=== PATIENT | female | born 1940 | race African-American/Black ===

== ENCOUNTER 2017-08-14 | Inpatient (IN) | payer MEDICARE, OTHER ==
[~2017-08-14] VITALS: Ht 172.7 cm; Wt 186.4 kg
[2017-08-14] VITALS (10 sets, daily range): BP systolic 106–140; BP diastolic 51–69; PULSE 57–88; RESP 17–24; TEMP 96.7–98.4; O2SAT 96–100
[~2017-08-14] MED LIST: ACET325 PO; ATOR40TA PO; CLAR10TA7 PO; DEEP0.65 EACH NARE; DOCU1CAP39 PO; GLIP5 PO; GLUC1KIT IM; HUMA100I SQ; HUMSS SQ; HYDR12.56 PO; KEPP1000 PO; KETO2%T TOP; LEVEMIR SQ; LEVO100T4 PO; LISI2.5T55 PO; MILKSUS5 PO; PHEN100 PO; PLAV75TA PO; ROBISYP PO; [UNRECOGNIZED DRUG - CODE] TOPICAL
[2017-08-14] MEDS ORDERED: levETIRAcetam 1000 MG INJ 100 ML IV ONE (01:15)
--- NOTE | 2017-08-14 01:19 | PD ---
HPI Chief Complaint: Seizure Time Seen by Provider: 01:05 Travel History International Travel<30 days: No Contact w/Intl Traveler<30days: No Traveled to known affect area: No History of Present Illness HPI 77-year-old female was brought in by EMS from local [facility] after having seizure at the facility this evening.. Patient has history of seizure. skilled nursing staff reported patient has been spitting out her Keppra today. Patient is on high dose of Keppra including 1000 mg in the morning and 1500 mg at 4 PM. Patient also has history of diabetes, atrial fibrillation, hypertension, PE. Patient is on Plavix. No reported fever coughing congestion at the facility. No reported vomiting or diarrhea. PFSH Past Medical History Arthritis: Yes Asthma: No Atrial Fibrillation: Yes Blood Disorders: Yes (HX OF PE) Heart Rhythm Problems: Yes (A FIB) Cancer: No Cardiovascular Problems: Yes High Cholesterol: No Chest Pain: No Congestive Heart Failure: No COPD: No Diabetes: Yes Patient Takes Glucophage: No Endocrine: Yes Gastrointestinal Disorders: No Genitourinary: No Hypertension: Yes Immune Disorder: No Implanted Vascular Access Dvce: No Musculoskeletal: Yes Neurologic: Yes (NUMBNESS TINGLING) Psychiatric: No Reproductive: No Respiratory: Yes (H/O 2 PULMONARY EMBOLISMS) Immunizations Current: Yes Sleep Apnea: No Thyroid Disease: No Tetanus Vaccination: Unknown Influenza Vaccination: Yes Menopausal: Yes Past Surgical History Abdominal Surgery: No Cardiac Surgery: No Ear Surgery: No Endocrine Surgery: No Eye Surgery: No Genitourinary Surgery: No Gynecologic Surgery: No Neurologic Surgery: No Oral Surgery: No Pacemaker: No Thoracic Surgery: No Other Surgery: Yes Social History Alcohol Use: No Tobacco Use: No Substance Use: No Allergies-Medications (Allergen,Severity, Reaction): Coded Allergies: No Known Allergies (Verified , 08/14/17) Reported Meds & Prescriptions Reported Meds & Active Scripts Active Bactrim DS (Sulfamethoxazole-Trimethoprim) 800-160 Mg Tab 1 Tab PO BID Keppra (Levetiracetam) 1,000 Mg Tab 1,500 Mg PO DAILY@1600 30 Days Keppra (Levetiracetam) 1,000 Mg Tab 1,000 Mg PO DAILYAC 30 Days Reported [Ketocon/Desoximet Cr] 1 Applic TOPICAL Q12 PRN KETOCONAZOLE 2% CREAM/DESOXIMETASONE APPLY TO BILAT FEET NEEDED Tylenol (Acetaminophen) 325 Mg Tab 650 Mg PO Q6H PRN Claritin (Loratadine) 10 Mg Tab 10 Mg PO DAILY PRN Milk Of Magnesia (Magnesium Hydroxide) 1 Yesenia Yesenia 30 Ml PO DAILY PRN Deep Sea Nasal [place]yhanna (Saline) 0.65 % Spr 1 [place]anna EACH NARE Q12 PRN Nizoral (Ketoconazole) 2 % Cr 1 Applic TOP HS PRN APPLY TO RT BREAST Guaifenesin 100 Mg/5 Ml Syp 10 Ml PO Q6 PRN Levothyroxine 100 mcg (Levothyroxine Sodium) 100 Mcg Tab 100 Mcg PO DAILY Humalog (Insulin Human Lispro) 100 Unit/Ml Inj 7 Units SQ DAILY Levemir Insulin (Insulin Detemir) 100 Units/Ml Inj 5 Units SQ DAILY GIVE AT 1800 Glucagon Emergency Kit (Glucagon (Rdna)) 1 Mg Kit 1 Mg IM PRN Lisinopril 2.5 mg (Lisinopril) 2.5 Mg Tab 2.5 Mg PO DAILY HOLD IF SBP < 100 OR DPB < 60 Hydrochlorothiazide (Miscellaneous Medication) 12.5 Mg Tab 12.5 Mg PO DAILY HOLD IF SBP < 100 OR DBP < 60 Atorvastatin 40 mg (Atorvastatin Calcium) 40 Mg Tab 40 Mg PO HS Dilantin 100 Mg Kapseals (Phenytoin Sodium) 100 Mg Caper 200 Mg PO BID Glipizide 5 Mg Tab 5 Mg PO TIDAC Plavix (Clopidogrel Bisulfate) 75 Mg Tab 75 Mg PO DAILY Colace 100 Mg Cap (Docusate Sodium) 100 Mg Cap 100 Mg PO Q12 PRN Humalog 3 ml vial (Insulin Human Lispro) 100 Units/Ml Inj 0-12 Units SQ TIDACHS PRN SLIDING SCALE: IF CBG < 70MG/DL OR > 400MG/DL NOTIFY IMMEDIATELY, 0-69=O UNITS & NOTIFY MD, 70-200=0 UNITS, 201-250=4 UNITS, 251-300=6 UNITS, 301-350=10 UNITS, 351-400=12 UNITS, > 400=15 UNITS & NOTIFY MD Review of Systems General / Constitutional: No: Fever Eyes: No: Visual changes HENT: No: Headaches Cardiovascular: No: Chest Pain or Discomfort Respiratory: No: Shortness of Breath Gastrointestinal: No: Abdominal Pain Genitourinary: No: Dysuria Musculoskeletal: No: Pain Skin: No Rash Neurologic: No: Weakness Psychiatric: No: Depression Endocrine: No: Polydipsia Hematologic/Lymphatic: No: Easy Bruising Physical Exam Narrative GENERAL: Well-nourished, well-developed patient. SKIN: Focused skin assessment warm/dry. HEAD: Normocephalic. EYES: No scleral icterus. No injection or drainage. NECK: Supple, trachea midline. No JVD or lymphadenopathy. CARDIOVASCULAR: Regular rate and rhythm without murmurs, gallops, or rubs. RESPIRATORY: Breath sounds equal bilaterally. No accessory muscle use. GASTROINTESTINAL: Abdomen soft, non-tender, nondistended. MUSCULOSKELETAL: No cyanosis, or edema. BACK: Nontender without obvious deformity. No CVA tenderness. Neurologic exam: Patient lying in bed not communicating. Data Data Last Documented VS Vital Signs Date Time Temp Pulse Resp B/P (MAP) Pulse Ox O2 Delivery O2 Flow Rate FiO2 08/14/17 01:38 78 22 120/58 (78) 98 Nasal Cannula 2.00 08/14/17 00:13 98.1 Orders Orders Complete Blood Count With Diff (08/14/17 01:11) Basic Metabolic Panel (Bmp) (08/14/17 01:11) Urinalysis - C+S If Indicated (08/14/17 01:11) Magnesium (Mg) (08/14/17 01:11) Phosphorus (Po4) (08/14/17 01:11) Iv Access Insert/Monitor (08/14/17 01:11) Ecg Monitoring (08/14/17 01:11) Oximetry (08/14/17 01:11) Levetiracetam 1000 Mg Inj (Keppra 1000 M (08/14/17 01:15) Urine Culture (08/14/17 02:45) Sulfamet-Trimeth Ds 800-160 Mg (Bactrim (08/14/17 03:30) Lorazepam Inj (Ativan Inj) (08/14/17 03:22) Labs Laboratory Tests Test 08/14/17 01:38 08/14/17 02:45 Blood Urea Nitrogen 12 MG/DL Creatinine 0.87 MG/DL Random Glucose 261 MG/DL Calcium Level 8.4 MG/DL Phosphorus Level 2.5 MG/DL Magnesium Level 1.9 MG/DL Sodium Level 135 MEQ/L Potassium Level 5.0 MEQ/L Chloride Level 102 MEQ/L Carbon Dioxide Level 28.8 MEQ/L Anion Gap 4 MEQ/L Estimat Glomerular Filtration Rate 76 ML/MIN White Blood Count 8.0 TH/MM3 Red Blood Count 3.65 MIL/MM3 Hemoglobin 9.2 GM/DL Hematocrit 30.0 % Mean Corpuscular Volume 82.1 FL Mean Corpuscular Hemoglobin 25.1 PG Mean Corpuscular Hemoglobin Concent 30.6 % Red Cell Distribution Width 20.1 % Platelet Count 210 TH/MM3 Mean Platelet Volume 6.8 FL Neutrophils (%) (Auto) 78.7 % Lymphocytes (%) (Auto) 10.8 % Monocytes (%) (Auto) 10.0 % Eosinophils (%) (Auto) 0.4 % Basophils (%) (Auto) 0.1 % Neutrophils # (Auto) 6.3 TH/MM3 Lymphocytes # (Auto) 0.9 TH/MM3 Monocytes # (Auto) 0.8 TH/MM3 Eosinophils # (Auto) 0.0 TH/MM3 Basophils # (Auto) 0.0 TH/MM3 CBC Comment DIFF FINAL Differential Comment Urine Color YELLOW Urine Turbidity HAZY Urine pH 5.5 Urine Specific [place] 1.021 Urine Protein 100 mg/dL Urine Glucose (UA) 70 mg/dL Urine Ketones NEG mg/dL Urine Occult Blood LARGE Urine Nitrite NEG Urine Bilirubin NEG Urine Urobilinogen 2.0 MG/DL Urine Leukocyte Esterase NEG Urine RBC /hpf Urine WBC 19 /hpf Urine Squamous Epithelial Cells 2 /hpf Urine Bacteria MOD /hpf Urine Hyaline Casts 25 /lpf Urine Granular Casts 23 /lpf Urine Mucus FEW /lpf Microscopic Urinalysis Comment CULTURE INDICATED MDM Medical Decision Making Medical Screen Exam Complete: Yes Emergency Medical Condition: Yes Interpretation(s) 3:12 AM. CBC with WBC 8.0. Hemoglobin 9.2 hematocrit 30.0. 78 neutrophil. BMP within normal limit. Glucose 261. UA positive with WBC and bacteria. Differential Diagnosis Differential diagnosis including breakthrough seizure, electrolyte abnormality. Narrative Course 77-year-old female was brought in by EMS from local half-way for seizure. History of seizure. Patient did not take her medication Keppra today. Keppra 1 g IV given. Rocephin 1 g IV given. Patient had another seizure in the ED. Diagnosis Primary Impression: Breakthrough seizure Additional Impression: UTI (urinary tract infection) Qualified Codes: N30.00 - Acute cystitis without hematuria Patient Instructions: General Instructions Leroy Rubio MD Aug 14, 2017 01:19
[2017-08-14 02:01] LABS: BICARBONATE 28.8 MEQ/L (21.0-32.0); MAGNESIUM 1.9 MG/DL (1.5-2.5)
[2017-08-14 02:59] LABS: AUTOMATED NEUTROPHIL # 6.3 TH/MM3 (1.8-7.7); BASOPHIL % 0.1 % (0.0-2.0); EOSINOPHIL % 0.4 % (0.0-4.0); HEMO FLAGS DIFF FINAL; LYMPH % 10.8 % (9.0-44.0); LYMPHOCYTE # 0.9 TH/MM3 (1.0-4.8); MEAN CELL VOLUME 82.1 FL (80.0-100.0); MEAN CORPUSCULAR HEMOGLOBIN 25.1 PG (27.0-34.0); MEAN CORPUSCULAR HGB CONC 30.6 % (32.0-36.0); NEUT % 78.7 % (16.0-70.0); PLATELET COUNT 210 TH/MM3 (150-450); RED BLOOD COUNT 3.65 MIL/MM3 (4.00-5.30); RED CELL DISTRIBUTION WIDTH 20.1 % (11.6-17.2)
[2017-08-14 03:07] LABS: BACTERIA, URINE MOD /hpf; BLOOD, URINE LARGE (NEG); COMMENT (UR) CULTURE INDICATED; CULTURE IF INDICATED CULTURE INDICATED; GLUCOSE,URINE 70 mg/dL (NEG); GRANULAR CAST, URINE 23 /lpf; HYALINE CAST, URINE 25 /lpf (RARE); KETONE, URINE NEG (NEG); MUCUS URINE FEW /lpf (OCC); NITRITE,URINE NEG (NEG); PH, URINE 5.5 (5.0-8.5); SQUAMOUS EPITHELIAL CELL URINE 2 /hpf (0-5); URINE COLOR YELLOW (YELLW/STRAW)
[2017-08-14] MEDS ORDERED: BACT800T5 PO (03:17)
[2017-08-14] MEDS ORDERED: LORazepam 2 MG/ML VIAL ONE (03:22)
[2017-08-14] MEDS ORDERED: cefTRIAXone INJ 1,000 MG in SODIUM CHLORIDE 0.9% INJ 100 ML IV ONE (03:30)
[2017-08-14] MEDS ORDERED: SULFAMETHOXAZOLE-TRIMETHOPRIM DS 800-160 MG TAB PO ONE (03:30)
[2017-08-14] MEDS ORDERED: LORazepam 2 MG/ML VIAL IV PUSH ONE (03:45)
[2017-08-14] MEDS ORDERED: SENNOSIDES 8.6 MG TAB PO PRN (04:15)
[2017-08-14] MEDS ORDERED: ACETAMINOPHEN 325 MG TAB PO PRN (04:15)
[2017-08-14] MEDS ORDERED: LACTULOSE SYRUP 20 GM/30 ML CUP PO PRN (04:15)
[2017-08-14] MEDS ORDERED: SODIUM CHLORIDE 0.9% FLUSH 10 ML FLUSH IV FLUSH PRN (04:15)
[2017-08-14] MEDS ORDERED: NALOXONE HCL 0.4 MG/ML AMP IV PUSH PRN (04:15)
[2017-08-14] MEDS ORDERED: MAGNESIUM HYDROXIDE SUSP 30 ML CUP PO PRN (04:15)
[2017-08-14] MEDS ORDERED: ONDANSETRON HCL 4 MG/2 ML VIAL IVP PRN (04:15)
[2017-08-14] MEDS ORDERED: GLUCAGON 1 MG/ML VIAL OTHER PRN (04:15)
[2017-08-14] MEDS ORDERED: DEXTROSE 50% IN WATER 50 ML VIAL(D50) IV PUSH PRN (04:15)
[2017-08-14] MEDS ORDERED: BISACODYL 10 MG SUPP RECTAL PRN (04:15)
[2017-08-14] MEDS: INSULIN ASPART SUPPLEMENTAL SCALE SQ SCH ×4 (08:00→21:43)
[2017-08-14] MEDS ORDERED: LEVETIRACETAM 1000 MG PO SCH (08:00)
[2017-08-14] MEDS: LEVOTHYROXINE SODIUM 100 MCG TAB PO SCH (09:32)
[2017-08-14] MEDS: PHENYTOIN SODIUM 100 MG CAP PO SCH ×2 (09:32→21:43)
[2017-08-14] MEDS: DOCUSATE SODIUM 50 MG/SENNA 8.6 MG TAB PO SCH ×2 (09:33→21:43)
[2017-08-14] MEDS: CLOPIDOGREL 75 MG TAB PO SCH (09:33)
[2017-08-14] MEDS: SODIUM CHLORIDE 0.9% FLUSH 10 ML FLUSH IV FLUSH SCH ×2 (09:33→18:32)
--- NOTE | 2017-08-14 12:32 | MB ---
cc: PILLO BROCK M.D. DATE OF CONSULTATION 08/14/2017 REASON FOR CONSULTATION She is a 77-year-old woman seen in neurological consultation in regards to seizures. She is a detention resident apparently for the past three years. She takes Keppra and Dilantin. The Keppra dose appears to be 1000 mg in the morning and 1500 mg in the evening. Dilantin dose is not quite clear as she tells me she is taking two capsules three times a day. Reportedly, she is taking two capsules of 200 mg twice a day here in the hospital. Yesterday, apparently after spitting out her seizure medications, she had a seizure and she was brought to the hospital lethargic. She was given Keppra one gram intravenous along with Rocephin. She has a history of atrial fibrillation, diabetes and morbid obesity. She also has history of pulmonary embolism. MEDICATIONS Medications includes: 1. Insulin 2. Plavix 3. Glipizide 4. Dilantin as above 5. Atorvastatin 6. HCTZ 7. Lisinopril 8. Levothyroxine PHYSICAL EXAM On exam, the patient was asleep, but awakened. She was oriented, knew the name of the place and knows her age and provides some background information. She is not sure as to why she is in the hospital. NEUROLOGIC: Her ocular movements were full. She moves slowly. She is morbidly obese. Visual ornelas full. 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 Muscle stretch reflexes were trace versus absent throughout. LABS Include: Serum WBC 8.0, hemoglobin 9.2, platelets 210. Sodium 135, potassium 5.0, BUN 12, creatinine 0.87, glucose 261, calcium 8.4. Dilantin level 1.2 and it is from the middle of the night. ASSESSMENT Apparent seizure recurrence. Reported poor compliance to the anticonvulsant medications. In the emergency room, she was given Keppra intravenous and her Dilantin was resumed, according to the nursing staff, the patient received 200 mg twice a day. I will order a bolus Dilantin dose due to her low level. Thank you for asking us to assist in her care. I will follow her with you. MD FLOR Nickerson/LOI /12:00 PM /12:16 PM
[2017-08-14] MEDS: LISINOPRIL 5 MG TAB PO SCH (12:39)
[2017-08-14] MEDS: HYDROCHLOROTHIAZIDE 12.5 MG CAP PO SCH (12:39)
[2017-08-14] MEDS ORDERED: SODIUM CHLORID 0.9% 500 ML INJ 500 ML IV SCH (13:00)
[2017-08-14] MEDS ORDERED: PHENYTOIN INJ 1,000 MG in SODIUM CHLORIDE 0.9% INJ 100 ML IV ONE (13:00)
[2017-08-14] MEDS: levETIRAcetam 500 MG TAB PO SCH (16:00)
--- NOTE | 2017-08-14 16:53 | MH ---
cc: ABIMAEL AMEZQUITA MD DATE OF ADMISSION 08/14/2017 DATE OF : [address] Gordon at nursing facility. REASON FOR ADMISSION Seizure. HISTORY OF PRESENT ILLNESS The patient is a 77-year old -[place]ish female with significant past medical history of morbid obesity and seizure disorder. The patient is not taking her medication regularly. The patient is refusing some and taking some and it is confirmed by charge nurse from the nursing facility who is in the room with her at present. As per nurse, she is noncompliant. The patient was brought to the ER because of seizure activity. She was admitted for further management because of the breakthrough seizure. The patient at present is having no complaint. Denies any problem. She usually does not walk. She is bed bound. She just does exercise. She denies any headache, dizziness, nausea, vomiting, chest pain, diaphoresis or palpitations. PAST MEDICAL HISTORY 1. Seizure disorder. 2. Diabetes 3. Atrial fibrillation 4. Hypertension. 5. Pulmonary embolism. MEDICATIONS Reviewed please see MAR. ALLERGIES NO KNOWN DRUG ALLERGIES. REVIEW OF SYSTEMS As described above in History of Present Illness. SOCIAL HISTORY The patient lives in a nursing facility, does not smoke, drink or do any drugs. Also she is wheelchair bound and she is bed bound because of morbid obesity and she does not walk. FAMILY HISTORY Noncontributory. PHYSICAL EXAMINATION GENERAL: The patient is alert and oriented, morbidly obese lying on bed without any apparent distress. VITAL SIGNS: The patient is afebrile, pulse is 56, respiratory rate 18, blood pressure 122/69, pulse ox of 99 on room air. HEENT: Head is atraumatic, normocephalic. Eyes - Negative conjunctivae, no icterus. NECK: Neck is very short because of her obesity. Central trachea. CHEST: Clear to auscultation. CARDIOVASCULAR: S1, S2 audible. Unable to hear any S3 gallop. GI: Abdomen soft, no organomegaly. Positive bowel sounds. MUSCULOSKELETAL: Extremities no cyanosis noted. There is pedal edema. SWITCHER: Alert and oriented. Normal facial features. Moving bilateral upper extremity and can move lower extremity on the bed, but as per patient she cannot walk. The patient has a Sanches catheter. SKIN: Warm and moist. PSYCHIATRIC: Appropriate mood and affect. The patient is morbidly obese. LABORATORY DATA Hemoglobin 9.2. Hematocrit 30, platelet count 210. Sodium 135. Anion gap 4, GFR 76, 261, calcium 8.4. UA shows WBC 19, moderate bacteria. Urine occult blood large, negative nitrates, negative esterase, RBCs innumerable. Dilantin level was 1.2. ASSESSMENT 1. Breakthrough seizures. 2. Urinary tract infection 3. Diabetes 4. History of atrial fibrillation, controlled heart rate. 5. Hypertension. 6. History of pulmonary embolism. PLAN 1. Admit to the floor. 2. Appreciate neurology consult. 3. Antibiotic 4. Antiseizure medication, Keppra and Dilantin. 5. Continue home medication as indicated. The patient is on Plavix 6. Monitor blood pressure. 7. Discussed with the patient about compliance issue in detail in presence of her son. She understood. Further recommendation to follow as per patient progress. Condition guarded, prognosis guarded. Dictation Abimael Ameqzuita MD JP/ /4:20 PM /4:32 PM
--- NOTE | 2017-08-14 21:07 | MG ---
cc: PILLO MCFADDEN M.D. Lab No: Date: 08/14/17 Age: 77 Sex: F Race: REQUESTING Dr. Leija HISTORY An EEG was obtained on this 77-year-old patient being evaluated for seizures. DESCRIPTION The patient is described as awake and drowsy. The EEG shows intermittent artifact but intermittently there are low amplitude beta rhythms diffusely. There is some associated alpha activity. The background is reactive. When the patient awakens there is dominance by alpha rhythms of low amplitude. There is often asleep recording. The tracing is symmetrical and photic stimulation showed no change. Hyperventilation was not performed. INTERPRETATION Normal awake and asleep EEG. Pillo Mcfadden MD OFC/EO /8:34 PM /9:01 PM
[2017-08-14] MEDS: ATORVASTATIN 40 MG TAB PO SCH (21:43)
[2017-08-15] VITALS: BP 107/67; PULSE 68; RESP 16; TEMP 98; O2SAT 97
[2017-08-15 04:00] VITALS: BP 112/63; PULSE 61; RESP 17; TEMP 97.7; O2SAT 98
[2017-08-15] MEDS: LEVOTHYROXINE SODIUM 100 MCG TAB PO SCH (05:08)
[2017-08-15 06:40] LABS: AUTOMATED NEUTROPHIL # 4.9 TH/MM3 (1.8-7.7); BASOPHIL % 0.3 % (0.0-2.0); EOSINOPHIL # 0.1 TH/MM3 (0-0.4); EOSINOPHIL % 1.8 % (0.0-4.0); HEMATOCRIT 32.2 % (35.0-46.0); HEMO FLAGS DIFF FINAL; LYMPH % 22.4 % (9.0-44.0); LYMPHOCYTE # 1.6 TH/MM3 (1.0-4.8); MEAN CELL VOLUME 82.4 FL (80.0-100.0); MEAN CORPUSCULAR HEMOGLOBIN 25.1 PG (27.0-34.0); MEAN CORPUSCULAR HGB CONC 30.4 % (32.0-36.0); MONO % 9.2 % (0.0-8.0); NEUT % 66.3 % (16.0-70.0); PLATELET COUNT 221 TH/MM3 (150-450); RED BLOOD COUNT 3.91 MIL/MM3 (4.00-5.30); RED CELL DISTRIBUTION WIDTH 19.8 % (11.6-17.2); WHITE BLOOD COUNT 7.3 TH/MM3 (4.0-11.0)
[2017-08-15 07:13] LABS: BICARBONATE 32.4 MEQ/L (21.0-32.0); POTASSIUM 4.5 MEQ/L (3.5-5.1)
[2017-08-15] MEDS: PHENYTOIN SODIUM 100 MG CAP PO SCH ×2 (07:58→20:52)
[2017-08-15] MEDS: LISINOPRIL 5 MG TAB PO SCH (07:58)
[2017-08-15] MEDS: CLOPIDOGREL 75 MG TAB PO SCH (07:58)
[2017-08-15] MEDS: DOCUSATE SODIUM 50 MG/SENNA 8.6 MG TAB PO SCH ×3 (07:59→21:00)
[2017-08-15] MEDS: HYDROCHLOROTHIAZIDE 12.5 MG CAP PO SCH (07:59)
[2017-08-15] MEDS: levETIRAcetam 500 MG TAB PO SCH ×2 (07:59→17:35)
[2017-08-15 08:00] VITALS: BP 129/47; PULSE 67; RESP 16; TEMP 98.8; O2SAT 95
[2017-08-15] MEDS: INSULIN ASPART SUPPLEMENTAL SCALE SQ SCH ×4 (08:00→20:53)
[2017-08-15] MEDS: cefTRIAXone INJ 1,000 MG in SODIUM CHLORIDE 0.9% INJ 100 ML IV SCH (08:00)
[2017-08-15] MEDS: SODIUM CHLORIDE 0.9% FLUSH 10 ML FLUSH IV FLUSH SCH ×2 (08:00→20:52)
--- NOTE | 2017-08-15 08:50 | HHI.PR ---
Review/Management Daily Summary 08/15 doing well neuro rivera no seizurwe dph level low after bolus will raise dose to 400 mg bid continue keppra as is Subjective Subjective Comments No acute events reported No headache No chest pain No dyspnea Active Medications Current Medications Medications (Trade) Dose Ordered Sig/Marilee Route Start Time Stop Time Status Last Admin (NS Flush) 2 ml UNSCH PRN IV FLUSH 08/14/17 04:15 (NS Flush) 2 ml BID IV FLUSH 08/14/17 09:00 08/15/17 08:00 (Tylenol) 650 mg Q4H PRN PO 08/14/17 04:15 (Zofran Inj) 4 mg Q6H PRN IVP 08/14/17 04:15 (Narcan Inj) 0.4 mg UNSCH PRN IV PUSH 08/14/17 04:15 (Katiuska-Colace) 1 tab BID PO 08/14/17 09:00 08/15/17 07:59 (Milk Of Magnesia Liq) 30 ml Q12H PRN PO 08/14/17 04:15 (Senokot) 17.2 mg Q12H PRN PO 08/14/17 04:15 (Dulcolax Supp) 10 mg DAILY PRN RECTAL 08/14/17 04:15 (Lactulose Liq) 30 ml DAILY PRN PO 08/14/17 04:15 Ceftriaxone Sodium 1000 mg/ Sodium Chloride 100 ml @ 200 mls/hr Q24H IV 08/15/17 09:00 08/15/17 08:00 (D50w (Vial) Inj) 50 ml UNSCH PRN IV PUSH 08/14/17 04:15 (Glucagon Inj) 1 mg UNSCH PRN OTHER 08/14/17 04:15 (NovoLOG SUPPLEMENTAL SCALE) 1 ACHS SLIDING SCALE SQ 08/14/17 08:00 08/14/17 21:43 (Plavix) 75 mg DAILY PO 08/14/17 09:00 08/15/17 07:58 (Synthroid) 100 mcg DAILY@0700 PO 08/14/17 07:00 08/15/17 05:08 (Lipitor) 40 mg HS PO 08/14/17 21:00 08/14/17 21:43 (Keppra) 1,500 mg DAILY@1600 PO 08/14/17 16:00 08/14/17 16:00 (Prinivil) 2.5 mg DAILY PO 08/14/17 09:00 08/15/17 07:58 (Microzide) 12.5 mg DAILY PO 08/14/17 09:00 08/15/17 07:59 (Keppra) 1,000 mg DAILYAC PO 08/15/17 08:00 08/15/17 07:59 (Pneumovax-23 Inj) 25 mcg ONCE ONCE IM 08/16/17 10:00 08/16/17 10:01 (Flu (Quadrivalent) Vaccine Inj) 0.5 ml ONCE ONCE IM 08/16/17 10:00 08/16/17 10:01 (Dilantin) 200 mg NOW ONCE PO 08/15/17 09:00 08/15/17 09:01 (Dilantin) 400 mg BID PO 08/15/17 21:00 Allergies Allergies Coded Allergies No Known Allergies ([id number]/17) Exam I&O / VS Vital Signs Date Time Temp Pulse Resp B/P (MAP) Pulse Ox O2 Delivery O2 Flow Rate FiO2 08/15/17 08:00 98.8 67 16 129/47 (74) 95 08/15/17 04:00 97.7 61 17 112/63 (79) 98 08/15/17 00:00 98.0 68 16 107/67 (80) 97 08/14/17 20:00 57 08/14/17 20:00 97.5 61 17 118/66 (83) 96 08/14/17 16:00 98.4 58 19 114/60 (78) 97 08/14/17 11:19 96.8 66 18 122/69 (86) 99 08/14/17 10:30 62 Objective Micro and Labs Laboratory Tests Test 08/15/17 05:21 White Blood Count 7.3 Red Blood Count 3.91 Hemoglobin 9.8 Hematocrit 32.2 Mean Corpuscular Volume 82.4 Mean Corpuscular Hemoglobin 25.1 Mean Corpuscular Hemoglobin Concent 30.4 Red Cell Distribution Width 19.8 Platelet Count 221 Mean Platelet Volume 7.1 Neutrophils (%) (Auto) 66.3 Lymphocytes (%) (Auto) 22.4 Monocytes (%) (Auto) 9.2 Eosinophils (%) (Auto) 1.8 Basophils (%) (Auto) 0.3 Neutrophils # (Auto) 4.9 Lymphocytes # (Auto) 1.6 Monocytes # (Auto) 0.7 Eosinophils # (Auto) 0.1 Basophils # (Auto) 0.0 CBC Comment DIFF FINAL Differential Comment Blood Urea Nitrogen 12 Creatinine 0.65 Random Glucose 166 Calcium Level 8.4 Magnesium Level 2.0 Sodium Level 137 Potassium Level 4.5 Chloride Level 100 Carbon Dioxide Level 32.4 Anion Gap 5 Estimat Glomerular Filtration Rate 107 Phenytoin (Dilantin) Level 6.5 Date/Time Source Procedure Growth Status 08/14/17 02:45 Urine Random Urine Urine Culture Pending Worksheet Loi Mcfadden MD Aug 15, 2017 08:50
[2017-08-15] MEDS ORDERED: PHENYTOIN SODIUM 100 MG CAP PO ONE (09:00)
--- NOTE | 2017-08-15 10:14 | HHI.PR ---
Subjective Remarks Patient is feeling better Offering no complaint No seizure No chest pain or palpitations or shortness of breath No nausea vomiting No headache or dizziness No abdominal pain Review of system for 10 point system otherwise unremarkable Objective Objective Results - Vital Signs Date Time Temp Pulse Resp B/P (MAP) Pulse Ox O2 Delivery O2 Flow Rate FiO2 08/15/17 08:00 98.8 67 16 129/47 (74) 95 08/15/17 04:00 97.7 61 17 112/63 (79) 98 08/15/17 00:00 98.0 68 16 107/67 (80) 97 08/14/17 20:00 57 08/14/17 20:00 97.5 61 17 118/66 (83) 96 08/14/17 16:00 98.4 58 19 114/60 (78) 97 08/14/17 11:19 96.8 66 18 122/69 (86) 99 08/14/17 10:30 62 I/O 08/14/17 08/14/17 08/14/17 08/15/17 08/15/17 08/15/17 07:00 15:00 23:00 07:00 15:00 23:00 Intake Total 180 ml 849 ml 240 ml Output Total 200 ml 150 ml Balance 180 ml 649 ml 90 ml Intake Oral 80 ml 240 ml 240 ml IV Total 100 ml 609 ml Output Urine Total 200 ml 150 ml Result Diagram: 08/15/1752008/15/17520 Other Results Laboratory Tests Test 08/15/17 05:21 White Blood Count 7.3 Red Blood Count 3.91 Hemoglobin 9.8 Hematocrit 32.2 Mean Corpuscular Volume 82.4 Mean Corpuscular Hemoglobin 25.1 Mean Corpuscular Hemoglobin Concent 30.4 Red Cell Distribution Width 19.8 Platelet Count 221 Mean Platelet Volume 7.1 Neutrophils (%) (Auto) 66.3 Lymphocytes (%) (Auto) 22.4 Monocytes (%) (Auto) 9.2 Eosinophils (%) (Auto) 1.8 Basophils (%) (Auto) 0.3 Neutrophils # (Auto) 4.9 Lymphocytes # (Auto) 1.6 Monocytes # (Auto) 0.7 Eosinophils # (Auto) 0.1 Basophils # (Auto) 0.0 CBC Comment DIFF FINAL Differential Comment Blood Urea Nitrogen 12 Creatinine 0.65 Random Glucose 166 Calcium Level 8.4 Magnesium Level 2.0 Sodium Level 137 Potassium Level 4.5 Chloride Level 100 Carbon Dioxide Level 32.4 Anion Gap 5 Estimat Glomerular Filtration Rate 107 Phenytoin (Dilantin) Level 6.5 Date/Time Source Procedure Growth Status 08/14/17 02:45 Urine Random Urine Urine Culture Pending Worksheet Physical Exam Physical Exam GENERAL: The patient is alert and oriented, morbidly obese lying on bed without any apparent distress. VITAL SIGNS: Reviewed HEENT: Head is atraumatic, normocephalic. Eyes - Negative conjunctivae, no icterus. NECK: Neck is very short because of her obesity. Central trachea. CHEST: Clear to auscultation. CARDIOVASCULAR: S1, S2 audible. Unable to hear any S3 gallop. GI: Abdomen soft, no organomegaly. Positive bowel sounds. MUSCULOSKELETAL: Extremities no cyanosis noted. There is pedal edema. DRIVER/SALES WORKERS: Alert and oriented. Normal facial features. Moving bilateral upper extremity and can move lower extremity on the bed, but as per patient she cannot walk. The patient has a Sanches catheter. SKIN: Warm and moist. PSYCHIATRIC: Appropriate mood and affect. The patient is morbidly obese. A/P Assessment and Plan 1. Breakthrough seizures. 2. Urinary tract infection 3. Diabetes 4. History of atrial fibrillation, controlled heart rate. 5. Hypertension. 6. History of pulmonary embolism. PLAN 1. Seen on the floor. 2. Appreciate neurology consult and input. 3. Antibiotic 4. Antiseizure medication, Keppra and Dilantin. Dilantin level noted 5. Continue home medication as indicated. The patient is on Plavix 6. Monitor blood pressure. 7. RN called me that patient has questionable pause yesterday. There is no positive strep on the chart. Cardiac consult has been called. Discussed with the patient about compliance issue in detail in presence of her son. She understood. Further recommendation to follow as per patient progress. Condition guarded, prognosis guarded. Kay Marin MD Aug 15, 2017 10:14
--- NOTE | 2017-08-15 12:03 | MB ---
cc: AVIS GUZMAN M.D., JAWED DATE OF CONSULTATION: 08/15/17 HISTORY OF PRESENT ILLNESS I have reviewed hospital records and spoken with the patient. The patient is a 77-year-old black woman I am asked to see for bradycardia and atrial fibrillation. The patient has a seizure disorder and was admitted because of a witnessed seizure. She does not walk because of morbid obesity and is essentially wheelchair bound. She has chronic dyspnea which is unchanged and trace pedal edema. PAST MEDICAL HISTORY 1. Hypertension. 2. Atrial fibrillation. 3. Seizure disorder. 4. Diabetes. 5. Pulmonary embolus per her record although she denies it. 6. Possible noncompliance. 7. Morbid obesity. 8. Prior CVA. SOCIAL HISTORY She lives in a nursing facility and does not smoke or drink but states she is . MEDICATIONS List reviewed. REVIEW OF SYSTEMS Only remarkable for the above and joint pain. Electrocardiogram was not done. Telemetry reveals atrial fibrillation with overall a controlled response particularly during the day. There is some bradycardia when she is sleeping but no significant pauses with all of them being under 3 seconds. Lab work: She is anemic with hematocrit 32.2 which is lower than 2015, potassium 4.5, creatinine is 0.65, glucose mildly elevated. PHYSICAL EXAMINATION VITAL SIGNS: Afebrile, vital signs stable with controlled atrial fibrillation. GENERAL: She is alert and oriented. HEENT: There are no xanthelasma and oropharyngeal mucosa normal. She is morbidly obese. CHEST: Decreased breath sounds, clear. HEART: JVD normal. S1, S2. No definite murmurs or gallops with an irregular rhythm. ABDOMEN: Abdomen is obese and grossly benign. EXTREMITIES: With trace edema but no cyanosis or clubbing. PULSES: Carotids without bruits. Radials 1+. Femorals and pedals not felt because of size. She is not ambulated ASSESSMENT AND PLAN The patient has atrial fibrillation which is overall controlled with some bradycardia during night. There is no indication for pacemaker and I do think her issue is more seizures. She does have multiple medical issues. I would also recommend the followin) If she has not been evaluated for sleep apnea, certainly she should as she is a setup for this. 2) DVT prophylaxis per primary service. 3) She is presently on aspirin and Plavix and I am not sure why she is not on full anticoagulation which would be preferable given her risk factors and particularly if she does have a history of pulmonary embolus. I have nothing more to add and will be available this hospital stay only if needed. All questions were answered. MD GABRIELA Smith/BJF /7:39 AM /11:40 AM
[2017-08-15 13:33] VITALS: BP 101/62; PULSE 65; RESP 18; TEMP 95.3; O2SAT 91
[2017-08-15 16:00] VITALS: BP 120/61; PULSE 62; RESP 18; TEMP 95.3; O2SAT 96
[2017-08-15 19:30] VITALS: BP 125/58; PULSE 70; RESP 18; TEMP 97; O2SAT 97
[2017-08-15] MEDS: ATORVASTATIN 40 MG TAB PO SCH (20:48)
[2017-08-16] VITALS (7 sets, daily range): BP systolic 103–131; BP diastolic 52–59; PULSE 64–71; RESP 17–19; TEMP 95.7–98.4; O2SAT 95–100
[2017-08-16] MEDS: LEVOTHYROXINE SODIUM 100 MCG TAB PO SCH ×2 (06:27→09:20)
[2017-08-16] MEDS: levETIRAcetam 500 MG TAB PO SCH ×2 (08:00→16:14)
[2017-08-16] MEDS: INSULIN ASPART SUPPLEMENTAL SCALE SQ SCH ×4 (08:00→21:36)
[2017-08-16] MEDS: SODIUM CHLORIDE 0.9% FLUSH 10 ML FLUSH IV FLUSH SCH ×2 (09:00→21:35)
[2017-08-16] MEDS: PHENYTOIN SODIUM 100 MG CAP PO SCH ×2 (09:20→21:35)
[2017-08-16] MEDS: cefTRIAXone INJ 1,000 MG in SODIUM CHLORIDE 0.9% INJ 100 ML IV SCH (09:20)
[2017-08-16] MEDS: DOCUSATE SODIUM 50 MG/SENNA 8.6 MG TAB PO SCH ×2 (09:21→21:35)
[2017-08-16] MEDS: HYDROCHLOROTHIAZIDE 12.5 MG CAP PO SCH (09:21)
[2017-08-16] MEDS: LISINOPRIL 5 MG TAB PO SCH (09:21)
[2017-08-16] MEDS: CLOPIDOGREL 75 MG TAB PO SCH (09:21)
[2017-08-16] MEDS ORDERED: INFLUENZA VIRUS VACCINE (QUADRIVALENT) 0.5 ML SYR IM ONE (10:00)
[2017-08-16] MEDS ORDERED: PNEUMOCOCCAL POLYVALENT INJ 25 MCG/0.5 ML SYR IM ONE (10:00)
[2017-08-16] MEDS: HEPARIN SODIUM - SQ 10,000 UNITS/ML VIAL SQ SCH ×2 (12:30→21:35)
--- NOTE | 2017-08-16 13:23 | HHI.PR ---
Subjective Remarks Patient is feeling better Offering no complaint No seizure No chest pain or palpitations or shortness of breath No nausea vomiting No headache or dizziness No abdominal pain Review of system for 10 point system otherwise unremarkable as per rn pt has bleeding from likely vaginal site intermittently Objective Objective Results - Vital Signs Date Time Temp Pulse Resp B/P (MAP) Pulse Ox O2 Delivery O2 Flow Rate FiO2 08/16/17 07:50 97.4 68 18 109/52 (71) 95 08/16/17 07:25 65 08/16/17 04:20 96.8 68 18 113/57 (75) 100 08/16/17 00:20 96.3 64 19 115/56 (75) 100 08/15/17 19:30 97.0 70 18 125/58 (80) 97 08/15/17 16:00 95.3 62 18 120/61 (80) 96 08/15/17 13:33 95.3 65 18 101/62 (75) 91 I/O 08/15/17 08/15/17 08/15/17 08/16/17 08/16/17 08/16/17 07:00 15:00 23:00 07:00 15:00 23:00 Intake Total 240 ml 680 ml 240 ml Output Total 150 ml 300 ml 250 ml Balance 90 ml 380 ml -10 ml Intake Oral 240 ml 680 ml 240 ml Output Urine Total 150 ml 300 ml 250 ml # Bowel Movements 0 2 Result Diagram: 08/15/1752008/15/17520 Other Results Date/Time Source Procedure Growth Status 08/14/17 02:45 Urine Random Urine Urine Culture - Final 50-100,000 CFU/ML MIXED JOYCELYN... Complete Physical Exam Physical Exam GENERAL: The patient is alert and oriented, morbidly obese lying on bed without any apparent distress. VITAL SIGNS: Reviewed HEENT: Head is atraumatic, normocephalic. Eyes - Negative conjunctivae, no icterus. NECK: Neck is very short because of her obesity. Central trachea. CHEST: Clear to auscultation. CARDIOVASCULAR: S1, S2 audible. Unable to hear any S3 gallop. GI: Abdomen soft, no organomegaly. Positive bowel sounds. MUSCULOSKELETAL: Extremities no cyanosis noted. There is pedal edema. 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 Normal facial features. Moving bilateral upper extremity and can move lower extremity on the bed, but as per patient she cannot walk. The patient has a Sanches catheter. SKIN: Warm and moist. PSYCHIATRIC: Appropriate mood and affect. The patient is morbidly obese. urine looks neymar A/P Assessment and Plan 1. Breakthrough seizures. 2. Urinary tract infection 3. Diabetes 4. History of atrial fibrillation, controlled heart rate. 5. Hypertension. 6. History of pulmonary embolism. PLAN 1. Seen on the floor. 2. Appreciate neurology consult and input. 3. Antibiotic 4. Antiseizure medication, Keppra and Dilantin. Dilantin level noted will do it tomorrow 5. Continue home medication as indicated. The patient is on Plavix 6. Monitor blood pressure. 7. josette Cardiac consult. pt isnot on anticoagulant except plavix and asa from [place] for f? reason will defer final anticoagulation to PCP. plan to hold heparin bc of likely vaginal bleeding. plan for marketing support specialist consult Discussed with the patient dw rn MOM for constipatio as pt usually use it and it works better for her Further recommendation to follow as per patient progress. Condition guarded, prognosis guarded. Kay Marin MD Aug 16, 2017 13:23
[2017-08-16 14:06] LABS: BACTERIA, URINE OCC /hpf; BLOOD, URINE SMALL (NEG); COMMENT (UR) CULTURE INDICATED; CULTURE IF INDICATED CULTURE INDICATED; GLUCOSE,URINE NEG (NEG); KETONE, URINE NEG (NEG); MUCUS URINE FEW /lpf (OCC); NITRITE,URINE NEG (NEG); PH, URINE 5.5 (5.0-8.5); URINE COLOR YELLOW (YELLW/STRAW)
--- NOTE | 2017-08-16 19:53 | PD.CONS ---
HPI Chief Complaint Consult requested due to vaginal bleeding Date Seen: Aug 16, 2017 Time Seen: 14:00 Travel History International Travel<30 Days: No Contact w/Intl Traveler<30Days: No Known Affected Area: No History of Present Illness HPI 77-year-old female was admitted to the hospital from the snf due to worsening seizures in a patient with previously no seizure disorder. Patient states that she has been somewhat noncompliant on her medication but that she does become confused. She states that she has no history of postmenopausal bleeding and she relates a normal age of menopause in her 50s. Patient has had 2 prior children both born vaginally. Patient denies ever having a hysterectomy or vaginal or pelvic surgery. Patient states that the nurses here saw all some blood on her pad and assume that she was having vaginal bleeding. Patient is incontinent of both urine and stool and had a indwelling Sanches. History Past Medical History Narrative Medical See previous H&P Morbid obesity Seizure disorder Patient is not ambulatory Obstetric History Obstetric History Spontaneous vaginal delivery 2 Past Surgical History Surgical History: No Previous Surgery Family History Family History: Negative Social History Alcohol Use: No Tobacco Use: No Substance Abuse: No Allergies-Medications (Allergen,Severity, Reaction): Coded Allergies: No Known Allergies (Verified , 08/14/17) Home Meds Active Scripts Levetiracetam (Keppra) 1,000 Mg Tab, 1500 MG PO DAILY@1600 for SZ for 30 Days, TAB Prov:Kay Marin MD 03/28/15 Levetiracetam (Keppra) 1,000 Mg Tab, 1000 MG PO DAILYAC for SZ for 30 Days, TAB Prov:Kay Marin MD 03/28/15 Reported Medications [Ketocon/Desoximet Cr] No Conflict Check, 1 APPLIC TOPICAL Q12 Y for DERMATITIS KETOCONAZOLE 2% CREAM/DESOXIMETASONE APPLY TO BILAT FEET NEEDED 03/26/15 Acetaminophen (Tylenol) 325 Mg Tab, 650 MG PO Q6H Y for GENERALIZED PAIN, TAB 03/26/15 Loratadine (Claritin) 10 Mg Tab, 10 MG PO DAILY Y for ALLERGIES, TAB 03/26/15 Magnesium Hydroxide (Milk Of Magnesia) 1 Yesenia Yesenia, 30 ML PO DAILY Y for CONSTIPATION 03/26/15 Saline (Deep Sea Nasal [place]) 0.65 % Spr, 1 SPRAY EACH NARE Q12 Y for NASAL CONGESTION, SPR 03/26/15 Ketoconazole (Nizoral) 2 % Cr, 1 APPLIC TOP HS Y for DERMATITIS, #15 GM APPLY TO RT BREAST 03/26/15 Guaifenesin (Guaifenesin) 100 Mg/5 Ml Syp, 10 ML PO Q6 Y for COUGH, DEMARCUS 03/26/15 Levothyroxine Sodium (Levothyroxine 100 mcg) 100 Mcg Tab, 100 MCG PO DAILY, TAB 03/26/15 Insulin Human Lispro (Humalog) 100 Unit/Ml Inj, 7 UNITS SQ DAILY 03/26/15 Insulin Detemir (Levemir Insulin) 100 Units/Ml Inj, 5 UNITS SQ DAILY, #10 ML GIVE AT 1800 03/26/15 Glucagon (Rdna) (Glucagon Emergency Kit) 1 Mg Kit, 1 MG IM Y for IF CBG < 60MG/ DL & UNRESPONSIV, KIT 03/26/15 Lisinopril 2.5 mg (Lisinopril 2.5 mg) 2.5 Mg Tab, 2.5 MG PO DAILY, TAB HOLD IF SBP < 100 OR DPB < 60 03/26/15 Miscellaneous (Hydrochlorothiazide) 12.5 Mg Tab, 12.5 MG PO DAILY HOLD IF SBP < 100 OR DBP < 60 03/26/15 Atorvastatin 40 mg (Atorvastatin 40 mg) 40 Mg Tab, 40 MG PO HS, TAB 03/26/15 Phenytoin Sodium (Dilantin 100 Mg Kapseals) 100 Mg Caper, 200 MG PO BID 07/12/13 Glipizide (Glipizide) 5 Mg Tab, 5 MG PO TIDAC, TAB 07/08/13 Clopidogrel Bisulfate (Plavix) 75 Mg Tab, 75 MG PO DAILY, TAB 07/08/13 Docusate Sodium (Colace 100 Mg Cap) 100 Mg Cap, 100 MG PO Q12 Y for CONSTIPATION 03/01/13 INSULIN HUMAN LISPRO 3 ml vial (Humalog 3 ml vial) 100 Units/Ml Inj, 0-12 UNITS SQ TIDACHS Y for SLIDING SCALE SLIDING SCALE: IF CBG < 70MG/DL OR > 400MG/DL NOTIFY IMMEDIATELY, 0-69=O UNITS & NOTIFY MD, 70-200=0 UNITS, 201-250=4 UNITS, 251-300=6 UNITS, 301-350=10 UNITS, 351-400=12 UNITS, > 400=15 UNITS & NOTIFY 08/24/12 Review of Systems HENT: Headaches Cardiovascular: Edema Respiratory: Cough Gastrointestinal: Diarrhea Musculoskeletal: Weakness Physical Exam Vital Signs Date Time Temp Pulse Resp B/P (MAP) Pulse Ox O2 Delivery O2 Flow Rate FiO2 08/16/17 16:00 98.4 65 18 131/58 (82) 98 08/16/17 11:34 98.2 67 18 103/56 (72) 97 08/16/17 07:50 97.4 68 18 109/52 (71) 95 08/16/17 07:25 65 08/16/17 04:20 96.8 68 18 113/57 (75) 100 08/16/17 00:20 96.3 64 19 115/56 (75) 100 Narrative GENERAL: Morbidly obese patient in the bed, able to move upper extremities but very limited movement in the lower extremities. Excoriations on both thighs and inner vaginal area HEAD: Normocephalic and atraumatic. EYES: No scleral icterus. No injection or drainage. ENT: No nasal drainage noted. Mucous membranes pink. Airway patent. NECK: Supple, trachea midline. No JVD. CARDIOVASCULAR: Regular rate and rhythm without murmurs, gallops, or rubs. RESPIRATORY: Breath sounds equal bilaterally. No accessory muscle use. ABDOMEN/GI: Abdomen soft, non-tender, bowel sounds present, no rebound, no guarding very difficult to examine due to the patient's habitus GENITOURINARY: External Genitalia: intact and normal in appearance. Bleeding is noted from the insertion of the Sanches at the urethra cannot see any obvious vaginal bleeding but the examination is extremely limited. Even with multiple assisting personnel I cannot adequately visualize the cervix or the upper extent of the vagina due to the patient's difficult exam. I cannot palpate anything in the pelvis with a bimanual exam BACK: Nontender without obvious deformity. No CVA tenderness. NEUROLOGICAL: Awake and alert. Motor and sensory grossly within normal limits. Five out of 5 muscle strength in all muscle groups. Normal speech. Data Data Orders Orders Heparin Inj (Heparin Inj) (08/16/17 12:30) Phenytoin (Dilantin) (08/16/17 12:22) Phenytoin (Dilantin) (08/17/17 06:00) Urinalysis - C+S If Indicated (08/16/17 13:42) Specimen To Be Collected PRN (08/16/17 13:42) Urine Culture (08/16/17 13:40) Consult Gynecology (08/16/17 ) (Hub Use Only)Inp Phy Cons/Ref (08/16/17 ) Labs Laboratory Tests Test 08/16/17 13:40 08/16/17 14:38 Urine Color YELLOW Urine Turbidity CLEAR Urine pH 5.5 Urine Specific [place] 1.016 Urine Protein NEG Urine Glucose (UA) NEG Urine Ketones NEG Urine Occult Blood SMALL Urine Nitrite NEG Urine Bilirubin NEG Urine Urobilinogen LESS THAN 2.0 Urine Leukocyte Esterase LARGE Urine RBC 5 Urine WBC 11 Urine Bacteria OCC Urine Mucus FEW Microscopic Urinalysis Comment CULTURE INDICATED Phenytoin (Dilantin) Level 5.2 Date/Time Source Procedure Growth Status 08/16/17 13:40 Urine Clean Catch Urine Culture Pending Received Laboratory Tests Test 08/15/17 05:21 08/16/17 13:40 08/16/17 14:38 White Blood Count 7.3 TH/MM3 Red Blood Count 3.91 MIL/MM3 Hemoglobin 9.8 GM/DL Hematocrit 32.2 % Mean Corpuscular Volume 82.4 FL Mean Corpuscular Hemoglobin 25.1 PG Mean Corpuscular Hemoglobin Concent 30.4 % Red Cell Distribution Width 19.8 % Platelet Count 221 TH/MM3 Mean Platelet Volume 7.1 FL Neutrophils (%) (Auto) 66.3 % Lymphocytes (%) (Auto) 22.4 % Monocytes (%) (Auto) 9.2 % Eosinophils (%) (Auto) 1.8 % Basophils (%) (Auto) 0.3 % Neutrophils # (Auto) 4.9 TH/MM3 Lymphocytes # (Auto) 1.6 TH/MM3 Monocytes # (Auto) 0.7 TH/MM3 Eosinophils # (Auto) 0.1 TH/MM3 Basophils # (Auto) 0.0 TH/MM3 CBC Comment DIFF FINAL Differential Comment Blood Urea Nitrogen 12 MG/DL Creatinine 0.65 MG/DL Random Glucose 166 MG/DL Calcium Level 8.4 MG/DL Magnesium Level 2.0 MG/DL Sodium Level 137 MEQ/L Potassium Level 4.5 MEQ/L Chloride Level 100 MEQ/L Carbon Dioxide Level 32.4 MEQ/L Anion Gap 5 MEQ/L Estimat Glomerular Filtration Rate 107 ML/MIN Phenytoin (Dilantin) Level 6.5 MCG/ML 5.2 MCG/ML Urine Color YELLOW Urine Turbidity CLEAR Urine pH 5.5 Urine Specific [place] 1.016 Urine Protein NEG mg/dL Urine Glucose (UA) NEG mg/dL Urine Ketones NEG mg/dL Urine Occult Blood SMALL Urine Nitrite NEG Urine Bilirubin NEG Urine Urobilinogen LESS THAN 2.0 MG/DL Urine Leukocyte Esterase LARGE Urine RBC 5 /hpf Urine WBC 11 /hpf Urine Bacteria OCC /hpf Urine Mucus FEW /lpf Microscopic Urinalysis Comment CULTURE INDICATED Laboratory Tests Test 08/16/17 13:40 08/16/17 14:38 Urine Color YELLOW Urine Turbidity CLEAR Urine pH 5.5 Urine Specific [place] 1.016 Urine Protein NEG Urine Glucose (UA) NEG Urine Ketones NEG Urine Occult Blood SMALL Urine Nitrite NEG Urine Bilirubin NEG Urine Urobilinogen LESS THAN 2.0 Urine Leukocyte Esterase LARGE Urine RBC 5 Urine WBC 11 Urine Bacteria OCC Urine Mucus FEW Microscopic Urinalysis Comment CULTURE INDICATED Phenytoin (Dilantin) Level 5.2 Date/Time Source Procedure Growth Status 08/16/17 13:40 Urine Clean Catch Urine Culture Pending Received MDM Plan 77-year-old patient with bleeding from somewhere in the pelvis, although I can see trauma at the urethra from the Sanhces catheter that is actively oozing I cannot see any active vaginal bleeding due to the difficulties in the examination Would recommend a transvaginal ultrasound to assess the internal pelvic organs Admitting diagnosis: breakthrough seizure. UTI. Patient Instructions: General Instructions Additional Instructions: Take Keppra as directed. Bactrim DS as directed. Follow-up with personal physician. Return as needed. Nicole Damian MD Aug 16, 2017 19:52
[2017-08-16] MEDS: ATORVASTATIN 40 MG TAB PO SCH (21:33)
[2017-08-17] VITALS (7 sets, daily range): BP systolic 90–115; BP diastolic 41–58; PULSE 52–75; RESP 16–19; TEMP 95.2–96.4; O2SAT 95–100
[2017-08-17] MEDS: INSULIN ASPART SUPPLEMENTAL SCALE SQ SCH ×4 (08:00→19:53)
[2017-08-17] MEDS: LISINOPRIL 5 MG TAB PO SCH (09:00)
[2017-08-17] MEDS: HYDROCHLOROTHIAZIDE 12.5 MG CAP PO SCH (09:00)
[2017-08-17] MEDS: HEPARIN SODIUM - SQ 10,000 UNITS/ML VIAL SQ SCH ×2 (09:08→19:53)
[2017-08-17] MEDS: SODIUM CHLORIDE 0.9% FLUSH 10 ML FLUSH IV FLUSH SCH ×2 (09:08→20:00)
[2017-08-17] MEDS: cefTRIAXone INJ 1,000 MG in SODIUM CHLORIDE 0.9% INJ 100 ML IV SCH (09:08)
[2017-08-17] MEDS: levETIRAcetam 500 MG TAB PO SCH ×2 (09:09→17:57)
[2017-08-17] MEDS: DOCUSATE SODIUM 50 MG/SENNA 8.6 MG TAB PO SCH ×2 (09:09→19:52)
[2017-08-17] MEDS: CLOPIDOGREL 75 MG TAB PO SCH (09:10)
[2017-08-17] MEDS: PHENYTOIN SODIUM 100 MG CAP PO SCH ×2 (09:12→19:52)
[2017-08-17] MEDS ORDERED: PHENYTOIN SODIUM 100 MG CAP PO ONE (10:00)
--- NOTE | 2017-08-17 10:00 | HHI.PR ---
Subjective Remarks Patient is feeling better Offering no complaint No seizure No chest pain or palpitations or shortness of breath No nausea vomiting No headache or dizziness No abdominal pain Review of system for 10 point system otherwise unremarkable as per rn pt has bleeding from likely vaginal site intermittently has perineal area bleeding yesterday Objective Objective Results - Vital Signs Date Time Temp Pulse Resp B/P (MAP) Pulse Ox O2 Delivery O2 Flow Rate FiO2 08/17/17 04:00 96.3 75 17 96/41 (59) 98 08/17/17 00:00 96.3 54 16 105/53 (70) 96 08/16/17 19:00 95.7 71 17 123/59 (80) 99 08/16/17 16:00 98.4 65 18 131/58 (82) 98 08/16/17 11:34 98.2 67 18 103/56 (72) 97 I/O 08/16/17 08/16/17 08/16/17 08/17/17 08/17/17 08/17/17 07:00 15:00 23:00 07:00 15:00 23:00 Intake Total 960 ml 480 ml 480 ml Output Total 600 ml 350 ml 600 ml Balance 360 ml 130 ml -120 ml Intake Oral 960 ml 480 ml 480 ml Output Urine Total 600 ml 350 ml 600 ml # Voids 0 # Bowel Movements 3 0 0 Result Diagram: 08/15/1752008/15/17 05 Other Results Laboratory Tests Test 08/16/17 13:40 08/16/17 14:38 08/17/17 07:08 Urine Color YELLOW Urine Turbidity CLEAR Urine pH 5.5 Urine Specific [place] 1.016 Urine Protein NEG Urine Glucose (UA) NEG Urine Ketones NEG Urine Occult Blood SMALL Urine Nitrite NEG Urine Bilirubin NEG Urine Urobilinogen LESS THAN 2.0 Urine Leukocyte Esterase LARGE Urine RBC 5 Urine WBC 11 Urine Bacteria OCC Urine Mucus FEW Microscopic Urinalysis Comment CULTURE INDICATED Phenytoin (Dilantin) Level 5.2 6.7 Date/Time Source Procedure Growth Status 08/16/17 13:40 Urine Clean Catch Urine Culture Pending Received Physical Exam Physical Exam GENERAL: The patient is alert and oriented, morbidly obese lying on bed without any apparent distress. VITAL SIGNS: Reviewed HEENT: Head is atraumatic, normocephalic. Eyes - Negative conjunctivae, no icterus. NECK: Neck is very short because of her obesity. Central trachea. CHEST: Clear to auscultation. CARDIOVASCULAR: S1, S2 audible. Unable to hear any S3 gallop. GI: Abdomen soft, no organomegaly. Positive bowel sounds. MUSCULOSKELETAL: Extremities no cyanosis noted. There is pedal edema. 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 Normal facial features. Moving bilateral upper extremity and can move lower extremity on the bed, but as per patient she cannot walk. The patient has a Sanches catheter. SKIN: Warm and moist. PSYCHIATRIC: Appropriate mood and affect. The patient is morbidly obese. urine looks neymar A/P Assessment and Plan 1. Breakthrough seizures. 2. Urinary tract infection 3. Diabetes 4. History of atrial fibrillation, controlled heart rate. 5. Hypertension. 6. History of pulmonary embolism. PLAN 1. Seen on the floor. 2. Appreciate neurology consult and input. 3. Antibiotic 4. Antiseizure medication, Keppra and Dilantin. Dilantin level noted will do it tomorrow, extra dilantin today 5. Continue home medication as indicated. The patient is on Plavix 6. Monitor blood pressure. 7. josette Cardiac consult. pt isnot on anticoagulant except plavix and asa from [place] for f? reason will defer final anticoagulation to PCP. plan to hold heparin bc of likely vaginal bleeding. josette space and missile operations spacelift consult. us report reviewed Discussed with the patient dw Kay Amaya MD Aug 17, 2017 10:00
--- NOTE | 2017-08-17 12:20 | RADRPT ---
EXAM DATE/TIME: 08/17/2017 09:55 [facility] COMPARISON: No previous studies available for comparison. INDICATIONS : Possible uterine bleeding. MEDICAL HISTORY : Arthritis. Hypertension. Afib. Diabetes. Seizues. Pulmonary embolism. Morbid obesity. SURGICAL HISTORY : Orthopedic surgery, right ankle. ENCOUNTER: Initial ACUITY: 2 days PAIN SCORE: 0/10 LOCATION: Bilateral pelvis MEASUREMENTS: UTERUS: 10.1 x 5.3 x 4.6 cm ENDOMETRIAL STRIPE: 4 mm RIGHT OVARY: 2.6 x 2.9 x 1.6 cm LEFT OVARY: Non visualized FINDINGS: UTERUS: Uterus is poorly visualized given the under distention of the urinary bladder and patient body habitu s. The uterus is mildly enlarged but no mass is appreciated. Endometrium is not well visualized but t he visualized portion is normal in thickness. RIGHT OVARY: There is a simple cystic lesion in the right ovary measuring up to 2.1 cm. LEFT OVARY: Not visualized. No adnexal mass is seen. MISCELLANEOUS: No free fluid. CONCLUSION: 1. Less than optimal examination secondary to under distention of the urinary bladder. Patient declin ed transvaginal ultrasound at this time. Therefore, uterus and endometrium are not well evaluated. Ho wever, no abnormality is seen to explain the clinical findings. 2. There is a simple cystic lesion in the right ovary measuring up to 2.1 cm. Since the patient is po stmenopausal suggest attention to this at followup imaging. Hans Sullivan MD on August 17, 2017 at 12:16 Board Certified Radiologist. This report was verified electronically.
[2017-08-17] MEDS: ATORVASTATIN 40 MG TAB PO SCH (19:52)
[2017-08-18 01:02] VITALS: BP 148/77; PULSE 99; RESP 18; TEMP 97.2; O2SAT 98
[2017-08-18 03:20] VITALS: BP 96/57; PULSE 77; RESP 18; TEMP 96.6; O2SAT 96
[2017-08-18] MEDS: LEVOTHYROXINE SODIUM 100 MCG TAB PO SCH (05:39)
[2017-08-18 07:48] VITALS: BP 109/53; PULSE 68; RESP 21; TEMP 95.3; O2SAT 100
[2017-08-18] MEDS: INSULIN ASPART SUPPLEMENTAL SCALE SQ SCH ×2 (08:00→16:24)
[2017-08-18] MEDS: DOCUSATE SODIUM 50 MG/SENNA 8.6 MG TAB PO SCH (09:00)
--- NOTE | 2017-08-18 09:05 | HHI.PR ---
CAMERA MAKER Note Note Ultrasound images and impressions reviewed with Dr. Alvarenga (see below). Ultrasound showing small ovarian cyst unlikely to be contributing to bleeding. Based on history and exam by Dr. Damian, likely etiology is traumatic Sanches insertion. CAMERA MAKER to sign off, please re-consult if needed. Thank you for the opportunity to assist in the care of Ms. Barreto. dw Dr. Alvarenga Pelvis Ultrasound 08/17/17 0000 Signed Impressions: Service Date/Time: Thursday, August 17, 2017 09:55 - CONCLUSION: 1. Less than optimal examination secondary to under distention of the urinary bladder. Patient declined transvaginal ultrasound at this time. Therefore, uterus and endometrium are not well evaluated. However, no abnormality is seen to explain the clinical findings. 2. There is a simple cystic lesion in the right ovary measuring up to 2.1 cm. Since the patient is postmenopausal suggest attention to this at followup imaging. MD Jed Winters Cory S MD R2 Aug 18, 2017 09:05
--- NOTE | 2017-08-18 09:31 | HHI.PR ---
Subjective Remarks Patient is feeling better Offering no complaint No seizure No chest pain or palpitations or shortness of breath No nausea vomiting No headache or dizziness No abdominal pain Review of system for 10 point system otherwise unremarkable as per rn pt has no more bleeding from likely perineal Objective Objective Results - Vital Signs Date Time Temp Pulse Resp B/P (MAP) Pulse Ox O2 Delivery O2 Flow Rate FiO2 08/18/17 07:48 95.3 68 21 109/53 (71) 100 08/18/17 03:20 96.6 77 18 96/57 (70) 96 08/17/17 23:59 96.4 64 18 92/41 (58) 97 08/17/17 20:39 96.4 62 19 102/55 (71) 95 08/17/17 16:00 95.2 52 18 114/56 (75) 100 08/17/17 11:30 95.3 68 18 115/58 (77) 99 I/O 08/17/17 08/17/17 08/17/17 08/18/17 08/18/17 08/18/17 07:00 15:00 23:00 07:00 15:00 23:00 Intake Total 480 ml 660 ml 480 ml 360 ml Output Total 600 ml 500 ml 325 ml 625 ml Balance -120 ml 160 ml 155 ml -265 ml Intake Oral 480 ml 660 ml 480 ml 360 ml Output Urine Total 600 ml 500 ml 325 ml 625 ml # Voids 0 # Bowel Movements 0 1 0 0 Result Diagram: 08/15/1752008/15/17 0521 Other Results Laboratory Tests Test 08/18/17 05:37 Phenytoin (Dilantin) Level 9.9 Date/Time Source Procedure Growth Status 08/16/17 13:40 Urine Clean Catch Urine Culture - Preliminary <10,000 CFU/ML GRAM NEGATIVE NIKHIL Resulted Physical Exam Physical Exam GENERAL: The patient is alert and oriented, morbidly obese lying on bed without any apparent distress. VITAL SIGNS: Reviewed HEENT: Head is atraumatic, normocephalic. Eyes - Negative conjunctivae, no icterus. NECK: Neck is very short because of her obesity. Central trachea. CHEST: Clear to auscultation. CARDIOVASCULAR: S1, S2 audible. Unable to hear any S3 gallop. GI: Abdomen soft, no organomegaly. Positive bowel sounds. MUSCULOSKELETAL: Extremities no cyanosis noted. There is pedal edema. 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 Normal facial features. Moving bilateral upper extremity and can move lower extremity on the bed, but as per patient she cannot walk. The patient has a Sanches catheter. SKIN: Warm and moist. PSYCHIATRIC: Appropriate mood and affect. The patient is morbidly obese. urine looks neymar A/P Assessment and Plan 1. Breakthrough seizures. 2. Urinary tract infection 3. Diabetes 4. History of atrial fibrillation, controlled heart rate. 5. Hypertension. 6. History of pulmonary embolism. PLAN 1. Seen on the floor. 2. Appreciate neurology consult and input. 3. Antibiotic 4. Antiseizure medication, Keppra and Dilantin. Dilantin level noted will do it tomorrow, extra dilantin today 5. Continue home medication as indicated. The patient is on Plavix 6. Monitor blood pressure. 7. josette Cardiac consult. pt isnot on anticoagulant except plavix and asa from [place] for f? reason will defer final anticoagulation to PCP. plan to hold heparin bc of likely vaginal bleeding. josette vp ad products and planning consult. us report reviewed. LACQUER SHADER input appreciated. Plan to discharge her back to her facility. Discussed with the patient dw Kay Amaya MD Aug 18, 2017 09:31
[2017-08-18] MEDS ORDERED: DILA100C PO (09:34)
[2017-08-18] MEDS ORDERED: CEFU1TAB42 PO (09:34)
[2017-08-18] MEDS: CLOPIDOGREL 75 MG TAB PO SCH (09:57)
[2017-08-18] MEDS: HYDROCHLOROTHIAZIDE 12.5 MG CAP PO SCH (09:57)
[2017-08-18] MEDS: LISINOPRIL 5 MG TAB PO SCH (09:58)
[2017-08-18] MEDS: PHENYTOIN SODIUM 100 MG CAP PO SCH (09:58)
[2017-08-18] MEDS: levETIRAcetam 500 MG TAB PO SCH ×2 (09:58→16:22)
[2017-08-18] MEDS: HEPARIN SODIUM - SQ 10,000 UNITS/ML VIAL SQ SCH (09:59)
[2017-08-18] MEDS: cefTRIAXone INJ 1,000 MG in SODIUM CHLORIDE 0.9% INJ 100 ML IV SCH (10:06)
[2017-08-18] MEDS: SODIUM CHLORIDE 0.9% FLUSH 10 ML FLUSH IV FLUSH SCH (10:06)
[2017-08-18 11:35] VITALS: BP 118/58; PULSE 75; RESP 21; TEMP 96.3; O2SAT 96
== END 2017-08-18 19:59 | DRG 101 ==
LOC: NEPC → NEDA 03:59 → N06A 04:51
PROVIDERS: ADMIT Specialist; ATTEND Specialist
DX: G40.909 Epilepsy, unspecified, not intractable, without status epilepticus (principal); I48.91 Unspecified atrial fibrillation; E11.9 Type 2 diabetes mellitus without complications; N30.00 Acute cystitis without hematuria; Z68.44 Body mass index [BMI] 60.0-69.9, adult; I10 Essential (primary) hypertension; E66.01 Morbid (severe) obesity due to excess calories; Z86.711 Personal history of pulmonary embolism; Z86.73 Personal history of transient ischemic attack (TIA), and cerebral infarction without residual deficits; Z91.14 Patient's other noncompliance with medication regimen; Z99.3 Dependence on wheelchair
CPT/HCPCS: 76856; 76937; 80048; 80185; 81001; 82948; 83735; 84100; 85025; 87086; 90471; 90732; 95819; 96365; 96375; G0009; J0696; J1165; J1644; J1815; J1953; J2060; J7040

== ENCOUNTER 2017-10-08 16:37 | Inpatient (IN) | payer MEDICARE, OTHER ==
[~2017-10-08] VITALS: Ht 165.1 cm; Wt 218.2 kg
[~2017-10-08 16:37] MED LIST changes: +CEFU1TAB18 PO; +DILA100C PO; -PHEN100 PO
[2017-10-08] MEDS ORDERED: SODIUM CHLORIDE 0.9% FLUSH 10 ML FLUSH IV FLUSH PRN ×2 (17:00→20:15)
[2017-10-08] MEDS ORDERED: LORazepam 2 MG/ML VIAL IV PUSH ONE (17:15)
--- NOTE | 2017-10-08 17:17 | RADRPT ---
EXAM DATE/TIME: 10/08/2017 17:03 [facility] COMPARISON: CHEST SINGLE AP, March 26, 2015, 15:30. INDICATIONS : Syncope MEDICAL HISTORY : Arthritis. Hypertension. Afib. Diabetes. Seizues. Pulmonary embolism. Morbid obesity. SURGICAL HISTORY : Orthopedic surgery, right ankle. ENCOUNTER: Initial ACUITY: 1 day PAIN SCORE: Non-responsive. LOCATION: chest FINDINGS: Examination is somewhat limited due to patient positioning. There are no new focal pleural or parench ymal opacities. Diffuse interstitial prominence is likely technical. Cardiomediastinal contours are w ithin normal limits given portable technique. Bony thorax is grossly intact. CONCLUSION: 1. Limited examination with mild diffuse interstitial prominence, likely technical. Differential cons iderations include mild positive fluid balance. 2. Otherwise, negative portable chest. Carroll Kim MD on October 08, 2017 at 17:14 Board Certified Radiologist. This report was verified electronically.
--- NOTE | 2017-10-08 17:42 | PD ---
HPI Chief Complaint: Altered Mental Status Time Seen by Provider: 16:53 Travel History International Travel<30 days: No Contact w/Intl Traveler<30days: No History of Present Illness HPI 77-year-old female with PMH of A. fib, CAD, vaginal bleeding, CVA, bradycardia on Plavix presents to the ED via EMS from her rehabilitation. According to EMS report the patient was found altered. Unknown when the last time the patient was normal. On presentation the patient is combative, alert, oriented only to self. She is unable to provide any meaningful history. She was placed in soft restraints. PFSH Past Medical History Arthritis: Yes Asthma: No Atrial Fibrillation: Yes Blood Disorders: Yes (HX OF PE) Heart Rhythm Problems: Yes (A FIB) Cancer: No Cardiovascular Problems: Yes High Cholesterol: No Chest Pain: No Congestive Heart Failure: No COPD: No Diabetes: Yes Endocrine: Yes Gastrointestinal Disorders: No Genitourinary: No Hypertension: Yes Immune Disorder: No Implanted Vascular Access Dvce: No Musculoskeletal: Yes Neurologic: Yes (NUMBNESS TINGLING) Psychiatric: No Reproductive: No Respiratory: No Immunizations Current: Yes Sleep Apnea: No Thyroid Disease: No Menopausal: Yes Past Surgical History Abdominal Surgery: No Cardiac Surgery: No Ear Surgery: No Endocrine Surgery: No Eye Surgery: No Genitourinary Surgery: No Gynecologic Surgery: No Neurologic Surgery: No Oral Surgery: No Pacemaker: No Thoracic Surgery: No Other Surgery: Yes Social History Alcohol Use: No Tobacco Use: No Substance Use: No Allergies-Medications (Allergen,Severity, Reaction): Coded Allergies: No Known Allergies (Verified , 08/14/17) Reported Meds & Prescriptions Reported Meds & Active Scripts Active Reported Risperdal (Risperidone) 1 Mg Tab 1 Mg PO TID Lipitor (Atorvastatin Calcium) 40 Mg Tab 40 Mg PO HS Lisinopril 2.5 Mg Tab 2.5 Mg PO DAILY Hydrochlorothiazide 12.5 Mg Cap 12.5 Mg PO DAILY Levetiracetam Liq (Levetiracetam) 500 Mg/5 Ml Soln 1,500 Mg PO DAILY Glipizide 5 Mg Tab 5 Mg PO TID Take 30 minutes before a meal Levothyroxine (Levothyroxine Sodium) 125 Mcg Tab 125 Mcg PO DAILY Trazodone (Trazodone HCl) 150 Mg Tablet 150 Mg PO HS Humalog Inj (Insulin Human Lispro) 1,000 Unit/10 Ml Vial 7 Units SQ DAILY Levemir Inj (Insulin Detemir) 1,000 unit/ 10 ML Vial 8 Units SQ DAILY Do not mix with any other Insulin. Humalog Inj (Insulin Human Lispro) 1,000 Unit/10 Ml Vial 2-12 Units SQ ACHS Max dose at bedtime:( )units; sugars < 70,(0)units; sugars 150-199,(2)units; sugars 200-249,(4)units; sugars 250-299,(7)units; sugars 300-349,(10)units; sugars more than 349,(12)units. Plavix (Clopidogrel Bisulfate) 75 Mg Tab 75 Mg PO DAILY Review of Systems Except as stated in HPI: all other systems reviewed are Neg Physical Exam Narrative GENERAL: Morbidly obese black female in no acute distress.. SKIN: Focused skin assessment warm/dry. Powder and ointment in multiple skin folds. HEAD: Normocephalic. EYES: No scleral icterus. No injection or drainage. NECK: Supple, trachea midline. No JVD or lymphadenopathy. CARDIOVASCULAR: Regular rate and rhythm without murmurs, gallops, or rubs. RESPIRATORY: Breath sounds clear and equal bilaterally. No accessory muscle use. GASTROINTESTINAL: Abdomen protuberant, soft, nontender, nondistended. GENITOURINARY: Normal external genitalia without lesions or erythema. Large clot noted at the vaginal introitus. MUSCULOSKELETAL: No cyanosis, or edema. BACK: No obvious deformity. No CVA tenderness. Data Data Last Documented VS Vital Signs Date Time Temp Pulse Resp B/P (MAP) Pulse Ox O2 Delivery O2 Flow Rate FiO2 10/08/17 17:45 98.7 65 18 123/60 (81) 98 Room Air Orders Orders Electrocardiogram (10/08/17 16:53) Ammonia (10/08/17 16:53) Complete Blood Count With Diff (10/08/17 16:53) Comprehensive Metabolic Panel (10/08/17 16:53) Creatine Kinase (Cpk) (10/08/17 16:53) Prothrombin Time / Inr (Pt) (10/08/17 16:53) Act Partial Throm Time (Ptt) (10/08/17 16:53) Troponin I (10/08/17 16:53) Thyroid Stimulating Hormone (10/08/17 16:53) Urinalysis - C+S If Indicated (10/08/17 16:53) Lactic Acid Sepsis Protocol (10/08/17 16:53) Blood Culture (10/08/17 16:53) Chest, Single Ap (10/08/17 16:53) Ct Brain W/O Iv Contrast(Rout) (10/08/17 16:53) Blood Glucose (10/08/17 16:53) Ecg Monitoring (10/08/17 16:53) Iv Access Insert/Monitor (10/08/17 16:53) Cath For Specimen (10/08/17 16:53) Oximetry (10/08/17 16:53) Sodium Chloride 0.9% Flush (Ns Flush) (10/08/17 17:00) Drug Screen, Random Urine (10/08/17 16:53) Alcohol (Ethanol) (10/08/17 16:53) Tylenol (Acetaminophen) (10/08/17 16:53) Salicylates (Aspirin) (10/08/17 16:53) Restraints Non-Violent ZAY.Q3H (10/08/17 16:53) Lorazepam Inj (Ativan Inj) (10/08/17 17:15) Sodium Chlor 0.9% 1000 Ml Inj (Ns 1000 M (10/08/17 19:45) Sodium Polysty Sulfate Liq (Kayexalate L (10/08/17 20:00) Calcium Gluconate Inj (Calcium Gluconate (10/08/17 20:00) Type And Screen (10/08/17 19:48) Admit Order (Ed Use Only) (10/08/17 20:05) Labs Laboratory Tests Test 10/08/17 18:00 10/08/17 18:47 White Blood Count 5.6 TH/MM3 Red Blood Count 3.67 MIL/MM3 Hemoglobin 9.5 GM/DL Hematocrit 29.6 % Mean Corpuscular Volume 80.6 FL Mean Corpuscular Hemoglobin 26.0 PG Mean Corpuscular Hemoglobin Concent 32.2 % Red Cell Distribution Width 21.0 % Platelet Count 83 TH/MM3 Mean Platelet Volume 9.0 FL Neutrophils (%) (Auto) 70.2 % Lymphocytes (%) (Auto) 23.5 % Monocytes (%) (Auto) 5.4 % Eosinophils (%) (Auto) 0.6 % Basophils (%) (Auto) 0.3 % Neutrophils # (Auto) 3.9 TH/MM3 Lymphocytes # (Auto) 1.3 TH/MM3 Monocytes # (Auto) 0.3 TH/MM3 Eosinophils # (Auto) 0.0 TH/MM3 Basophils # (Auto) 0.0 TH/MM3 CBC Comment AUTO DIFF Differential Comment AUTO DIFF CONFIRMED Platelet Estimate LOW Platelet Morphology Comment NORMAL Prothrombin Time 13.0 SEC Prothromb Time International Ratio 1.3 RATIO Activated Partial Thromboplast Time 39.9 SEC Blood Urea Nitrogen 34 MG/DL Creatinine 2.48 MG/DL Random Glucose 148 MG/DL Total Protein 8.5 GM/DL Albumin 2.4 GM/DL Calcium Level 8.2 MG/DL Alkaline Phosphatase 345 U/L Aspartate Amino Transf (AST/SGOT) 78 U/L Alanine Aminotransferase (ALT/SGPT) 29 U/L Total Bilirubin 0.4 MG/DL Sodium Level 134 MEQ/L Potassium Level 5.5 MEQ/L Chloride Level 98 MEQ/L Carbon Dioxide Level 29.2 MEQ/L Anion Gap 7 MEQ/L Estimat Glomerular Filtration Rate 23 ML/MIN Lactic Acid Level 1.7 mmol/L Total Creatine Kinase 65 U/L Troponin I LESS THAN 0.02 NG/ML Thyroid Stimulating Hormone 3rd Gen 23.700 uIU/ML Salicylates Level LESS THAN 1.7 MG/DL Acetaminophen Level LESS THAN 2.0 MCG/ML Ethyl Alcohol Level LESS THAN 3 MG/DL Ammonia 27 MCMOL/L [facility] Medical Decision Making Medical Screen Exam Complete: Yes Emergency Medical Condition: Yes Differential Diagnosis UTI versus PNA versus metabolic derangement versus anemia versus other Narrative Course 77-year-old female with PMH of A. fib, CAD, vaginal bleeding, CVA, bradycardia on Plavix presents to the ED via EMS from her rehabilitation. According to EMS report the patient was found altered. Unknown when the last time the patient was normal. On presentation the patient is combative, alert, oriented only to self. She is unable to provide any meaningful history. She was placed in soft restraints. His vitals reviewed. Physical exam reveals a morbidly obese black female in no acute distress. Chest CTA B. Abdomen soft and nontender. She does have clots visible in the vaginal introitus. Exam somewhat limited by the patient's body habitus. IV was established. She was administered a liter of normal saline. EKG rate 43, A. fib. No acute ST changes. Reviewed by Dr. Fermin CBC: WBC 5.6, hemoglobin 9.5. Hematocrit 29.6. INR 1.3. CMP: Potassium 5.5. BUN 34, creatinine 2.48. Cardiac enzymes negative 1. UA pending. Portable CXR negative per radiology read. CT head: No acute findings per radiology read. Patient was administered oral Kayexalate and IV calcium. Patient's vaginal bleeding appears chronic. At last admission in August the patient refused a transvaginal ultrasound but had a lower pelvic ultrasound that was normal. At that time vaginal bleeding was explained by traumatic catheter insertion. I discussed the case with Dr. Delong who agrees to accept the patient to the medicine service. Please see medicine notes for disposition. Mar Samson Oct 08, 2017 17:42
[2017-10-08 17:45] VITALS: BP 123/60; PULSE 65; RESP 18; TEMP 98.7; O2SAT 98
[2017-10-08 18:25] LABS: AUTOMATED NEUTROPHIL # 3.9 TH/MM3 (1.8-7.7); BASOPHIL % 0.3 % (0.0-2.0); EOSINOPHIL % 0.6 % (0.0-4.0); HEMATOCRIT 29.6 % (35.0-46.0); LYMPH % 23.5 % (9.0-44.0); LYMPHOCYTE # 1.3 TH/MM3 (1.0-4.8); MEAN CELL VOLUME 80.6 FL (80.0-100.0); MEAN CORPUSCULAR HGB CONC 32.2 % (32.0-36.0); MONO % 5.4 % (0.0-8.0); NEUT % 70.2 % (16.0-70.0); PLATELET COUNT 83 TH/MM3 (150-450); RED BLOOD COUNT 3.67 MIL/MM3 (4.00-5.30); WHITE BLOOD COUNT 5.6 TH/MM3 (4.0-11.0)
[2017-10-08 18:36] LABS: APTT (PATIENT) 39.9 SEC (24.3-30.1); INTERNATIONAL NORMALIZED RATIO 1.3 RATIO
--- NOTE | 2017-10-08 18:37 | RADRPT ---
EXAM DATE/TIME: 10/08/2017 18:14 [place] COMPARISON: CT BRAIN W/O CONTRAST, July 08, 2013, 14:03. INDICATIONS : Altered mental status RADIATION DOSE: 60.59 CTDIvol (mGy) MEDICAL HISTORY : Stroke. Cardiovascular disease Hypertension. SURGICAL HISTORY : None. ENCOUNTER: Initial ACUITY: 1 day PAIN SCALE: 0/10 LOCATION: cranial TECHNIQUE: Multiple contiguous axial images were obtained of the head. Using automated exposure control and adj ustment of the mA and/or kV according to patient size, radiation dose was kept as low as reasonably a chievable to obtain optimal diagnostic quality images. DICOM format image data is available electro nically for review and comparison. FINDINGS: CEREBRUM: The ventricles are normal for age. No evidence of midline shift, mass lesion, hemorrhage or acute in farction. No extra-axial fluid collections are seen. Stable encephalomalacia is again noted within t he left parietal lobe. POSTERIOR FOSSA: The cerebellum and brainstem are intact. The 4th ventricle is midline. The cerebellopontine angle i s unremarkable. EXTRACRANIAL: The visualized portion of the orbits is intact. SKULL: The calvaria is intact. No evidence of skull fracture. CONCLUSION: 1. Stable left parietal encephalomalacia. 2. No acute infarct, acute hemorrhage, mass effect or extra axial fluid collections. Edinson Adan MD on October 08, 2017 at 18:33 Board Certified Radiologist. This report was verified electronically.
[2017-10-08 18:58] LABS: ALKALINE PHOSPHATASE 345 U/L (45-117); ALT (GPT) 29 U/L (10-53); ANION GAP 7 MEQ/L (5-15); AST (GOT) 78 U/L (15-37); BICARBONATE 29.2 MEQ/L (21.0-32.0); BLOOD UREA NITROGEN 34 MG/DL (7-18); CHLORIDE 98 MEQ/L (98-107); GLOMERULAR FILTRATION RATE 23 ML/MIN (>89); SODIUM (NA) 134 MEQ/L (136-145); TOTAL BILIRUBIN ADULT 0.4 MG/DL (0.2-1.0)
[2017-10-08 19:00] LABS: ACETAMINOPHEN LESS THAN 2.0 MCG/ML (10.0-30.0); ALCOHOL LESS THAN 3 MG/DL (0-5); CREATINE KINASE 65 U/L (26-192); POTASSIUM 5.5 MEQ/L (3.5-5.1)
[2017-10-08 19:02] LABS: HEMO FLAGS AUTO DIFF; PLATELET ESTIMATE SMEAR LOW (NORMAL); PLATELET MORPHOLOGY NORMAL (NORMAL)
[2017-10-08 19:03] LABS: SCAN/DIFF AUTO DIFF CONFIRMED
[2017-10-08] MEDS ORDERED: HUMALOG SQ ×2 (19:04)
[2017-10-08] MEDS ORDERED: LEVO125T4 PO (19:04)
[2017-10-08] MEDS ORDERED: LISI2.5T3 PO (19:04)
[2017-10-08] MEDS ORDERED: LEVEMIR SQ (19:04)
[2017-10-08] MEDS ORDERED: GLIP5TAB8 PO (19:04)
[2017-10-08] MEDS ORDERED: HYDR12.57 PO (19:04)
[2017-10-08] MEDS ORDERED: RISP1 PO (19:04)
[2017-10-08] MEDS ORDERED: TRAZ1TAB14 PO (19:04)
[2017-10-08] MEDS ORDERED: LIPI40TA PO (19:04)
[2017-10-08] MEDS ORDERED: PLAV75TA29 PO (19:04)
[2017-10-08] MEDS ORDERED: LEVE100S PO (19:04)
[2017-10-08] MEDS ORDERED: SODIUM CHLOR 0.9% 1000 ML INJ 1,000 ML IV ONE (19:45)
[2017-10-08] MEDS ORDERED: SODIUM POLYSTYRENE SULFONATE SUSP 15 GM/60 ML CUP PO ONE (20:00)
[2017-10-08] MEDS ORDERED: CALCIUM GLUCONATE 10% 1 GM/10 ML VIAL IV PUSH ONE ×2 (20:00→23:30)
[2017-10-08] MEDS ORDERED: NALOXONE HCL 0.4 MG/ML AMP IV PUSH PRN (20:15)
[2017-10-08] MEDS ORDERED: LORazepam 2 MG/ML VIAL IV PUSH PRN (20:15)
[2017-10-08] MEDS ORDERED: ONDANSETRON HCL 4 MG/2 ML VIAL IVP PRN (20:15)
--- NOTE | 2017-10-08 21:17 | EKG ---
Date Performed: 10/08/2017 Time Performed: 18:55:49 PTAGE: 77 years EKG: ATRIAL FIBRILLATION WITH SLOW VENTRICULAR RESPONSE MODERATE INTRAVENTRICULAR CONDUCTION DEL AY ABNORMAL ECG Compared to prior electrocardiogram, rate has decreased PREVIOUS TRACING : 03/26/2015 14.44 DOCTOR: Louis Luciano Interpretating Date/Time 10/08/2017 21:15:49
[2017-10-08 22:32] VITALS: BP 135/76
[2017-10-08] MEDS ORDERED: ATROPINE SULFATE 1 MG/ML VIAL IV PUSH PRN (23:15)
[2017-10-08] MEDS ORDERED: DEXTROSE 50% IN WATER 50 ML VIAL(D50) IV PUSH PRN (23:15)
[2017-10-08] MEDS ORDERED: GLUCAGON 1 MG/ML VIAL OTHER PRN (23:15)
--- NOTE | 2017-10-08 23:19 | HHI.HP ---
HPI Service [facility] Primary Care Physician Unknown Admission Diagnosis hyperkalemia, CHIOMA, vaginal bleeding, anemia Diagnoses: Travel History International Travel<30 Days: No Contact w/Intl Traveler <30 Da: No Traveled to Known Affected Are: No History of Present Illness hx from ER provider communication, review of med records, nursing staff. Patient herself is an elderly lady who is not able to give any meaningful history. She does know her name and her date. However when asked about her symptoms, she is mostly moaning. A few minutes later though, she answered her review of system although the answer is no to every single symptoms. As per ER triage notes, patient was sent from [facility] for altered mental status of 2 weeks duration. It was stated the patient was refusing treatment for 1 week. Today the power of county attorney instructed staff at the [facility] to send [facility] patient to ER. Per ER report, patient was also not given any history there. Patient was also combative, alert, oriented only to self in ER. They had placed patient on soft wrist restraints in ER. Patient is morbidly obese. Further workup in ER revealed hyperkalemia of 5.5 although it is a hemolyzed sample. She also was found to be in acute renal failure will. Sanches catheter was placed in ER and did not reveal any acute retention. Patient was also admitted in August 2017 here. She has had vaginal bleeding at that time and transvaginal ultrasound was refused although pelvic ultrasound itself was normal. The vaginal bleeding at that time was thought to be secondary to Sanches catheter insertion which was traumatic. Today's ER provider examination revealed large blood clots noted at the vaginal introitus. Patient also does have history of seizure disorders. Patient is on Keppra at the nursing facility. Unsure whether she was refusing her medications there. While in emergency room, for her potassium of 5.5 which was slightly hemolyzed in face of acute renal failure, patient was given cocktail treatment for hyperkalemia. She did receive the treatment except for Kayexalate because when her nurse did nursing bedside swallow evaluation, he was afraid the patient is not able to swallow. Patient was then sent to the medical floors. Upon my arrival to medical floor, patient was noted to be bradycardic. Her heart rate was bouncing between 35-60. She seems to be asymptomatic as she is refusing any symptoms. Her blood pressure was maintaining well as well. While I was still on the floor, telemetry monitoring also reveals 2 seconds pause. Patient is a known atrial fibrillation patient. No pacemaker. Review of Systems ROS Limitations: Altered Mental Status, Poor Historian Except as stated in HPI: all other systems reviewed are Neg Past Family Social History Past Medical History Hypertension Diabetes Morbid obesity History of CVA History of pulmonary embolism History of UTIs GERD Depression Seizure disorder Hyperlipidemia Hypothyroidism Insomnia Past Surgical History right ankle sx per emr Allergies: Coded Allergies: No Known Allergies (Verified , 08/14/17) Family History Unknown. Social History Unknown. [facility] is a [facility] patient. Per our EMR, there was no history of tobacco abuse/alcohol abuse or substance abuse. Physical Exam Vital Signs Vital Signs Date Time Temp Pulse Resp B/P (MAP) Pulse Ox O2 Delivery O2 Flow Rate FiO2 10/08/17 22:32 55 16 135/76 (95) 98 10/08/17 17:45 98.7 65 18 123/60 (81) 98 Room Air Physical Exam GENERAL: This is an elderly lady, morbidly obese, pleasant. Awakens to verbal stimuli. However easily but falls back asleep. Only answer yes or no questions but majority of the answers or no. She is able to state her name and her date. SKIN: No rashes, ecchymoses or lesions. Cool and dry. HEAD: Atraumatic. Normocephalic. No temporal or scalp tenderness. EYES: No scleral icterus. No injection or drainage. ENT: Nose without bleeding, purulent drainage or septal hematoma Airway patent. NECK: Trachea midline. No JVD CARDIOVASCULAR: Regular rhythm without murmurs, gallops, or rubs. Heart rate around 14 at the time of my exam. Extremely poor acoustic due to morbid obesity. RESPIRATORY: Bilaterally decreased air entry. Poor inspiratory effort. Limited exam due to body habitus. GASTROINTESTINAL: Abdomen soft, non-tender, nondistended. No guarding. MUSCULOSKELETAL: Extremities without clubbing, cyanosis. . No calf tenderness. Bilaterally obese lower extremities. NEUROLOGICAL: Easily awakens although sleeps back right away. Full neuro exam cannot be performed as patient is not answering questions much. Looks confused Normal speech. Laboratory Laboratory Tests Test 10/08/17 18:00 10/08/17 18:47 White Blood Count 5.6 Red Blood Count 3.67 Hemoglobin 9.5 Hematocrit 29.6 Mean Corpuscular Volume 80.6 Mean Corpuscular Hemoglobin 26.0 Mean Corpuscular Hemoglobin Concent 32.2 Red Cell Distribution Width 21.0 Platelet Count 83 Mean Platelet Volume 9.0 Neutrophils (%) (Auto) 70.2 Lymphocytes (%) (Auto) 23.5 Monocytes (%) (Auto) 5.4 Eosinophils (%) (Auto) 0.6 Basophils (%) (Auto) 0.3 Neutrophils # (Auto) 3.9 Lymphocytes # (Auto) 1.3 Monocytes # (Auto) 0.3 Eosinophils # (Auto) 0.0 Basophils # (Auto) 0.0 CBC Comment AUTO DIFF Differential Comment AUTO DIFF CONFIRMED Platelet Estimate LOW Platelet Morphology Comment NORMAL Prothrombin Time 13.0 Prothromb Time International Ratio 1.3 Activated Partial Thromboplast Time 39.9 Blood Urea Nitrogen 34 Creatinine 2.48 Random Glucose 148 Total Protein 8.5 Albumin 2.4 Calcium Level 8.2 Alkaline Phosphatase 345 Aspartate Amino Transf (AST/SGOT) 78 Alanine Aminotransferase (ALT/SGPT) 29 Total Bilirubin 0.4 Sodium Level 134 Potassium Level 5.5 Chloride Level 98 Carbon Dioxide Level 29.2 Anion Gap 7 Estimat Glomerular Filtration Rate 23 Lactic Acid Level 1.7 Total Creatine Kinase 65 Troponin I LESS THAN 0.02 Thyroid Stimulating Hormone 3rd Gen 23.700 Salicylates Level LESS THAN 1.7 Acetaminophen Level LESS THAN 2.0 Ethyl Alcohol Level LESS THAN 3 Ammonia 27 Date/Time Source Procedure Growth Status 10/08/17 18:00 Blood Peripheral Aerobic Blood Culture Pending Received 10/08/17 18:00 Blood Peripheral Anaerobic Blood Culture Pending Received Result Diagram: 10/08/17 1800 10/08/17 1800 Imaging Last [address] 10/08/171652 Signed Impressions: Service Date/Time: October 18:14 - CONCLUSION: 1. Stable left parietal encephalomalacia. 2. No acute infarct, acute hemorrhage, mass effect or extra axial fluid collections. Edinson Adan MD Chest X-Ray 10/08/171652 Signed Impressions: Service Date/Time: October 17:03 - CONCLUSION: 1. Limited examination with mild diffuse interstitial prominence, likely technical. Differential considerations include mild positive fluid balance. 2. Otherwise, negative portable chest. MD Anthony Perez VTE Risk Assessment Anthony VTE Risk Assessment: Mod/High Risk (score >= 2) Caprini Risk Assessment Model Point Value = 1 Point Value = 2 Point Value = 3 Point Value = 5 Age 41-60 Minor surgery BMI > 25 kg/m2 Swollen legs Varicose veins or History of unexplained or recurrent spontaneous Oral contraceptives or hormone replacement Sepsis (< 1 month) Serious lung disease, including pneumonia (< 1 month) Abnormal pulmonary function Acute myocardial infarction Congestive heart failure (< 1 month) History of inflammatory bowel disease Medical patient at bed rest Age 61-74 Arthroscopic surgery Major open surgery (> 45 min) Laparoscopic surgery (> 45 min) Malignancy Confined to bed (> 72 hours) Immobilizing plaster cast Central venous access Age >= 75 History of VTE Family history of VTE Factor V Leiden Prothrombin [id number] Lupus anticoagulant Anticardiolipin antibodies Elevated serum homocysteine Heparin-induced thrombocytopenia Other congenital or acquired thrombophilia Stroke (< 1 month) Elective arthroplasty Hip, pelvis, or leg fracture Acute spinal cord injury (< 1 month) Prophylaxis Regimen Total Risk Factor Score Risk Level Prophylaxis Regimen 0-1 Low Early ambulation 2 Moderate Order ONE of the following: *Sequential Compression Device (SCD) *Heparin 5000 units SQ BID 3-4 Higher Order ONE of the following medications: *Heparin 5000 units SQ TID *Enoxaparin/Lovenox 40 mg SQ daily (WT < 150 kg, CrCl > 30 mL/min) *Enoxaparin/Lovenox 30 mg SQ daily (WT < 150 kg, CrCl > 10-29 mL/min) *Enoxaparin/Lovenox 30 mg SQ BID (WT < 150 kg, CrCl > 30 mL/min) AND/OR *Sequential Compression Device (SCD) 5 or more Highest Order ONE of the following medications: *Heparin 5000 units SQ TID (Preferred with Epidurals) *Enoxaparin/Lovenox 40 mg SQ daily (WT < 150 kg, CrCl > 30 mL/min) *Enoxaparin/Lovenox 30 mg SQ daily (WT < 150 kg, CrCl > 10-29 mL/min) *Enoxaparin/Lovenox 30 mg SQ BID (WT < 150 kg, CrCl > 30 mL/min) AND *Sequential Compression Device (SCD) Assessment and Plan Assessment and Plan Impression: Severe myxedema. With bradycardia, hypotension, elevated TSH, altered mental status. Hyperkalemia in slightly hemolyzed sample in face of acute renal failure. Acute renal failure. No evidence of retention on Sanches insertion. Today's chest x-ray evidence of pulmonary venous congestion/positive fluid overload Possible vaginal bleed. This seems to be somewhat chronic and ongoing her history and review of records. Hemoglobin is so far stable. History of seizure disorder. Question whether her altered mental status is secondary to breakthrough electrical seizures. Question medications compliance.. Comorbid conditions: Hypertension Diabetes Morbid obesity CHF. Grade 1 diastolic dysfunction by echo in 2012 History of CVA History of pulmonary embolism History of UTIs GERD Depression Seizure disorder Hyperlipidemia Hypothyroidism Insomnia Plan: Transfer patient to intensive care unit. We'll monitor heart rate. If needed, will start patient on isoproterenol drip. For now and give atropine when necessary for bradycardia less than 40 or if symptomatic. Start Synthroid 25 g IV 1 dose now Patient's blood pressure was low while on medical floors although this was not documented in ER. Patient's body habitus made it quite challenging to measure the blood pressure as well. Upon transfer to ICU, patient's blood pressure was noted to be 70/40. Patient has had echocardiogram in 2012. EF was preserved at 55-60%. Grade 1 diastolic dysfunction. Her hypotension is secondary to myxedema. We'll give Solu-Cortef. Will need to be careful with IV fluids since patient chest x-ray is showing pulmonary venous congestion. Stat repeat labs for hemoglobin hematocrit. And electrolytes. Give Kayexalate enema to correct potassium since the oral was not given. We'll follow lab results. If needed, patient will be given transfusion. Watch for fluid overload. Swallow eval by speech therapist. hold by mouth meds. Resume Keppra by IV route. Seizure precautions. DVT prophylaxis with SCD. GI prophylaxis on ranitidine. consult dehydration unit operator for critical care management critical care time 40min Discussed Condition With nursing staff, ER provider , dehydration unit operator Physician Certification 2 Midnight Certification Type: Admission for Inpatient Services Order for Inpatient Services The services are ordered in accordance with Medicare regulations or non- Medicare payer requirements, as applicable. In the case of services not specified as inpatient-only, they are appropriately provided as inpatient services in accordance with the 2-midnight benchmark. Estimated LOS (days): 5 days is the estimated time the patient will need to remain in the hospital, assuming treatment plan goals are met and no additional complications. Post-Hospital Plan: SNF Dio Delong MD Oct 08, 2017 23:19
[2017-10-08] MEDS ORDERED: SODIUM POLYSTYRENE SULFONATE 30 GM/120 ML ENEMA RECTAL ONE (23:30)
--- NOTE | 2017-10-08 23:59 | PD.CONS ---
HPI Service Critical Care Medicine Consult Requested By Primary Care Physician Unknown History of Present Illness 77-year-old female with PMH of A. fib, CAD on Plavix, vaginal bleeding, CVA, bradycardia presents from her rehabilitation facility after she was found altered. Unknown when the last time the patient was normal. On presentation the patient was combative, alert, oriented only to self. She is unable to provide any meaningful history. She was placed in soft restraints. Patient was administered MedSurg floor however the rapid response was called due to patient' s bradycardia and hypotension. She arrived to ICU with a blood pressure systolic at 60s heart rate between 45-60 range, arousable still oriented to person only, able to protect her airways. 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 On initial labs her potassium was also elevated to 5.5 and was treated with insulin dextro's bicarbonate and calcium. Also Kayexalate enema. Review of Systems ROS Unable to obtain patient is altered Past Family Social History Allergies: Coded Allergies: No Known Allergies (Verified , 08/14/17) Past Medical History Seizure disorder. Diabetes mellitus Atrial fibrillation Hypertension History of pulmonary embolism Past Surgical History None Reported Medications Reported Meds & Active Scripts Active Reported Risperdal (Risperidone) 1 Mg Tab 1 Mg PO TID Lipitor (Atorvastatin Calcium) 40 Mg Tab 40 Mg PO HS Lisinopril 2.5 Mg Tab 2.5 Mg PO DAILY Hydrochlorothiazide 12.5 Mg Cap 12.5 Mg PO DAILY Levetiracetam Liq (Levetiracetam) 500 Mg/5 Ml Soln 1,500 Mg PO DAILY Glipizide 5 Mg Tab 5 Mg PO TID Take 30 minutes before a meal Levothyroxine (Levothyroxine Sodium) 125 Mcg Tab 125 Mcg PO DAILY Trazodone (Trazodone HCl) 150 Mg Tablet 150 Mg PO HS Humalog Inj (Insulin Human Lispro) 1,000 Unit/10 Ml Vial 7 Units SQ DAILY Levemir Inj (Insulin Detemir) 1,000 unit/ 10 ML Vial 8 Units SQ DAILY Do not mix with any other Insulin. Humalog Inj (Insulin Human Lispro) 1,000 Unit/10 Ml Vial 2-12 Units SQ ACHS Max dose at bedtime:( )units; sugars < 70,(0)units; sugars 150-199,(2)units; sugars 200-249,(4)units; sugars 250-299,(7)units; sugars 300-349,(10)units; sugars more than 349,(12)units. Plavix (Clopidogrel Bisulfate) 75 Mg Tab 75 Mg PO DAILY Active Ordered Medications Current Medications Medications (Trade) Dose Ordered Sig/Marilee Route PRN Reason Start Time Stop Time Status Last Admin Dose Admin Sodium Chloride (NS Flush) 2 ml UNSCH PRN IV FLUSH FLUSH AFTER USING IV ACCESS 10/08/17 20:15 Sodium Chloride (NS Flush) 2 ml BID IV FLUSH 10/08/17 21:00 Ondansetron HCl (Zofran Inj) 4 mg Q6H PRN IVP NAUSEA OR VOMITING 10/08/17 20:15 Naloxone HCl (Narcan Inj) 0.4 mg UNSCH PRN IV PUSH SEE LABEL COMMENTS 10/08/17 20:15 Lorazepam (Ativan Inj) 1 mg Q15M PRN IV PUSH seizures 10/08/17 20:15 Atropine Sulfate (Atropine Inj) 0.5 mg Q1H PRN IV PUSH HR <40 or <60symptomatic 10/08/17 23:15 10/08/17 23:26 Dextrose (D50w (Vial) Inj) 50 ml UNSCH PRN IV PUSH HYPOGLYCEMIA-SEE COMMENTS 10/08/17 23:15 Glucagon (Glucagon Inj) 1 mg UNSCH PRN OTHER HYPOGLYCEMIA-SEE COMMENTS 10/08/17 23:15 Levetriacetam 100 ml @ 400 mls/hr DAILY@1600 IV 10/09/17 16:00 Hydrocortisone Sodium Succinate (SoluCORTEF INJ) 100 mg Q8HR IV PUSH 10/09/17 06:00 Famotidine (Pepcid) 20 mg DAILY PO 10/09/17 09:00 Norepinephrine Bitartrate 250 ml @ 7.5 mls/hr TITRATE PRN IV Maintain MAP > 65 mmHg 10/09/17 00:45 10/09/17 01:00 Family History No family history significant of early stroke or heart attack Social History The patient lives in a nursing facility, does not smoke, drink or do any drugs. Also she is wheelchair bound and she is bed bound because of morbid obesity and she does not walk. Physical Exam Vital Signs Vital Signs Date Time Temp Pulse Resp B/P (MAP) Pulse Ox O2 Delivery O2 Flow Rate FiO2 10/08/17 22:32 55 16 135/76 (95) 98 10/08/17 17:45 98.7 65 18 123/60 (81) 98 Room Air Physical Exam GENERAL: Morbidly obese elderly female, very lethargic. Awakens to verbal stimuli. SKIN: No rashes, ecchymoses or lesions. Cool and dry. HEAD: Atraumatic. Normocephalic. No temporal or scalp tenderness. EYES: No scleral icterus. No injection or drainage. ENT: Nose without bleeding, purulent drainage or septal hematoma Airway patent. NECK: Trachea midline. No JVD CARDIOVASCULAR: Regular rhythm without murmurs, gallops, or rubs. Heart rate around 14 at the time of my exam. Extremely poor acoustic due to morbid obesity. RESPIRATORY: Bilaterally decreased air entry. Poor inspiratory effort. Limited exam due to body habitus. GASTROINTESTINAL: Abdomen soft, non-tender, nondistended. No guarding. MUSCULOSKELETAL: Extremities without clubbing, cyanosis. . No calf tenderness. Bilaterally obese lower extremities. NEUROLOGICAL: Awake's to verbal stimuli although sleeps back right away. Laboratory Laboratory Tests Test 10/08/17 18:00 10/08/17 18:47 White Blood Count 5.6 Red Blood Count 3.67 Hemoglobin 9.5 Hematocrit 29.6 Mean Corpuscular Volume 80.6 Mean Corpuscular Hemoglobin 26.0 Mean Corpuscular Hemoglobin Concent 32.2 Red Cell Distribution Width 21.0 Platelet Count 83 Mean Platelet Volume 9.0 Neutrophils (%) (Auto) 70.2 Lymphocytes (%) (Auto) 23.5 Monocytes (%) (Auto) 5.4 Eosinophils (%) (Auto) 0.6 Basophils (%) (Auto) 0.3 Neutrophils # (Auto) 3.9 Lymphocytes # (Auto) 1.3 Monocytes # (Auto) 0.3 Eosinophils # (Auto) 0.0 Basophils # (Auto) 0.0 CBC Comment AUTO DIFF Differential Comment AUTO DIFF CONFIRMED Platelet Estimate LOW Platelet Morphology Comment NORMAL Prothrombin Time 13.0 Prothromb Time International Ratio 1.3 Activated Partial Thromboplast Time 39.9 Blood Urea Nitrogen 34 Creatinine 2.48 Random Glucose 148 Total Protein 8.5 Albumin 2.4 Calcium Level 8.2 Alkaline Phosphatase 345 Aspartate Amino Transf (AST/SGOT) 78 Alanine Aminotransferase (ALT/SGPT) 29 Total Bilirubin 0.4 Sodium Level 134 Potassium Level 5.5 Chloride Level 98 Carbon Dioxide Level 29.2 Anion Gap 7 Estimat Glomerular Filtration Rate 23 Lactic Acid Level 1.7 Total Creatine Kinase 65 Troponin I LESS THAN 0.02 Thyroid Stimulating Hormone 3rd Gen 23.700 Salicylates Level LESS THAN 1.7 Acetaminophen Level LESS THAN 2.0 Ethyl Alcohol Level LESS THAN 3 Ammonia 27 Date/Time Source Procedure Growth Status 10/08/17 18:00 Blood Peripheral Aerobic Blood Culture Pending Received 10/08/17 18:00 Blood Peripheral Anaerobic Blood Culture Pending Received Result Diagram: 10/08/17 1800 10/08/17 1800 Imaging Last [address] 10/08/171652 Signed Impressions: Service Date/Time: October 18:14 - CONCLUSION: 1. Stable left parietal encephalomalacia. 2. No acute infarct, acute hemorrhage, mass effect or extra axial fluid collections. Edinson Adan MD Chest X-Ray 10/08/171652 Signed Impressions: Service Date/Time: October 17:03 - CONCLUSION: 1. Limited examination with mild diffuse interstitial prominence, likely technical. Differential considerations include mild positive fluid balance. 2. Otherwise, negative portable chest. Carroll Kim MD Assessment and Plan Assessment and Plan Altered mental status - Myxedema coma - Report patient was noncompliant with administration of her thyroid medications - CT head negative - Levothyroxine and hydrocortisone IV Myxedema coma - IV steroids - IV T4 - T3 available only by mouth so we'll administer 5 mg by mouth every 8 hours - Monitor in the ICU - Serum T4 and T3 every one to two days to confirm that the therapy worked Acute kidney injury - Aggressive hydration - Strict I's and O's - Monitor creatinine and electrolyte levels Hypotension - Aggressive IV fluids resuscitation - Levophed when necessary to keep MEP above 65 Diabetes mellitus - Hold long acting insulin until by mouth resume - Insulin sliding scale DVT GI prophylaxis - Teds SCDs - Subcutaneous heparin - Pepcid Critical Care: The total critical care time was 35 minutes. Time to perform other separately billable procedures was not included in the critical care time. Facundo Suggs MD Oct 08, 2017 23:59
[2017-10-09] VITALS (12 sets, daily range): BP systolic 67–118; BP diastolic 50–73; PULSE 46–83; RESP 15–26; TEMP 86.4–96.3; O2SAT 91–99
[2017-10-09] MEDS ORDERED: HYDROCORTISONE SOD SUCCINATE 250 MG VIAL IV ONE
[2017-10-09] MEDS ORDERED: HYDROCORTISONE SOD SUCCINATE 100 MG VIAL IV PUSH ONE
[2017-10-09] MEDS ORDERED: HYDROCORTISONE SOD SUCCINATE 100 MG VIAL ONE (00:14)
[2017-10-09] MEDS ORDERED: SODIUM CHLOR 0.9% 1000 ML INJ 1,000 ML IV ONE ×2 (00:15)
[2017-10-09 00:18] LABS: HEMATOCRIT 28.7 % (35.0-46.0)
[2017-10-09 00:24] LABS: REVIEW FLAG FINAL
[2017-10-09 00:28] LABS: BICARBONATE 28.5 MEQ/L (21.0-32.0)
[2017-10-09] MEDS ORDERED: NOREPINEPHRINE 4 MG/D5W 250 ML IV PRN (00:45)
[2017-10-09] MEDS: LIOTHYRONINE SODIUM 5 MCG TAB PO SCH ×3 (02:00→17:18)
[2017-10-09] MEDS ORDERED: DOPamine INJ PREMIX 500 ML ONE (02:50)
[2017-10-09] MEDS ORDERED: TERBUTALINE INJ 1 MG/ML AMP SQ PRN (03:00)
[2017-10-09] MEDS: DOPamine 800 MG/D5W PREMIX 500 ML IV PRN ×2 (03:01→21:44)
[2017-10-09] MEDS: SODIUM CHLOR 0.9% 1000 ML INJ 1,000 ML IV SCH ×2 (03:07→10:15)
[2017-10-09] MEDS ORDERED: SODIUM CHLOR 0.9% 1000 ML INJ 2,000 ML IV ONE (04:30)
[2017-10-09] MEDS ORDERED: HYDROCORTISONE SOD SUCCINATE 100 MG VIAL IV PUSH SCH (06:00)
[2017-10-09] MEDS: LEVOTHYROXINE SODIUM 125 MCG TAB PO SCH (06:00)
[2017-10-09] MEDS: HYDROCORTISONE SOD SUCCINATE 100 MG VIAL IV PUSH SCH ×4 (06:10→23:41)
[2017-10-09] MEDS ORDERED: LEVOTHYROXINE SODIUM 100 MCG VIAL IV PUSH ONE ×2 (06:30)
[2017-10-09] MEDS ORDERED: levETIRAcetam INJ 500 MG in SODIUM CHLORIDE 0.9% INJ 100 ML IV ONE (06:30)
--- NOTE | 2017-10-09 06:34 | HHI.CCPN ---
Subjective Remarks/Hospital Course 77-year-old female with PMH of A. fib, CAD on Plavix, vaginal bleeding, CVA, bradycardia presents from her rehabilitation facility after she was found altered. Unknown when the last time the patient was normal. On presentation the patient was combative, alert, oriented only to self. She is unable to provide any meaningful history. She was placed in soft restraints. Patient was administered MedSurg floor however the rapid response was called due to patient' s bradycardia and hypotension. She arrived to ICU with a blood pressure systolic at 60s heart rate between 45-60 range, arousable still oriented to person only, able to protect her airways. 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 On initial labs her potassium was also elevated to 5.5 and was treated with insulin dextro's bicarbonate and calcium. Also Kayexalate enema. 10/09 more alert today, rewarmed, on minimal dose of dopamine, with heart rate improvement, and blood pressure is well Objective Vital Signs Date Time Temp Pulse Resp B/P (MAP) Pulse Ox O2 Delivery O2 Flow Rate FiO2 10/09/17 06:00 83 10/09/17 04:06 118/56 10/09/17 04:00 92.3 25 96 10/09/17 00:00 Room Air Intake and Output 10/09/17 10/09/17 10/10/17 08:00 16:00 00:00 Intake Total 3491 ml Output Total 150 ml Balance 3341 ml Result Diagram: 10/08/17 2354 10/08/17 2354 Imaging Last [address] 10/08/171652 Signed Impressions: Service Date/Time: October 18:14 - CONCLUSION: 1. Stable left parietal encephalomalacia. 2. No acute infarct, acute hemorrhage, mass effect or extra axial fluid collections. Edinson Adan MD Chest X-Ray 10/08/171652 Signed Impressions: Service Date/Time: October 17:03 - CONCLUSION: 1. Limited examination with mild diffuse interstitial prominence, likely technical. Differential considerations include mild positive fluid balance. 2. Otherwise, negative portable chest. Carroll Kim MD Objective Remarks GENERAL: Morbidly obese elderly female, still lethargic. Awakens to verbal stimuli. SKIN: No rashes, ecchymoses or lesions. Cool and dry. HEAD: Atraumatic. Normocephalic. No temporal or scalp tenderness. EYES: No scleral icterus. No injection or drainage. ENT: Nose without bleeding, purulent drainage or septal hematoma Airway patent. NECK: Trachea midline. No JVD CARDIOVASCULAR: Regular rhythm without murmurs, gallops, or rubs. Heart rate around 14 at the time of my exam. Extremely poor acoustic due to morbid obesity. RESPIRATORY: Bilaterally decreased air entry. Poor inspiratory effort. Limited exam due to body habitus. GASTROINTESTINAL: Abdomen soft, non-tender, nondistended. No guarding. MUSCULOSKELETAL: Extremities without clubbing, cyanosis. . No calf tenderness. Bilaterally obese lower extremities. NEUROLOGICAL: Awake's to verbal stimuli although sleeps back right away. A/P Assessment and Plan Altered mental status - Myxedema coma - Per Report the patient was noncompliant with administration of her all, including thyroid medications - CT head negative - Levothyroxine and hydrocortisone IV, T3 by mouth since IV for not available at [facility] Myxedema coma - IV steroids - IV T4 - T3 available only by mouth so we'll administer 5 mg by mouth every 8 hours - Monitor in the ICU - Serum T4 and T3 every one to two days to confirm that the therapy worked Acute kidney injury - Aggressive hydration - Strict I's and O's - Monitor creatinine and electrolyte levels Hypotension - Aggressive IV fluids resuscitation - Dopamine when necessary to keep MEP above 65 Diabetes mellitus - Hold long acting insulin until by mouth resume - Insulin sliding scale DVT GI prophylaxis - Teds SCDs - Subcutaneous heparin - Pepcid Critical Care: The total critical care time was 35 minutes. Time to perform other separately billable procedures was not included in the critical care time. Facundo Suggs MD Oct 09, 2017 06:34
[2017-10-09 06:42] LABS: AUTOMATED NEUTROPHIL # 7.1 TH/MM3 (1.8-7.7); BASOPHIL % 0.1 % (0.0-2.0); EOSINOPHIL % 0.2 % (0.0-4.0); HEMATOCRIT 33.7 % (35.0-46.0); HEMO FLAGS AUTO DIFF; LYMPH % 7.7 % (9.0-44.0); LYMPHOCYTE # 0.6 TH/MM3 (1.0-4.8); MEAN CELL VOLUME 80.4 FL (80.0-100.0); MEAN CORPUSCULAR HEMOGLOBIN 25.4 PG (27.0-34.0); MEAN CORPUSCULAR HGB CONC 31.5 % (32.0-36.0); MONO % 2.9 % (0.0-8.0); NEUT % 89.1 % (16.0-70.0); PLATELET COUNT 87 TH/MM3 (150-450); RED CELL DISTRIBUTION WIDTH 21.3 % (11.6-17.2); WHITE BLOOD COUNT 7.9 TH/MM3 (4.0-11.0)
[2017-10-09 06:52] LABS: ANION GAP 9 MEQ/L (5-15); AST (GOT) 106 U/L (15-37); BICARBONATE 26.2 MEQ/L (21.0-32.0); BLOOD UREA NITROGEN 36 MG/DL (7-18); CHLORIDE 97 MEQ/L (98-107); GLOMERULAR FILTRATION RATE 24 ML/MIN (>89); MAGNESIUM 2.3 MG/DL (1.5-2.5); POTASSIUM 4.7 MEQ/L (3.5-5.1); SODIUM (NA) 132 MEQ/L (136-145)
[2017-10-09 06:54] LABS: ALT (GPT) 26 U/L (10-53)
[2017-10-09 06:57] LABS: ALKALINE PHOSPHATASE 431 U/L (45-117); TOTAL BILIRUBIN ADULT 0.4 MG/DL (0.2-1.0)
[2017-10-09] MEDS ORDERED: DEXTROSE 50% IN WATER 50 ML VIAL(D50) IV PUSH PRN (07:45)
[2017-10-09] MEDS ORDERED: GLUCAGON 1 MG/ML VIAL OTHER PRN (07:45)
[2017-10-09] MEDS: INSULIN NovoLIN REGULAR SUPPLEMENTAL SCALE SQ SCH ×4 (08:00→21:43)
[2017-10-09 08:02] LABS: ACANTHOCYTES OCC (NORMAL); PLATELET ESTIMATE SMEAR LOW (NORMAL); PLATELET MORPHOLOGY NORMAL (NORMAL); SCAN/DIFF AUTO DIFF CONFIRMED; TOXIC VACUOLATION PRESENT (NONE SEEN)
[2017-10-09 08:57] LABS: BACTERIA, URINE RARE /hpf; BLOOD, URINE LARGE (NEG); COMMENT (UR) CATH-CULTURE IND; CULTURE IF INDICATED CATH CULTURE IND; GLUCOSE,URINE NEG (NEG); HYALINE CAST, URINE 147 /lpf (RARE); KETONE, URINE 10 mg/dL (NEG); NITRITE,URINE NEG (NEG); PH, URINE 5.5 (5.0-8.5); URINE COLOR RED (YELLW/STRAW)
[2017-10-09] MEDS: CLOPIDOGREL 75 MG TAB PO SCH (09:00)
[2017-10-09] MEDS: risperiDONE 1 MG TAB PO SCH ×3 (09:00→17:18)
[2017-10-09] MEDS ORDERED: levETIRAcetam 500 MG/5 ML UDC PO SCH (09:00)
[2017-10-09] MEDS ORDERED: FAMOTIDINE 20 MG TAB PO SCH (09:00)
[2017-10-09] MEDS: SODIUM CHLORIDE 0.9% FLUSH 10 ML FLUSH IV FLUSH SCH ×2 (10:14→20:51)
[2017-10-09] MEDS ORDERED: levETIRAcetam INJ 100 ML IV ONE (13:00)
[2017-10-09] MEDS ORDERED: SODIUM CHLORIDE 0.9% FLUSH 10 ML FLUSH IV FLUSH PRN (13:00)
--- NOTE | 2017-10-09 13:16 | RADRPT ---
EXAM DATE/TIME: 10/09/2017 12:46 [facility] COMPARISON: CHEST SINGLE AP, October 08, 2017, 17:03. INDICATIONS : Confirm Picc line placement. MEDICAL HISTORY : Stroke. Cardiovascular disease. Hypertension. SURGICAL HISTORY : None. ENCOUNTER: Subsequent ACUITY: 1 day PAIN SCORE: Non-responsive. LOCATION: Bilateral chest FINDINGS: Interval placement of a right PICC line with tip near the cavoatrial junction. Cardiac silhouette is enlarged. There is indistinct central pulmonary vascularity with diffuse bilateral patchy airspace di sease. Remainder of the exam is unchanged. CONCLUSION: 1. Right-sided PICC line in good position near the cavoatrial junction. 2. Cardiomegaly with pulmonary edema pattern. Carroll Kim MD on October 09, 2017 at 13:12 Board Certified Radiologist. This report was verified electronically.
[2017-10-09] MEDS: LIOTHYRONINE 10 MCG/ML IV SCH ×2 (13:20→22:19)
[2017-10-09] MEDS ORDERED: levETIRAcetam INJ 100 ML IV SCH ×3 (16:00→21:00)
--- NOTE | 2017-10-09 17:45 | RADRPT ---
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 INDICATIONS : Postmenopausal bleeding. MEDICAL HISTORY : Hypertension. Glasses. Numbness. Atrial fibrillation. Dyspnea. Arthritis. Diabetes. Calustrophobi a. Pulmonary embolisim. SURGICAL HISTORY : Right ankle surgery. ENCOUNTER: Subsequent ACUITY: 1 day PAIN SCORE: 0/10 LOCATION: Bilateral pelvis MEASUREMENTS: UTERUS: 10.6 x 6.4 x 5.9 cm ENDOMETRIAL STRIPE: 18 mm RIGHT OVARY: 3.4 x 2.7 x 2.4 cm LEFT OVARY: Non visualized COMPLETE APPROPRIATE ITEMS PRE PROCEDURE: ID x 2: Complete NameDate of BirthMR#Patient Name BandEducation: Clinical status p recludes education. FINDINGS: Free fluid is present within the pelvis nonspecific in appearance. There is thickening of the endomet rial stripe to 18 mm which may reflect hyperplasia or density. This is new when compared with the [place] or exam. Stable right ovarian cyst is present measuring 1.4 cm. The left ovary is not visualized. CONCLUSION: 1. Limited evaluation secondary to patient's size 2. Mild ascites 3. Thickened endometrial stripe which may reflect hyperplasia or malignancy. Elie Colin MD on October 09, 2017 at 17:41 Board Certified Radiologist. This report was verified electronically.
[2017-10-09] MEDS: ATORVASTATIN 40 MG TAB PO SCH (20:50)
[2017-10-09] MEDS: traZODone HCL 50 MG TAB PO SCH (20:50)
[2017-10-10] VITALS (16 sets, daily range): BP systolic 90–117; BP diastolic 49–61; PULSE 65–84; RESP 12–25; TEMP 97.7–98.2; O2SAT 94–100
--- NOTE | 2017-10-10 | MG ---
cc: CLEVELAND LOVETT MD Lab No: Date: Age: Sex: F Race: REFERRING PHYSICIAN: Dr. Delong. MEDICAL HISTORY: 1. Atrial fibrillation. 2. Diabetes mellitus. 3. Hypertension. 4. Arthritis. 5. Numbness and tingling. 6. PE. 7. Caffeine use. The patient was found altered, combative, oriented only to self. MEDICATIONS: 1. Lipitor. 2. Desyrel. 3. Keppra. 4. Plavix. 5. Synthroid. 6. Solu-Cortef. 7. Dopamine. 8. Hydrochloride. 9. Norepinephrine. 10. Atropine sulfate. DESCRIPTION OF THE RECORDING: The EEG recording is comprised of polymorphic delta and theta activity superimposed by excess muscle artifact. The background rhythm is 2-3 Hz delta. Hyperventilation was omitted. Photic stimulation did not elicit a driving response. There were no electrographic seizures or epileptiform discharges noted during the recording. ASSESSMENT: This is an awake EEG. The generalized polymorphic slow activity may indicate an encephalopathic pattern that may be related to metabolic, medication effect or hypoxia. There were no electrographic seizures or epileptiform discharges noted. Clinical correlation is recommended. Cleveland Lovett MD [facility] /9:49 PM /11:52 PM MTDD
[2017-10-10] MEDS: SODIUM CHLOR 0.9% 1000 ML INJ 1,000 ML IV SCH ×4 (00:24→18:16)
[2017-10-10] MEDS: LIOTHYRONINE SODIUM 5 MCG TAB PO SCH ×3 (01:18→17:18)
[2017-10-10 05:03] LABS: AUTOMATED NEUTROPHIL # 8.7 TH/MM3 (1.8-7.7); BASOPHIL % 0.2 % (0.0-2.0); HEMATOCRIT 27.2 % (35.0-46.0); LYMPH % 7.7 % (9.0-44.0); LYMPHOCYTE # 0.7 TH/MM3 (1.0-4.8); MEAN CELL VOLUME 80.9 FL (80.0-100.0); MEAN CORPUSCULAR HGB CONC 32.2 % (32.0-36.0); MONO % 2.3 % (0.0-8.0); NEUT % 89.8 % (16.0-70.0); PLATELET COUNT 89 TH/MM3 (150-450); RED BLOOD COUNT 3.36 MIL/MM3 (4.00-5.30); RED CELL DISTRIBUTION WIDTH 20.9 % (11.6-17.2); WHITE BLOOD COUNT 9.7 TH/MM3 (4.0-11.0)
[2017-10-10 05:06] LABS: HEMO FLAGS AUTO DIFF
[2017-10-10] MEDS: HYDROCORTISONE SOD SUCCINATE 100 MG VIAL IV PUSH SCH ×4 (05:09→23:21)
[2017-10-10] MEDS: LIOTHYRONINE 10 MCG/ML IV SCH (05:09)
[2017-10-10] MEDS: LEVOTHYROXINE SODIUM 125 MCG TAB PO SCH (05:09)
[2017-10-10 05:32] LABS: BICARBONATE 26.1 MEQ/L (21.0-32.0); MAGNESIUM 2.1 MG/DL (1.5-2.5); POTASSIUM 5.1 MEQ/L (3.5-5.1); TOTAL BILIRUBIN ADULT 0.7 MG/DL (0.2-1.0)
[2017-10-10 05:34] LABS: CALCIUM-PROTEIN CORRECTED 7.3 MG/DL (8.5-10.1)
[2017-10-10 05:49] LABS: ACANTHOCYTES OCC (NORMAL); SCAN/DIFF AUTO DIFF CONFIRMED
[2017-10-10 05:51] LABS: PLATELET ESTIMATE SMEAR LOW (NORMAL); PLATELET MORPHOLOGY NORMAL (NORMAL)
[2017-10-10 05:52] LABS: TOXIC VACUOLATION PRESENT (NONE SEEN)
[2017-10-10] MEDS ORDERED: CALCIUM GLUCONATE INJ 2 GM in SODIUM CHLORIDE 0.9% INJ 100 ML IV ONE (06:00)
[2017-10-10] MEDS ORDERED: ALBUMIN 5% INJ 500 ML IV ONE (08:45)
[2017-10-10] MEDS ORDERED: SODIUM CHLOR 0.9% 250 ML INJ 250 ML IV ONE (08:45)
--- NOTE | 2017-10-10 08:51 | HHI.CCPN ---
Subjective Remarks/Hospital Course 77-year-old female with PMH of A. fib, CAD on Plavix, vaginal bleeding, CVA, bradycardia presents from her rehabilitation facility after she was found altered. Unknown when the last time the patient was normal. On presentation the patient was combative, alert, oriented only to self. She is unable to provide any meaningful history. She was placed in soft restraints. Patient was administered MedSurg floor however the rapid response was called due to patient' s bradycardia and hypotension. She arrived to ICU with a blood pressure systolic at 60s heart rate between 45-60 range, arousable still oriented to person only, able to protect her airways. 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 On initial labs her potassium was also elevated to 5.5 and was treated with insulin dextro's bicarbonate and calcium. Also Kayexalate enema. 10/09 more alert today, rewarmed, on minimal dose of dopamine, with heart rate improvement, and blood pressure is well 10/10: still agitated delirium. bleeding noted from vaginal area. failed attempt at placing enteral access via NGT and bleeding from attempt. platelets still < 100k. unable to give PO synthroid x 2 days given no enteral access. swapped back to iv synthroid given her diagnosis. still on pressors on dopamine. Objective Vital Signs Date Time Temp Pulse Resp B/P (MAP) Pulse Ox O2 Delivery O2 Flow Rate FiO2 10/10/17 08:31 94 21 10/10/17 06:39 72 79/40 10/10/17 04:00 98.1 17 10/09/17 19:00 Room Air 10/09/17 07:00 2.00 Intake and Output 10/10/17 10/10/17 10/11/17 08:00 16:00 00:00 Intake Total 1825 ml Output Total 225 ml Balance 1600 ml Result Diagram: 10/10/17 0417 10/10/17416 Imaging Last [address] 10/08/171652 Signed Impressions: Service Date/Time: October 18:14 - CONCLUSION: 1. Stable left parietal encephalomalacia. 2. No acute infarct, acute hemorrhage, mass effect or extra axial fluid collections. Edinson Adan MD Chest X-Ray 10/08/171652 Signed Impressions: Service Date/Time: October 17:03 - CONCLUSION: 1. Limited examination with mild diffuse interstitial prominence, likely technical. Differential considerations include mild positive fluid balance. 2. Otherwise, negative portable chest. Carroll Kim MD Objective Remarks GENERAL: Morbidly obese elderly female, still lethargic. Awakens to verbal stimuli. SKIN: No rashes, ecchymoses or lesions. Cool and dry. HEAD: Atraumatic. Normocephalic. No temporal or scalp tenderness. EYES: No scleral icterus. No injection or drainage. ENT: small amount of nasal blood. no active bleeding. Airway patent. NECK: Trachea midline. No JVD CARDIOVASCULAR: Regular rhythm. normal rate. on dopamine. RESPIRATORY: Bilaterally decreased air entry. Poor inspiratory effort. Limited exam due to body habitus. GASTROINTESTINAL: Abdomen soft, non-tender, nondistended. No guarding. MUSCULOSKELETAL: Extremities without clubbing, cyanosis. No calf tenderness. Bilaterally obese lower extremities. NEUROLOGICAL: Awake's to verbal stimuli although sleeps back right away. CAM+. moves all extremities. A/P Assessment and Plan Assessment: 77yF with myxedema coma, metabolic encephalopathy, bleeding and thrombocytopenia. swap synthroid to iv. will give 1 unit platelets and attempt replacing DHT. 500cc 5% albumin, as she clinically appears intravascularly deplete. continue dopamine. remains critically ill on vasopressors, hypothermic , hypotensive, anemic. multiple organs still life-threatening and clinically still life-threateningly hypothyroid. Myxedema Coma Metabolic Encephalopathy - Myxedema coma - Per Report the patient was noncompliant with administration of her all, including thyroid medications - CT head negative - Levothyroxine and hydrocortisone IV, T3 by mouth since IV for not available at [place] - swap back to iv synthroid. - frequent neuro checks - avoid long-acting sedating meds. Myxedema coma - IV steroids - IV T4 - T3 available only by mouth so we'll administer 5 mg by mouth every 8 hours - Monitor in the ICU - Serum T4 and T3 every one to two days to confirm that the therapy worked Acute kidney injury - Aggressive hydration - Strict I's and O's - Monitor creatinine and electrolyte levels Hypotension - Aggressive IV fluids resuscitation - Dopamine when necessary to keep MEP above 65 Diabetes mellitus - Hold long acting insulin until by mouth resume - Insulin sliding scale Thrombocytopenia - likely secondary to consumption - presented with low platelets. low probability HIT. - transfuse 1 unit platelets for oozing. Anemia secondary to chronic disease and acute blood loss - does not meet triggers yet. keep hgb > 7. Acute protein calorie malnutrition - moderate Super morbid obesity Dysphagia - NPO given dysphagia - after platelets, attempt placing DHT. DVT GI prophylaxis - Teds SCDs - Subcutaneous heparin: hold this given active oozing. - Pepcid Critical Care: The total critical care time was 40 minutes. Time to perform other separately billable procedures was not included in the critical care time. Mayo Caicedo MD Oct 10, 2017 08:51
[2017-10-10] MEDS: SODIUM CHLORIDE 0.9% FLUSH 10 ML FLUSH IV FLUSH SCH ×3 (09:00→20:55)
[2017-10-10] MEDS: risperiDONE 1 MG TAB PO SCH ×3 (09:00→17:18)
[2017-10-10] MEDS: CLOPIDOGREL 75 MG TAB PO SCH (09:00)
[2017-10-10] MEDS ORDERED: FAMOTIDINE 20 MG/2 ML VIAL IV PUSH SCH (09:00)
[2017-10-10 09:14] LABS: FREE T3 1.11 PG/ML (2.18-3.98); FREE T4 0.58 NG/DL (0.76-1.46)
[2017-10-10] MEDS: levETIRAcetam 500 MG/NS 100 ML IV SCH ×4 (09:20→20:55)
[2017-10-10] MEDS: LEVOTHYROXINE SODIUM 100 MCG VIAL IV PUSH SCH (09:33)
[2017-10-10] MEDS: INSULIN NovoLIN REGULAR SUPPLEMENTAL SCALE SQ SCH ×4 (09:33→21:19)
[2017-10-10 12:22] LABS: APTT (PATIENT) 37.1 SEC (24.3-30.1); INTERNATIONAL NORMALIZED RATIO 1.3 RATIO; PROTHROMBIN TIME - PATIENT 13.2 SEC (9.8-11.6)
--- NOTE | 2017-10-10 13:26 | RADRPT ---
EXAM DATE/TIME: 10/10/2017 13:01 [facility] COMPARISON: No previous studies available for comparison. INDICATIONS : NG tube placement. MEDICAL HISTORY : Stroke. Cardiovascular disease. Hypertension. SURGICAL HISTORY : ENCOUNTER: Initial ACUITY: 1 day PAIN SCORE: Non-responsive. LOCATION: Bilateral abdomen FINDINGS: There is a Dobbhoff feeding tube in the patient's stomach. There is a right-sided PICC line in place. No definite pneumothorax. There appear to be some infiltrates in both lung bases, right greater than left. CONCLUSION: Dobbhoff feeding tube in the stomach. Osmel Link MD on October 10, 2017 at 13:23 Board Certified Radiologist. This report was verified electronically.
[2017-10-10] MEDS: DOPamine 800 MG/D5W PREMIX 500 ML IV PRN (15:47)
[2017-10-10] MEDS: traZODone HCL 50 MG TAB PO SCH (20:55)
[2017-10-10] MEDS: ATORVASTATIN 40 MG TAB PO SCH (20:55)
[2017-10-10] MEDS: FAMOTIDINE 20 MG/2 ML VIAL IV PUSH SCH (20:56)
[2017-10-11] VITALS (14 sets, daily range): BP systolic 80–123; BP diastolic 43–60; PULSE 66–78; RESP 14–24; TEMP 97.3–98.8; O2SAT 96–100
[2017-10-11] MEDS: SODIUM CHLOR 0.9% 1000 ML INJ 1,000 ML IV SCH ×3 (03:08→18:01)
[2017-10-11] MEDS: LEVOTHYROXINE SODIUM 100 MCG VIAL IV PUSH SCH (05:12)
[2017-10-11] MEDS: HYDROCORTISONE SOD SUCCINATE 100 MG VIAL IV PUSH SCH ×3 (05:13→17:20)
[2017-10-11] MEDS: levETIRAcetam 500 MG/NS 100 ML IV SCH ×4 (09:25→20:52)
[2017-10-11] MEDS: risperiDONE 1 MG TAB PO SCH ×3 (09:25→17:20)
[2017-10-11] MEDS: CLOPIDOGREL 75 MG TAB PO SCH (09:25)
[2017-10-11] MEDS: INSULIN NovoLIN REGULAR SUPPLEMENTAL SCALE SQ SCH ×5 (09:25→21:17)
[2017-10-11] MEDS: SODIUM CHLORIDE 0.9% FLUSH 10 ML FLUSH IV FLUSH SCH ×3 (09:26→20:52)
[2017-10-11] MEDS: FAMOTIDINE 20 MG/2 ML VIAL IV PUSH SCH ×2 (09:26→20:52)
[2017-10-11] MEDS ORDERED: DEXTROSE 50% IN WATER 50 ML VIAL(D50) IV PUSH PRN (16:00)
--- NOTE | 2017-10-11 16:04 | HHI.CCPN ---
Subjective Remarks/Hospital Course 77-year-old female with PMH of A. fib, CAD on Plavix, vaginal bleeding, CVA, bradycardia presents from her rehabilitation facility after she was found altered. Unknown when the last time the patient was normal. On presentation the patient was combative, alert, oriented only to self. She is unable to provide any meaningful history. She was placed in soft restraints. Patient was administered MedSurg floor however the rapid response was called due to patient' s bradycardia and hypotension. She arrived to ICU with a blood pressure systolic at 60s heart rate between 45-60 range, arousable still oriented to person only, able to protect her airways. 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 On initial labs her potassium was also elevated to 5.5 and was treated with insulin dextro's bicarbonate and calcium. Also Kayexalate enema. 10/09 more alert today, rewarmed, on minimal dose of dopamine, with heart rate improvement, and blood pressure is well 10/10: still agitated delirium. bleeding noted from vaginal area. failed attempt at placing enteral access via NGT and bleeding from attempt. platelets still < 100k. unable to give PO synthroid x 2 days given no enteral access. swapped back to iv synthroid given her diagnosis. still on pressors on dopamine. 10/11: dopamine persists, but lower dose. hgb dropped from 10.6 to 8.7. vaginal bleeding slightly improved after platelets. still agitated. free t4 slightly improved, but still low. Objective Vital Signs Date Time Temp Pulse Resp B/P (MAP) Pulse Ox O2 Delivery O2 Flow Rate FiO2 10/11/17 08:15 97 Nasal Cannula 2.00 10/11/17 08:00 69 10/11/17 08:00 98.1 14 93/51 (65) 10/11/17 08:00 28 Intake and Output 10/11/17 10/11/17 10/12/17 08:00 16:00 00:00 Intake Total 720 ml Output Total 275 ml Balance 445 ml Result Diagram: 10/10/17 0417 10/10/17 0417 Other Results Microbiology Date/Time Source Procedure Growth Status 10/09/17 08:30 Urine Catheterized Urine Urine Culture - Final NO GROWTH IN 48 HOURS. Complete Imaging Last [address] 12/7/17 1653 Signed Impressions: Service Date/Time: October 18:14 - CONCLUSION: 1. Stable left parietal encephalomalacia. 2. No acute infarct, acute hemorrhage, mass effect or extra axial fluid collections. Edinson Adan MD Chest X-Ray 10/08/171652 Signed Impressions: Service Date/Time: October 17:03 - CONCLUSION: 1. Limited examination with mild diffuse interstitial prominence, likely technical. Differential considerations include mild positive fluid balance. 2. Otherwise, negative portable chest. Carroll Kim MD Objective Remarks GENERAL: Morbidly obese elderly female, still lethargic. Awakens to verbal stimuli. SKIN: No rashes, ecchymoses or lesions. Cool and dry. HEAD: Atraumatic. Normocephalic. No temporal or scalp tenderness. EYES: No scleral icterus. No injection or drainage. ENT: small amount of nasal blood. no active bleeding. Airway patent. NECK: Trachea midline. JVD unable to be assessed due to body habitus. CARDIOVASCULAR: Regular rhythm. normal rate. on dopamine. RESPIRATORY: Bilaterally decreased air entry. Poor inspiratory effort. Limited exam due to body habitus. GASTROINTESTINAL: Abdomen morbidly obese, soft, non-tender, nondistended. No guarding. MUSCULOSKELETAL: Extremities without clubbing, cyanosis. No calf tenderness. Bilaterally obese lower extremities. NEUROLOGICAL: Awake's to verbal stimuli although sleeps back right away. CAM+. moves all extremities. A/P Assessment and Plan Assessment: 77yF with myxedema coma, metabolic encephalopathy, bleeding and thrombocytopenia. continue iv synthroid. remains critically ill on vasopressors , hypothermic, hypotensive, anemic. multiple organs still life-threatening and clinically still life-threateningly hypothyroid. Myxedema Coma Metabolic Encephalopathy - Myxedema coma - Per Report the patient was noncompliant with administration of her meds, including thyroid medications - CT head negative - Levothyroxine and hydrocortisone IV, T3 by mouth since IV for not available at [place] - frequent neuro checks - avoid long-acting sedating meds. Myxedema coma - IV steroids - IV T4 - T3 available only by mouth so we'll administer 5 mg by mouth every 8 hours - Monitor in the ICU - Serum T4 and T3 every one to two days to confirm that the therapy worked Acute kidney injury - Aggressive hydration - Strict I's and O's - Monitor creatinine and electrolyte levels Hypotension - Aggressive IV fluids resuscitation - Dopamine when necessary to keep MAP above 65 Diabetes mellitus - Hold long acting insulin until by mouth resume - Insulin sliding scale Thrombocytopenia - likely secondary to consumption - presented with low platelets. low probability HIT. Anemia secondary to chronic disease and acute blood loss - does not meet triggers yet. keep hgb > 7. Acute protein calorie malnutrition - moderate Super morbid obesity Dysphagia - NPO given dysphagia - tube feeds Hyperglycemia - increase SSI DVT GI prophylaxis - Teds SCDs - Subcutaneous heparin: hold this given active oozing. - Mayo Ivey MD Oct 11, 2017 16:04
[2017-10-11] MEDS: traZODone HCL 50 MG TAB PO SCH (20:52)
[2017-10-11] MEDS: ATORVASTATIN 40 MG TAB PO SCH (20:53)
[2017-10-11] MEDS: INSULIN DETEMIR 100 UNITS/ML VIAL SQ SCH (20:53)
[2017-10-11] MEDS: DOPamine 800 MG/D5W PREMIX 500 ML IV PRN (21:20)
[2017-10-12] VITALS (24 sets, daily range): BP systolic 95–135; BP diastolic 51–62; PULSE 53–81; RESP 12–22; TEMP 97.3–98.2; O2SAT 94–100
[2017-10-12] MEDS: INSULIN NovoLIN REGULAR SUPPLEMENTAL SCALE SQ SCH ×6 (00:25→20:15)
[2017-10-12] MEDS: HYDROCORTISONE SOD SUCCINATE 100 MG VIAL IV PUSH SCH ×4 (00:25→17:45)
[2017-10-12] MEDS: SODIUM CHLOR 0.9% 1000 ML INJ 1,000 ML IV SCH ×3 (01:53→19:39)
[2017-10-12 04:06] LABS: HEMATOCRIT 21.4 % (35.0-46.0); MEAN CELL VOLUME 80.7 FL (80.0-100.0); MEAN CORPUSCULAR HEMOGLOBIN 25.9 PG (27.0-34.0); MEAN CORPUSCULAR HGB CONC 32.1 % (32.0-36.0); PLATELET COUNT 54 TH/MM3 (150-450); RED BLOOD COUNT 2.65 MIL/MM3 (4.00-5.30); RED CELL DISTRIBUTION WIDTH 20.9 % (11.6-17.2); WHITE BLOOD COUNT 7.7 TH/MM3 (4.0-11.0)
[2017-10-12 04:15] LABS: REVIEW FLAG FINAL
[2017-10-12 04:21] LABS: BICARBONATE 24.4 MEQ/L (21.0-32.0); POTASSIUM 4.1 MEQ/L (3.5-5.1); THYROXINE (T4) 5.1 MCG/DL (4.8-13.9)
[2017-10-12 04:40] LABS: CALCIUM-PROTEIN CORRECTED 7.1 MG/DL (8.5-10.1)
[2017-10-12] MEDS ORDERED: CALCIUM GLUCONATE INJ 2 GM in DEXTROSE 5% IN WATER 100ML INJ 100 ML IV ONE ×6 (04:45→09:30)
[2017-10-12] MEDS: LEVOTHYROXINE SODIUM 100 MCG VIAL IV PUSH SCH (05:37)
[2017-10-12] MEDS ORDERED: SODIUM CHLOR 0.9% 1000 ML INJ 2,000 ML IV ONE ×2 (07:00→07:30)
[2017-10-12] MEDS ORDERED: FUROSEMIDE 40 MG/4 ML VIAL IV PUSH STA (07:25)
[2017-10-12 07:42] LABS: BLOOD GAS BASE EXCESS -3.2 mmol/L (-2-2); BLOOD GAS CARBOXYHEMOGLOBIN 1.3 % (0-4); BLOOD GAS HCO3 23 mmol/L (22-26); BLOOD GAS O2 HGB SATURATION 97 % (90-100); BLOOD GAS OXYGEN CONTENT 15.2 Vol % (12.0-20.0); BLOOD GAS PCO2 51 mmHg (38-42); BLOOD GAS PO2 395 mmHg (61-120); BLOOD GAS TOTAL HGB 10.4 G/DL (12.0-16.0); CRITICAL VALUE YES
[2017-10-12 07:43] LABS: DRAW SITE RT RADIAL; FIO2 100 %; LITER FLOW 15 L/M; NUMBER OF ARTERIAL PUNCTURES 1; STAT YES; ULNAR PULSE PRESENT
[2017-10-12] MEDS ORDERED: MIDAZOLAM HCL 5 MG/ML VIAL (1 ML) ONE (07:55)
[2017-10-12] MEDS ORDERED: ETOMIDATE 40 MG/20 ML VIAL ONE (07:55)
[2017-10-12] MEDS ORDERED: ROCURONIUM INJ 50 MG/5 ML VIAL ONE (07:56)
--- NOTE | 2017-10-12 07:58 | RADRPT ---
EXAM DATE/TIME: 10/12/2017 07:45 [facility] COMPARISON: CHEST SINGLE AP, October 09, 2017, 12:46. INDICATIONS : Shortness of breath. MEDICAL HISTORY : Stroke. Cardiovascular disease. Hypertension. SURGICAL HISTORY : None. ENCOUNTER: Subsequent ACUITY: 4 - 6 days PAIN SCORE: 0/10 LOCATION: Bilateral chest FINDINGS: A single view of the chest demonstrates hazy density over the right lung likely layering pleural effu luis m. Left lung is better aerated. Heart enlarged. Increase in pulmonary vascularity. The cardiomedi astinal contours are unremarkable. Osseous structures are intact. CONCLUSION: 1. Hazy density right lung likely moderate layering pleural effusion. 2. Cardiomegaly. 3. Left lung better aerated compared to previous study. Stephane Rosario MD on October 12, 2017 at 7:55 Board Certified Radiologist. This report was verified electronically.
[2017-10-12] MEDS ORDERED: ROCURONIUM INJ 100 MG/10 ML VIAL IV ONE (08:00)
[2017-10-12] MEDS ORDERED: ETOMIDATE 20 MG/10 ML VIAL IV PUSH ONE (08:00)
[2017-10-12] MEDS ORDERED: MIDAZOLAM HCL 2 MG/2 ML VIAL IV ONE (08:00)
--- NOTE | 2017-10-12 08:09 | HHI.CCPN ---
Subjective Remarks/Hospital Course 77-year-old female with PMH of A. fib, CAD on Plavix, vaginal bleeding, CVA, bradycardia presents from her rehabilitation facility after she was found altered. Unknown when the last time the patient was normal. On presentation the patient was combative, alert, oriented only to self. She is unable to provide any meaningful history. She was placed in soft restraints. Patient was administered MedSurg floor however the rapid response was called due to patient' s bradycardia and hypotension. She arrived to ICU with a blood pressure systolic at 60s heart rate between 45-60 range, arousable still oriented to person only, able to protect her airways. 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 On initial labs her potassium was also elevated to 5.5 and was treated with insulin dextro's bicarbonate and calcium. Also Kayexalate enema. 10/09 more alert today, rewarmed, on minimal dose of dopamine, with heart rate improvement, and blood pressure is well 10/10: still agitated delirium. bleeding noted from vaginal area. failed attempt at placing enteral access via NGT and bleeding from attempt. platelets still < 100k. unable to give PO synthroid x 2 days given no enteral access. swapped back to iv synthroid given her diagnosis. still on pressors on dopamine. 10/11: dopamine persists, but lower dose. hgb dropped from 10.6 to 8.7. vaginal bleeding slightly improved after platelets. still agitated. free t4 slightly improved, but still low. 10/12: Having significant epistaxis from right nose with evidence of aspiration and desaturation. Continues epistaxis with coughing up of blood. Lethargic. Not protecting airway. ABG shows combined metabolic and respiratory acidosis. Receiving 1 U PRBC for hemoglobin of 6.7. Platelet count is 54 I have ordered 2 units of platelets. Rhino rocket ordered from ED, but patient will need intubation for airway protection Objective Vital Signs Date Time Temp Pulse Resp B/P (MAP) Pulse Ox O2 Delivery O2 Flow Rate FiO2 10/12/17 06:23 98.2 81 22 96/53 95 10/11/17 20:00 T-Piece 28 10/11/17 19:49 1.00 Intake and Output 10/12/17 10/12/17 10/13/17 08:00 16:00 00:00 Intake Total 929 ml Output Total 250 ml Balance 679 ml Result Diagram: 10/12/17 0342 10/12/17 0342 Other Results Microbiology Date/Time Source Procedure Growth Status 10/09/17 08:30 Urine Catheterized Urine Urine Culture - Final NO GROWTH IN 48 HOURS. Complete Imaging Last [address] 10/08/171652 Signed Impressions: Service Date/Time: October 18:14 - CONCLUSION: 1. Stable left parietal encephalomalacia. 2. No acute infarct, acute hemorrhage, mass effect or extra axial fluid collections. Edinson Adan MD Chest X-Ray 10/08/171652 Signed Impressions: Service Date/Time: , October 08, 2017 17:03 - CONCLUSION: 1. Limited examination with mild diffuse interstitial prominence, likely technical. Differential considerations include mild positive fluid balance. 2. Otherwise, negative portable chest. Carroll Kim MD Objective Remarks GENERAL: Morbidly obese elderly female, lethargic. Significant bleeding from the right nostril SKIN: No rashes, ecchymoses or lesions. HEAD: Atraumatic. Normocephalic. No temporal or scalp tenderness. EYES: No scleral icterus. No injection or drainage. ENT: Significant continues bleeding from the right nostril. Patient continuously coughing up blood or large amount of blood pooling in oropharynx NECK: Trachea midline. JVD unable to be assessed due to body habitus. CARDIOVASCULAR: Regular rhythm. normal rate. on dopamine. RESPIRATORY: Bilaterally decreased air entry. Poor inspiratory effort. Lacking airway protection GASTROINTESTINAL: Abdomen morbidly obese, soft, non-tender, nondistended. No guarding. MUSCULOSKELETAL: Extremities without clubbing, cyanosis. No calf tenderness. Bilaterally obese lower extremities. NEUROLOGICAL: Somnolent, lethargic. Transiently wakes up to stimulation goes right back to sleep. Moves all extremities. A/P Assessment and Plan Assessment: 77yF with myxedema coma, metabolic encephalopathy, bleeding and thrombocytopenia. continue iv synthroid. remains critically ill on vasopressors , hypothermic, hypotensive, anemic. multiple organs still life-threatening and clinically still life-threateningly hypothyroid. Now acute respiratory failure , severe epistaxis and active aspiration Neuro/Endo: Myxedema Coma Metabolic Encephalopathy - Myxedema coma - Per Report the patient was noncompliant with administration of her meds, including thyroid medications - CT head negative - Levothyroxine and hydrocortisone IV, T3 by mouth since IV for not available at [place] - frequent neuro checks - Intubated for airway protection - Propofol for sedation and vent synchrony - Give calcium gluconate 2 g IV 1 Resp/ENT: Acute hypercarbic hypoxemic respiratory failure Severe epistaxis with aspiration - Emergently intubated for airway protection - [facility] 16/550/8 - DuoNeb every 6 hours when necessary - Rhino Rocket placement if epistaxis is not resolved after platelet transfusion - Transfuse 2 units of platelets stat - Hold long acting insulin until by mouth resume - Insulin sliding scale CVS: Hypotension - Aggressive IV fluids, blood product resuscitation - Dopamine when necessary to keep MAP above 65 - Continue IV steroids - Rule out sepsis as cause for hypotension GI: Acute protein calorie malnutrition - moderate Super morbid obesity Dysphagia - Keep nothing by mouth for intubation - Resume tube feedings postintubation : Acute kidney injury - Aggressive hydration - Strict I's and O's - Monitor creatinine and electrolyte levels HEME: Anemia requiring transfusion (secondary to chronic disease and acute blood loss) Thrombocytopenia Epistaxis - presented with low platelets. low probability HIT. - Transfuse 2 units of platelets stat due to active bleeding - Transfuse 1 unit of PRBC, recheck CBC at 2 PM DVT GI prophylaxis - Teds SCDs - Subcutaneous heparin: holding this given severe epistaxis - Pepcid CCT 82 MIN excluding procedure. Jose F Maxwell MD Oct 12, 2017 08:09
--- NOTE | 2017-10-12 08:14 | PD.PROCEDR ---
Procedure Note Procedure Consent: Emergency intubation for severe epistaxis with ongoing aspiration and hypoxia, lack of airway protection INTUBATION: The patient was put in optimal position for the procedure. Rapid sequence intubation was initiated by me using 10 milligrams of Versed IV. Light scope was used with #4 blade grade 2 view to attendance. I was unable to pass the #8 ET tube, so a #7 ET tube was passed easily. Tube placement was confirmed by visualization of the tube and balloon passing through the cords, capnometry and subsequent chest x-ray. Breath sounds were equal and well aerated bilaterally postintubation. No breath sounds over stomach. Patient tolerated procedure well. Jose F Maxwell MD Oct 12, 2017 08:14
[2017-10-12] MEDS ORDERED: PROPOFOL 500 MG/50 ML INJ 50 ML ONE (08:37)
[2017-10-12] MEDS: SODIUM CHLORIDE 0.9% FLUSH 10 ML FLUSH IV FLUSH SCH ×3 (09:00→20:16)
[2017-10-12] MEDS: CLOPIDOGREL 75 MG TAB PO SCH (09:00)
[2017-10-12] MEDS: INSULIN DETEMIR 100 UNITS/ML VIAL SQ SCH ×2 (09:00→20:16)
--- NOTE | 2017-10-12 09:26 | RADRPT ---
EXAM DATE/TIME: 10/12/2017 08:25 [facility] COMPARISON: CHEST SINGLE AP, October 12, 2017, 7:45. INDICATIONS : Status post endotracheal tube placement. MEDICAL HISTORY : None. SURGICAL HISTORY : None. ENCOUNTER: Initial ACUITY: 4 - 6 days PAIN SCORE: Non-responsive. LOCATION: chest FINDINGS: A single view of the chest demonstrates slight elevation of the right hemidiaphragm unchanged. Improv ing aeration of both lungs with more distinct interstitial markings characteristic of resolving inter stitial edema/volume overload. Heart size is prominent but well compensated. Endotracheal tube is mars ntified the tip approximately 2.5 centimeters above the feliciano. Feeding tube enters the stomach and e xtends off the inferior aspect of the image. Stable position of right upper extremity PICC line. Dege nerative spurring of the dorsal spine. Osseous structures are otherwise intact. CONCLUSION: 1. Improving aeration of both hemithoraces. Heart size is prominent but appears to be well compensate d. 2. Endotracheal tube with the tip approximately 2.5 cm above the feliciano. Sincere Song MD on October 12, 2017 at 9:17 Board Certified Radiologist. This report was verified electronically.
[2017-10-12] MEDS: risperiDONE 1 MG TAB PO SCH ×3 (10:00→17:46)
[2017-10-12] MEDS: FAMOTIDINE 20 MG/2 ML VIAL IV PUSH SCH ×2 (10:00→20:16)
[2017-10-12] MEDS ORDERED: PIPERACIL-TAZO 3.375 GM PREMIX 50 ML IV SCH (10:00)
[2017-10-12] MEDS: PROPOFOL 1000 MG/100 ML INJ 100 ML IV PRN ×5 (10:10→23:55)
[2017-10-12] MEDS: levETIRAcetam 500 MG/NS 100 ML IV SCH ×4 (12:15→20:15)
[2017-10-12 12:33] LABS: BLOOD GAS BASE EXCESS -0.6 mmol/L (-2-2); BLOOD GAS CARBOXYHEMOGLOBIN 1.3 % (0-4); BLOOD GAS HCO3 22 mmol/L (22-26); BLOOD GAS O2 HGB SATURATION 98 % (90-100); BLOOD GAS OXYGEN CONTENT 13.5 Vol % (12.0-20.0); BLOOD GAS PCO2 26 mmHg (38-42); BLOOD GAS PO2 232 mmHg (61-120); BLOOD GAS TOTAL HGB 9.4 G/DL (12.0-16.0); CRITICAL VALUE YES; OXYGEN DEVICE VENTILATOR; TEMP CORR TO 98.6
[2017-10-12 12:34] LABS: DRAW SITE RT RADIAL; FIO2 50 %; NUMBER OF ARTERIAL PUNCTURES 1; STAT NO; ULNAR PULSE PRESENT
[2017-10-12] MEDS ORDERED: FUROSEMIDE 40 MG/4 ML VIAL ONE (13:41)
[2017-10-12 14:26] LABS: AUTOMATED NEUTROPHIL # 9.7 TH/MM3 (1.8-7.7); HEMATOCRIT 30.2 % (35.0-46.0); LYMPH % 9.6 % (9.0-44.0); LYMPHOCYTE # 1.1 TH/MM3 (1.0-4.8); MEAN CELL VOLUME 81.2 FL (80.0-100.0); MEAN CORPUSCULAR HGB CONC 33.2 % (32.0-36.0); MONO % 6.5 % (0.0-8.0); NEUT % 83.9 % (16.0-70.0); PLATELET COUNT 89 TH/MM3 (150-450); RED BLOOD COUNT 3.72 MIL/MM3 (4.00-5.30); RED CELL DISTRIBUTION WIDTH 20.2 % (11.6-17.2); WHITE BLOOD COUNT 11.6 TH/MM3 (4.0-11.0)
[2017-10-12 14:28] LABS: HEMO FLAGS AUTO DIFF
--- NOTE | 2017-10-12 14:36 | PD.CONS ---
Consult Service Palliative Care Consult Requested By Dr. Maxwell . Primary Care Physician Unknown . Reason for Consultation a. To assist with evaluation and management of symptoms including: Dyspnea , anxiety, encephalopathy b. To assist medical decision maker(s) with: better understanding of current medical conditions; weighing benefits/burdens of medical treatment options; making medical treatment decisions. . HPI History of Present Illness This 77-year-old female, with a past history of morbid obesity, seizures, atrial fib, PE, hypertension, prior CVA, and chronic vaginal bleeding, was brought to the emergency department on 10/08/17 from her longterm because of reported altered mental status and combativeness. The patient had been admitted here in August 2017 because of recurrent seizures, but was able to be returned to the longterm within a few days. There was now some reports of noncompliance with medications, but the degree to which that was true was unknown; the patient's son reports that the patient has not been taking most of her medicines for at least the past month or 2 because "she did not think she would need it." It is noted that the patient was reported to have been on levothyroxine 100 g daily during her prior and current hospitalizations here. 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 The patient was hypotensive as she was being admitted and had spent on pressors for a couple days. By the day following admission, the creatinine was 2.38, and a pelvic ultrasound revealed thickened endometrium. On 10/10/17, and EEG was consistent with encephalopathy. The patient's platelet count and hemoglobin declined on 10/11/17. On the morning of 10/12/17, the patient developed significant epistaxis from the right side, and the platelets were noted to be only 54,000. Her hemoglobin was 6.9, and creatinine had improved to 1.86. The repeat TSH was now 2.6. The patient was transfused with red cells and platelets, and the epistaxis seemed to subside. However, she had obvious aspiration at the time of the epistaxis, developed respiratory distress and hypoxia, and was INTUBATED by Dr. Maxwell. Delbert blood was noted in the trachea and was suctioned during the intubation, confirming obvious aspiration. Palliative Care was consulted to assist with symptom management, and to enter into discussions with the patient's family regarding her current illnesses, the recent complications, the prognosis, and the benefits and burdens of the various treatment choices. . Function/Cognitive Trajectory This patient has been a longterm resident, apparently bedbound, for the past 4 or 5 years. The patient's son reports that her mind was sharp until the past month or 2 when she became more confused and forgetful, more so in the past week or 2. . Review of Systems ROS Limitations: Clinical Condition, Altered Mental Status (ROS history is per nursing staff and medical records, and from patient's son) Eyes: DENIES: Eye inflammation Ears, nose, mouth, throat: COMPLAINS OF: Epistaxis (on 10/12/17) Respiratory: COMPLAINS OF: Shortness of breath (with apparent aspiration) Gastrointestinal: DENIES: Bloody stools, Vomiting blood Genitourinary: COMPLAINS OF: Abnormal vaginal bleeding (chronic), DENIES: Hematuria Integumentary: DENIES: Rash Hematologic/Lymphatics: COMPLAINS OF: History of transfusions (during this hospitalization) Neurologic: COMPLAINS OF: Seizures (chronic/intermittent) Psychiatric: COMPLAINS OF: Confusion, Agitation Past Family Social History Coded Allergies: No Known Allergies (Verified , 08/14/17) Past Medical History * Hypertension * Diabetes * Morbid obesity * History of CVA, left parietal encephalomalacia on CT scan * History of pulmonary embolism * History of UTIs * GERD * Depression * Seizure disorder * Hyperlipidemia * Hypothyroidism * History of Insomnia . Past Surgical History * right ankle . Reported Medications Reported Meds & Active Scripts Active Reported Risperdal (Risperidone) 1 Mg Tab 1 Mg PO TID Lipitor (Atorvastatin Calcium) 40 Mg Tab 40 Mg PO HS Lisinopril 2.5 Mg Tab 2.5 Mg PO DAILY Hydrochlorothiazide 12.5 Mg Cap 12.5 Mg PO DAILY Levetiracetam Liq (Levetiracetam) 500 Mg/5 Ml Soln 1,500 Mg PO DAILY Glipizide 5 Mg Tab 5 Mg PO TID Take 30 minutes before a meal Levothyroxine (Levothyroxine Sodium) 125 Mcg Tab 125 Mcg PO DAILY Trazodone (Trazodone HCl) 150 Mg Tablet 150 Mg PO HS Humalog Inj (Insulin Human Lispro) 1,000 Unit/10 Ml Vial 7 Units SQ DAILY Levemir Inj (Insulin Detemir) 1,000 unit/ 10 ML Vial 8 Units SQ DAILY Do not mix with any other Insulin. Humalog Inj (Insulin Human Lispro) 1,000 Unit/10 Ml Vial 2-12 Units SQ ACHS Max dose at bedtime:( )units; sugars < 70,(0)units; sugars 150-199,(2)units; sugars 200-249,(4)units; sugars 250-299,(7)units; sugars 300-349,(10)units; sugars more than 349,(12)units. Plavix (Clopidogrel Bisulfate) 75 Mg Tab 75 Mg PO DAILY . Current Medications Medications (Trade) Dose Ordered Sig/Marilee Route Start Time Stop Time Status Last Admin (NS Flush) 2 ml UNSCH PRN IV FLUSH 10/08/17 20:15 (NS Flush) 2 ml BID IV FLUSH 10/08/17 21:00 10/12/17 09:00 (Zofran Inj) 4 mg Q6H PRN IVP 10/08/17 20:15 (Narcan Inj) 0.4 mg UNSCH PRN IV PUSH 10/08/17 20:15 (Atropine Inj) 0.5 mg Q1H PRN IV PUSH 10/08/17 23:15 10/08/17 23:26 (Synthroid) 125 mcg DAILY@0600 PO 10/09/17 06:00 Future Hold (Lipitor) 40 mg HS PO 10/09/17 21:00 10/11/17 20:53 (Plavix) 75 mg DAILY PO 10/09/17 09:00 10/11/17 09:25 (risperDAL) 1 mg TID PO 10/09/17 09:00 10/12/17 13:31 (Desyrel) 150 mg HS PO 10/09/17 21:00 10/11/17 20:52 (SoluCORTEF INJ) 100 mg Q6HR IV PUSH 10/09/17 06:00 10/12/17 13:30 Dopamine HCl/ Dextrose 500 ml @ 22.5 mls/hr TITRATE PRN IV 10/09/17 03:00 10/11/17 21:20 (Brethine Inj) 1 mg UNSCH PRN SQ 10/09/17 03:00 Sodium Chloride 1,000 ml @ 125 mls/hr Q8H IV 10/09/17 03:15 10/12/17 12:15 (D50w (Vial) Inj) 50 ml UNSCH PRN IV PUSH 10/09/17 07:45 (Glucagon Inj) 1 mg UNSCH PRN OTHER 10/09/17 07:45 (NS Flush) See Protocol DAILY IV FLUSH 10/10/17 09:00 10/11/17 09:26 (NS Flush) See Protocol UNSCH PRN IV FLUSH 10/09/17 13:00 (Heparin Central Flush) See Protocol DAILY IV FLUSH 10/10/17 09:00 (Heparin Central Flush) See Protocol UNSCH PRN IV FLUSH 10/09/17 13:00 (NS Flush) SEE PROTOCOL UNSCH PRN IV FLUSH 10/09/17 13:00 Levetriacetam 500 mg/Sodium Chloride 105 ml @ 420 mls/hr Q12HR IV 10/10/17 09:00 10/12/17 12:15 (Synthroid Inj) 75 mcg DAILY@06 IV PUSH 10/10/17 08:45 10/12/17 05:37 (Pepcid Inj) 10 mg Q12HR IV PUSH 10/10/17 21:00 10/12/17 10:00 (D50w (Vial) Inj) 25 ml UNSCH PRN IV PUSH 10/11/17 16:00 (NovoLIN R SUPPLEMENTAL SCALE) 1 Q4HR SQ 10/11/17 16:00 10/12/17 13:00 (Levemir Inj) 5 units Q12HR SQ 10/11/17 21:00 10/11/17 20:53 (Peridex 0.12% Liq) 15 ml BID@08,20 MT 10/12/17 20:00 Propofol 100 ml @ 6.264 mls/ hr TITRATE PRN IV 10/12/17 08:30 10/12/17 13:25 Piperacillin Sod/ Tazobactam Sod 50 ml @ 100 mls/hr Q8H IV 10/12/17 10:00 10/12/17 12:30 Family History The patient's son reports that the patient's mother and father both in their 70s "of natural causes." He is unaware of any family history of diabetes or stroke. . Substance Use Tobacco: None Alcohol: None Prescription med abuse: None Illicits: None . Psychosocial History The patient has been residing at a local longterm. Her son Castillo Barreto is the POA/HCS . Spiritual/Cultural Factors Number of [employer], spirituality has been very important for her. . Living Will: Never completed Health Care Surrogate: Copy in medical record Durable Power of Law Librarian: Copy in medical record Health Care Surrogate(s): Son, Castillo Barreto . Family/friends goals: The patient's son Castillo reports that he does want to continue aggressive care for now. He does understand that the overall outlook is rather poor, and the aggressive goals may be modified or even transitioned to comfort care if the patient continues to decline. . Ethical and Legal Issues There are no ethical issues that would impact her care or decision-making at this time. The patient lacks capacity for decision-making, and it is unlikely that she will regain that capacity. Her son, Castillo Barreto, is designated HCS. . Physical Exam Vital Signs Date Time Temp Pulse Resp B/P (MAP) Pulse Ox O2 Delivery O2 Flow Rate FiO2 10/12/17 12:21 97.3 62 16 135/62 99 10/12/17 12:11 98 50 10/12/17 09:15 97.7 65 16 121/61 100 10/12/17 09:05 97.7 66 16 115/56 100 10/12/17 08:47 97.9 76 16 116/58 100 10/12/17 08:10 98.2 79 20 104/53 100 10/12/17 08:05 100 50 10/12/17 06:23 98.2 81 22 96/53 95 10/12/17 06:08 98.2 77 19 100/53 94 10/12/17 06:00 80 10/12/17 04:00 98.1 75 22 97/51 (66) 97 10/12/17 04:00 75 10/12/17 02:00 76 10/12/17 00:00 79 10/12/17 00:00 98.2 79 17 95/55 (68) 97 10/11/17 21:20 82 92/53 10/11/17 20:00 98.8 71 21 84/48 (60) 96 10/11/17 20:00 69 10/11/17 20:00 96 T-Piece 28 10/11/17 19:49 96 Nasal Cannula 1.00 10/11/17 18:00 76 10/11/17 16:00 70 10/11/17 16:00 97.3 66 15 105/51 (69) 100 10/12/17 10/13/17 19:00 07:00 Intake Total 5047 ml Balance 5047 ml IV Total 3425 ml Packed Cells 800 ml Platelets 802 ml Blood Product IV Normal Saline Flush 20 ml Exam CONSTITUTIONAL/GENERAL: This is a massively obese patient, in no apparent distress in the ISC. TUBES/LINES/DRAINS: Endotracheal tube, IV access SKIN: No jaundice, rashes, or lesions. No wounds seen anteriorly. Skin temperature appropriate. Not diaphoretic. HEAD: Atraumatic. Normocephalic. EYES: Pupils equal and round No scleral icterus. No injection or drainage. Fundi not examined. ENT: Nose without bleeding or purulent drainage. Throat without visible erythema , exudates, masses, or lesions. NECK: Trachea midline. Supple, nontender. No palpable thyroid enlargement or nodularity. CARDIOVASCULAR: Regular rate and rhythm without murmurs, gallops, or rubs. No JVD. Unable to palpate foot/ankle pulses. RESPIRATORY/CHEST: Symmetric, unlabored respirations. Clear to auscultation, but breath sounds markedly diminished. GASTROINTESTINAL: Abdomen soft, non-tender, massively obese. No hepato- splenomegaly, or palpable masses. No guarding. Bowel sounds present. GENITOURINARY: Without palpable bladder distension. Sanches catheter in place. MUSCULOSKELETAL: Extremities without clubbing or cyanosis, but there appears to be diffuse leg and foot edema. No joint tenderness or effusion noted. No calf tenderness. No mottling or clubbing. LYMPHATICS: No palpable cervical or supraclavicular adenopathy. NEUROLOGICAL: Unresponsive, sedated on the ventilator. PSYCHIATRIC: Unable to assess due to clinical condition . Diagnostic Tests Laboratory Laboratory Tests Test 10/10/17 04:17 10/10/17 11:40 10/12/17 03:42 10/12/17 07:31 White Blood Count 9.7 TH/MM3 (4.0-11.0) 7.7 TH/MM3 (4.0-11.0) Red Blood Count 3.36 MIL/MM3 (4.00-5.30) 2.65 MIL/MM3 (4.00-5.30) Hemoglobin 8.7 GM/DL (11.6-15.3) 6.9 GM/DL (11.6-15.3) Hematocrit 27.2 % (35.0-46.0) 21.4 % (35.0-46.0) Mean Corpuscular Volume 80.9 FL (80.0-100.0) 80.7 FL (80.0-100.0) Mean Corpuscular Hemoglobin 26.0 PG (27.0-34.0) 25.9 PG (27.0-34.0) Mean Corpuscular Hemoglobin Concent 32.2 % (32.0-36.0) 32.1 % (32.0-36.0) Red Cell Distribution Width 20.9 % (11.6-17.2) 20.9 % (11.6-17.2) Platelet Count 89 TH/MM3 (150-450) 54 TH/MM3 (150-450) Mean Platelet Volume 8.3 FL (7.0-11.0) 8.3 FL (7.0-11.0) Neutrophils (%) (Auto) 89.8 % (16.0-70.0) Lymphocytes (%) (Auto) 7.7 % (9.0-44.0) Monocytes (%) (Auto) 2.3 % (0.0-8.0) Eosinophils (%) (Auto) 0.0 % (0.0-4.0) Basophils (%) (Auto) 0.2 % (0.0-2.0) Neutrophils # (Auto) 8.7 TH/MM3 (1.8-7.7) Lymphocytes # (Auto) 0.7 TH/MM3 (1.0-4.8) Monocytes # (Auto) 0.2 TH/MM3 (0-0.9) Eosinophils # (Auto) 0.0 TH/MM3 (0-0.4) Basophils # (Auto) 0.0 TH/MM3 (0-0.2) CBC Comment AUTO DIFF Differential Comment AUTO DIFF CONFIRMED Toxic Vacuolation PRESENT (NONE SEEN) Platelet Estimate LOW (NORMAL) Platelet Morphology Comment NORMAL (NORMAL) Acanthocytes OCC (NORMAL) Blood Urea Nitrogen 31 MG/DL (7-18) 42 MG/DL (7-18) Creatinine 2.10 MG/DL (0.50-1.00) 1.86 MG/DL (0.50-1.00) Random Glucose 264 MG/DL (74-106) 245 MG/DL (74-106) Total Protein 7.4 GM/DL (6.4-8.2) 6.2 GM/DL (6.4-8.2) Albumin 2.0 GM/DL (3.4-5.0) Calcium Level 7.4 MG/DL (8.5-10.1) 6.7 MG/DL (8.5-10.1) Phosphorus Level 3.6 MG/DL (2.5-4.9) Magnesium Level 2.1 MG/DL (1.5-2.5) Alkaline Phosphatase 347 U/L (45-117) Aspartate Amino Transf (AST/SGOT) 56 U/L (15-37) Alanine Aminotransferase (ALT/SGPT) 21 U/L (10-53) Total Bilirubin 0.7 MG/DL (0.2-1.0) Sodium Level 136 MEQ/L (136-145) 145 MEQ/L (136-145) Potassium Level 5.1 MEQ/L (3.5-5.1) 4.1 MEQ/L (3.5-5.1) Chloride Level 101 MEQ/L (98-107) 113 MEQ/L (98-107) Carbon Dioxide Level 26.1 MEQ/L (21.0-32.0) 24.4 MEQ/L (21.0-32.0) Anion Gap 9 MEQ/L (5-15) 8 MEQ/L (5-15) Estimat Glomerular Filtration Rate 28 ML/MIN (>89) 32 ML/MIN (>89) Protein Corrected Calcium 7.3 MG/DL (8.5-10.1) 7.1 MG/DL (8.5-10.1) Free Thyroxine 0.58 NG/DL (0.76-1.46) Free Triiodothyronine (T3) pg/dL 1.11 PG/ML (2.18-3.98) Thyroid Stimulating Hormone 3rd Gen 8.290 uIU/ML (0.358-3.740) 2.630 uIU/ML (0.358-3.740) Prothrombin Time 13.2 SEC (9.8-11.6) Prothromb Time International Ratio 1.3 RATIO Activated Partial Thromboplast Time 37.1 SEC (24.3-30.1) Thyroxine (T4) 5.1 MCG/DL (4.8-13.9) Blood Gas Puncture Site RT RADIAL Blood Gas HCO3 23 mmol/L (22-26) Blood Gas Base Excess -3.2 mmol/L (-2-2) Blood Gas Oxygen Saturation 97 % (90-100) Arterial Blood pH 7.27 (7.380-7.420) Arterial Blood Partial Pressure CO2 51 mmHg (38-42) Arterial Blood Partial Pressure O2 395 mmHg (61-120) Arterial Blood Oxygen Content 15.2 Vol % (12.0-20.0) Arterial Blood Carboxyhemoglobin 1.3 % (0-4) Arterial Blood Methemoglobin 1.0 % (0-2) Blood Gas Hemoglobin 10.4 G/DL (12.0-16.0) Oxygen Delivery Device Non-Rebreathing Mask Blood Gas Liter Flow 15 L/M Blood Gas Inspired Oxygen 100 % Test 10/12/17 12:22 10/12/17 13:46 Blood Gas Puncture Site RT RADIAL Blood Gas Patient Temperature 98.6 Blood Gas HCO3 22 mmol/L (22-26) Blood Gas Base Excess -0.6 mmol/L (-2-2) Blood Gas Oxygen Saturation 98 % (90-100) Arterial Blood pH 7.53 (7.380-7.420) Arterial Blood Partial Pressure CO2 26 mmHg (38-42) Arterial Blood Partial Pressure O2 232 mmHg (61-120) Arterial Blood Oxygen Content 13.5 Vol % (12.0-20.0) Arterial Blood Carboxyhemoglobin 1.3 % (0-4) Arterial Blood Methemoglobin 1.0 % (0-2) Blood Gas Hemoglobin 9.4 G/DL (12.0-16.0) Oxygen Delivery Device VENTILATOR Blood Gas Ventilator Setting Blood Gas Inspired Oxygen 50 % Result Diagram: 10/12/17 0342 10/12/17 0342 Microbiology Microbiology Date/Time Source Procedure Growth Status 10/12/17 13:51 Blood Peripheral Aerobic Blood Culture Pending Received 10/12/17 13:51 Blood Peripheral Anaerobic Blood Culture Pending Received 10/12/17 13:46 Blood Peripheral Aerobic Blood Culture Pending Received 10/12/17 13:46 Blood Peripheral Anaerobic Blood Culture Pending Received 10/12/17 09:10 Sputum Endotracheal Gram Stain Pending Received 10/12/17 09:10 Sputum Endotracheal Sputum Culture Pending Received Imaging Last Impressions Chest X-Ray 10/12/17 0000 Signed Impressions: Service Date/Time: Thursday, October 12, 2017 08:25 - CONCLUSION: 1. Improving aeration of both hemithoraces. Heart size is prominent but appears to be well compensated. 2. Endotracheal tube with the tip approximately 2.5 cm above the feliciano. Sincere Song MD Abdomen X-Ray 10/10/17 0000 Signed Impressions: Service Date/Time: Tuesday, October 10, 2017 13:01 - CONCLUSION: Dobbhoff feeding tube in the stomach. Osmel Link MD Pelvis Ultrasound 10/09/17 0000 Signed Impressions: Service Date/Time: Monday, October 09, 2017 16:54 - CONCLUSION: 1. Limited evaluation secondary to patient's size 2. Mild ascites 3. Thickened endometrial stripe which may reflect hyperplasia or malignancy. Elie Colin MD Head CT 10/08/17 1653 Signed Impressions: Service Date/Time: October 18:14 - CONCLUSION: 1. Stable left parietal encephalomalacia. 2. No acute infarct, acute hemorrhage, mass effect or extra axial fluid collections. Edinson Adan MD Procedures INTUBATION 10/12/17 . Patient/Family Conference Present at Family Conference: Patient's son Castillo by telephone . Family Conference Time (mins): 39 Family Conference Location: Telephone Issues Discussed: * Palliative care role, purpose, approach * Additional medical, psychosocial, and spiritual history * Patients general health, functional status, and cognitive changes in the months leading up to the current hospitalization * Patient/family understanding of the current medical problems * Patient/family understanding of prognosis * Patients goals of care as best understood from advance directives and/or conversations and/or values * Current medical treatment options and benefits/burdens of those options * Likely scenarios comparing ongoing aggressive care with a transition to comfort measures only * Questions answered to the best of my ability * Palliative care contact information provided The patient's son Castillo reports that he does want to continue aggressive care for now. He does understand that the overall outlook is rather poor, and the aggressive goals may be modified or even transitioned to comfort care if the patient continues to decline. . Assessment and Plan Disease Oriented Problem List: (1) respiratory failure, aspiration (2) epistaxis, with aspiration of blood (3) myxedema crisis (4) acute kidney injury (5) suspected noncompliance with medications Comment: Son confirms that patient stopped taking her meds a month or 2 prior to admission (6) endometrial thickening on ultrasound (7) anemia, thrombocytopenia requiring transfusions (8) seizure disorder (9) long-term longterm resident (10) morbid obesity (11) diabetes (12) history of PE (13) history of atrial fibrillation (14) history of hypertension (15) history of prior CVA, with left parietal encephalomalacia on CT scan (16) chronic vaginal bleeding (17) degenerative joint disease Symptom Scale: (1) dyspnea 0-10 Scale: Unable to quantify (2) restlessness/combativeness 0-10 Scale: Unable to quantify (3) encephalopathy 0-10 Scale: Unable to quantify Pertinent Non-Medical Issues Psychosocial: Long-term longterm resident; one biologic son, one adopted son; 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 Legal: The patient lacks capacity for decision-making and it is unlikely that she will regain that capacity; the patient's son Castillo is designated health care surrogate. Ethical issues impacting care: None . . Important Contacts Son: Castillo Barreto [phone] - goes straight to voicemail but he responds to a message Possible alternative number but with no ability to contact 10/12/17: . Prognosis The patient lives in a longterm in a chronically debilitated state, and now has suffered failure of respiratory, cardiovascular, renal, neurologic, and hematologic systems. Her overall prognosis is poor, and I believe she would be appropriate for hospice services if the goals become comfort oriented. Predictors of a poor outcome in this patient with morbid obesity and myxedema crisis include hypotension, the need for mechanical ventilation, hypothermia, advanced age, and cardiovascular disease. . Code Status: Full Code Plan * FULL CODE * DECISION-MAKING: The patient lacks capacity for decision-making, and it is unlikely that she will regain that capacity. Her son, Castillo Barreto, is designated HCS. * Predictors of a poor outcome in this patient with morbid obesity and myxedema crisis include hypotension, the need for mechanical ventilation, hypothermia, advanced age, and cardiovascular disease. * GOALS: The patient's son Castillo reports that he does want to continue aggressive care for now. He does understand that the overall outlook is rather poor, and the aggressive goals may be modified or even transitioned to comfort care if the patient continues to decline. The patient had been recently evaluated by hospice at her longterm. * SYMPTOMS: The patient is currently sedated and mechanically ventilated. No new medication recommendations at this time. * I will meet with the patient's son at noon on Thursday for further discussion. . Time Spent Total Floor Time (mins): 78 Face to Face Time (mins): 22 >50% Counseling/Coord of Care: Yes (d/w Dr. Maxwell) Thank you for the opportunity to participate in the care of Ms. Barreto. Attestation To help prompt me to consider important information that might be impacting today's encounter and assessment, information from prior notes written by myself or my colleagues may have been "brought forward" into today's note. My signature on this note, however, is an attestation that I personally performed the exam, history, and/or decision-making noted today, and, unless otherwise indicated, the interactions with patient, family, and staff as well as the review of records all occurred today. I also attest that the listed assessment and stated plan reflect my best clinical judgment today based on the combination of historical information, prior notes, and today's exam/ interactions. When time spent is documented, it refers only to time spent today by the signer, or if indicated, combined time spent today by collaborating physician/nurse practitioner. Amber Zavala MD Oct 12, 2017 14:36
[2017-10-12 15:20] LABS: TARGET CELLS 1+ (NORMAL); TEARDROP RBCS 1+ (NORMAL)
[2017-10-12 15:22] LABS: PLATELET ESTIMATE SMEAR LOW (NORMAL); PLATELET MORPHOLOGY NORMAL (NORMAL); SCAN/DIFF AUTO DIFF CONFIRMED
[2017-10-12] MEDS: PIPERACIL-TAZO 3.375 GM PREMIX 50 ML IV SCH (17:45)
[2017-10-12] MEDS: CHLORHEXIDINE 0.12% (ORAL KIT) 15 ML CUP MT SCH (19:39)
--- NOTE | 2017-10-12 19:54 | ECHRPT ---
Indication: hypotension CONCLUSIONS The left ventricular systolic function is severely reduced with an estimated ejection fraction in th e range of 25-30%. Normal left ventricular size. Mild mitral valve regurgitation. Mild aortic valve regurgitation. No aortic valve stenosis. There is mild tricuspid valve regurgitation. The estimated pulmonary arterial pressure is 45__ mmHg. Mild pulmonary valve regurgitation. BP: / HR: Rhythm: Technical Quality:Technically difficult study FINDINGS LEFT VENTRICLE The left ventricular systolic function is severely reduced with an estimated ejection fraction in th e range of 25-30%. Normal left ventricular size. RIGHT VENTRICLE Normal right ventricular size and systolic function. LEFT ATRIUM The left atrial size is normal. RIGHT ATRIUM The right atrial size is normal. ATRIAL SEPTUM possible atrial septal defect AORTA The aortic root and proximal ascending aorta are normal in size on limited imaging. MITRAL VALVE Mild mitral valve regurgitation. Structurally normal mitral valve. AORTIC VALVE Trileaflet aortic valve. Mild aortic valve regurgitation. No aortic valve stenosis. TRICUSPID VALVE Structurally normal tricuspid valve. There is mild tricuspid valve regurgitation. The estimated pulmonary arterial pressure is 45__ mmHg. PULMONARY VALVE Mild pulmonary valve regurgitation. VESSELS The inferior vena cava is normal in size. PERICARDIUM No pericardial effusion. Austin Chang MD (Electronically Signed) Final Date:12 October 2017 19:53
[2017-10-12] MEDS: ATORVASTATIN 40 MG TAB PO SCH (20:15)
[2017-10-12] MEDS: traZODone HCL 50 MG TAB PO SCH (20:16)
[2017-10-13] VITALS (20 sets, daily range): BP systolic 100–137; BP diastolic 53–63; PULSE 56–90; RESP 12–14; TEMP 96.6–97.2; O2SAT 98–100
[2017-10-13] MEDS: INSULIN NovoLIN REGULAR SUPPLEMENTAL SCALE SQ SCH ×6 (00:20→20:00)
[2017-10-13] MEDS: PIPERACIL-TAZO 3.375 GM PREMIX 50 ML IV SCH ×5 (00:21→23:30)
[2017-10-13] MEDS: HYDROCORTISONE SOD SUCCINATE 100 MG VIAL IV PUSH SCH ×5 (00:21→23:30)
[2017-10-13] MEDS: PROPOFOL 1000 MG/100 ML INJ 100 ML IV PRN ×4 (02:22→12:01)
[2017-10-13] MEDS: SODIUM CHLOR 0.9% 1000 ML INJ 1,000 ML IV SCH ×3 (03:15→19:05)
[2017-10-13 04:05] LABS: HEMATOCRIT 31.2 % (35.0-46.0); MEAN CELL VOLUME 80.3 FL (80.0-100.0); MEAN CORPUSCULAR HEMOGLOBIN 26.8 PG (27.0-34.0); MEAN CORPUSCULAR HGB CONC 33.3 % (32.0-36.0); PLATELET COUNT 87 TH/MM3 (150-450); RED BLOOD COUNT 3.89 MIL/MM3 (4.00-5.30); RED CELL DISTRIBUTION WIDTH 19.9 % (11.6-17.2); WHITE BLOOD COUNT 10.2 TH/MM3 (4.0-11.0)
[2017-10-13 04:06] LABS: REVIEW FLAG FINAL
[2017-10-13 04:10] LABS: BICARBONATE 25.9 MEQ/L (21.0-32.0); POTASSIUM 4.3 MEQ/L (3.5-5.1)
[2017-10-13] MEDS: LEVOTHYROXINE SODIUM 100 MCG VIAL IV PUSH SCH (05:44)
[2017-10-13] MEDS: CHLORHEXIDINE 0.12% (ORAL KIT) 15 ML CUP MT SCH ×2 (08:00→20:09)
[2017-10-13] MEDS: SODIUM CHLORIDE 0.9% FLUSH 10 ML FLUSH IV FLUSH SCH ×3 (09:00→20:12)
[2017-10-13] MEDS: INSULIN DETEMIR 100 UNITS/ML VIAL SQ SCH ×2 (09:00→20:11)
[2017-10-13] MEDS: CLOPIDOGREL 75 MG TAB PO SCH (09:00)
[2017-10-13] MEDS: risperiDONE 1 MG TAB PO SCH ×3 (10:15→19:04)
[2017-10-13] MEDS: levETIRAcetam 500 MG/NS 100 ML IV SCH ×4 (10:15→20:10)
[2017-10-13] MEDS: FAMOTIDINE 20 MG/2 ML VIAL IV PUSH SCH ×2 (10:15→20:10)
[2017-10-13] MEDS: DOPamine 800 MG/D5W PREMIX 500 ML IV PRN (11:14)
--- NOTE | 2017-10-13 13:16 | HHI.CCPN ---
Subjective Remarks/Hospital Course 77-year-old female with PMH of A. fib, CAD on Plavix, vaginal bleeding, CVA, bradycardia presents from her rehabilitation facility after she was found altered. Unknown when the last time the patient was normal. On presentation the patient was combative, alert, oriented only to self. She is unable to provide any meaningful history. She was placed in soft restraints. Patient was administered MedSurg floor however the rapid response was called due to patient' s bradycardia and hypotension. She arrived to ICU with a blood pressure systolic at 60s heart rate between 45-60 range, arousable still oriented to person only, able to protect her airways. 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 On initial labs her potassium was also elevated to 5.5 and was treated with insulin dextro's bicarbonate and calcium. Also Kayexalate enema. 10/09 more alert today, rewarmed, on minimal dose of dopamine, with heart rate improvement, and blood pressure is well 10/10: still agitated delirium. bleeding noted from vaginal area. failed attempt at placing enteral access via NGT and bleeding from attempt. platelets still < 100k. unable to give PO synthroid x 2 days given no enteral access. swapped back to iv synthroid given her diagnosis. still on pressors on dopamine. 10/11: dopamine persists, but lower dose. hgb dropped from 10.6 to 8.7. vaginal bleeding slightly improved after platelets. still agitated. free t4 slightly improved, but still low. 10/12: Having significant epistaxis from right nose with evidence of aspiration and desaturation. Continues epistaxis with coughing up of blood. Lethargic. Not protecting airway. ABG shows combined metabolic and respiratory acidosis. Receiving 1 U PRBC for hemoglobin of 6.7. Platelet count is 54 I have ordered 2 units of platelets. Rhino rocket ordered from ED, but patient will need intubation for airway protection 10/13: Intubated for airway protection yesterday. Epistaxis has stopped, continues to have some vaginal bleeding. Pelvic ultrasound had shown thickened endometrium hyperplasia versus malignancy. Patient at this point is not a candidate for TRACK INSPECTOR evaluation or a pelvic exam. if she gets extubated, and has reasonable neuro recovery, will consult OBGYN at that point. Hemoglobin stable platelet count improved to 87 Objective Vital Signs Date Time Temp Pulse Resp B/P (MAP) Pulse Ox O2 Delivery O2 Flow Rate FiO2 10/13/17 12:12 99 40 10/13/17 11:14 66 151/75 10/13/17 04:00 97.2 12 10/12/17 19:00 Mechanical Ventilator 10/12/17 07:00 2.00 Intake and Output 10/13/17 10/13/17 10/13/17 07:59 15:59 23:59 Intake Total 50 ml 705 ml Output Total 1000 ml Balance -950 ml 705 ml Result Diagram: 10/13/17 0325 10/13/17 0325 Imaging Last [address] 10/08/171652 Signed Impressions: Service Date/Time: October 18:14 - CONCLUSION: 1. Stable left parietal encephalomalacia. 2. No acute infarct, acute hemorrhage, mass effect or extra axial fluid collections. Edinson Adan MD Chest X-Ray 10/08/171652 Signed Impressions: Service Date/Time: October 17:03 - CONCLUSION: 1. Limited examination with mild diffuse interstitial prominence, likely technical. Differential considerations include mild positive fluid balance. 2. Otherwise, negative portable chest. Carroll Kim MD Objective Remarks GENERAL: Morbidly obese elderly female, lethargic. Right epistaxis has stopped. Remains intubated sedated with propofol SKIN: No rashes, ecchymoses or lesions. HEAD: Atraumatic. Normocephalic. No temporal or scalp tenderness. EYES: No scleral icterus. No injection or drainage. ENT: No bleeding from the right nostril. ETT with minimal blood secretion NECK: Trachea midline. JVD unable to be assessed due to body habitus. CARDIOVASCULAR: Regular rhythm. normal rate. on dopamine 2 g per KG per hour. RESPIRATORY: Bilaterally decreased air entry. GASTROINTESTINAL/: Abdomen morbidly obese, soft, non-tender, nondistended. No guarding. Vaginal bleeding noticed by RN MUSCULOSKELETAL: Extremities without clubbing, cyanosis. No calf tenderness. Bilaterally obese lower extremities. NEUROLOGICAL: Intubated sedated with propofol not moving any extremities. Will repeat neuro exam off sedation A/P Assessment and Plan Assessment: 77yF with myxedema coma, metabolic encephalopathy, bleeding and thrombocytopenia. continue iv synthroid, stress dose steroids. remains critically ill on vasopressors, hypothermic, hypotensive, anemic. multiple organs still life-threatening and clinically still life-threateningly hypothyroid. Now acute respiratory failure, severe epistaxis and active aspiration Neuro/Endo: Myxedema Coma Metabolic Encephalopathy - Per Report the patient was noncompliant with administration of her meds, including thyroid medications - CT head negative - Levothyroxine and hydrocortisone IV, T3 by mouth since IV for not available at [place] - We will use hydrocortisone from 100 mg IV every 6 hours to 50 mg IV every 6 hours - frequent neuro checks - Intubated for airway protection 10/12/17 - Propofol for sedation and vent synchrony Resp/ENT: Acute hypercarbic hypoxemic respiratory failure Severe epistaxis with aspiration - Emergently intubated for airway protection 10/12 - PRVC 16//8 - DuoNeb every 6 hours when necessary - Rhino Rocket placement if epistaxis is not resolved after platelet transfusion - s/p 2 units of platelets stat - Start SBT, however neuro status will not permit extubation CVS: Hypotension/bradycardia - Continue IV fluids, blood product as needed - Dopamine when necessary to keep MAP above 65, HR >45 - Continue IV steroids, reduced dose to 50 q6 - Rule out sepsis as cause for hypotension GI: Acute protein calorie malnutrition - moderate Super morbid obesity Dysphagia - Continue tube feedings : Acute kidney injury - Aggressive hydration - Strict I's and O's - Monitor creatinine and electrolyte levels HEME: Anemia requiring transfusion (secondary to chronic disease and acute blood loss) Thrombocytopenia Epistaxis - presented with low platelets. low probability HIT. - s/p 2 units of platelets 10/12 - Transfuse 1 unit of PRBC, recheck CBC at 2 PM DVT GI prophylaxis - Teds SCDs - Subcutaneous heparin: holding due severe epistaxis - Pepcid CCT 32 MIN excluding procedure. Jose F Maxwell MD Oct 13, 2017 13:16
--- NOTE | 2017-10-13 13:31 | HHI.HCPN ---
Reason for visit a. To assist with evaluation and management of symptoms including: Dyspnea , anxiety, encephalopathy b. To assist medical decision maker(s) with: better understanding of current medical conditions; weighing benefits/burdens of medical treatment options; making medical treatment decisions. . Subjective/Interval History INTERVAL NOTE: The patient remains mechanically ventilated. The nurse is beginning a sedation vacation. There has been no more significant epistaxis, the hemoglobin and platelet count are improved after transfusion, and the patient continues to have some vaginal bleeding. A PEA VINER MECHANIC evaluation may be considered later if the patient stabilizes or improves. Discussion with the patient's 2 sons and [id number] today, see below. . Family/friend interactions Discussion with son Esteban and son Castillo and Castillo's : They understand the poor prognosis, they understand that everything possible was being done at this point in time. We had a lengthy discussion about resuscitation status, and they are considering the options and will also talk with their stepsister. For now they want to continue with all current measures. We reviewed all of the complications that the patient has from her chronic debility, her diabetes, her morbid obesity, and now the myxedema crisis, and they understand that it will be difficult for her to overcome all of that. . Advance Directives Living Will: Never completed Health Care Surrogate: Copy in medical record Durable Power of Electro Tech: Copy in medical record Advance Directive Specifics Health Care Surrogate(s): Castillo Cantu . Objective Vital Signs Date Time Temp Pulse Resp B/P (MAP) Pulse Ox O2 Delivery O2 Flow Rate FiO2 10/13/17 12:12 99 40 10/13/17 11:14 66 151/75 10/13/17 08:18 99 40 10/13/17 06:00 62 10/13/17 04:44 98 50 10/13/17 04:00 50 10/13/17 04:00 97.2 59 12 134/61 (85) 99 10/13/17 04:00 59 10/13/17 03:44 99 45 10/13/17 02:00 62 10/13/17 00:29 98 45 10/13/17 00:00 97.2 68 12 137/63 (87) 99 10/13/17 00:00 50 10/13/17 00:00 62 10/12/17 22:00 69 10/12/17 20:18 98 50 10/12/17 20:00 50 10/12/17 20:00 97.5 53 12 120/60 (80) 99 10/12/17 20:00 69 10/12/17 19:00 98 Mechanical Ventilator 50 10/12/17 18:00 66 10/12/17 16:07 99 50 10/12/17 16:00 97.5 69 12 135/62 (86) 99 10/12/17 16:00 69 10/12/17 14:00 67 Intake & Output 10/13/17 10/13/17 07:00 19:00 Intake Total 50 ml 705 ml Output Total 1000 ml Balance -950 ml 705 ml IV Total 50 ml 705 ml Tube Feeding 0 ml Other 0 ml Output Urine Total 1000 ml # Bowel Movements 0 Physical Exam CONSTITUTIONAL/GENERAL: This is a massively obese patient, in no apparent distress in the ISC. TUBES/LINES/DRAINS: Endotracheal tube, IV access, [place] EYES: Pupils equal and round No scleral icterus. No injection or drainage. Fundi not examined. ENT: Nose with some old dried blood on the rightudates, masses, or lesions. NECK: Trachea midline. Supple, nontender. No palpable thyroid enlargement or nodularity. CARDIOVASCULAR: Regular rate and rhythm without murmurs, gallops, or rubs. No JVD. Unable to palpate foot/ankle pulses. RESPIRATORY/CHEST: Symmetric, unlabored respirations. Clear to auscultation, but breath sounds markedly diminished. GASTROINTESTINAL: Abdomen soft, non-tender, massively obese. No hepato- splenomegaly, or palpable masses. No guarding. Bowel sounds present. MUSCULOSKELETAL: Extremities without clubbing or cyanosis, but there appears to be diffuse leg and foot edema. No joint tenderness or effusion noted. No calf tenderness. No mottling or clubbing. LYMPHATICS: No palpable cervical or supraclavicular adenopathy. NEUROLOGICAL: Unresponsive, sedated on the ventilator. PSYCHIATRIC: Unable to assess due to clinical condition . Diagnostic Tests Laboratory Laboratory Tests Test 10/12/17 03:42 10/12/17 07:31 10/12/17 12:22 10/12/17 13:46 White Blood Count 7.7 TH/MM3 (4.0-11.0) 11.6 TH/MM3 (4.0-11.0) Red Blood Count 2.65 MIL/MM3 (4.00-5.30) 3.72 MIL/MM3 (4.00-5.30) Hemoglobin 6.9 GM/DL (11.6-15.3) 10.0 GM/DL (11.6-15.3) Hematocrit 21.4 % (35.0-46.0) 30.2 % (35.0-46.0) Mean Corpuscular Volume 80.7 FL (80.0-100.0) 81.2 FL (80.0-100.0) Mean Corpuscular Hemoglobin 25.9 PG (27.0-34.0) 27.0 PG (27.0-34.0) Mean Corpuscular Hemoglobin Concent 32.1 % (32.0-36.0) 33.2 % (32.0-36.0) Red Cell Distribution Width 20.9 % (11.6-17.2) 20.2 % (11.6-17.2) Platelet Count 54 TH/MM3 (150-450) 89 TH/MM3 (150-450) Mean Platelet Volume 8.3 FL (7.0-11.0) 7.9 FL (7.0-11.0) Blood Urea Nitrogen 42 MG/DL (7-18) Creatinine 1.86 MG/DL (0.50-1.00) Random Glucose 245 MG/DL (74-106) Total Protein 6.2 GM/DL (6.4-8.2) Calcium Level 6.7 MG/DL (8.5-10.1) Sodium Level 145 MEQ/L (136-145) Potassium Level 4.1 MEQ/L (3.5-5.1) Chloride Level 113 MEQ/L (98-107) Carbon Dioxide Level 24.4 MEQ/L (21.0-32.0) Anion Gap 8 MEQ/L (5-15) Estimat Glomerular Filtration Rate 32 ML/MIN (>89) Protein Corrected Calcium 7.1 MG/DL (8.5-10.1) Thyroxine (T4) 5.1 MCG/DL (4.8-13.9) Thyroid Stimulating Hormone 3rd Gen 2.630 uIU/ML (0.358-3.740) Blood Gas Puncture Site RT RADIAL RT RADIAL Blood Gas HCO3 23 mmol/L (22-26) 22 mmol/L (22-26) Blood Gas Base Excess -3.2 mmol/L (-2-2) -0.6 mmol/L (-2-2) Blood Gas Oxygen Saturation 97 % (90-100) 98 % (90-100) Arterial Blood pH 7.27 (7.380-7.420) 7.53 (7.380-7.420) Arterial Blood Partial Pressure CO2 51 mmHg (38-42) 26 mmHg (38-42) Arterial Blood Partial Pressure O2 395 mmHg (61-120) 232 mmHg (61-120) Arterial Blood Oxygen Content 15.2 Vol % (12.0-20.0) 13.5 Vol % (12.0-20.0) Arterial Blood Carboxyhemoglobin 1.3 % (0-4) 1.3 % (0-4) Arterial Blood Methemoglobin 1.0 % (0-2) 1.0 % (0-2) Blood Gas Hemoglobin 10.4 G/DL (12.0-16.0) 9.4 G/DL (12.0-16.0) Oxygen Delivery Device Non-Rebreathing Mask VENTILATOR Blood Gas Liter Flow 15 L/M Blood Gas Inspired Oxygen 100 % 50 % Blood Gas Patient Temperature 98.6 Blood Gas Ventilator Setting Neutrophils (%) (Auto) 83.9 % (16.0-70.0) Lymphocytes (%) (Auto) 9.6 % (9.0-44.0) Monocytes (%) (Auto) 6.5 % (0.0-8.0) Eosinophils (%) (Auto) 0.0 % (0.0-4.0) Basophils (%) (Auto) 0.0 % (0.0-2.0) Neutrophils # (Auto) 9.7 TH/MM3 (1.8-7.7) Lymphocytes # (Auto) 1.1 TH/MM3 (1.0-4.8) Monocytes # (Auto) 0.8 TH/MM3 (0-0.9) Eosinophils # (Auto) 0.0 TH/MM3 (0-0.4) Basophils # (Auto) 0.0 TH/MM3 (0-0.2) CBC Comment AUTO DIFF Differential Comment AUTO DIFF CONFIRMED Platelet Estimate LOW (NORMAL) Platelet Morphology Comment NORMAL (NORMAL) Target Cells 1+ (NORMAL) Tear Drop Cells 1+ (NORMAL) Ovalocytes (NORMAL) Test 10/13/17 03:25 White Blood Count 10.2 TH/MM3 (4.0-11.0) Red Blood Count 3.89 MIL/MM3 (4.00-5.30) Hemoglobin 10.4 GM/DL (11.6-15.3) Hematocrit 31.2 % (35.0-46.0) Mean Corpuscular Volume 80.3 FL (80.0-100.0) Mean Corpuscular Hemoglobin 26.8 PG (27.0-34.0) Mean Corpuscular Hemoglobin Concent 33.3 % (32.0-36.0) Red Cell Distribution Width 19.9 % (11.6-17.2) Platelet Count 87 TH/MM3 (150-450) Mean Platelet Volume 8.9 FL (7.0-11.0) Blood Urea Nitrogen 48 MG/DL (7-18) Creatinine 1.90 MG/DL (0.50-1.00) Random Glucose 170 MG/DL (74-106) Calcium Level 7.8 MG/DL (8.5-10.1) Sodium Level 143 MEQ/L (136-145) Potassium Level 4.3 MEQ/L (3.5-5.1) Chloride Level 109 MEQ/L (98-107) Carbon Dioxide Level 25.9 MEQ/L (21.0-32.0) Anion Gap 8 MEQ/L (5-15) Estimat Glomerular Filtration Rate 31 ML/MIN (>89) Result Diagram: 10/13/175 10/13/17 0325 Microbiology Microbiology Date/Time Source Procedure Growth Status 10/12/17 13:51 Blood Peripheral Aerobic Blood Culture - Preliminary NO GROWTH IN 1 DAY Resulted 10/12/17 13:51 Blood Peripheral Anaerobic Blood Culture - Preliminary NO GROWTH IN 1 DAY Resulted 10/12/17 13:46 Blood Peripheral Aerobic Blood Culture - Preliminary NO GROWTH IN 1 DAY Resulted 10/12/17 13:46 Blood Peripheral Anaerobic Blood Culture - Preliminary NO GROWTH IN 1 DAY Resulted 10/12/17 09:10 Sputum Endotracheal Gram Stain - Final Resulted 10/12/17 09:10 Sputum Endotracheal Sputum Culture - Preliminary IMMATURE GROWTH - REINCUBATE Resulted Procedures INTUBATION 10/12/17 . Assessment and Plan Disease Oriented Problem List: (1) respiratory failure, aspiration (2) epistaxis, with aspiration of blood (3) myxedema crisis (4) acute kidney injury (5) suspected noncompliance with medications Comment: Son confirms that patient stopped taking her meds a month or 2 prior to admission (6) endometrial thickening on ultrasound (7) anemia, thrombocytopenia requiring transfusions (8) seizure disorder (9) long-term senior living resident (10) morbid obesity (11) diabetes (12) history of PE (13) history of atrial fibrillation (14) history of hypertension (15) history of prior CVA, with left parietal encephalomalacia on CT scan (16) chronic vaginal bleeding (17) degenerative joint disease Symptom Scale: (1) dyspnea 0-10 Scale: Unable to quantify (2) restlessness/combativeness 0-10 Scale: Unable to quantify (3) encephalopathy 0-10 Scale: Unable to quantify Pertinent Non-Medical Issues Psychosocial: Long-term senior living resident; one biologic son, one adopted son; 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 Legal: The patient lacks capacity for decision-making and it is unlikely that she will regain that capacity; the patient's son Castillo is designated health care surrogate. Ethical issues impacting care: None . . Important Contacts Son: Castillo Barreto [phone] - goes straight to voicemail but he responds to a message . Prognosis The patient lives in a senior living in a chronically debilitated state, and now has suffered failure of respiratory, cardiovascular, renal, neurologic, and hematologic systems. Her overall prognosis is poor, and I believe she would be appropriate for hospice services if the goals become comfort oriented. Predictors of a poor outcome in this patient with morbid obesity and myxedema crisis include hypotension, the need for mechanical ventilation, hypothermia, advanced age, and cardiovascular disease. . Code Status: Full Code Plan * FULL CODE * DECISION-MAKING: The patient lacks capacity for decision-making, and it is unlikely that she will regain that capacity. Her son, Castillo Barreto, is designated HCS. * Predictors of a poor outcome in this patient with morbid obesity and myxedema crisis include hypotension, the need for mechanical ventilation, hypothermia, advanced age, and cardiovascular disease. * GOALS: The patient's sons Castillo and Esau report that they do want to continue aggressive care for now. They understand that the overall outlook is rather poor, and the aggressive goals may be modified or even transitioned to comfort care if the patient continues to decline. They are considering a change in CODE STATUS at this time.. * SYMPTOMS: The patient is currently sedated and mechanically ventilated. No new medication recommendations at this time. * Palliative Care will continue to follow the patient during this hospitalization. . Time Spent Total Floor Time (mins): 41 Face to Face Time (mins): 14 >50% Counseling/Coord of Care: Yes (d/w Dr. Maxwell and with the RN) Attestation To help prompt me to consider important information that might be impacting today's encounter and assessment, information from prior notes written by myself or my colleagues may have been "brought forward" into today's note. My signature on this note, however, is an attestation that I personally performed the exam, history, and/or decision-making noted today, and, unless otherwise indicated, the interactions with patient, family, and staff as well as the review of records all occurred today. I also attest that the listed assessment and stated plan reflect my best clinical judgment today based on the combination of historical information, prior notes, and today's exam/ interactions. When time spent is documented, it refers only to time spent today by the signer, or if indicated, combined time spent today by collaborating physician/nurse practitioner. Amber Zavala MD Oct 13, 2017 13:31
[2017-10-13] MEDS ORDERED: SODIUM CHLOR 0.9% 1000 ML INJ 1,000 ML IV SCH (18:00)
[2017-10-13] MEDS: SODIUM CHLORID 0.9% 500 ML INJ 500 ML IV SCH (19:05)
[2017-10-13] MEDS: ATORVASTATIN 40 MG TAB PO SCH (20:10)
[2017-10-13] MEDS: traZODone HCL 50 MG TAB PO SCH (20:11)
[2017-10-14] VITALS (20 sets, daily range): BP systolic 92–117; BP diastolic 53–61; PULSE 56–82; RESP 12–25; TEMP 97.4–98.1; O2SAT 96–100
[2017-10-14] MEDS: PIPERACIL-TAZO 3.375 GM PREMIX 50 ML IV SCH ×3 (05:20→17:05)
[2017-10-14] MEDS: HYDROCORTISONE SOD SUCCINATE 100 MG VIAL IV PUSH SCH ×3 (05:21→17:04)
[2017-10-14] MEDS: LEVOTHYROXINE SODIUM 100 MCG VIAL IV PUSH SCH (05:21)
[2017-10-14] MEDS: INSULIN NovoLIN REGULAR SUPPLEMENTAL SCALE SQ SCH ×6 (05:22→20:16)
--- NOTE | 2017-10-14 05:39 | RADRPT ---
EXAM DATE/TIME: 10/14/2017 04:39 [facility] COMPARISON: CHEST SINGLE AP, October 12, 2017, 8:25. INDICATIONS : Shortness of breath. MEDICAL HISTORY : Hypertension. Atrial fibrillation. Dyspnea. Arthritis. Diabetes, Calustrophobia. Pulmonary embo lisim SURGICAL HISTORY : Right ankle surgery ENCOUNTER: Subsequent ACUITY: 1 week PAIN SCORE: Non-responsive. LOCATION: Bilateral chest FINDINGS: ET tube tip 2.3 cm above the feliciano. Right PICC line stable. There is diffuse hazy opacity in the r ight mid and lower lung, a new finding from prior examination, suggesting a large pleural effusion. The left lung is clear. No areas of consolidation in either lung. The heart is stable in configurat ion. CONCLUSION: 1. Findings suggest development of a large right pleural effusion. Shawn Sloan MD on October 14, 2017 at 5:36 Board Certified Radiologist. This report was verified electronically.
[2017-10-14 06:14] LABS: AUTOMATED NEUTROPHIL # 6.5 TH/MM3 (1.8-7.7); BASOPHIL % 0.3 % (0.0-2.0); EOSINOPHIL % 0.2 % (0.0-4.0); LYMPH % 13.2 % (9.0-44.0); LYMPHOCYTE # 1.1 TH/MM3 (1.0-4.8); MEAN CELL VOLUME 80.5 FL (80.0-100.0); MEAN CORPUSCULAR HEMOGLOBIN 26.6 PG (27.0-34.0); MONO % 6.1 % (0.0-8.0); NEUT % 80.2 % (16.0-70.0); PLATELET COUNT 77 TH/MM3 (150-450); RED BLOOD COUNT 3.35 MIL/MM3 (4.00-5.30); RED CELL DISTRIBUTION WIDTH 20.5 % (11.6-17.2); WHITE BLOOD COUNT 8.1 TH/MM3 (4.0-11.0)
[2017-10-14 06:15] LABS: HEMO FLAGS AUTO DIFF
[2017-10-14 06:50] LABS: BICARBONATE 23.8 MEQ/L (21.0-32.0); CALCIUM-PROTEIN CORRECTED 7.8 MG/DL (8.5-10.1); MAGNESIUM 1.9 MG/DL (1.5-2.5); POTASSIUM 3.9 MEQ/L (3.5-5.1); TOTAL BILIRUBIN ADULT 0.7 MG/DL (0.2-1.0)
[2017-10-14] MEDS: CHLORHEXIDINE 0.12% (ORAL KIT) 15 ML CUP MT SCH ×2 (08:00→20:17)
[2017-10-14 08:38] LABS: BANDS 2 % (0-6); MYELOCYTES 1 % (0-0); NEUTROPHIL # MANUAL DIFF 6.5 TH/MM3 (1.8-7.7); POLYS (SEG NEUTROPHILS) 77 % (16-70); WBC DIFF SAMPLE 100
[2017-10-14 08:40] LABS: TARGET CELLS 1+ (NORMAL)
[2017-10-14 08:41] LABS: PLATELET ESTIMATE SMEAR LOW (NORMAL); PLATELET MORPHOLOGY NORMAL (NORMAL); SCAN/DIFF FINAL DIFF MANUAL
[2017-10-14] MEDS: CLOPIDOGREL 75 MG TAB PO SCH (09:00)
[2017-10-14] MEDS: SODIUM CHLORIDE 0.9% FLUSH 10 ML FLUSH IV FLUSH SCH ×3 (09:00→20:19)
[2017-10-14] MEDS: INSULIN DETEMIR 100 UNITS/ML VIAL SQ SCH ×2 (09:58→20:17)
[2017-10-14] MEDS: levETIRAcetam 500 MG/NS 100 ML IV SCH ×4 (09:58→20:21)
[2017-10-14] MEDS: risperiDONE 1 MG TAB PO SCH ×3 (09:59→17:04)
--- NOTE | 2017-10-14 10:45 | HHI.CCPN ---
Subjective Remarks/Hospital Course 77-year-old female with PMH of A. fib, CAD on Plavix, vaginal bleeding, CVA, bradycardia presents from her rehabilitation facility after she was found altered. Unknown when the last time the patient was normal. On presentation the patient was combative, alert, oriented only to self. She is unable to provide any meaningful history. She was placed in soft restraints. Patient was administered MedSurg floor however the rapid response was called due to patient' s bradycardia and hypotension. She arrived to ICU with a blood pressure systolic at 60s heart rate between 45-60 range, arousable still oriented to person only, able to protect her airways. 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 On initial labs her potassium was also elevated to 5.5 and was treated with insulin dextro's bicarbonate and calcium. Also Kayexalate enema. 10/09 more alert today, rewarmed, on minimal dose of dopamine, with heart rate improvement, and blood pressure is well 10/10: still agitated delirium. bleeding noted from vaginal area. failed attempt at placing enteral access via NGT and bleeding from attempt. platelets still < 100k. unable to give PO synthroid x 2 days given no enteral access. swapped back to iv synthroid given her diagnosis. still on pressors on dopamine. 10/11: dopamine persists, but lower dose. hgb dropped from 10.6 to 8.7. vaginal bleeding slightly improved after platelets. still agitated. free t4 slightly improved, but still low. 10/12: Having significant epistaxis from right nose with evidence of aspiration and desaturation. Continues epistaxis with coughing up of blood. Lethargic. Not protecting airway. ABG shows combined metabolic and respiratory acidosis. Receiving 1 U PRBC for hemoglobin of 6.7. Platelet count is 54 I have ordered 2 units of platelets. Rhino rocket ordered from ED, but patient will need intubation for airway protection 10/13: Intubated for airway protection yesterday. Epistaxis has stopped, continues to have some vaginal bleeding. Pelvic ultrasound had shown thickened endometrium hyperplasia versus malignancy. Patient at this point is not a candidate for VALIDATION CONSULTANT evaluation or a pelvic exam. if she gets extubated, and has reasonable neuro recovery, will consult OBGYN at that point. Hemoglobin stable platelet count improved to 87 10/14: Patient remains intubated off sedation, wakes up follows commands, low tidal volumes on CPAP. Hemoglobin 8.9 today, platelet 77. Chest x-ray shows possible large right pleural [id number] thoracentesis ordered Objective Vital Signs Date Time Temp Pulse Resp B/P (MAP) Pulse Ox O2 Delivery O2 Flow Rate FiO2 10/14/17 09:25 98 40 10/14/17 07:00 Mechanical Ventilator 10/14/17 06:00 82 10/14/17 04:00 98.1 12 110/61 (77) 10/12/17 07:00 2.00 Intake and Output 10/14/17 10/14/17 10/15/17 08:00 16:00 00:00 Intake Total 422 ml Output Total 550 ml Balance -128 ml Result Diagram: 10/14/17 0600 10/14/17 0600 Imaging Last [address] 10/08/17 165 Signed Impressions: Service Date/Time: October 18:14 - CONCLUSION: 1. Stable left parietal encephalomalacia. 2. No acute infarct, acute hemorrhage, mass effect or extra axial fluid collections. Edinson Adan MD Chest X-Ray 10/08/171652 Signed Impressions: Service Date/Time: October 17:03 - CONCLUSION: 1. Limited examination with mild diffuse interstitial prominence, likely technical. Differential considerations include mild positive fluid balance. 2. Otherwise, negative portable chest. Carroll Kim MD Objective Remarks GENERAL: Supre Morbidly obese elderly female, intubated. Right epistaxis has stopped. Remains intubated off sedation SKIN: No rashes, ecchymoses or lesions. HEAD: Atraumatic. Normocephalic. No temporal or scalp tenderness. EYES: No scleral icterus. No injection or drainage. ENT: No bleeding from the right nostril. ETT with minimal blood secretion NECK: Trachea midline. JVD unable to be assessed due to body habitus. CARDIOVASCULAR: Regular rhythm. normal rate. on dopamine gtt, now on stand by RESPIRATORY: Bilaterally decreased air entry. Limited exam due to body habitus GASTROINTESTINAL/: Abdomen morbidly obese, soft, non-tender, nondistended. No guarding. Vaginal bleeding noticed by RN MUSCULOSKELETAL: Extremities without clubbing, cyanosis. No calf tenderness. Bilaterally obese lower extremities. NEUROLOGICAL: Intubated off sedation, moves extremities. Follows commands with UE A/P Assessment and Plan Assessment: 77yF with myxedema coma, metabolic encephalopathy, bleeding and thrombocytopenia. continue iv synthroid, stress dose steroids. remains critically ill on vasopressors, hypothermic, hypotensive, anemic. multiple organs still life-threatening and clinically still life-threateningly hypothyroid. Now acute respiratory failure, severe epistaxis and active aspiration Neuro/Endo: Myxedema Coma Metabolic Encephalopathy - Per Report the patient was noncompliant with administration of her meds, including thyroid medications - CT head negative - Levothyroxine and hydrocortisone IV, T3 by mouth since IV for not available at [facility] - Continue hydrocortisone 50 mg IV every 6 hours - Frequent neuro checks - Intubated for airway protection 10/12/17 - Hold all sedation for SBT Resp/ENT: Acute hypercarbic hypoxemic respiratory failure Severe epistaxis with aspiration Moderate to large right pleural effusion - Emergently intubated for airway protection 10/12 - PRVC 16/550/8, start spontaneous breathing trials - Chest x-ray shows moderate to large right pleural [id number] thoracentesis and studies ordered - DuoNeb every 6 hours when necessary - Rhino Rocket placement if epistaxis is not resolved after platelet transfusion - Give one units of platelets today CVS: Hypotension/bradycardia - Continue IV fluids, blood product as needed - Dopamine when necessary to keep MAP above 65, HR >45, now on stand by - Continue IV steroids 50 q6 - Rule out sepsis as cause for hypotension, follow-up cultures GI: Acute protein calorie malnutrition - moderate Super morbid obesity Dysphagia - Continue tube feedings -placed on hold for thoracentesis : Acute kidney injury Vaginal bleeding - Aggressive hydration - Strict I's and O's - Monitor creatinine and electrolyte levels - Vaginal bleeding persist, consult gynecology - Ultrasound showed endometrial thickening HEME: Anemia requiring transfusion (secondary to chronic disease and acute blood loss) Thrombocytopenia Epistaxis - presented with low platelets. low probability HIT. - s/p 2 units of platelets 10/12 - Transfuse 1 unit of PRBC, recheck CBC at 2 PM DVT GI prophylaxis - Teds SCDs - Subcutaneous heparin: held due severe epistaxis - Pepcid CCT 32 MIN excluding procedure. Jose F Maxwell MD Oct 14, 2017 10:45
--- NOTE | 2017-10-14 11:04 | HHI.HCPN ---
Reason for visit a. To assist with evaluation and management of symptoms including: Dyspnea , anxiety, encephalopathy b. To assist medical decision maker(s) with: better understanding of current medical conditions; weighing benefits/burdens of medical treatment options; making medical treatment decisions. . Subjective/Interval History INTERVAL NOTE: The patient remains mechanically ventilated, and she is off sedation and more awake today, follows simple commands. There has been no more significant epistaxis, the hemoglobin and platelet count are stable. She remains afebrile. Chest x-ray consistent with a large right pleural effusion, and a thoracentesis has been scheduled. . Advance Directives Living Will: Never completed Health Care Surrogate: Copy in medical record Durable Power of Pickling Operator: Copy in medical record Advance Directive Specifics Health Care Surrogate(s): Son, Castillo Barreto . Objective Vital Signs Date Time Temp Pulse Resp B/P (MAP) Pulse Ox O2 Delivery O2 Flow Rate FiO2 10/14/17 09:25 98 40 10/14/17 09:25 40 10/14/17 08:00 40 10/14/17 07:47 98 40 10/14/17 07:00 98 Mechanical Ventilator 40 10/14/17 06:00 82 10/14/17 04:00 98.1 71 12 110/61 (77) 99 10/14/17 04:00 40 10/14/17 04:00 82 10/14/17 03:17 99 40 10/14/17 02:00 82 10/14/17 00:00 40 10/14/17 00:00 97.7 66 12 99 10/14/17 00:00 80 10/13/17 23:51 98 40 10/13/17 22:00 78 10/13/17 20:38 99 40 10/13/17 20:00 96.7 69 14 104/58 (73) 100 10/13/17 20:00 69 10/13/17 20:00 40 10/13/17 19:00 98 Mechanical Ventilator 40 10/13/17 18:00 90 10/13/17 16:15 40 10/13/17 16:10 99 40 10/13/17 16:10 40 10/13/17 16:00 72 10/13/17 16:00 96.6 72 12 100/53 (69) 100 10/13/17 14:00 75 10/13/17 12:12 99 40 10/13/17 12:00 40 10/13/17 12:00 96.8 60 12 128/61 (83) 99 10/13/17 12:00 60 10/13/17 11:14 66 151/75 Intake & Output 10/14/17 10/14/17 07:00 19:00 Intake Total 422 ml Output Total 550 ml Balance -128 ml Tube Feeding 362 ml Other 60 ml Output Urine Total 550 ml # Bowel Movements 0 Physical Exam CONSTITUTIONAL/GENERAL: This is a massively obese patient, in no apparent distress in the ISC. TUBES/LINES/DRAINS: Endotracheal tube, IV access, Dobbhoff EYES: Pupils equal and round No scleral icterus. No injection or drainage. Fundi not examined. ENT: Nose with some old dried blood on the right. NECK: Trachea midline. Supple, nontender. No palpable thyroid enlargement or nodularity. CARDIOVASCULAR: Regular rate and rhythm without murmurs, gallops, or rubs. No JVD. Unable to palpate foot/ankle pulses. RESPIRATORY/CHEST: Symmetric, unlabored respirations. Clear to auscultation, but breath sounds markedly diminished. GASTROINTESTINAL: Abdomen soft, non-tender, massively obese. No hepato- splenomegaly, or palpable masses. No guarding. Bowel sounds present. MUSCULOSKELETAL: Extremities without clubbing or cyanosis, but there appears to be diffuse leg and foot edema. No joint tenderness or effusion noted. No calf tenderness. No mottling or clubbing. LYMPHATICS: No palpable cervical or supraclavicular adenopathy. NEUROLOGICAL: Awake, weak, following commands PSYCHIATRIC: No obvious hallucinations or psychotic thought . Diagnostic Tests Laboratory Laboratory Tests Test 10/12/17 03:42 10/12/17 07:31 10/12/17 12:22 10/12/17 13:46 White Blood Count 7.7 TH/MM3 (4.0-11.0) 11.6 TH/MM3 (4.0-11.0) Red Blood Count 2.65 MIL/MM3 (4.00-5.30) 3.72 MIL/MM3 (4.00-5.30) Hemoglobin 6.9 GM/DL (11.6-15.3) 10.0 GM/DL (11.6-15.3) Hematocrit 21.4 % (35.0-46.0) 30.2 % (35.0-46.0) Mean Corpuscular Volume 80.7 FL (80.0-100.0) 81.2 FL (80.0-100.0) Mean Corpuscular Hemoglobin 25.9 PG (27.0-34.0) 27.0 PG (27.0-34.0) Mean Corpuscular Hemoglobin Concent 32.1 % (32.0-36.0) 33.2 % (32.0-36.0) Red Cell Distribution Width 20.9 % (11.6-17.2) 20.2 % (11.6-17.2) Platelet Count 54 TH/MM3 (150-450) 89 TH/MM3 (150-450) Mean Platelet Volume 8.3 FL (7.0-11.0) 7.9 FL (7.0-11.0) Blood Urea Nitrogen 42 MG/DL (7-18) Creatinine 1.86 MG/DL (0.50-1.00) Random Glucose 245 MG/DL (74-106) Total Protein 6.2 GM/DL (6.4-8.2) Calcium Level 6.7 MG/DL (8.5-10.1) Sodium Level 145 MEQ/L (136-145) Potassium Level 4.1 MEQ/L (3.5-5.1) Chloride Level 113 MEQ/L (98-107) Carbon Dioxide Level 24.4 MEQ/L (21.0-32.0) Anion Gap 8 MEQ/L (5-15) Estimat Glomerular Filtration Rate 32 ML/MIN (>89) Protein Corrected Calcium 7.1 MG/DL (8.5-10.1) Thyroxine (T4) 5.1 MCG/DL (4.8-13.9) Thyroid Stimulating Hormone 3rd Gen 2.630 uIU/ML (0.358-3.740) Blood Gas Puncture Site RT RADIAL RT RADIAL Blood Gas HCO3 23 mmol/L (22-26) 22 mmol/L (22-26) Blood Gas Base Excess -3.2 mmol/L (-2-2) -0.6 mmol/L (-2-2) Blood Gas Oxygen Saturation 97 % (90-100) 98 % (90-100) Arterial Blood pH 7.27 (7.380-7.420) 7.53 (7.380-7.420) Arterial Blood Partial Pressure CO2 51 mmHg (38-42) 26 mmHg (38-42) Arterial Blood Partial Pressure O2 395 mmHg (61-120) 232 mmHg (61-120) Arterial Blood Oxygen Content 15.2 Vol % (12.0-20.0) 13.5 Vol % (12.0-20.0) Arterial Blood Carboxyhemoglobin 1.3 % (0-4) 1.3 % (0-4) Arterial Blood Methemoglobin 1.0 % (0-2) 1.0 % (0-2) Blood Gas Hemoglobin 10.4 G/DL (12.0-16.0) 9.4 G/DL (12.0-16.0) Oxygen Delivery Device Non-Rebreathing Mask VENTILATOR Blood Gas Liter Flow 15 L/M Blood Gas Inspired Oxygen 100 % 50 % Blood Gas Patient Temperature 98.6 Blood Gas Ventilator Setting Neutrophils (%) (Auto) 83.9 % (16.0-70.0) Lymphocytes (%) (Auto) 9.6 % (9.0-44.0) Monocytes (%) (Auto) 6.5 % (0.0-8.0) Eosinophils (%) (Auto) 0.0 % (0.0-4.0) Basophils (%) (Auto) 0.0 % (0.0-2.0) Neutrophils # (Auto) 9.7 TH/MM3 (1.8-7.7) Lymphocytes # (Auto) 1.1 TH/MM3 (1.0-4.8) Monocytes # (Auto) 0.8 TH/MM3 (0-0.9) Eosinophils # (Auto) 0.0 TH/MM3 (0-0.4) Basophils # (Auto) 0.0 TH/MM3 (0-0.2) CBC Comment AUTO DIFF Differential Comment AUTO DIFF CONFIRMED Platelet Estimate LOW (NORMAL) Platelet Morphology Comment NORMAL (NORMAL) Target Cells 1+ (NORMAL) Tear Drop Cells 1+ (NORMAL) Ovalocytes (NORMAL) Test 10/13/17 03:25 10/14/17 06:00 White Blood Count 10.2 TH/MM3 (4.0-11.0) 8.1 TH/MM3 (4.0-11.0) Red Blood Count 3.89 MIL/MM3 (4.00-5.30) 3.35 MIL/MM3 (4.00-5.30) Hemoglobin 10.4 GM/DL (11.6-15.3) 8.9 GM/DL (11.6-15.3) Hematocrit 31.2 % (35.0-46.0) 27.0 % (35.0-46.0) Mean Corpuscular Volume 80.3 FL (80.0-100.0) 80.5 FL (80.0-100.0) Mean Corpuscular Hemoglobin 26.8 PG (27.0-34.0) 26.6 PG (27.0-34.0) Mean Corpuscular Hemoglobin Concent 33.3 % (32.0-36.0) 33.0 % (32.0-36.0) Red Cell Distribution Width 19.9 % (11.6-17.2) 20.5 % (11.6-17.2) Platelet Count 87 TH/MM3 (150-450) 77 TH/MM3 (150-450) Mean Platelet Volume 8.9 FL (7.0-11.0) 8.1 FL (7.0-11.0) Blood Urea Nitrogen 48 MG/DL (7-18) 40 MG/DL (7-18) Creatinine 1.90 MG/DL (0.50-1.00) 1.47 MG/DL (0.50-1.00) Random Glucose 170 MG/DL (74-106) 200 MG/DL (74-106) Calcium Level 7.8 MG/DL (8.5-10.1) 7.4 MG/DL (8.5-10.1) Sodium Level 143 MEQ/L (136-145) 144 MEQ/L (136-145) Potassium Level 4.3 MEQ/L (3.5-5.1) 3.9 MEQ/L (3.5-5.1) Chloride Level 109 MEQ/L (98-107) 109 MEQ/L (98-107) Carbon Dioxide Level 25.9 MEQ/L (21.0-32.0) 23.8 MEQ/L (21.0-32.0) Anion Gap 8 MEQ/L (5-15) 11 MEQ/L (5-15) Estimat Glomerular Filtration Rate 31 ML/MIN (>89) 42 ML/MIN (>89) Neutrophils (%) (Auto) 80.2 % (16.0-70.0) Lymphocytes (%) (Auto) 13.2 % (9.0-44.0) Monocytes (%) (Auto) 6.1 % (0.0-8.0) Eosinophils (%) (Auto) 0.2 % (0.0-4.0) Basophils (%) (Auto) 0.3 % (0.0-2.0) Neutrophils # (Auto) 6.5 TH/MM3 (1.8-7.7) Lymphocytes # (Auto) 1.1 TH/MM3 (1.0-4.8) Monocytes # (Auto) 0.5 TH/MM3 (0-0.9) Eosinophils # (Auto) 0.0 TH/MM3 (0-0.4) Basophils # (Auto) 0.0 TH/MM3 (0-0.2) CBC Comment AUTO DIFF Differential Total Cells Counted 100 Neutrophils % (Manual) 77 % (16-70) Band Neutrophils % 2 % (0-6) Lymphocytes % 13 % (9-44) Monocytes % 7 % (0-8) Neutrophils # (Manual) 6.5 TH/MM3 (1.8-7.7) Myelocytes 1 % (0-0) Differential Comment FINAL DIFF MANUAL Platelet Estimate LOW (NORMAL) Platelet Morphology Comment NORMAL (NORMAL) Target Cells 1+ (NORMAL) Total Protein 6.3 GM/DL (6.4-8.2) Albumin 2.1 GM/DL (3.4-5.0) Phosphorus Level 1.9 MG/DL (2.5-4.9) Magnesium Level 1.9 MG/DL (1.5-2.5) Alkaline Phosphatase 196 U/L (45-117) Aspartate Amino Transf (AST/SGOT) 41 U/L (15-37) Alanine Aminotransferase (ALT/SGPT) 28 U/L (10-53) Total Bilirubin 0.7 MG/DL (0.2-1.0) Protein Corrected Calcium 7.8 MG/DL (8.5-10.1) Result Diagram: 10/14/17 0600 10/14/17 0600 Microbiology Microbiology Date/Time Source Procedure Growth Status 10/12/17 13:51 Blood Peripheral Aerobic Blood Culture - Preliminary NO GROWTH IN 1 DAY Resulted 10/12/17 13:51 Blood Peripheral Anaerobic Blood Culture - Preliminary NO GROWTH IN 1 DAY Resulted 10/12/17 13:46 Blood Peripheral Aerobic Blood Culture - Preliminary NO GROWTH IN 1 DAY Resulted 10/12/17 13:46 Blood Peripheral Anaerobic Blood Culture - Preliminary NO GROWTH IN 1 DAY Resulted 10/12/17 09:10 Sputum Endotracheal Gram Stain - Final Resulted 10/12/17 09:10 Sputum Endotracheal Sputum Culture - Preliminary RESULTS PENDING Resulted Imaging Last Impressions Chest X-Ray 10/14/17 0600 Signed Impressions: Service Date/Time: Saturday, October 14, 2017 04:39 - CONCLUSION: 1. Findings suggest development of a large right pleural effusion. Shawn Sloan MD Abdomen X-Ray 10/10/17 0000 Signed Impressions: Service Date/Time: Tuesday, October 10, 2017 13:01 - CONCLUSION: Dobbhoff feeding tube in the stomach. Osmel Link MD Pelvis Ultrasound 10/09/17 0000 Signed Impressions: Service Date/Time: Monday, October 09, 2017 16:54 - CONCLUSION: 1. Limited evaluation secondary to patient's size 2. Mild ascites 3. Thickened endometrial stripe which may reflect hyperplasia or malignancy. Elie Colin MD Head CT 10/08/17 1653 Signed Impressions: Service Date/Time: October 18:14 - CONCLUSION: 1. Stable left parietal encephalomalacia. 2. No acute infarct, acute hemorrhage, mass effect or extra axial fluid collections. Edinson Adan MD Procedures INTUBATION 10/12/17 . Assessment and Plan Disease Oriented Problem List: (1) respiratory failure, aspiration (2) epistaxis, with aspiration of blood (3) myxedema crisis (4) acute kidney injury (5) suspected noncompliance with medications Comment: Son confirms that patient stopped taking her meds a month or 2 prior to admission (6) endometrial thickening on ultrasound (7) anemia, thrombocytopenia requiring transfusions (8) seizure disorder (9) long-term [facility] resident (10) morbid obesity (11) diabetes (12) history of PE (13) history of atrial fibrillation (14) history of hypertension (15) history of prior CVA, with left parietal encephalomalacia on CT scan (16) chronic vaginal bleeding (17) degenerative joint disease Symptom Scale: (1) dyspnea 0-10 Scale: Unable to quantify (2) restlessness/combativeness 0-10 Scale: Unable to quantify (3) encephalopathy 0-10 Scale: Unable to quantify Pertinent Non-Medical Issues Psychosocial: Long-term [facility]p resident; one biologic son, one adopted son; 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 Legal: The patient lacks capacity for decision-making and it is unlikely that she will regain that capacity; the patient's son Castillo is designated health care surrogate. Ethical issues impacting care: None . . Important Contacts Son: Castillo Barreto [phone] - goes straight to voicemail but he responds to a message . Prognosis The patient lives in a [facility] in a chronically debilitated state, and now has suffered failure of respiratory, cardiovascular, renal, neurologic, and hematologic systems. Her overall prognosis is poor, and I believe she would be appropriate for hospice services if the goals become comfort oriented. Predictors of a poor outcome in this patient with morbid obesity and myxedema crisis include hypotension, the need for mechanical ventilation, hypothermia, advanced age, and cardiovascular disease. . Code Status: Full Code Plan * FULL CODE * DECISION-MAKING: The patient lacks capacity for decision-making, and it is unlikely that she will regain that capacity. Her son, Castillo Barreto, is designated HCS. * Predictors of a poor outcome in this patient with morbid obesity and myxedema crisis include hypotension, the need for mechanical ventilation, hypothermia, advanced age, and cardiovascular disease. * GOALS: The patient's sons Castillo and Esau report that they do want to continue aggressive care for now. They understand that the overall outlook is rather poor, and the aggressive goals may be modified or even transitioned to comfort care if the patient continues to decline. They are considering a change in CODE STATUS at this time.. * SYMPTOMS: The patient is currently sedated and mechanically ventilated. No new medication recommendations at this time. * Palliative Care will continue to follow the patient during this hospitalization. . Time Spent Total Floor Time (mins): 26 Face to Face Time (mins): 13 >50% Counseling/Coord of Care: Yes Attestation To help prompt me to consider important information that might be impacting today's encounter and assessment, information from prior notes written by myself or my colleagues may have been "brought forward" into today's note. My signature on this note, however, is an attestation that I personally performed the exam, history, and/or decision-making noted today, and, unless otherwise indicated, the interactions with patient, family, and staff as well as the review of records all occurred today. I also attest that the listed assessment and stated plan reflect my best clinical judgment today based on the combination of historical information, prior notes, and today's exam/ interactions. When time spent is documented, it refers only to time spent today by the signer, or if indicated, combined time spent today by collaborating physician/nurse practitioner. Amber Zavala MD Oct 14, 2017 11:04
[2017-10-14] MEDS: FAMOTIDINE 20 MG/2 ML VIAL IV PUSH SCH ×2 (11:18→20:18)
[2017-10-14] MEDS: PROPOFOL 1000 MG/100 ML INJ 100 ML IV PRN (12:50)
--- NOTE | 2017-10-14 13:16 | PD.CONS ---
History & Physical H&P Patient is a 77-year-old -[place] female with a past medical history of A. fib, CAD on Plavix, CVA, and chronic vaginal bleeding that presented to the [place] ED from her rehabilitation facility after she was found altered. Her measured TSH was 27 and she was diagnosed and is being treated for myxedema coma. ENERGY RISK MANAGEMENT ANALYST was initially consulted for vaginal bleeding but the consult was delayed due to patient's emergent clinical status. However, a pelvic ultrasound was performed on 10/09/17 which showed free fluid within the pelvis and a thickened endometrial stripe of 18 mm that is concerning for hyperplasia or malignancy. Patient also has a stable right ovarian cyst measuring 1.4 cm. The left ovary was not visualized. Her initial H/H on admission was 9.5/29.6 and dropped to 6.9/21.4 on 10/12. Platelets were 83. During the course of her hospital stay, patient has received 2 units of leuko-reduced red blood cells and 4 units of leuko-reduced platelets with marked improvement in hemoglobin to 10.4 on 10/13. Today, her hemoglobin dropped to 8.9 and patient continues to have persistent vaginal bleeding. OB/ HOSE MENDER was reconsulted by critical care. Piedad Ernandez MD R2 Oct 14, 2017 13:16
[2017-10-14] MEDS ORDERED: TRANEXAMIC ACID INJ 600 MG in SODIUM CHLORIDE 0.9% INJ 100 ML IV ONE (17:00)
[2017-10-14] MEDS: SODIUM CHLOR 0.9% 1000 ML INJ 1,000 ML IV SCH (17:05)
[2017-10-14] MEDS: SODIUM CHLORID 0.9% 500 ML INJ 500 ML IV SCH (17:40)
[2017-10-14] MEDS ORDERED: TRANEXAMIC ACID INJ 1,000 MG in SODIUM CHLORIDE 0.9% INJ 100 ML IV ONE (18:45)
--- NOTE | 2017-10-14 18:48 | PD.CONS ---
HPI Chief Complaint Vaginal bleeding Date Seen: Oct 14, 2017 Time Seen: 12:00 Travel History International Travel<30 Days: No Contact w/Intl Traveler<30Days: No Known Affected Area: No History of Present Illness HPI Subjective: Patient is a 77-year-old -Vin[place] female with a past medical history of A. fib, CAD on Plavix, CVA, and chronic vaginal bleeding that presented to the [place] ED from her rehabilitation facility after she was found altered. Her measured TSH was 27 and she was diagnosed and is being treated for myxedema coma. OPTICAL MANAGER was initially consulted for vaginal bleeding but the consult was delayed due to patient's emergent clinical status. However, a pelvic ultrasound was performed on 10/09/17 which showed free fluid within the pelvis and a thickened endometrial stripe of 18 mm that is concerning for hyperplasia or malignancy. Patient also has a stable right ovarian cyst measuring 1.4 cm. The left ovary was not visualized. Her initial H/H on admission was 9.5/29.6 and dropped to 6.9/21.4 on 10/12. Platelets were 83. During the course of her hospital stay, patient has received 2 units of leuko-reduced red blood cells and 4 units of leuko-reduced platelets with marked improvement in hemoglobin to 10.4 on 10/13. Today, her hemoglobin dropped to 8.9 and patient continues to have persistent vaginal bleeding. OB/ SENIOR INDUSTRIAL ENGINEER was reconsulted by critical care. Notably, the patient is intubated and sedated and unable to provide history. Patient's past medical history obtained from review of the EMR. History Past Medical History Narrative Medical Hypertension Diabetes Morbid obesity History of CVA History of pulmonary embolism History of UTIs GERD Depression Seizure disorder Hyperlipidemia Hypothyroidism Insomnia Obstetric History Obstetric History Unable to obtain Past Surgical History Narrative Surgical right ankle sx per emr Family History Narrative Family History Unable to obtain Social History Narrative Social History Unable to obtain. Per EMR, she is a fdc patient. Allergies-Medications (Allergen,Severity, Reaction): Coded Allergies: No Known Allergies (Verified , 08/14/17) Home Meds Reported Medications Risperidone (Risperdal) 1 Mg Tab, 1 MG PO TID, #30 TAB 0 Refills 10/08/17 Atorvastatin (Lipitor) 40 Mg Tab, 40 MG PO HS for Cholesterol Management, #30 TAB 0 Refills 10/08/17 Lisinopril (Lisinopril) 2.5 Mg Tab, 2.5 MG PO DAILY, #30 TAB 0 Refills 10/08/17 Hydrochlorothiazide (Hydrochlorothiazide) 12.5 Mg Cap, 12.5 MG PO DAILY, #30 CAP 0 Refills 10/08/17 Levetiracetam Liq (Levetiracetam Liq) 500 Mg/5 Ml Soln, 1500 MG PO DAILY for Control Seizures, #300 ML 0 Refills 10/08/17 Glipizide (Glipizide) 5 Mg Tab, 5 MG PO TID for Blood Sugar Management, #60 TAB 0 Refills Take 30 minutes before a meal 10/08/17 Levothyroxine (Levothyroxine) 125 Mcg Tab, 125 MCG PO DAILY for Thyroid, #30 TAB 0 Refills 10/08/17 Trazodone (Trazodone) 150 Mg Tablet, 150 MG PO HS for Control Depression, #30 TAB 0 Refills 10/08/17 Insulin Lispro (Human) Inj (Humalog Inj) 1,000 Unit/10 Ml Vial, 7 UNITS SQ DAILY for Blood Sugar Management, #1 VIAL 0 Refills 10/08/17 Insulin Detemir Inj (Levemir Inj) 1,000 unit/ 10 ML Vial, 8 UNITS SQ DAILY for Blood Sugar Management, VIAL 0 Refills Do not mix with any other Insulin. 10/08/17 Insulin Lispro (Human) Inj (Humalog Inj) 1,000 Unit/10 Ml Vial, 2-12 UNITS SQ ACHS for Blood Sugar Management, #1 VIAL 0 Refills Max dose at bedtime:( )units; sugars < 70,(0)units; sugars 150-199,(2)units; sugars 200-249,(4)units; sugars 250-299,(7)units; sugars 300-349,(10)units; sugars more than 349,(12)units. 10/08/17 Clopidogrel (Plavix) 75 Mg Tab, 75 MG PO DAILY for Blood Clot Prevention, #30 TAB 0 Refills 10/08/17 Review of Systems ROS Limitations: Clinical Condition, Intubated, Altered Mental Status Physical Exam Vital Signs Date Time Temp Pulse Resp B/P (MAP) Pulse Ox O2 Delivery O2 Flow Rate FiO2 10/14/17 16:35 98 40 10/14/17 16:07 97.7 75 12 92/54 99 10/14/17 16:00 40 10/14/17 16:00 97.7 72 16 92/56 (68) 98 10/14/17 15:50 97.7 69 13 101/59 98 10/14/17 13:19 96 40 10/14/17 12:04 97.9 81 25 100/54 99 10/14/17 12:00 97.4 72 20 106/54 (71) 99 10/14/17 12:00 40 10/14/17 11:53 99 40 10/14/17 11:36 98.1 79 24 110/56 99 10/14/17 09:25 98 40 10/14/17 09:25 40 10/14/17 08:00 97.4 70 15 107/53 (71) 100 10/14/17 08:00 40 10/14/17 07:47 98 40 10/14/17 07:00 98 Mechanical Ventilator 40 10/14/17 06:00 82 10/14/17 04:00 98.1 71 12 110/61 (77) 99 10/14/17 04:00 40 10/14/17 04:00 82 10/14/17 03:17 99 40 10/14/17 02:00 82 10/14/17 00:00 40 10/14/17 00:00 97.7 66 12 99 10/14/17 00:00 80 10/13/17 23:51 98 40 10/13/17 22:00 78 10/13/17 20:38 99 40 10/13/17 20:00 96.7 69 14 104/58 (73) 100 10/13/17 20:00 69 10/13/17 20:00 40 10/13/17 19:00 98 Mechanical Ventilator 40 Narrative GENERAL: This is an elderly lady, morbidly obese patient, currently intubated in the [facility] SKIN: No rashes, ecchymoses or lesions. Cool and dry. HEAD: Atraumatic. Normocephalic. No temporal or scalp tenderness. NECK: Trachea midline. No JVD CARDIOVASCULAR: Regular rhythm without murmurs, gallops, or rubs. RESPIRATORY: Markedly diminished breath sounds but symmetric GASTROINTESTINAL: Abdomen soft, massively obese. GENITOURINARY: Cervical exam not performed. Active bleeding noted from the vagina soaking through padded sheets MUSCULOSKELETAL: Extremities without clubbing, cyanosis. Obese lower extremities bilaterally NEUROLOGICAL: Intubated Data Data Orders Orders Sodium Chlorid 0.9% 500 Ml Inj (Ns 500 M (10/13/17 18:30) Sodium Chlor 0.9% 1000 Ml Inj (Ns 1000 M (10/13/17 18:30) Instruction (10/14/17 08:35) Central Venous Line (10/09/17 ) Ct Guided Thoracentesis (10/14/17 ) Consent (10/14/17 10:39) Vital Signs (Adult) Q15MX3,Q8H (10/14/17 10:39) Diet Npo (10/14/17 Lunch) Amylase, Pleural Fluid (10/14/17 10:39) Glucose, Pleural Fluid (10/14/17 10:39) Ldh, Pleural Fluid (10/14/17 10:39) Pleural Fluid Ph (10/14/17 10:39) Pleural Fl Cell Count + Diff (10/14/17 10:39) Fluid Culture And Gram Stain (10/14/17 10:39) Fluid Afb Culture And Stain (10/14/17 10:39) Fluid Fungus Culture And Stain (10/14/17 10:39) Cytology Request For Service (10/14/17 10:39) Total Protein, Pleural Fluid (10/14/17 10:39) Consult Gynecology (10/14/17 ) Platelet Pheresis (10/14/17 10:53) (Hub Use Only)Inp Phy Cons/Ref (10/14/17 ) Ct Thorax/ Chest Wo Iv Contras (10/14/17 ) Fresh Frozen Plasma (Ffp) (10/14/17 15:14) Tranexamic Acid Inj (Cyklokapron Inj) (10/14/17 17:00) Tranexamic Acid Inj (Cyklokapron Inj) (10/14/17 18:45) Labs Laboratory Tests Test 10/14/17 06:00 White Blood Count 8.1 Red Blood Count 3.35 Hemoglobin 8.9 Hematocrit 27.0 Mean Corpuscular Volume 80.5 Mean Corpuscular Hemoglobin 26.6 Mean Corpuscular Hemoglobin Concent 33.0 Red Cell Distribution Width 20.5 Platelet Count 77 Mean Platelet Volume 8.1 Neutrophils (%) (Auto) 80.2 Lymphocytes (%) (Auto) 13.2 Monocytes (%) (Auto) 6.1 Eosinophils (%) (Auto) 0.2 Basophils (%) (Auto) 0.3 Neutrophils # (Auto) 6.5 Lymphocytes # (Auto) 1.1 Monocytes # (Auto) 0.5 Eosinophils # (Auto) 0.0 Basophils # (Auto) 0.0 CBC Comment AUTO DIFF Differential Total Cells Counted 100 Neutrophils % (Manual) 77 Band Neutrophils % 2 Lymphocytes % 13 Monocytes % 7 Neutrophils # (Manual) 6.5 Myelocytes 1 Differential Comment FINAL DIFF MANUAL Platelet Estimate LOW Platelet Morphology Comment NORMAL Target Cells 1+ Blood Urea Nitrogen 40 Creatinine 1.47 Random Glucose 200 Total Protein 6.3 Albumin 2.1 Calcium Level 7.4 Phosphorus Level 1.9 Magnesium Level 1.9 Alkaline Phosphatase 196 Aspartate Amino Transf (AST/SGOT) 41 Alanine Aminotransferase (ALT/SGPT) 28 Total Bilirubin 0.7 Sodium Level 144 Potassium Level 3.9 Chloride Level 109 Carbon Dioxide Level 23.8 Anion Gap 11 Estimat Glomerular Filtration Rate 42 Protein Corrected Calcium 7.8 Date/Time Source Procedure Growth Status 10/12/17 13:51 Blood Peripheral Aerobic Blood Culture - Preliminary NO GROWTH IN 2 DAYS Resulted 10/12/17 13:51 Blood Peripheral Anaerobic Blood Culture - Preliminary NO GROWTH IN 2 DAYS Resulted 10/12/17 09:10 Sputum Endotracheal Gram Stain - Final Resulted 10/12/17 09:10 Sputum Endotracheal Sputum Culture - Preliminary RESULTS PENDING Resulted 10/09/17 08:30 Urine Catheterized Urine Urine Culture - Final NO GROWTH IN 48 HOURS. Complete MDM Interpretation(s) 77 year old female with persistent vaginal bleeding and thickened endometrium on pelvic ultrasound. Plan H/H 8.9/27.0 today with platelets of 77 Due to patient's current clinical status, she is not a candidate for pelvic exam or endometrial biopsy at this time In addition, her history of CVA makes management of her vaginal bleeding difficult due to relative contraindications with several medications that are commonly used to manage vaginal bleeding After discussion with sales operations consultant Dr. Maxwell, we would do a trial of tranexamic 1000 mg IV 1, Dr. Maxwell is aware of risks and is in agreement with the plan We recommend aggressive management of her platelets and INR to help stem bleeding We will perform a full consult when the patient is extubated or if further needs arise in the meantime Thank you for this consult Discussed with Piedad Campbell MD R2 Oct 14, 2017 18:48
[2017-10-14] MEDS: traZODone HCL 50 MG TAB PO SCH (20:18)
[2017-10-14] MEDS: ATORVASTATIN 40 MG TAB PO SCH (20:18)
[2017-10-15] VITALS (19 sets, daily range): BP systolic 104–118; BP diastolic 51–63; PULSE 55–92; RESP 13–24; TEMP 98–98.7; O2SAT 97–100
[2017-10-15] MEDS: HYDROCORTISONE SOD SUCCINATE 100 MG VIAL IV PUSH SCH ×5 (00:04→23:40)
[2017-10-15] MEDS: PIPERACIL-TAZO 3.375 GM PREMIX 50 ML IV SCH ×5 (00:05→23:40)
[2017-10-15] MEDS: INSULIN NovoLIN REGULAR SUPPLEMENTAL SCALE SQ SCH ×6 (00:06→20:00)
[2017-10-15] MEDS: PROPOFOL 1000 MG/100 ML INJ 100 ML IV PRN ×2 (00:07→16:26)
[2017-10-15] MEDS: LEVOTHYROXINE SODIUM 100 MCG VIAL IV PUSH SCH (05:28)
[2017-10-15 06:16] LABS: HEMATOCRIT 25.2 % (35.0-46.0); MEAN CELL VOLUME 81.1 FL (80.0-100.0); MEAN CORPUSCULAR HEMOGLOBIN 27.1 PG (27.0-34.0); MEAN CORPUSCULAR HGB CONC 33.4 % (32.0-36.0); PLATELET COUNT 86 TH/MM3 (150-450); RED BLOOD COUNT 3.11 MIL/MM3 (4.00-5.30); RED CELL DISTRIBUTION WIDTH 20.6 % (11.6-17.2); WHITE BLOOD COUNT 6.3 TH/MM3 (4.0-11.0)
[2017-10-15 06:22] LABS: REVIEW FLAG FINAL
[2017-10-15 07:00] LABS: BICARBONATE 25.5 MEQ/L (21.0-32.0); POTASSIUM 3.7 MEQ/L (3.5-5.1)
[2017-10-15 07:38] LABS: CALCIUM-PROTEIN CORRECTED 7.7 MG/DL (8.5-10.1)
[2017-10-15] MEDS: CHLORHEXIDINE 0.12% (ORAL KIT) 15 ML CUP MT SCH ×2 (08:45→21:15)
[2017-10-15] MEDS: levETIRAcetam 500 MG/NS 100 ML IV SCH ×4 (08:47→20:55)
[2017-10-15] MEDS: INSULIN DETEMIR 100 UNITS/ML VIAL SQ SCH ×2 (08:48→20:56)
[2017-10-15] MEDS: FAMOTIDINE 20 MG/2 ML VIAL IV PUSH SCH ×2 (08:48→20:57)
[2017-10-15] MEDS: risperiDONE 1 MG TAB PO SCH ×3 (08:48→18:29)
[2017-10-15] MEDS: SODIUM CHLORIDE 0.9% FLUSH 10 ML FLUSH IV FLUSH SCH ×3 (08:48→20:57)
--- NOTE | 2017-10-15 09:05 | HHI.PR ---
Subjective Remarks Went to bedside to attempt to speak with and examine patient. Patient is currently unable to communicate verbally as she remains intubated. She acknowledged my presence but I was unable to communicate with her. We will obtain a detailed direct marketing specialist history and examination when the patient is extubated. Of note, upon speaking with the nurse, no bleeding issues were reported overnight. Per report, Patient has previously refused transvaginal U/S; she will need followup for endometrial biopsy. Objective Vital Signs Date Time Temp Pulse Resp B/P (MAP) Pulse Ox O2 Delivery O2 Flow Rate FiO2 10/15/17 08:46 97 40 10/15/17 08:46 40 10/15/17 06:00 56 10/15/17 04:13 100 40 10/15/17 04:00 40 10/15/17 04:00 56 10/15/17 04:00 98.1 55 16 115/61 (79) 99 10/15/17 00:21 100 40 10/15/17 00:00 56 10/15/17 00:00 98.0 63 16 114/57 (76) 99 10/15/17 00:00 40 10/14/17 22:30 97 40 10/14/17 22:00 56 10/14/17 20:00 98.0 67 13 117/58 (77) 100 10/14/17 20:00 40 10/14/17 20:00 97.7 72 16 92/56 (68) 98 10/14/17 19:00 98 Mechanical Ventilator 40 10/14/17 16:35 98 40 10/14/17 16:07 97.7 75 12 92/54 99 10/14/17 16:00 40 10/14/17 16:00 97.7 72 16 92/56 (68) 98 10/14/17 15:50 97.7 69 13 101/59 98 10/14/17 13:19 96 40 10/14/17 12:04 97.9 81 25 100/54 99 10/14/17 12:00 97.4 72 20 106/54 (71) 99 10/14/17 12:00 40 10/14/17 11:53 99 40 10/14/17 11:36 98.1 79 24 110/56 99 10/14/17 09:25 98 40 10/14/17 09:25 40 I/O 10/14/17 10/14/17 10/14/17 10/15/17 10/15/17 10/15/17 07:00 15:00 23:00 07:00 15:00 23:00 Intake Total 422 ml 229 ml 287 ml 622 ml Output Total 550 ml 450 ml 600 ml Balance -128 ml 229 ml -163 ml 22 ml IV Total 105 ml 150 ml Tube Feeding 362 ml 177 ml 412 ml Platelets 219 ml Blood Product IV Normal Saline Flush 10 ml 5 ml Other 60 ml 60 ml Output Urine Total 550 ml 450 ml 600 ml # Bowel Movements 0 Result Diagram: 10/15/17 0600 10/15/17 06 Matilde Brown MD Oct 15, 2017 09:05
--- NOTE | 2017-10-15 11:46 | HHI.HCPN ---
Reason for visit a. To assist with evaluation and management of symptoms including: Dyspnea , anxiety, encephalopathy b. To assist medical decision maker(s) with: better understanding of current medical conditions; weighing benefits/burdens of medical treatment options; making medical treatment decisions. . Subjective/Interval History INTERVAL NOTE: The patient has improved. She did okay on CPAP for many hours yesterday and last night. She has been more awake and alert at times. She is off of sedation now. She remains afebrile. . Family/friend interactions Telephone with son Castillo, describing the improvements that I'm seeing. . Advance Directives Living Will: Never completed Health Care Surrogate: Copy in medical record Durable Power of Wallpaper Inspector And Shipper: Copy in medical record Advance Directive Specifics Health Care Surrogate(s): Son, Castillo Barreto . Objective Vital Signs Date Time Temp Pulse Resp B/P (MAP) Pulse Ox O2 Delivery O2 Flow Rate FiO2 10/15/17 10:00 61 10/15/17 08:46 97 40 10/15/17 08:46 40 10/15/17 08:00 73 10/15/17 08:00 40 10/15/17 08:00 98.7 73 20 104/51 (68) 98 10/15/17 07:00 100 Mechanical Ventilator 2.00 40 10/15/17 06:00 56 10/15/17 04:13 100 40 10/15/17 04:00 40 10/15/17 04:00 56 10/15/17 04:00 98.1 55 16 115/61 (79) 99 10/15/17 00:21 100 40 10/15/17 00:00 56 10/15/17 00:00 98.0 63 16 114/57 (76) 99 10/15/17 00:00 40 10/14/17 22:30 97 40 10/14/17 22:00 56 10/14/17 20:00 98.0 67 13 117/58 (77) 100 10/14/17 20:00 40 10/14/17 20:00 97.7 72 16 92/56 (68) 98 10/14/17 19:00 98 Mechanical Ventilator 40 10/14/17 16:35 98 40 10/14/17 16:07 97.7 75 12 92/54 99 10/14/17 16:00 40 10/14/17 16:00 97.7 72 16 92/56 (68) 98 10/14/17 15:50 97.7 69 13 101/59 98 10/14/17 13:19 96 40 10/14/17 12:04 97.9 81 25 100/54 99 10/14/17 12:00 97.4 72 20 106/54 (71) 99 10/14/17 12:00 40 10/14/17 11:53 99 40 Intake & Output 10/15/17 10/15/17 07:00 19:00 Intake Total 727 ml Output Total 600 ml Balance 127 ml IV Total 255 ml Tube Feeding 412 ml Other 60 ml Output Urine Total 600 ml Physical Exam CONSTITUTIONAL/GENERAL: This is a massively obese patient, in no apparent distress in the ISC. TUBES/LINES/DRAINS: Endotracheal tube, IV access, [place] EYES: Pupils equal and round No scleral icterus. No injection or drainage. Fundi not examined. NECK: Trachea midline. Supple, nontender. No palpable thyroid enlargement or nodularity. CARDIOVASCULAR: Regular rate and rhythm without murmurs, gallops, or rubs. No JVD. Unable to palpate foot/ankle pulses. RESPIRATORY/CHEST: Symmetric, unlabored respirations. Clear to auscultation, but breath sounds markedly diminished. GASTROINTESTINAL: Abdomen soft, non-tender, massively obese. No hepato- splenomegaly, or palpable masses. No guarding. Bowel sounds present. MUSCULOSKELETAL: Extremities without clubbing or cyanosis, but there appears to be diffuse leg and foot edema. No joint tenderness or effusion noted. No calf tenderness. No mottling or clubbing. NEUROLOGICAL: Awake, weak, following commands PSYCHIATRIC: No obvious hallucinations or psychotic thought . Diagnostic Tests Laboratory Laboratory Tests Test 10/12/17 12:22 10/12/17 13:46 10/13/17 03:25 10/14/17 06:00 Blood Gas Puncture Site RT RADIAL Blood Gas Patient Temperature 98.6 Blood Gas HCO3 22 mmol/L (22-26) Blood Gas Base Excess -0.6 mmol/L (-2-2) Blood Gas Oxygen Saturation 98 % (90-100) Arterial Blood pH 7.53 (7.380-7.420) Arterial Blood Partial Pressure CO2 26 mmHg (38-42) Arterial Blood Partial Pressure O2 232 mmHg (61-120) Arterial Blood Oxygen Content 13.5 Vol % (12.0-20.0) Arterial Blood Carboxyhemoglobin 1.3 % (0-4) Arterial Blood Methemoglobin 1.0 % (0-2) Blood Gas Hemoglobin 9.4 G/DL (12.0-16.0) Oxygen Delivery Device VENTILATOR Blood Gas Ventilator Setting Blood Gas Inspired Oxygen 50 % White Blood Count 11.6 TH/MM3 (4.0-11.0) 10.2 TH/MM3 (4.0-11.0) 8.1 TH/MM3 (4.0-11.0) Red Blood Count 3.72 MIL/MM3 (4.00-5.30) 3.89 MIL/MM3 (4.00-5.30) 3.35 MIL/MM3 (4.00-5.30) Hemoglobin 10.0 GM/DL (11.6-15.3) 10.4 GM/DL (11.6-15.3) 8.9 GM/DL (11.6-15.3) Hematocrit 30.2 % (35.0-46.0) 31.2 % (35.0-46.0) 27.0 % (35.0-46.0) Mean Corpuscular Volume 81.2 FL (80.0-100.0) 80.3 FL (80.0-100.0) 80.5 FL (80.0-100.0) Mean Corpuscular Hemoglobin 27.0 PG (27.0-34.0) 26.8 PG (27.0-34.0) 26.6 PG (27.0-34.0) Mean Corpuscular Hemoglobin Concent 33.2 % (32.0-36.0) 33.3 % (32.0-36.0) 33.0 % (32.0-36.0) Red Cell Distribution Width 20.2 % (11.6-17.2) 19.9 % (11.6-17.2) 20.5 % (11.6-17.2) Platelet Count 89 TH/MM3 (150-450) 87 TH/MM3 (150-450) 77 TH/MM3 (150-450) Mean Platelet Volume 7.9 FL (7.0-11.0) 8.9 FL (7.0-11.0) 8.1 FL (7.0-11.0) Neutrophils (%) (Auto) 83.9 % (16.0-70.0) 80.2 % (16.0-70.0) Lymphocytes (%) (Auto) 9.6 % (9.0-44.0) 13.2 % (9.0-44.0) Monocytes (%) (Auto) 6.5 % (0.0-8.0) 6.1 % (0.0-8.0) Eosinophils (%) (Auto) 0.0 % (0.0-4.0) 0.2 % (0.0-4.0) Basophils (%) (Auto) 0.0 % (0.0-2.0) 0.3 % (0.0-2.0) Neutrophils # (Auto) 9.7 TH/MM3 (1.8-7.7) 6.5 TH/MM3 (1.8-7.7) Lymphocytes # (Auto) 1.1 TH/MM3 (1.0-4.8) 1.1 TH/MM3 (1.0-4.8) Monocytes # (Auto) 0.8 TH/MM3 (0-0.9) 0.5 TH/MM3 (0-0.9) Eosinophils # (Auto) 0.0 TH/MM3 (0-0.4) 0.0 TH/MM3 (0-0.4) Basophils # (Auto) 0.0 TH/MM3 (0-0.2) 0.0 TH/MM3 (0-0.2) CBC Comment AUTO DIFF AUTO DIFF Differential Comment AUTO DIFF CONFIRMED FINAL DIFF MANUAL Platelet Estimate LOW (NORMAL) LOW (NORMAL) Platelet Morphology Comment NORMAL (NORMAL) NORMAL (NORMAL) Target Cells 1+ (NORMAL) 1+ (NORMAL) Tear Drop Cells 1+ (NORMAL) Ovalocytes (NORMAL) Blood Urea Nitrogen 48 MG/DL (7-18) 40 MG/DL (7-18) Creatinine 1.90 MG/DL (0.50-1.00) 1.47 MG/DL (0.50-1.00) Random Glucose 170 MG/DL (74-106) 200 MG/DL (74-106) Calcium Level 7.8 MG/DL (8.5-10.1) 7.4 MG/DL (8.5-10.1) Sodium Level 143 MEQ/L (136-145) 144 MEQ/L (136-145) Potassium Level 4.3 MEQ/L (3.5-5.1) 3.9 MEQ/L (3.5-5.1) Chloride Level 109 MEQ/L (98-107) 109 MEQ/L (98-107) Carbon Dioxide Level 25.9 MEQ/L (21.0-32.0) 23.8 MEQ/L (21.0-32.0) Anion Gap 8 MEQ/L (5-15) 11 MEQ/L (5-15) Estimat Glomerular Filtration Rate 31 ML/MIN (>89) 42 ML/MIN (>89) Differential Total Cells Counted 100 Neutrophils % (Manual) 77 % (16-70) Band Neutrophils % 2 % (0-6) Lymphocytes % 13 % (9-44) Monocytes % 7 % (0-8) Neutrophils # (Manual) 6.5 TH/MM3 (1.8-7.7) Myelocytes 1 % (0-0) Total Protein 6.3 GM/DL (6.4-8.2) Albumin 2.1 GM/DL (3.4-5.0) Phosphorus Level 1.9 MG/DL (2.5-4.9) Magnesium Level 1.9 MG/DL (1.5-2.5) Alkaline Phosphatase 196 U/L (45-117) Aspartate Amino Transf (AST/SGOT) 41 U/L (15-37) Alanine Aminotransferase (ALT/SGPT) 28 U/L (10-53) Total Bilirubin 0.7 MG/DL (0.2-1.0) Protein Corrected Calcium 7.8 MG/DL (8.5-10.1) Test 10/15/17 06:00 White Blood Count 6.3 TH/MM3 (4.0-11.0) Red Blood Count 3.11 MIL/MM3 (4.00-5.30) Hemoglobin 8.4 GM/DL (11.6-15.3) Hematocrit 25.2 % (35.0-46.0) Mean Corpuscular Volume 81.1 FL (80.0-100.0) Mean Corpuscular Hemoglobin 27.1 PG (27.0-34.0) Mean Corpuscular Hemoglobin Concent 33.4 % (32.0-36.0) Red Cell Distribution Width 20.6 % (11.6-17.2) Platelet Count 86 TH/MM3 (150-450) Mean Platelet Volume 8.0 FL (7.0-11.0) Blood Urea Nitrogen 39 MG/DL (7-18) Creatinine 1.24 MG/DL (0.50-1.00) Random Glucose 203 MG/DL (74-106) Total Protein 6.3 GM/DL (6.4-8.2) Calcium Level 7.3 MG/DL (8.5-10.1) Sodium Level 146 MEQ/L (136-145) Potassium Level 3.7 MEQ/L (3.5-5.1) Chloride Level 111 MEQ/L (98-107) Carbon Dioxide Level 25.5 MEQ/L (21.0-32.0) Anion Gap 10 MEQ/L (5-15) Estimat Glomerular Filtration Rate 51 ML/MIN (>89) Protein Corrected Calcium 7.7 MG/DL (8.5-10.1) Result Diagram: 10/15/17 0600 10/15/17 0600 Microbiology Microbiology Date/Time Source Procedure Growth Status 10/12/17 13:51 Blood Peripheral Aerobic Blood Culture - Preliminary NO GROWTH IN 3 DAYS Resulted 10/12/17 13:51 Blood Peripheral Anaerobic Blood Culture - Preliminary NO GROWTH IN 3 DAYS Resulted 10/12/17 13:46 Blood Peripheral Aerobic Blood Culture - Preliminary NO GROWTH IN 3 DAYS Resulted 10/12/17 13:46 Blood Peripheral Anaerobic Blood Culture - Preliminary NO GROWTH IN 3 DAYS Resulted Procedures INTUBATION 10/12/17 . 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 Legal: The patient lacks capacity for decision-making and it is unlikely that she will regain that capacity; the patient's son Castillo is designated health care surrogate. Ethical issues impacting care: None . . Important Contacts Son: Castillo Barreto [phone] - goes straight to voicemail but he responds to a message . Prognosis The patient lives in a alf in a chronically debilitated state, and now has suffered failure of respiratory, cardiovascular, renal, neurologic, and hematologic systems. Her overall prognosis is poor, and I believe she would be appropriate for hospice services if the goals become comfort oriented. Predictors of a poor outcome in this patient with morbid obesity and myxedema crisis include hypotension, the need for mechanical ventilation, hypothermia, advanced age, and cardiovascular disease. . Code Status: Full Code Plan * FULL CODE * DECISION-MAKING: The patient lacks capacity for decision-making, but she may regain that capacity. Her son, Castillo Barreto, is designated HCS. * Predictors of a poor outcome in this patient with morbid obesity and myxedema crisis include hypotension, the need for mechanical ventilation, hypothermia, advanced age, and cardiovascular disease. * GOALS: The patient's sons Castillo and Esau report that they do want to continue aggressive care for now. They understand that the overall outlook overall is not good.. * SYMPTOMS: The patient is currently sedated and mechanically ventilated. No new medication recommendations at this time. * Palliative Care will continue to follow the patient during this hospitalization. . Time Spent Total Floor Time (mins): 29 Face to Face Time (mins): 15 >50% Counseling/Coord of Care: Yes (d/w RN) Attestation To help prompt me to consider important information that might be impacting today's encounter and assessment, information from prior notes written by myself or my colleagues may have been "brought forward" into today's note. My signature on this note, however, is an attestation that I personally performed the exam, history, and/or decision-making noted today, and, unless otherwise indicated, the interactions with patient, family, and staff as well as the review of records all occurred today. I also attest that the listed assessment and stated plan reflect my best clinical judgment today based on the combination of historical information, prior notes, and today's exam/ interactions. When time spent is documented, it refers only to time spent today by the signer, or if indicated, combined time spent today by collaborating physician/nurse practitioner. Amber Zavala MD Oct 15, 2017 11:46
[2017-10-15] MEDS ORDERED: VANCOMYCIN INJ 1,250 MG in SODIUM CHLOR 0.9% 250 ML INJ 250 ML IV ONE (15:30)
[2017-10-15] MEDS ORDERED: Vancomycin Consult Pharmacy 1 EA OTHER SCH (15:30)
--- NOTE | 2017-10-15 15:42 | HHI.CCPN ---
Subjective Remarks/Hospital Course 77-year-old female with PMH of A. fib, CAD on Plavix, vaginal bleeding, CVA, bradycardia presents from her rehabilitation facility after she was found altered. Unknown when the last time the patient was normal. On presentation the patient was combative, alert, oriented only to self. She is unable to provide any meaningful history. She was placed in soft restraints. Patient was administered MedSurg floor however the rapid response was called due to patient' s bradycardia and hypotension. She arrived to ICU with a blood pressure systolic at 60s heart rate between 45-60 range, arousable still oriented to person only, able to protect her airways. 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 On initial labs her potassium was also elevated to 5.5 and was treated with insulin dextro's bicarbonate and calcium. Also Kayexalate enema. 10/09 more alert today, rewarmed, on minimal dose of dopamine, with heart rate improvement, and blood pressure is well 10/10: still agitated delirium. bleeding noted from vaginal area. failed attempt at placing enteral access via NGT and bleeding from attempt. platelets still < 100k. unable to give PO synthroid x 2 days given no enteral access. swapped back to iv synthroid given her diagnosis. still on pressors on dopamine. 10/11: dopamine persists, but lower dose. hgb dropped from 10.6 to 8.7. vaginal bleeding slightly improved after platelets. still agitated. free t4 slightly improved, but still low. 10/12: Having significant epistaxis from right nose with evidence of aspiration and desaturation. Continues epistaxis with coughing up of blood. Lethargic. Not protecting airway. ABG shows combined metabolic and respiratory acidosis. Receiving 1 U PRBC for hemoglobin of 6.7. Platelet count is 54 I have ordered 2 units of platelets. Rhino rocket ordered from ED, but patient will need intubation for airway protection 10/13: Intubated for airway protection yesterday. Epistaxis has stopped, continues to have some vaginal bleeding. Pelvic ultrasound had shown thickened endometrium hyperplasia versus malignancy. Patient at this point is not a candidate for C 13 CATAPULT OPERATOR evaluation or a pelvic exam. if she gets extubated, and has reasonable neuro recovery, will consult OBGYN at that point. Hemoglobin stable platelet count improved to 87 10/14: Patient remains intubated off sedation, wakes up follows commands, low tidal volumes on CPAP. Hemoglobin 8.9 today, platelet 77. Chest x-ray shows possible large right pleural [id number] thoracentesis ordered 10/15: Patient off sedation wakes up and follows commands. Failing CPAP trials due to low tidal volumes and no cuff leak. Hemoglobin 8.4 platelet count 86. Vaginal bleeding decreased after TXA given by DECK LID FITTER Objective Vital Signs Date Time Temp Pulse Resp B/P (MAP) Pulse Ox O2 Delivery O2 Flow Rate FiO2 10/15/17 12:43 99 40 10/15/17 10:00 61 10/15/17 08:00 98.7 20 104/51 (68) 10/15/17 07:00 Mechanical Ventilator 2.00 Intake and Output 10/15/17 10/15/17 10/16/17 08:00 16:00 00:00 Intake Total 622 ml Output Total 600 ml Balance 22 ml Result Diagram: 10/15/17 0600 10/15/17 0600 Imaging Last [address] 10/08/171652 Signed Impressions: Service Date/Time: October 18:14 - CONCLUSION: 1. Stable left parietal encephalomalacia. 2. No acute infarct, acute hemorrhage, mass effect or extra axial fluid collections. Edinson Adan MD Chest X-Ray 10/08/171652 Signed Impressions: Service Date/Time: October 17:03 - CONCLUSION: 1. Limited examination with mild diffuse interstitial prominence, likely technical. Differential considerations include mild positive fluid balance. 2. Otherwise, negative portable chest. Carroll Kim MD Objective Remarks GENERAL: Supre Morbidly obese elderly female, intubated. Right epistaxis has stopped. Remains intubated off sedation SKIN: No rashes, ecchymoses or lesions. HEAD: Atraumatic. Normocephalic. No temporal or scalp tenderness. EYES: No scleral icterus. No injection or drainage. ENT: No bleeding from the right nostril. Orotracheally intubated. No cuff leak NECK: Trachea midline. JVD unable to be assessed due to body habitus. CARDIOVASCULAR: Regular rhythm. No murmurs RESPIRATORY: Bilaterally decreased air entry. Limited exam due to body habitus GASTROINTESTINAL/: Abdomen morbidly obese, soft, non-tender, nondistended. No guarding. Vaginal bleeding decreasing MUSCULOSKELETAL: Extremities without clubbing, cyanosis. No calf tenderness. Bilaterally obese lower extremities. NEUROLOGICAL: Intubated, moves extremities. Follows commands with UE Urinary Catheter: Yes Assessment to: Continue A/P Assessment and Plan Assessment: 77yF with myxedema coma, metabolic encephalopathy, bleeding and thrombocytopenia. continue iv synthroid, stress dose steroids. remains critically ill on vasopressors, hypothermic, hypotensive, anemic. multiple organs still life-threatening and clinically still life-threateningly hypothyroid. Now acute respiratory failure, severe epistaxis and active aspiration Neuro/Endo: Myxedema Coma Metabolic Encephalopathy - CT head negative - Levothyroxine and hydrocortisone IV, T3 by mouth since IV for not available at [facility] - Per Report the patient was noncompliant with administration of her meds, including thyroid medications - Continue hydrocortisone 50 mg IV every 6 hours - Frequent neuro checks - Intubated for airway protection 10/12/17 - Daily sedation vacation Resp/ENT: Acute hypercarbic hypoxemic respiratory failure Severe epistaxis with aspiration Moderate to large right pleural effusion Laryngeal edema - Emergently intubated for airway protection 10/12, difficult intubation due to anterior airway and edema the vocal cords - No cuff leak with 7.0. PRVC 16/550/8, daily spontaneous breathing trials - Chest x-ray shows moderate to large right pleural [id number] thoracentesis and studies ordered-but unable to do CT with due to body habitus - DuoNeb every 6 hours when necessary - Rhino Rocket placement if epistaxis is not resolved after platelet transfusion - Continue IV hydrocortisone, add Benadryl for VC edema CVS: Hypotension/bradycardia - Continue IV fluids, blood product as needed - Dopamine when necessary to keep MAP above 65, HR >45, now on 2 g per KG per minute - Continue IV steroids 50 q6 - Rule out sepsis as cause for hypotension, follow-up cultures GI: Acute protein calorie malnutrition - moderate Super morbid obesity Dysphagia - Continue tube feedings : Acute kidney injury Vaginal bleeding - Aggressive hydration, Strict I's and O's - Monitor creatinine and electrolyte levels - Vaginal bleeding persist, consulted gynecology. s/p TXA with improvement in bleeding - Ultrasound showed endometrial thickening HEME: Anemia requiring transfusion (secondary to chronic disease and acute blood loss) Thrombocytopenia Epistaxis Vaginal bleeding - presented with low platelets. low probability HIT. - s/p 2 units of platelets 10/12 - Due to active bleeding keep platelet count above 75, received TXA yesterday per C 13 CATAPULT OPERATOR DVT GI prophylaxis - Teds SCDs - Subcutaneous heparin: held due severe epistaxis - Pepcid CCT 30 MIN excluding procedure. Remains critically ill. Failing CPAP trials due to low tidal volumes, also no cuff leak. Continue IV steroids and Benadryl. Remains in shock requiring dopamine infusion Jose F Maxwell MD Oct 15, 2017 15:42
[2017-10-15] MEDS: VANCOMYCIN INJ 2,000 MG in SODIUM CHLORID 0.9% 500 ML INJ 500 ML IV SCH (16:34)
[2017-10-15] MEDS: diphenhydrAMINE HCL 50 MG/ML VIAL IV PUSH SCH ×2 (16:34→21:14)
[2017-10-15] MEDS: ATORVASTATIN 40 MG TAB PO SCH (20:55)
[2017-10-15] MEDS: traZODone HCL 50 MG TAB PO SCH (20:56)
[2017-10-16] VITALS (22 sets, daily range): BP systolic 101–138; BP diastolic 61–81; PULSE 19–87; RESP 12–33; TEMP 96.5–98.2; O2SAT 90–100
[2017-10-16] MEDS: INSULIN NovoLIN REGULAR SUPPLEMENTAL SCALE SQ SCH ×6 (00:35→20:00)
[2017-10-16] MEDS: diphenhydrAMINE HCL 50 MG/ML VIAL IV PUSH SCH ×4 (04:20→23:16)
[2017-10-16] MEDS: PIPERACIL-TAZO 3.375 GM PREMIX 50 ML IV SCH ×4 (05:57→23:12)
[2017-10-16] MEDS: LEVOTHYROXINE SODIUM 100 MCG VIAL IV PUSH SCH (05:57)
[2017-10-16] MEDS: HYDROCORTISONE SOD SUCCINATE 100 MG VIAL IV PUSH SCH ×4 (05:57→23:17)
[2017-10-16 06:05] LABS: HEMATOCRIT 28.9 % (35.0-46.0); MEAN CELL VOLUME 82.2 FL (80.0-100.0); MEAN CORPUSCULAR HEMOGLOBIN 27.1 PG (27.0-34.0); PLATELET COUNT 82 TH/MM3 (150-450); RED BLOOD COUNT 3.52 MIL/MM3 (4.00-5.30); RED CELL DISTRIBUTION WIDTH 20.9 % (11.6-17.2); WHITE BLOOD COUNT 7.6 TH/MM3 (4.0-11.0)
[2017-10-16 06:17] LABS: REVIEW FLAG FINAL
[2017-10-16 06:28] LABS: BICARBONATE 25.8 MEQ/L (21.0-32.0); POTASSIUM 3.8 MEQ/L (3.5-5.1)
[2017-10-16] MEDS: CHLORHEXIDINE 0.12% (ORAL KIT) 15 ML CUP MT SCH ×2 (08:23→20:00)
[2017-10-16] MEDS: levETIRAcetam 500 MG/NS 100 ML IV SCH ×4 (08:39→22:34)
[2017-10-16] MEDS: SODIUM CHLORIDE 0.9% FLUSH 10 ML FLUSH IV FLUSH SCH ×3 (08:39→21:00)
[2017-10-16] MEDS: INSULIN DETEMIR 100 UNITS/ML VIAL SQ SCH ×2 (08:40→21:00)
[2017-10-16] MEDS: risperiDONE 1 MG TAB PO SCH ×3 (08:40→17:30)
[2017-10-16] MEDS: FAMOTIDINE 20 MG/2 ML VIAL IV PUSH SCH ×2 (10:27→23:12)
[2017-10-16] MEDS ORDERED: FUROSEMIDE 40 MG/4 ML VIAL IV PUSH STA (10:56)
[2017-10-16] MEDS ORDERED: POTASSIUM CHLOR 20 MEQ PREMIX 100 ML IV ONE (11:00)
[2017-10-16] MEDS ORDERED: RESP: ALBUTEROL 2.5 MG/IPRATROPIUM 0.5 MG NEB (PRN) NEB (11:15)
--- NOTE | 2017-10-16 11:31 | HHI.CCPN ---
Subjective Remarks/Hospital Course 77-year-old female with PMH of A. fib, CAD on Plavix, vaginal bleeding, CVA, bradycardia presents from her rehabilitation facility after she was found altered. Unknown when the last time the patient was normal. On presentation the patient was combative, alert, oriented only to self. She is unable to provide any meaningful history. She was placed in soft restraints. Patient was administered MedSurg floor however the rapid response was called due to patient' s bradycardia and hypotension. She arrived to ICU with a blood pressure systolic at 60s heart rate between 45-60 range, arousable still oriented to person only, able to protect her airways. 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 On initial labs her potassium was also elevated to 5.5 and was treated with insulin dextro's bicarbonate and calcium. Also Kayexalate enema. 10/09 more alert today, rewarmed, on minimal dose of dopamine, with heart rate improvement, and blood pressure is well 10/10: still agitated delirium. bleeding noted from vaginal area. failed attempt at placing enteral access via NGT and bleeding from attempt. platelets still < 100k. unable to give PO synthroid x 2 days given no enteral access. swapped back to iv synthroid given her diagnosis. still on pressors on dopamine. 10/11: dopamine persists, but lower dose. hgb dropped from 10.6 to 8.7. vaginal bleeding slightly improved after platelets. still agitated. free t4 slightly improved, but still low. 10/12: Having significant epistaxis from right nose with evidence of aspiration and desaturation. Continues epistaxis with coughing up of blood. Lethargic. Not protecting airway. ABG shows combined metabolic and respiratory acidosis. Receiving 1 U PRBC for hemoglobin of 6.7. Platelet count is 54 I have ordered 2 units of platelets. Rhino rocket ordered from ED, but patient will need intubation for airway protection 10/13: Intubated for airway protection yesterday. Epistaxis has stopped, continues to have some vaginal bleeding. Pelvic ultrasound had shown thickened endometrium hyperplasia versus malignancy. Patient at this point is not a candidate for YARDMASTER evaluation or a pelvic exam. if she gets extubated, and has reasonable neuro recovery, will consult OBGYN at that point. Hemoglobin stable platelet count improved to 87 10/14: Patient remains intubated off sedation, wakes up follows commands, low tidal volumes on CPAP. Hemoglobin 8.9 today, platelet 77. Chest x-ray shows possible large right pleural [id number]-[id number] thoracentesis ordered 10/15: Patient off sedation wakes up and follows commands. Failing CPAP trials due to low tidal volumes and no cuff leak. Hemoglobin 8.4 platelet count 86. Vaginal bleeding decreased after TXA given by ICT TRAINER 10/16: Remains of sedation continues to follow commands with upper extremity. Tolerating CPAP but tidal volume remains low. Positive cuff leak. Platelet stable Objective Vital Signs Date Time Temp Pulse Resp B/P (MAP) Pulse Ox O2 Delivery O2 Flow Rate FiO2 10/16/17 09:40 99 40 10/16/17 08:00 52 10/16/17 07:00 Mechanical Ventilator 10/16/17 04:00 98.0 12 130/78 (95) 10/15/17 07:00 2.00 Intake and Output 10/16/17 10/16/17 10/16/17 07:59 15:59 23:59 Intake Total 865 ml Output Total 750 ml Balance 115 ml Result Diagram: 10/16/17 0540 10/16/17 0540 Imaging Last [address] 10/08/17 1653 Signed Impressions: Service Date/Time: October 18:14 - CONCLUSION: 1. Stable left parietal encephalomalacia. 2. No acute infarct, acute hemorrhage, mass effect or extra axial fluid collections. Edinson Adan MD Chest X-Ray 10/08/17 1653 Signed Impressions: Service Date/Time: October 17:03 - CONCLUSION: 1. Limited examination with mild diffuse interstitial prominence, likely technical. Differential considerations include mild positive fluid balance. 2. Otherwise, negative portable chest. Carroll Kim MD Objective Remarks GENERAL: Super Morbidly obese elderly female, intubated. Right epistaxis has stopped. Remains intubated off sedation SKIN: No rashes, ecchymoses or lesions. HEAD: Atraumatic. Normocephalic. No temporal or scalp tenderness. EYES: No scleral icterus. No injection or drainage. ENT: No bleeding from the right nostril. Orotracheally intubated. No cuff leak NECK: Trachea midline. JVD unable to be assessed due to body habitus. CARDIOVASCULAR: Regular rhythm. No murmurs RESPIRATORY: Bilaterally decreased air entry. Bilateral expiratory wheezing GASTROINTESTINAL/: Abdomen morbidly obese, soft, non-tender, nondistended. No guarding. Vaginal bleeding decreased MUSCULOSKELETAL: Extremities without clubbing, cyanosis. No calf tenderness. Bilaterally obese lower extremities. NEUROLOGICAL: Intubated, moves extremities. Follows commands with UE Urinary Catheter: Yes Assessment to: Continue A/P Assessment and Plan Assessment: 77yF with myxedema coma, metabolic encephalopathy, bleeding and thrombocytopenia. continue iv Synthroid, stress dose steroids. remains critically ill on vasopressors, hypothermic, hypotensive, anemic. multiple organs still life-threatening and clinically still life-threateningly hypothyroid. Now acute respiratory failure, gradually improving Neuro/Endo: Myxedema Coma Metabolic Encephalopathy - CT head negative - Levothyroxine and hydrocortisone IV, T3 by mouth since IV for not available at [place] [facility] - Per Report the patient was noncompliant with administration of her meds, including thyroid medications - Continue hydrocortisone 50 mg IV every 6 hours - Frequent neuro checks - Intubated for airway protection 10/12/17 - Daily sedation vacation Resp/ENT: Acute hypercarbic hypoxemic respiratory failure Severe epistaxis with aspiration Moderate to large right pleural effusion Laryngeal edema MRSA in sputum - Emergently intubated for airway protection 10/12, difficult intubation due to anterior airway and edema the vocal cords - No cuff leak with 7.0. PRVC 16/550/8, daily spontaneous breathing trials - Chest x-ray shows moderate to large right pleural effusion-unable to do CT with due to body habitus - DuoNeb every4 hours scheduled and q2 hours when necessary - Rhino Rocket placement if epistaxis is not resolved after platelet transfusion - Continue IV hydrocortisone, add Benadryl for VC edema. has cuff leak today - continue vanc CVS: Hypotension/bradycardia - Continue IV fluids, blood product as needed - Dopamine when necessary to keep MAP above 65, HR >45, now on 2 g per KG per minute - Continue IV steroids 50 q6 - Rule out sepsis as cause for hypotension, follow-up cultures. On vanc for MRSA in sputum - IV Lasix 40 g x1 GI: Acute protein calorie malnutrition - moderate Super morbid obesity Dysphagia - Continue tube feedings -hold for weaning trials : Acute kidney injury Vaginal bleeding - Aggressive hydration, Strict I's and O's - Monitor creatinine and electrolyte levels - Vaginal bleeding persist, consulted gynecology. s/p TXA with improvement in bleeding - Ultrasound showed endometrial thickening HEME: Anemia requiring transfusion (secondary to chronic disease and acute blood loss) Thrombocytopenia Epistaxis Vaginal bleeding - presented with low platelets. low probability HIT. - s/p 2 units of platelets 10/12. - Due to active bleeding keep platelet count above 75, received TXA per YARDMASTER DVT GI prophylaxis - Teds SCDs - Subcutaneous heparin: held due severe epistaxis vag bleeding and anemia - Pepcid Level 3 Remains critically ill. Failing CPAP trials due to low tidal volumes, also no cuff leak. Continue IV steroids and Benadryl. Remains in shock requiring dopamine infusion Jose F Maxwell MD Oct 16, 2017 11:30
--- NOTE | 2017-10-16 12:08 | RADRPT ---
EXAM DATE/TIME: 10/16/2017 11:06 [facility] COMPARISON: CHEST SINGLE AP, October 14, 2017, 4:39. INDICATIONS : Respiratory Disease. MEDICAL HISTORY : Stroke. Cardiovascular disease Hypertension SURGICAL HISTORY : None. ENCOUNTER: Subsequent ACUITY: 1 week PAIN SCORE: Non-responsive. LOCATION: Bilateral chest FINDINGS: The Dobbhoff tube has its tip in the stomach. The endotracheal tube has its tip 3 cm above the feliciano in good position. Right-sided PICC line is stable in position. The heart remains enlarged. Moderate pulmonary vascular congestion is likely. Small right pleural effusion is also likely. CONCLUSION: 1. Moderate pulmonary vascular congestion. 2. Small right pleural effusion. 3. Cardiomegaly. Edinson Adan MD on October 16, 2017 at 12:04 Board Certified Radiologist. This report was verified electronically.
--- NOTE | 2017-10-16 15:30 | HHI.HCPN ---
Reason for visit a. To assist with evaluation and management of symptoms including: Dyspnea , anxiety, encephalopathy b. To assist medical decision maker(s) with: better understanding of current medical conditions; weighing benefits/burdens of medical treatment options; making medical treatment decisions. . Subjective/Interval History INTERVAL NOTE: The patient has improved. She had low volumes on on CPAP yesterday, but that seems to be improved today.. She has been more awake and alert at times. She is off of sedation now, and she wants the ET tube out. She remains afebrile. . Family/friend interactions Son Castillo and [id number] here. They understand that she remains quite weak, and that she is at high risk for additional setbacks or decline. They are hopeful that the improvements will continue and that she will be able to return to her alf. . Advance Directives Living Will: Never completed Health Care Surrogate: Copy in medical record Durable Power of Product Introduction Manager: Copy in medical record Advance Directive Specifics Health Care Surrogate(s): Son, Castillo Barreto . Objective Vital Signs Date Time Temp Pulse Resp B/P (MAP) Pulse Ox O2 Delivery O2 Flow Rate FiO2 10/16/17 13:09 100 40 10/16/17 09:40 99 40 10/16/17 09:39 40 10/16/17 09:00 62 17 133/63 (86) 100 10/16/17 08:10 100 40 10/16/17 08:00 40 10/16/17 08:00 52 10/16/17 08:00 96.5 52 19 121/77 (92) 100 10/16/17 07:00 100 Mechanical Ventilator 40 10/16/17 06:00 54 10/16/17 04:00 40 10/16/17 04:00 98.0 62 12 130/78 (95) 100 10/16/17 04:00 62 10/16/17 03:17 100 40 10/16/17 02:00 58 10/16/17 00:00 98.2 61 12 128/81 (97) 100 10/16/17 00:00 61 10/16/17 00:00 40 10/15/17 23:35 100 40 10/15/17 22:00 66 10/15/17 20:30 100 40 10/15/17 20:00 98.1 66 13 104/63 (77) 100 10/15/17 20:00 61 10/15/17 20:00 40 10/15/17 19:00 100 Mechanical Ventilator 40 10/15/17 18:00 60 10/15/17 16:00 98.2 67 17 109/58 (75) 100 10/15/17 16:00 62 10/15/17 16:00 40 10/15/17 15:54 100 40 Intake & Output 10/16/17 10/16/17 07:00 19:00 Intake Total 1440 ml 50 ml Output Total 750 ml Balance 690 ml 50 ml IV Total 675 ml 50 ml Tube Feeding 665 ml Other 100 ml Output Urine Total 750 ml # Bowel Movements 0 Physical Exam CONSTITUTIONAL/GENERAL: This is a massively obese patient, in no apparent distress in the ISC. TUBES/LINES/DRAINS: Endotracheal tube, IV access, Dobbhoff CARDIOVASCULAR: Regular rate and rhythm without murmurs, gallops, or rubs. No JVD. Unable to palpate foot/ankle pulses. RESPIRATORY/CHEST: Symmetric, unlabored respirations. Clear to auscultation, but breath sounds markedly diminished. GASTROINTESTINAL: Abdomen soft, non-tender, massively obese. No hepato- splenomegaly, or palpable masses. No guarding. Bowel sounds present. MUSCULOSKELETAL: Extremities without clubbing or cyanosis, but there appears to be diffuse leg and foot edema. No joint tenderness or effusion noted. No calf tenderness. No mottling or clubbing. NEUROLOGICAL: Awake, alert, weak, following commands PSYCHIATRIC: No obvious hallucinations or psychotic thought . Diagnostic Tests Laboratory Laboratory Tests Test 10/14/17 06:00 10/15/17 06:00 10/16/17 05:40 White Blood Count 8.1 TH/MM3 (4.0-11.0) 6.3 TH/MM3 (4.0-11.0) 7.6 TH/MM3 (4.0-11.0) Red Blood Count 3.35 MIL/MM3 (4.00-5.30) 3.11 MIL/MM3 (4.00-5.30) 3.52 MIL/MM3 (4.00-5.30) Hemoglobin 8.9 GM/DL (11.6-15.3) 8.4 GM/DL (11.6-15.3) 9.5 GM/DL (11.6-15.3) Hematocrit 27.0 % (35.0-46.0) 25.2 % (35.0-46.0) 28.9 % (35.0-46.0) Mean Corpuscular Volume 80.5 FL (80.0-100.0) 81.1 FL (80.0-100.0) 82.2 FL (80.0-100.0) Mean Corpuscular Hemoglobin 26.6 PG (27.0-34.0) 27.1 PG (27.0-34.0) 27.1 PG (27.0-34.0) Mean Corpuscular Hemoglobin Concent 33.0 % (32.0-36.0) 33.4 % (32.0-36.0) 33.0 % (32.0-36.0) Red Cell Distribution Width 20.5 % (11.6-17.2) 20.6 % (11.6-17.2) 20.9 % (11.6-17.2) Platelet Count 77 TH/MM3 (150-450) 86 TH/MM3 (150-450) 82 TH/MM3 (150-450) Mean Platelet Volume 8.1 FL (7.0-11.0) 8.0 FL (7.0-11.0) 8.4 FL (7.0-11.0) Neutrophils (%) (Auto) 80.2 % (16.0-70.0) Lymphocytes (%) (Auto) 13.2 % (9.0-44.0) Monocytes (%) (Auto) 6.1 % (0.0-8.0) Eosinophils (%) (Auto) 0.2 % (0.0-4.0) Basophils (%) (Auto) 0.3 % (0.0-2.0) Neutrophils # (Auto) 6.5 TH/MM3 (1.8-7.7) Lymphocytes # (Auto) 1.1 TH/MM3 (1.0-4.8) Monocytes # (Auto) 0.5 TH/MM3 (0-0.9) Eosinophils # (Auto) 0.0 TH/MM3 (0-0.4) Basophils # (Auto) 0.0 TH/MM3 (0-0.2) CBC Comment AUTO DIFF Differential Total Cells Counted 100 Neutrophils % (Manual) 77 % (16-70) Band Neutrophils % 2 % (0-6) Lymphocytes % 13 % (9-44) Monocytes % 7 % (0-8) Neutrophils # (Manual) 6.5 TH/MM3 (1.8-7.7) Myelocytes 1 % (0-0) Differential Comment FINAL DIFF MANUAL Platelet Estimate LOW (NORMAL) Platelet Morphology Comment NORMAL (NORMAL) Target Cells 1+ (NORMAL) Blood Urea Nitrogen 40 MG/DL (7-18) 39 MG/DL (7-18) 37 MG/DL (7-18) Creatinine 1.47 MG/DL (0.50-1.00) 1.24 MG/DL (0.50-1.00) 1.13 MG/DL (0.50-1.00) Random Glucose 200 MG/DL (74-106) 203 MG/DL (74-106) 185 MG/DL (74-106) Total Protein 6.3 GM/DL (6.4-8.2) 6.3 GM/DL (6.4-8.2) Albumin 2.1 GM/DL (3.4-5.0) Calcium Level 7.4 MG/DL (8.5-10.1) 7.3 MG/DL (8.5-10.1) 8.0 MG/DL (8.5-10.1) Phosphorus Level 1.9 MG/DL (2.5-4.9) Magnesium Level 1.9 MG/DL (1.5-2.5) Alkaline Phosphatase 196 U/L (45-117) Aspartate Amino Transf (AST/SGOT) 41 U/L (15-37) Alanine Aminotransferase (ALT/SGPT) 28 U/L (10-53) Total Bilirubin 0.7 MG/DL (0.2-1.0) Sodium Level 144 MEQ/L (136-145) 146 MEQ/L (136-145) 148 MEQ/L (136-145) Potassium Level 3.9 MEQ/L (3.5-5.1) 3.7 MEQ/L (3.5-5.1) 3.8 MEQ/L (3.5-5.1) Chloride Level 109 MEQ/L (98-107) 111 MEQ/L (98-107) 115 MEQ/L (98-107) Carbon Dioxide Level 23.8 MEQ/L (21.0-32.0) 25.5 MEQ/L (21.0-32.0) 25.8 MEQ/L (21.0-32.0) Anion Gap 11 MEQ/L (5-15) 10 MEQ/L (5-15) 7 MEQ/L (5-15) Estimat Glomerular Filtration Rate 42 ML/MIN (>89) 51 ML/MIN (>89) 56 ML/MIN (>89) Protein Corrected Calcium 7.8 MG/DL (8.5-10.1) 7.7 MG/DL (8.5-10.1) Result Diagram: 10/16/17 0540 10/16/17 0540 Imaging Last Impressions Chest X-Ray 10/16/17 0000 Signed Impressions: Service Date/Time: Monday, October 16, 2017 11:06 - CONCLUSION: 1. Moderate pulmonary vascular congestion. 2. Small right pleural effusion. 3. Cardiomegaly. Edinson Adan MD Abdomen X-Ray 10/10/17 0000 Signed Impressions: Service Date/Time: Tuesday, October 10, 2017 13:01 - CONCLUSION: Dobbhoff feeding tube in the stomach. Osmel Link MD Pelvis Ultrasound 10/09/17 0000 Signed Impressions: Service Date/Time: Monday, October 09, 2017 16:54 - CONCLUSION: 1. Limited evaluation secondary to patient's size 2. Mild ascites 3. Thickened endometrial stripe which may reflect hyperplasia or malignancy. Elie Colin MD Head CT 10/08/17 1653 Signed Impressions: Service Date/Time: October 18:14 - CONCLUSION: 1. Stable left parietal encephalomalacia. 2. No acute infarct, acute hemorrhage, mass effect or extra axial fluid collections. Edinson Adan MD Procedures INTUBATION 10/12/17 . Assessment and Plan Disease Oriented Problem List: (1) respiratory failure, aspiration (2) epistaxis, with aspiration of blood (3) myxedema crisis (4) acute kidney injury (5) suspected noncompliance with medications Comment: Son confirms that patient stopped taking her meds a month or 2 prior to admission (6) endometrial thickening on ultrasound (7) anemia, thrombocytopenia requiring transfusions (8) seizure disorder (9) long-term alf resident (10) morbid obesity (11) diabetes (12) history of PE (13) history of atrial fibrillation (14) history of hypertension (15) history of prior CVA, with left parietal encephalomalacia on CT scan (16) chronic vaginal bleeding (17) degenerative joint disease Symptom Scale: (1) dyspnea 0-10 Scale: Unable to quantify (2) restlessness/combativeness 0-10 Scale: Unable to quantify (3) encephalopathy 0-10 Scale: Unable to quantify Pertinent Non-Medical Issues Psychosocial: Long-term alf resident; one biologic son, one adopted son; 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 Legal: The patient lacks capacity for decision-making and it is unlikely that she will regain that capacity; the patient's son Castillo is designated health care surrogate. Ethical issues impacting care: None . . Important Contacts Son: Castillo Barreto [phone] - goes straight to voicemail but he responds to a message . Prognosis The patient lives in a alf in a chronically debilitated state, and now has suffered failure of respiratory, cardiovascular, renal, neurologic, and hematologic systems. Her overall prognosis is poor, and I believe she would be appropriate for hospice services if the goals become comfort oriented. Predictors of a poor outcome in this patient with morbid obesity and myxedema crisis include hypotension, the need for mechanical ventilation, hypothermia, advanced age, and cardiovascular disease. . Code Status: Full Code Plan * FULL CODE * DECISION-MAKING: The patient lacks capacity for decision-making, but she may regain that capacity. Her son, Castillo Barreto, is designated HCS. * Predictors of a poor outcome in this patient with morbid obesity and myxedema crisis include hypotension, the need for mechanical ventilation, hypothermia, advanced age, and cardiovascular disease. * GOALS: The patient's sons Castillo and Esau report that they want to continue aggressive care for now. They understand that the overall outlook overall is not good, but they hope to get her back to her alf.. * SYMPTOMS: The patient is improving and may be able to be extubated soon. No new medication recommendations at this time. * Palliative Care will continue to follow the patient during this hospitalization. . Time Spent Total Floor Time (mins): 37 Face to Face Time (mins): 21 >50% Counseling/Coord of Care: Yes (d/w Dr. Maxwell) Attestation To help prompt me to consider important information that might be impacting today's encounter and assessment, information from prior notes written by myself or my colleagues may have been "brought forward" into today's note. My signature on this note, however, is an attestation that I personally performed the exam, history, and/or decision-making noted today, and, unless otherwise indicated, the interactions with patient, family, and staff as well as the review of records all occurred today. I also attest that the listed assessment and stated plan reflect my best clinical judgment today based on the combination of historical information, prior notes, and today's exam/ interactions. When time spent is documented, it refers only to time spent today by the signer, or if indicated, combined time spent today by collaborating physician/nurse practitioner. Amber Zavala MD Oct 16, 2017 15:30
[2017-10-16] MEDS: VANCOMYCIN INJ 2,000 MG in SODIUM CHLORID 0.9% 500 ML INJ 500 ML IV SCH (16:04)
[2017-10-16] MEDS: RESP: ALBUTEROL 2.5 MG/IPRATROPIUM 0.5 MG NEB (SCH) NEB ×2 (17:23→21:22)
[2017-10-16] MEDS: DOPamine 800 MG/D5W PREMIX 500 ML IV PRN (18:28)
[2017-10-16] MEDS: ATORVASTATIN 40 MG TAB PO SCH (23:11)
[2017-10-16] MEDS: traZODone HCL 50 MG TAB PO SCH (23:11)
[2017-10-17] VITALS (20 sets, daily range): BP systolic 100–128; BP diastolic 53–69; PULSE 62–93; RESP 12–23; TEMP 97.5–98.1; O2SAT 94–100
[2017-10-17] MEDS: RESP: ALBUTEROL 2.5 MG/IPRATROPIUM 0.5 MG NEB (SCH) NEB ×6 (00:37→21:21)
[2017-10-17] MEDS: diphenhydrAMINE HCL 50 MG/ML VIAL IV PUSH SCH ×2 (03:29→10:01)
[2017-10-17] MEDS: INSULIN NovoLIN REGULAR SUPPLEMENTAL SCALE SQ SCH ×6 (04:00→20:25)
[2017-10-17] MEDS: LEVOTHYROXINE SODIUM 100 MCG VIAL IV PUSH SCH (06:23)
[2017-10-17] MEDS: HYDROCORTISONE SOD SUCCINATE 100 MG VIAL IV PUSH SCH ×3 (06:24→17:02)
[2017-10-17 07:43] LABS: HEMATOCRIT 26.2 % (35.0-46.0); MEAN CELL VOLUME 82.5 FL (80.0-100.0); MEAN CORPUSCULAR HEMOGLOBIN 26.2 PG (27.0-34.0); MEAN CORPUSCULAR HGB CONC 31.7 % (32.0-36.0); PLATELET COUNT 78 TH/MM3 (150-450); RED BLOOD COUNT 3.17 MIL/MM3 (4.00-5.30); RED CELL DISTRIBUTION WIDTH 21.2 % (11.6-17.2); WHITE BLOOD COUNT 11.5 TH/MM3 (4.0-11.0)
[2017-10-17 07:52] LABS: REVIEW FLAG FINAL
[2017-10-17 08:13] LABS: BICARBONATE 22.6 MEQ/L (21.0-32.0); POTASSIUM 3.7 MEQ/L (3.5-5.1)
[2017-10-17 08:27] LABS: CALCIUM-PROTEIN CORRECTED 7.9 MG/DL (8.5-10.1)
--- NOTE | 2017-10-17 08:35 | RADRPT ---
EXAM DATE/TIME: 10/17/2017 07:29 [facility] COMPARISON: CHEST SINGLE AP, October 16, 2017, 11:06. INDICATIONS : Possible aspiration. MEDICAL HISTORY : Stroke. Cardiovascular disease Hypertension SURGICAL HISTORY : None. ENCOUNTER: Subsequent ACUITY: 1 week PAIN SCORE: Non-responsive. LOCATION: Bilateral chest FINDINGS: Endotracheal tube has its tip 2 cm above the feliciano. The heart remains enlarged. Moderate pulmonary v ascular congestion is again noted. Small right pleural effusion is likely. CONCLUSION: 1. Endotracheal tube tip in good position 2 cm above the feliciano. 2. Persistent moderate pulmonary vascular congestion. 3. Cardiomegaly. 4. Probable small right pleural effusion. Edinson Adan MD on October 17, 2017 at 8:31 Board Certified Radiologist. This report was verified electronically.
--- NOTE | 2017-10-17 08:36 | RADRPT ---
EXAM DATE/TIME: 10/17/2017 07:37 [facility] COMPARISON: No previous studies available for comparison. INDICATIONS : Ileus. MEDICAL HISTORY : Stroke. Cardiovascular disease Hypertension. SURGICAL HISTORY : None. ENCOUNTER: Subsequent ACUITY: 1 week PAIN SCORE: Non-responsive. LOCATION: abdomen. FINDINGS: There is no evidence of bowel obstruction or ileus. No radiopaque densities resembling urinary calcul i are noted. Degenerative changes and scoliosis of the thoracolumbar spine are noted. CONCLUSION: 1. No evidence of bowel obstruction or ileus. 2. Degenerative changes and scoliosis of the thoracolumbar spine. Edinson Adan MD on October 17, 2017 at 8:33 Board Certified Radiologist. This report was verified electronically.
[2017-10-17] MEDS: SODIUM CHLORIDE 0.9% FLUSH 10 ML FLUSH IV FLUSH SCH ×3 (09:00→20:28)
[2017-10-17] MEDS: risperiDONE 1 MG TAB PO SCH ×3 (09:00→17:02)
[2017-10-17] MEDS: CHLORHEXIDINE 0.12% (ORAL KIT) 15 ML CUP MT SCH ×2 (09:43→20:00)
[2017-10-17] MEDS: levETIRAcetam 500 MG/NS 100 ML IV SCH ×4 (09:44→20:27)
[2017-10-17] MEDS: FAMOTIDINE 20 MG/2 ML VIAL IV PUSH SCH ×2 (09:45→20:25)
[2017-10-17] MEDS: INSULIN DETEMIR 100 UNITS/ML VIAL SQ SCH ×2 (09:45→20:26)
[2017-10-17] MEDS: PIPERACIL-TAZO 3.375 GM PREMIX 50 ML IV SCH ×2 (12:15→17:02)
[2017-10-17] MEDS ORDERED: FUROSEMIDE 40 MG/4 ML VIAL IV PUSH STA (13:04)
--- NOTE | 2017-10-17 13:19 | HHI.CCPN ---
Subjective Remarks/Hospital Course 77-year-old female with PMH of A. fib, CAD on Plavix, vaginal bleeding, CVA, bradycardia presents from her rehabilitation facility after she was found altered. Unknown when the last time the patient was normal. On presentation the patient was combative, alert, oriented only to self. She is unable to provide any meaningful history. She was placed in soft restraints. Patient was administered MedSurg floor however the rapid response was called due to patient' s bradycardia and hypotension. She arrived to ICU with a blood pressure systolic at 60s heart rate between 45-60 range, arousable still oriented to person only, able to protect her airways. 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 On initial labs her potassium was also elevated to 5.5 and was treated with insulin dextro's bicarbonate and calcium. Also Kayexalate enema. 10/09 more alert today, rewarmed, on minimal dose of dopamine, with heart rate improvement, and blood pressure is well 10/10: still agitated delirium. bleeding noted from vaginal area. failed attempt at placing enteral access via NGT and bleeding from attempt. platelets still < 100k. unable to give PO synthroid x 2 days given no enteral access. swapped back to iv synthroid given her diagnosis. still on pressors on dopamine. 10/11: dopamine persists, but lower dose. hgb dropped from 10.6 to 8.7. vaginal bleeding slightly improved after platelets. still agitated. free t4 slightly improved, but still low. 10/12: Having significant epistaxis from right nose with evidence of aspiration and desaturation. Continues epistaxis with coughing up of blood. Lethargic. Not protecting airway. ABG shows combined metabolic and respiratory acidosis. Receiving 1 U PRBC for hemoglobin of 6.7. Platelet count is 54 I have ordered 2 units of platelets. Rhino rocket ordered from ED, but patient will need intubation for airway protection 10/13: Intubated for airway protection yesterday. Epistaxis has stopped, continues to have some vaginal bleeding. Pelvic ultrasound had shown thickened endometrium hyperplasia versus malignancy. Patient at this point is not a candidate for UTILITIES SERVICE INVESTIGATOR evaluation or a pelvic exam. if she gets extubated, and has reasonable neuro recovery, will consult OBGYN at that point. Hemoglobin stable platelet count improved to 87 10/14: Patient remains intubated off sedation, wakes up follows commands, low tidal volumes on CPAP. Hemoglobin 8.9 today, platelet 77. Chest x-ray shows possible large right pleural [id number] thoracentesis ordered 10/15: Patient off sedation wakes up and follows commands. Failing CPAP trials due to low tidal volumes and no cuff leak. Hemoglobin 8.4 platelet count 86. Vaginal bleeding decreased after TXA given by PLASTER MACHINE TENDER 10/16: Remains of sedation continues to follow commands with upper extremity. Tolerating CPAP but tidal volume remains low. Positive cuff leak. Platelet stable 10/17: Tube feeds held due to episode of vomiting. Chest x-ray shows improving right pleural effusion, mild pulmonary vascular congestion. Failed CPAP trial yesterday. Awake alert. Hb stable Objective Vital Signs Date Time Temp Pulse Resp B/P (MAP) Pulse Ox O2 Delivery O2 Flow Rate FiO2 10/17/17 12:37 40 10/17/17 12:37 99 10/17/17 07:00 Mechanical Ventilator 10/17/17 06:00 68 10/17/17 04:00 97.5 14 120/59 (79) 10/15/17 07:00 2.00 Intake and Output 10/17/17 10/17/17 10/18/17 08:00 16:00 00:00 Output Total 700 ml Balance -700 ml Result Diagram: 10/17/17 0655 10/17/17 0655 Imaging Last [address] 10/08/171652 Signed Impressions: Service Date/Time: October 18:14 - CONCLUSION: 1. Stable left parietal encephalomalacia. 2. No acute infarct, acute hemorrhage, mass effect or extra axial fluid collections. Edinson Adan MD Chest X-Ray 10/08/171652 Signed Impressions: Service Date/Time: October 17:03 - CONCLUSION: 1. Limited examination with mild diffuse interstitial prominence, likely technical. Differential considerations include mild positive fluid balance. 2. Otherwise, negative portable chest. Carroll Kim MD Objective Remarks GENERAL: Super Morbidly obese elderly female, intubated. Right epistaxis has stopped. Remains intubated off sedation SKIN: No rashes, ecchymoses or lesions. HEAD: Atraumatic. Normocephalic. No temporal or scalp tenderness. EYES: No scleral icterus. No injection or drainage. ENT: No bleeding from the right nostril. Orotracheally intubated. NECK: Trachea midline. JVD unable to be assessed due to body habitus. CARDIOVASCULAR: Regular rhythm. No murmurs RESPIRATORY: Bilaterally decreased air entry. Mild bilateral expiratory wheezing GASTROINTESTINAL/: Abdomen morbidly obese, soft, non-tender, nondistended. No guarding. Vaginal bleeding decreased MUSCULOSKELETAL: Extremities without clubbing, cyanosis. No calf tenderness. Bilaterally obese lower extremities. NEUROLOGICAL: Intubated, moves extremities. 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 continue iv Synthroid, stress dose steroids. remains critically ill on vasopressors, hypothermic, hypotensive, anemic. multiple organs still life-threatening and clinically still life-threateningly hypothyroid. Now acute respiratory failure, gradually improving Neuro/Endo: Myxedema Coma Metabolic Encephalopathy - CT head negative - Levothyroxine and hydrocortisone IV, T3 by mouth since IV for not available at [facility] - Per Report the patient was noncompliant with administration of her meds, including thyroid medications - Continue hydrocortisone 50 mg IV every 6 hours - Frequent neuro checks - Intubated for airway protection 10/12/17 - Off all sedation. Improved neuro exam Resp/ENT: Acute hypercarbic hypoxemic respiratory failure Severe epistaxis with aspiration Small right pleural effusion Laryngeal edema MRSA in sputum - Emergently intubated for airway protection 10/12, difficult intubation due to anterior airway and edema the vocal cords - tolerating CPAP, check cuff leak and weaning parameters - Chest x-ray showed right pleural effusion-unable to do CT with due to body habitus - DuoNeb every4 hours scheduled and q2 hours when necessary - Rhino Rocket placement if epistaxis is not resolved after platelet transfusion - Continue IV hydrocortisone, add Benadryl for VC edema. had cuff leak 10/16, check today - continue vanc CVS: Hypotension/bradycardia Pulmonary vascular congestion - IV Lasix 40 mg 1 - Dopamine when necessary to keep MAP above 65, HR >45, - Continue IV steroids 50 q6 - On vanc for MRSA in sputum GI: Acute protein calorie malnutrition - moderate Super morbid obesity Dysphagia - Continue tube feedings -hold for weaning trials : Acute kidney injury Vaginal bleeding - Aggressive hydration, Strict I's and O's - Monitor creatinine and electrolyte levels - Gynecology. s/p TXA with improvement in bleeding - Ultrasound showed endometrial thickening HEME: Anemia requiring transfusion (secondary to chronic disease and acute blood loss) Thrombocytopenia Epistaxis Vaginal bleeding - presented with low platelets. low probability HIT. - s/p 2 units of platelets 10/12. - Due to active bleeding keep platelet count above 75, received TXA per UTILITIES SERVICE INVESTIGATOR DVT GI prophylaxis - Teds SCDs - Subcutaneous heparin: held due severe epistaxis vag bleeding and anemia - Pepcid Level 3 Remains critically ill. Failing CPAP trials due to low tidal volumes. Continue IV steroids and Benadryl. Jose F Maxwell MD Oct 17, 2017 13:19
[2017-10-17 14:28] LABS: BLOOD GAS BASE EXCESS -1.5 mmol/L (-2-2); BLOOD GAS CARBOXYHEMOGLOBIN 0.9 % (0-4); BLOOD GAS HCO3 24 mmol/L (22-26); BLOOD GAS O2 HGB SATURATION 97 % (90-100); BLOOD GAS OXYGEN CONTENT 12.7 Vol % (12.0-20.0); BLOOD GAS PCO2 50 mmHg (38-42); BLOOD GAS PO2 143 mmHg (61-120); BLOOD GAS TOTAL HGB 9.1 G/DL (12.0-16.0); CRITICAL VALUE NO; DRAW SITE LT RADIAL; FIO2 40 %; NUMBER OF ARTERIAL PUNCTURES 1; OXYGEN DEVICE VENTILATOR; STAT NO; TEMP CORR TO 98.6; VENT SETTINGS CPAP PEEP5/PS5
[2017-10-17] MEDS ORDERED: RESP: RACEPINEPHRINE 2.25% 0.5 ML NEB ONE (14:59)
[2017-10-17] MEDS: VANCOMYCIN INJ 2,000 MG in SODIUM CHLORID 0.9% 500 ML INJ 500 ML IV SCH (17:02)
[2017-10-17] MEDS: traZODone HCL 50 MG TAB PO SCH (20:25)
[2017-10-17] MEDS: ATORVASTATIN 40 MG TAB PO SCH (20:26)
[2017-10-18] VITALS (12 sets, daily range): BP systolic 96–124; BP diastolic 50–81; PULSE 64–82; RESP 14–22; TEMP 92.3–98; O2SAT 95–100
[2017-10-18] MEDS: PIPERACIL-TAZO 3.375 GM PREMIX 50 ML IV SCH ×3 (00:43→11:37)
[2017-10-18] MEDS: HYDROCORTISONE SOD SUCCINATE 100 MG VIAL IV PUSH SCH ×4 (00:44→20:43)
[2017-10-18] MEDS: INSULIN NovoLIN REGULAR SUPPLEMENTAL SCALE SQ SCH ×6 (04:00→21:42)
[2017-10-18] MEDS: RESP: ALBUTEROL 2.5 MG/IPRATROPIUM 0.5 MG NEB (SCH) NEB ×4 (05:46→23:07)
[2017-10-18 06:33] LABS: HEMATOCRIT 27.6 % (35.0-46.0); MEAN CELL VOLUME 83.2 FL (80.0-100.0); MEAN CORPUSCULAR HEMOGLOBIN 26.7 PG (27.0-34.0); MEAN CORPUSCULAR HGB CONC 32.1 % (32.0-36.0); PLATELET COUNT 113 TH/MM3 (150-450); RED BLOOD COUNT 3.32 MIL/MM3 (4.00-5.30); REVIEW FLAG FINAL; WHITE BLOOD COUNT 9.2 TH/MM3 (4.0-11.0)
[2017-10-18] MEDS: LEVOTHYROXINE SODIUM 100 MCG VIAL IV PUSH SCH (06:35)
[2017-10-18 07:15] LABS: BICARBONATE 24.7 MEQ/L (21.0-32.0); POTASSIUM 3.7 MEQ/L (3.5-5.1)
[2017-10-18] MEDS: CHLORHEXIDINE 0.12% (ORAL KIT) 15 ML CUP MT SCH ×2 (07:40→20:00)
[2017-10-18] MEDS: SODIUM CHLORIDE 0.9% FLUSH 10 ML FLUSH IV FLUSH SCH ×3 (09:00→20:44)
[2017-10-18] MEDS: FAMOTIDINE 20 MG/2 ML VIAL IV PUSH SCH ×2 (09:26→20:43)
[2017-10-18] MEDS: levETIRAcetam 500 MG/NS 100 ML IV SCH ×4 (09:27→20:43)
[2017-10-18] MEDS: risperiDONE 1 MG TAB PO SCH ×3 (09:27→17:42)
[2017-10-18] MEDS: INSULIN DETEMIR 100 UNITS/ML VIAL SQ SCH ×2 (09:27→21:42)
--- NOTE | 2017-10-18 09:43 | HHI.CCPN ---
Subjective Remarks/Hospital Course 77-year-old female with PMH of A. fib, CAD on Plavix, vaginal bleeding, CVA, bradycardia presents from her rehabilitation facility after she was found altered. Unknown when the last time the patient was normal. On presentation the patient was combative, alert, oriented only to self. She is unable to provide any meaningful history. She was placed in soft restraints. Patient was administered MedSurg floor however the rapid response was called due to patient' s bradycardia and hypotension. She arrived to ICU with a blood pressure systolic at 60s heart rate between 45-60 range, arousable still oriented to person only, able to protect her airways. 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 On initial labs her potassium was also elevated to 5.5 and was treated with insulin dextro's bicarbonate and calcium. Also Kayexalate enema. 10/09 more alert today, rewarmed, on minimal dose of dopamine, with heart rate improvement, and blood pressure is well 10/10: still agitated delirium. bleeding noted from vaginal area. failed attempt at placing enteral access via NGT and bleeding from attempt. platelets still < 100k. unable to give PO synthroid x 2 days given no enteral access. swapped back to iv synthroid given her diagnosis. still on pressors on dopamine. 10/11: dopamine persists, but lower dose. hgb dropped from 10.6 to 8.7. vaginal bleeding slightly improved after platelets. still agitated. free t4 slightly improved, but still low. 10/12: Having significant epistaxis from right nose with evidence of aspiration and desaturation. Continues epistaxis with coughing up of blood. Lethargic. Not protecting airway. ABG shows combined metabolic and respiratory acidosis. Receiving 1 U PRBC for hemoglobin of 6.7. Platelet count is 54 I have ordered 2 units of platelets. Rhino rocket ordered from ED, but patient will need intubation for airway protection 10/13: Intubated for airway protection yesterday. Epistaxis has stopped, continues to have some vaginal bleeding. Pelvic ultrasound had shown thickened endometrium hyperplasia versus malignancy. Patient at this point is not a candidate for SHOOTER HELPER evaluation or a pelvic exam. if she gets extubated, and has reasonable neuro recovery, will consult OBGYN at that point. Hemoglobin stable platelet count improved to 87 10/14: Patient remains intubated off sedation, wakes up follows commands, low tidal volumes on CPAP. Hemoglobin 8.9 today, platelet 77. Chest x-ray shows possible large right pleural [id number] thoracentesis ordered 10/15: Patient off sedation wakes up and follows commands. Failing CPAP trials due to low tidal volumes and no cuff leak. Hemoglobin 8.4 platelet count 86. Vaginal bleeding decreased after TXA given by SERVICE DEPARTMENT MANAGER 10/16: Remains of sedation continues to follow commands with upper extremity. Tolerating CPAP but tidal volume remains low. Positive cuff leak. Platelet stable 10/17: Tube feeds held due to episode of vomiting. Chest x-ray shows improving right pleural effusion, mild pulmonary vascular congestion. Failed CPAP trial yesterday. Awake alert. Hb stable 10/18: Extubated yesterday tolerating well. Remains on 1 g per KG, minute of dopamine-will wean to DC. Platelet count has improved to 113 hemoglobin stable at 8.9. Urine output 1.2 L in 24 hours Objective Vital Signs Date Time Temp Pulse Resp B/P (MAP) Pulse Ox O2 Delivery O2 Flow Rate FiO2 10/18/17 06:00 82 10/18/17 04:00 97.6 18 117/50 (72) 100 10/17/17 21:34 Nasal Cannula 3.00 10/17/17 12:37 40 Intake and Output 10/18/17 10/18/17 10/19/17 08:00 16:00 00:00 Intake Total 100 ml Output Total 575 ml Balance -475 ml Result Diagram: 10/18/17 0610/18/17 0605 Other Results Laboratory Tests Test 10/17/17 14:16 Blood Gas Puncture Site LT RADIAL Blood Gas Patient Temperature 98.6 Blood Gas HCO3 24 mmol/L (22-26) Blood Gas Base Excess -1.5 mmol/L (-2-2) Blood Gas Oxygen Saturation 97 % (90-100) Arterial Blood pH 7.30 (7.380-7.420) Arterial Blood Partial Pressure CO2 50 mmHg (38-42) Arterial Blood Partial Pressure O2 143 mmHg (61-120) Arterial Blood Oxygen Content 12.7 Vol % (12.0-20.0) Arterial Blood Carboxyhemoglobin 0.9 % (0-4) Arterial Blood Methemoglobin 1.0 % (0-2) Blood Gas Hemoglobin 9.1 G/DL (12.0-16.0) Oxygen Delivery Device VENTILATOR Blood Gas Ventilator Setting CPAP PEEP5/PS5 Blood Gas Inspired Oxygen 40 % Imaging Last [address] 10/08/171652 Signed Impressions: Service Date/Time: October 18:14 - CONCLUSION: 1. Stable left parietal encephalomalacia. 2. No acute infarct, acute hemorrhage, mass effect or extra axial fluid collections. Edinson Adan MD Chest X-Ray 10/08/171652 Signed Impressions: Service Date/Time: , October 08, 2017 17:03 - CONCLUSION: 1. Limited examination with mild diffuse interstitial prominence, likely technical. Differential considerations include mild positive fluid balance. 2. Otherwise, negative portable chest. Carroll Kim MD Objective Remarks GENERAL: Super Morbidly obese elderly female, intubated. No further Right epistaxis has stopped. On NC SKIN: No rashes, ecchymoses or lesions. HEAD: Atraumatic. Normocephalic. No temporal or scalp tenderness. EYES: No scleral icterus. No injection or drainage. ENT: No bleeding from the right nostril. NECK: Trachea midline. JVD unable to be assessed due to body habitus. CARDIOVASCULAR: Regular rhythm. No murmurs RESPIRATORY: Bilaterally decreased air entry. Mild bilateral expiratory wheezing -improving GASTROINTESTINAL/: Abdomen morbidly obese, soft, non-tender, nondistended. No guarding. Vaginal bleeding decreased MUSCULOSKELETAL: Extremities without clubbing, cyanosis. No calf tenderness. Bilaterally obese lower extremities. NEUROLOGICAL: Alert awake moves extremities. Follows commands with all four extremities A/P Assessment and Plan Assessment: 77yF with myxedema coma, metabolic encephalopathy, bleeding and thrombocytopenia. continue iv Synthroid, stress dose steroids. Multiple organs involved, critically ill but improing Neuro/Endo: Myxedema Coma Metabolic Encephalopathy - CT head negative - Continue Levothyroxine and hydrocortisone IV, T3 by mouth since IV for not available at [facility] - Per Report the patient was noncompliant with administration of her meds, including thyroid medications - Continue hydrocortisone 50 mg IV every 6 hours- reduce to 50 q12 - Frequent neuro checks - Intubated for airway protection 10/12/17, extubated 10/17 - Off all sedation. Improved neuro exam Resp/ENT: Acute hypercarbic hypoxemic respiratory failure-resolved Severe epistaxis with aspiration Small right pleural effusion, pulmonary vascular congestion Laryngeal edema-clinically resolved MRSA in sputum/probable pneumonia - Emergently intubated for airway protection 10/12, difficult intubation due to anterior airway, edema the vocal cords - Extubated 10/17, tolerating well. No stridor - Chest x-ray showed right pleural effusion-unable to do CT with due to body habitus - DuoNeb every 6 hours scheduled and q2 hours when necessary - Rhino Rocket placement if epistaxis is not resolved after platelet transfusion - Continue IV hydrocortisone reduce dose to 50 mg IV q12, s/p Benadryl for VC edema. - On Vanc for MRSA in sputum CVS: Hypotension/bradycardia Pulmonary vascular congestion - IV Lasix 40 mg 1 10/17 - Dopamine when necessary to keep MAP above 65, HR >45, Wean to DC - Continue IV steroids 50 q12 GI: Acute protein calorie malnutrition - moderate Super morbid obesity Dysphagia - Swallow eval and heart healthy diet : Acute kidney injury Vaginal bleeding - s/p Aggressive hydration, Strict I's and O's - Monitor creatinine and electrolyte levels - Gynecology consulted. s/p TXA with improvement in bleeding - Ultrasound showed endometrial thickening HEME: Anemia requiring transfusion (secondary to chronic disease and acute blood loss) Thrombocytopenia-improving Epistaxis Vaginal bleeding - presented with low platelets. low probability HIT. - s/p 2 units of platelets 10/12. - Due to active bleeding keep platelet count above 75, received TXA per SHOOTER HELPER DVT GI prophylaxis - Teds SCDs - Subcutaneous heparin: held due severe epistaxis vag bleeding and anemia - Pepcid Level 3 Remains critically ill but stable to slowly improving. Jose F Maxwell MD Oct 18, 2017 09:43
[2017-10-18] MEDS ORDERED: FUROSEMIDE 20 MG/2 ML VIAL IV PUSH ONE (10:00)
[2017-10-18] MEDS ORDERED: PHARMACY ORDERED LAB ONE (16:45)
[2017-10-18] MEDS: VANCOMYCIN INJ 2,000 MG in SODIUM CHLORID 0.9% 500 ML INJ 500 ML IV SCH (17:42)
[2017-10-18] MEDS ORDERED: PIPERACILLIN/TAZ 3.375 GM VIAL 3.375 GM in SODIUM CHLORIDE 0.9% INJ 50 ML IV SCH (18:00)
[2017-10-18] MEDS: ATORVASTATIN 40 MG TAB PO SCH (20:44)
[2017-10-18] MEDS: traZODone HCL 50 MG TAB PO SCH (20:44)
[2017-10-19] VITALS (13 sets, daily range): BP systolic 103–123; BP diastolic 51–89; PULSE 69–96; RESP 19–28; TEMP 93.6–96.6; O2SAT 96–100
[2017-10-19] MEDS: PIPERACILLIN/TAZ 3.375 GM VIAL 3.375 GM in SODIUM CHLORIDE 0.9% INJ 100 ML IV SCH ×5 (00:17→23:45)
[2017-10-19] MEDS: RESP: ALBUTEROL 2.5 MG/IPRATROPIUM 0.5 MG NEB (SCH) NEB ×4 (04:00→21:45)
[2017-10-19] MEDS: LEVOTHYROXINE SODIUM 100 MCG VIAL IV PUSH SCH (05:32)
[2017-10-19 06:13] LABS: AUTOMATED NEUTROPHIL # 5.5 TH/MM3 (1.8-7.7); BASOPHIL % 0.1 % (0.0-2.0); EOSINOPHIL % 0.5 % (0.0-4.0); HEMATOCRIT 24.7 % (35.0-46.0); HEMO FLAGS DIFF FINAL; LYMPH % 9.9 % (9.0-44.0); LYMPHOCYTE # 0.7 TH/MM3 (1.0-4.8); MEAN CORPUSCULAR HEMOGLOBIN 27.3 PG (27.0-34.0); MEAN CORPUSCULAR HGB CONC 32.9 % (32.0-36.0); NEUT % 81.5 % (16.0-70.0); PLATELET COUNT 114 TH/MM3 (150-450); RED BLOOD COUNT 2.97 MIL/MM3 (4.00-5.30); RED CELL DISTRIBUTION WIDTH 21.4 % (11.6-17.2); WHITE BLOOD COUNT 6.8 TH/MM3 (4.0-11.0)
[2017-10-19 06:30] LABS: ALT (GPT) 25 U/L (10-53); ANION GAP 8 MEQ/L (5-15); AST (GOT) 24 U/L (15-37); BICARBONATE 25.4 MEQ/L (21.0-32.0); BLOOD UREA NITROGEN 31 MG/DL (7-18); CHLORIDE 118 MEQ/L (98-107); GLOMERULAR FILTRATION RATE 63 ML/MIN (>89); POTASSIUM 3.6 MEQ/L (3.5-5.1); SODIUM (NA) 151 MEQ/L (136-145)
[2017-10-19 06:31] LABS: ALKALINE PHOSPHATASE 152 U/L (45-117); TOTAL BILIRUBIN ADULT 0.4 MG/DL (0.2-1.0)
--- NOTE | 2017-10-19 06:37 | RADRPT ---
EXAM DATE/TIME: 10/19/2017 05:01 [facility] COMPARISON: CHEST SINGLE AP, October 17, 2017, 7:29. INDICATIONS : Short of breath. MEDICAL HISTORY : None. SURGICAL HISTORY : None. ENCOUNTER: Subsequent ACUITY: 2 weeks PAIN SCORE: 0/10 LOCATION: Bilateral chest FINDINGS: The study is limited by some patient motion. There is a right subclavian line in place. The heart siz e is mildly enlarged. There is hazy density at the bases being worse on the right. CONCLUSION: Hazy density at the lower lungs likely related to some consolidation, atelectasis, and possible effus ions. Hans Decker MD on October 19, 2017 at 6:34 Board Certified Radiologist. This report was verified electronically.
[2017-10-19] MEDS: CHLORHEXIDINE 0.12% (ORAL KIT) 15 ML CUP MT SCH ×2 (08:00→20:00)
[2017-10-19] MEDS: INSULIN NovoLIN REGULAR SUPPLEMENTAL SCALE SQ SCH ×4 (08:00→20:33)
[2017-10-19] MEDS: FAMOTIDINE 20 MG/2 ML VIAL IV PUSH SCH (09:00)
[2017-10-19] MEDS: levETIRAcetam 500 MG/NS 100 ML IV SCH ×4 (09:00→20:33)
[2017-10-19] MEDS: HYDROCORTISONE SOD SUCCINATE 100 MG VIAL IV PUSH SCH ×2 (09:00→20:33)
[2017-10-19] MEDS: SODIUM CHLORIDE 0.9% FLUSH 10 ML FLUSH IV FLUSH SCH ×3 (09:00→20:33)
[2017-10-19] MEDS: risperiDONE 1 MG TAB PO SCH ×3 (09:00→18:00)
[2017-10-19] MEDS: INSULIN DETEMIR 100 UNITS/ML VIAL SQ SCH ×2 (09:00→20:33)
[2017-10-19] MEDS: SODIUM CHLOR 0.45% 1000 ML INJ 1,000 ML IV SCH (12:00)
--- NOTE | 2017-10-19 12:08 | HHI.CCPN ---
Subjective Remarks/Hospital Course 77-year-old female with PMH of A. fib, CAD on Plavix, vaginal bleeding, CVA, bradycardia presents from her rehabilitation facility after she was found altered. Unknown when the last time the patient was normal. On presentation the patient was combative, alert, oriented only to self. She is unable to provide any meaningful history. She was placed in soft restraints. Patient was administered MedSurg floor however the rapid response was called due to patient' s bradycardia and hypotension. She arrived to ICU with a blood pressure systolic at 60s heart rate between 45-60 range, arousable still oriented to person only, able to protect her airways. 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 On initial labs her potassium was also elevated to 5.5 and was treated with insulin dextro's bicarbonate and calcium. Also Kayexalate enema. 10/09 more alert today, rewarmed, on minimal dose of dopamine, with heart rate improvement, and blood pressure is well 10/10: still agitated delirium. bleeding noted from vaginal area. failed attempt at placing enteral access via NGT and bleeding from attempt. platelets still < 100k. unable to give PO synthroid x 2 days given no enteral access. swapped back to iv synthroid given her diagnosis. still on pressors on dopamine. 10/11: dopamine persists, but lower dose. hgb dropped from 10.6 to 8.7. vaginal bleeding slightly improved after platelets. still agitated. free t4 slightly improved, but still low. 10/12: Having significant epistaxis from right nose with evidence of aspiration and desaturation. Continues epistaxis with coughing up of blood. Lethargic. Not protecting airway. ABG shows combined metabolic and respiratory acidosis. Receiving 1 U PRBC for hemoglobin of 6.7. Platelet count is 54 I have ordered 2 units of platelets. Rhino rocket ordered from ED, but patient will need intubation for airway protection 10/13: Intubated for airway protection yesterday. Epistaxis has stopped, continues to have some vaginal bleeding. Pelvic ultrasound had shown thickened endometrium hyperplasia versus malignancy. Patient at this point is not a candidate for ELECTRICAL AND INSTRUMENTATION MANAGER evaluation or a pelvic exam. if she gets extubated, and has reasonable neuro recovery, will consult OBGYN at that point. Hemoglobin stable platelet count improved to 87 10/14: Patient remains intubated off sedation, wakes up follows commands, low tidal volumes on CPAP. Hemoglobin 8.9 today, platelet 77. Chest x-ray shows possible large right pleural [id number] thoracentesis ordered 10/15: Patient off sedation wakes up and follows commands. Failing CPAP trials due to low tidal volumes and no cuff leak. Hemoglobin 8.4 platelet count 86. Vaginal bleeding decreased after TXA given by CROP RESEARCH SCIENTIST 10/16: Remains of sedation continues to follow commands with upper extremity. Tolerating CPAP but tidal volume remains low. Positive cuff leak. Platelet stable 10/17: Tube feeds held due to episode of vomiting. Chest x-ray shows improving right pleural effusion, mild pulmonary vascular congestion. Failed CPAP trial yesterday. Awake alert. Hb stable 10/18: Extubated yesterday tolerating well. Remains on 1 g per KG, minute of dopamine-will wean to DC. Platelet count has improved to 113 hemoglobin stable at 8.9. Urine output 1.2 L in 24 hours 10/19: Alert awake, following command. Dopamine off 24 hours, hypothermic in am , now improved to 97.2. No vaginal bleeding or epistaxis reported in the last 24 hours. Platelet count 114 Objective Vital Signs Date Time Temp Pulse Resp B/P (MAP) Pulse Ox O2 Delivery O2 Flow Rate FiO2 10/19/17 10:00 69 10/19/17 09:41 96 21 10/19/17 08:00 96.6 20 109/55 (73) 10/19/17 07:00 Room Air 10/18/17 07:00 5.00 Intake and Output 10/19/17 10/19/17 10/20/17 08:00 16:00 00:00 Intake Total 545 ml Output Total 350 ml Balance 195 ml Result Diagram: 10/19/17 0533 10/19/17 0533 Imaging Last [address] 10/08/17 1653 Signed Impressions: Service Date/Time: October 18:14 - CONCLUSION: 1. Stable left parietal encephalomalacia. 2. No acute infarct, acute hemorrhage, mass effect or extra axial fluid collections. Edinson Adan MD Chest X-Ray 10/08/17 1653 Signed Impressions: Service Date/Time: October 17:03 - CONCLUSION: 1. Limited examination with mild diffuse interstitial prominence, likely technical. Differential considerations include mild positive fluid balance. 2. Otherwise, negative portable chest. Carroll Kim MD Objective Remarks GENERAL: Super Morbidly obese elderly female, on RA. Right epistaxis has stopped. SKIN: No rashes, ecchymoses or lesions. HEAD: Atraumatic. Normocephalic. No temporal or scalp tenderness. EYES: No scleral icterus. No injection or drainage. ENT: No bleeding from the right nostril. NECK: Trachea midline. JVD unable to be assessed due to body habitus. CARDIOVASCULAR: Regular rhythm. No murmurs RESPIRATORY: Bilaterally decreased air entry. Mild bilateral expiratory wheezing GASTROINTESTINAL/: Abdomen morbidly obese, soft, non-tender, nondistended. No guarding. No Vaginal bleeding per RN MUSCULOSKELETAL: Bilaterally obese lower extremities. NEUROLOGICAL: Alert awake moves extremities. Follows commands with all four extremities A/P Assessment and Plan Assessment: 77yF with myxedema coma, metabolic encephalopathy, bleeding and thrombocytopenia. continue iv Synthroid, stress dose steroids. Multiple organs involved, critically ill but improing Neuro/Endo: Myxedema Coma Metabolic Encephalopathy - CT head negative - Continue Levothyroxine and hydrocortisone IV - Per Report the patient was noncompliant with administration of her meds, including thyroid medications - Continue hydrocortisone 50 mg IV every 12 hours- slow wean to DC - Frequent neuro checks - Intubated for airway protection 10/12/17, extubated 10/17 - Off all sedation. Improved neuro exam Resp/ENT: Acute hypercarbic hypoxemic respiratory failure-resolved Severe epistaxis with aspiration Laryngeal edema-resolved MRSA in sputum/probable pneumonia - Emergently intubated for airway protection 10/12, difficult intubation due to anterior airway, edema the vocal cords - Extubated 10/17, tolerating well. No stridor - DuoNeb every 6 hours scheduled and q2 hours when necessary - Rhino Rocket placement if epistaxis is not resolved after platelet transfusion - Continue IV hydrocortisone 50 mg IV q12, s/p Benadryl for VC edema. - On Vanc for MRSA in sputum CVS: Hypotension/bradycardia Pulmonary vascular congestion - IV Lasix 40 mg 1 repeat today - 1/2 NS to correct hypernatremia - Dopamine not required for last 24 hours - Continue IV steroids 50 q12, slow wean to DC GI: Acute protein calorie malnutrition - moderate Super morbid obesity Dysphagia - Swallow eval and heart healthy diet : Acute kidney injury Vaginal bleeding - s/p Aggressive hydration, Strict I's and O's - Monitor creatinine and electrolyte levels - Gynecology consulted. s/p TXA with improvement in bleeding - Ultrasound showed endometrial thickening HEME: Anemia requiring transfusion (secondary to chronic disease and acute blood loss) Thrombocytopenia-improving Epistaxis Vaginal bleeding - presented with low platelets. low probability HIT. Platelet count improving now - s/p 2 units of platelets 10/12. - Due to active bleeding keep platelet count above 75, received TXA per ELECTRICAL AND INSTRUMENTATION MANAGER DVT GI prophylaxis - Teds SCDs - Subcutaneous heparin: held due severe epistaxis vag bleeding and anemia - Pepcid Level 2 Improving clinically. Transfer to Step down/[facility]. Hospitalist to assume care in am Jose F Maxwell MD Oct 19, 2017 12:08
[2017-10-19] MEDS ORDERED: FUROSEMIDE 40 MG/4 ML VIAL IV PUSH ONE (12:15)
[2017-10-19] MEDS ORDERED: POTASSIUM CHLORIDE 25 MEQ EFFERVESCENT TAB PO ONE (12:15)
--- NOTE | 2017-10-19 12:15 | HHI.HCPN ---
Reason for visit a. To assist with evaluation and management of symptoms including: Dyspnea , anxiety, encephalopathy b. To assist medical decision maker(s) with: better understanding of current medical conditions; weighing benefits/burdens of medical treatment options; making medical treatment decisions. . Subjective/Interval History Patient stable over the weekend. She was extubated 10/17. Now tolerating room air. Platelets improving 113, hemoglobin stable. Continues on vancomycin for MRSA sputum. ST following patient tolerating mechanical soft diet, per nursing patient with coughing episode this morning when drinking rapidly, ST evaluated again and notes no dysphagia or signs/ symptoms of aspiration. Hypothermic 93- 96 requiring Albino hugger warmer today. Solu-Medrol titrating down. Patient seen in room with son Castillo, [id number] Castillo's present. She is upright in specialty bed. She is alert, mostly oriented, pleasant and cooperative. Voice is still hoarse. She denies any complaints GI complaints, felt good to eat food, denies pain, denies dyspnea. She wants to get better and get out of the hospital. Son indicates he will be returning to [facility] today or tomorrow, but remains available via telephone for updates or patient changes. Update provided to son regarding condition, recent diagnostics, and that patient will still require close monitoring for aspiration , respiratory complications etc. in the coming days. All questions answered, provided with palliative contact information. . Advance Directives Living Will: Never completed Health Care Surrogate: Copy in medical record Durable Power of Hang Gliding Instructor: Copy in medical record Advance Directive Specifics Health Care Surrogate(s): SonCastillo . Objective Vital Signs Date Time Temp Pulse Resp B/P (MAP) Pulse Ox O2 Delivery O2 Flow Rate FiO2 10/19/17 10:00 69 10/19/17 09:41 96 21 10/19/17 08:00 69 10/19/17 08:00 96.6 81 20 109/55 (73) 99 10/19/17 07:00 96 Room Air 10/19/17 06:00 69 10/19/17 04:00 95.2 96 19 117/71 (86) 98 10/19/17 04:00 96 10/19/17 02:00 82 10/19/17 00:00 93.6 83 28 123/89 (100) 99 10/19/17 00:00 83 10/18/17 22:00 70 10/18/17 20:00 92.3 71 20 123/81 (95) 97 10/18/17 20:00 71 10/18/17 19:00 97 Room Air 10/18/17 18:00 64 10/18/17 16:00 98.0 66 22 100/66 (77) 99 10/18/17 16:00 66 10/18/17 14:00 72 Intake & Output 10/19/17 10/19/17 07:00 19:00 Intake Total 1065 ml Output Total 350 ml Balance 715 ml Intake Oral 240 ml IV Total 825 ml Output Urine Total 350 ml # Bowel Movements 2 Physical Exam CONSTITUTIONAL/GENERAL: This is a massively obese patient, in no distress in the ISC, alert, pleasant TUBES/LINES/DRAINS: Peripheral IV upper extremity, Sanches catheter, specialty bed CARDIOVASCULAR: Regular rate and rhythm no murmur. Generalized edema to lower extremities, Unable to palpate foot/ankle pulses. Radial pulses palpable. RESPIRATORY/CHEST: Symmetric, unlabored respirations. Clear to auscultation, breath sounds markedly diminished, few expiratory wheezes right upper GASTROINTESTINAL: Abdomen soft, non-tender, massively obese. No palpable masses. No guarding. Bowel sounds hypoactive. MUSCULOSKELETAL: Extremities without clubbing or cyanosis, but with diffuse leg and foot edema. No joint tenderness or effusion noted. No mottling or clubbing. NEUROLOGICAL: Awake, alert, mostly oriented, speech is very soft/hoarse. Cooperative, following commands moving extremities with significant weakness. PSYCHIATRIC: No obvious anxiety, hallucinations or psychotic thought . Diagnostic Tests Laboratory Laboratory Tests Test 10/17/17 06:55 10/17/17 14:16 10/18/17 06:05 10/18/17 17:22 White Blood Count 11.5 TH/MM3 (4.0-11.0) 9.2 TH/MM3 (4.0-11.0) Red Blood Count 3.17 MIL/MM3 (4.00-5.30) 3.32 MIL/MM3 (4.00-5.30) Hemoglobin 8.3 GM/DL (11.6-15.3) 8.9 GM/DL (11.6-15.3) Hematocrit 26.2 % (35.0-46.0) 27.6 % (35.0-46.0) Mean Corpuscular Volume 82.5 FL (80.0-100.0) 83.2 FL (80.0-100.0) Mean Corpuscular Hemoglobin 26.2 PG (27.0-34.0) 26.7 PG (27.0-34.0) Mean Corpuscular Hemoglobin Concent 31.7 % (32.0-36.0) 32.1 % (32.0-36.0) Red Cell Distribution Width 21.2 % (11.6-17.2) 21.0 % (11.6-17.2) Platelet Count 78 TH/MM3 (150-450) 113 TH/MM3 (150-450) Mean Platelet Volume 8.7 FL (7.0-11.0) 8.2 FL (7.0-11.0) Blood Urea Nitrogen 32 MG/DL (7-18) 32 MG/DL (7-18) Creatinine 1.02 MG/DL (0.50-1.00) 1.10 MG/DL (0.50-1.00) Random Glucose 204 MG/DL (74-106) 144 MG/DL (74-106) Total Protein 6.1 GM/DL (6.4-8.2) Calcium Level 7.4 MG/DL (8.5-10.1) 8.1 MG/DL (8.5-10.1) Sodium Level 149 MEQ/L (136-145) 149 MEQ/L (136-145) Potassium Level 3.7 MEQ/L (3.5-5.1) 3.7 MEQ/L (3.5-5.1) Chloride Level 116 MEQ/L (98-107) 116 MEQ/L (98-107) Carbon Dioxide Level 22.6 MEQ/L (21.0-32.0) 24.7 MEQ/L (21.0-32.0) Anion Gap 10 MEQ/L (5-15) 8 MEQ/L (5-15) Estimat Glomerular Filtration Rate 63 ML/MIN (>89) 58 ML/MIN (>89) Protein Corrected Calcium 7.9 MG/DL (8.5-10.1) Blood Gas Puncture Site LT RADIAL Blood Gas Patient Temperature 98.6 Blood Gas HCO3 24 mmol/L (22-26) Blood Gas Base Excess -1.5 mmol/L (-2-2) Blood Gas Oxygen Saturation 97 % (90-100) Arterial Blood pH 7.30 (7.380-7.420) Arterial Blood Partial Pressure CO2 50 mmHg (38-42) Arterial Blood Partial Pressure O2 143 mmHg (61-120) Arterial Blood Oxygen Content 12.7 Vol % (12.0-20.0) Arterial Blood Carboxyhemoglobin 0.9 % (0-4) Arterial Blood Methemoglobin 1.0 % (0-2) Blood Gas Hemoglobin 9.1 G/DL (12.0-16.0) Oxygen Delivery Device VENTILATOR Blood Gas Ventilator Setting CPAP PEEP5/PS5 Blood Gas Inspired Oxygen 40 % Vancomycin Level Trough 28.0 MCG/ML (5.0-10.0) Test 10/19/17 05:33 White Blood Count 6.8 TH/MM3 (4.0-11.0) Red Blood Count 2.97 MIL/MM3 (4.00-5.30) Hemoglobin 8.1 GM/DL (11.6-15.3) Hematocrit 24.7 % (35.0-46.0) Mean Corpuscular Volume 83.0 FL (80.0-100.0) Mean Corpuscular Hemoglobin 27.3 PG (27.0-34.0) Mean Corpuscular Hemoglobin Concent 32.9 % (32.0-36.0) Red Cell Distribution Width 21.4 % (11.6-17.2) Platelet Count 114 TH/MM3 (150-450) Mean Platelet Volume 8.1 FL (7.0-11.0) Neutrophils (%) (Auto) 81.5 % (16.0-70.0) Lymphocytes (%) (Auto) 9.9 % (9.0-44.0) Monocytes (%) (Auto) 8.0 % (0.0-8.0) Eosinophils (%) (Auto) 0.5 % (0.0-4.0) Basophils (%) (Auto) 0.1 % (0.0-2.0) Neutrophils # (Auto) 5.5 TH/MM3 (1.8-7.7) Lymphocytes # (Auto) 0.7 TH/MM3 (1.0-4.8) Monocytes # (Auto) 0.5 TH/MM3 (0-0.9) Eosinophils # (Auto) 0.0 TH/MM3 (0-0.4) Basophils # (Auto) 0.0 TH/MM3 (0-0.2) CBC Comment DIFF FINAL Differential Comment Blood Urea Nitrogen 31 MG/DL (7-18) Creatinine 1.02 MG/DL (0.50-1.00) Random Glucose 156 MG/DL (74-106) Total Protein 6.6 GM/DL (6.4-8.2) Albumin 2.3 GM/DL (3.4-5.0) Calcium Level 8.1 MG/DL (8.5-10.1) Magnesium Level 2.0 MG/DL (1.5-2.5) Alkaline Phosphatase 152 U/L (45-117) Aspartate Amino Transf (AST/SGOT) 24 U/L (15-37) Alanine Aminotransferase (ALT/SGPT) 25 U/L (10-53) Total Bilirubin 0.4 MG/DL (0.2-1.0) Sodium Level 151 MEQ/L (136-145) Potassium Level 3.6 MEQ/L (3.5-5.1) Chloride Level 118 MEQ/L (98-107) Carbon Dioxide Level 25.4 MEQ/L (21.0-32.0) Anion Gap 8 MEQ/L (5-15) Estimat Glomerular Filtration Rate 63 ML/MIN (>89) Result Diagram: 10/19/17 0533 10/19/17 0533 Imaging Last Impressions Chest X-Ray 10/19/17 0600 Signed Impressions: Service Date/Time: Thursday, October 19, 2017 05:01 - CONCLUSION: Hazy density at the lower lungs likely related to some consolidation, atelectasis, and possible effusions. Hans Decker MD Abdomen X-Ray 10/17/17 0000 Signed Impressions: Service Date/Time: Tuesday, October 17, 2017 07:37 - CONCLUSION: 1. No evidence of bowel obstruction or ileus. 2. Degenerative changes and scoliosis of the thoracolumbar spine. Edinson Adan MD Pelvis Ultrasound 10/09/17 0000 Signed Impressions: Service Date/Time: Monday, October 09, 2017 16:54 - CONCLUSION: 1. Limited evaluation secondary to patient's size 2. Mild ascites 3. Thickened endometrial stripe which may reflect hyperplasia or malignancy. Elie Colin MD Head CT 10/08/17 1655 Signed Impressions: Service Date/Time: October 18:14 - CONCLUSION: 1. Stable left parietal encephalomalacia. 2. No acute infarct, acute hemorrhage, mass effect or extra axial fluid collections. Edinson Adan MD Procedures INTUBATION 10/12/17 . Assessment and Plan Disease Oriented Problem List: (1) respiratory failure, aspiration (2) epistaxis, with aspiration of blood (3) myxedema crisis (4) acute kidney injury (5) suspected noncompliance with medications Comment: Son confirms that patient stopped taking her meds a month or 2 prior to admission (6) endometrial thickening on ultrasound (7) anemia, thrombocytopenia requiring transfusions (8) seizure disorder (9) long-term penitentiary resident (10) morbid obesity (11) diabetes (12) history of PE (13) history of atrial fibrillation (14) history of hypertension (15) history of prior CVA, with left parietal encephalomalacia on CT scan (16) chronic vaginal bleeding (17) degenerative joint disease Symptom Scale: (1) dyspnea 0-10 Scale: Unable to quantify (2) restlessness/combativeness 0-10 Scale: Unable to quantify (3) encephalopathy 0-10 Scale: Unable to quantify Pertinent Non-Medical Issues Psychosocial: Long-term penitentiary resident; one biologic son, one adopted son; 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 Legal: The patient lacks capacity for decision-making and it is unlikely that she will regain that capacity; the patient's son Castillo is designated health care surrogate. Ethical issues impacting care: None . . Important Contacts Son: Castillo Barreto [phone] - goes straight to voicemail but he responds to a message . Prognosis The patient lives in a penitentiary in a chronically debilitated state, and now has suffered failure of respiratory, cardiovascular, renal, neurologic, and hematologic systems. Her overall prognosis is poor, and I believe she would be appropriate for hospice services if the goals become comfort oriented. Predictors of a poor outcome in this patient with morbid obesity and myxedema crisis include hypotension, the need for mechanical ventilation, hypothermia, advanced age, and cardiovascular disease. . Code Status: Full Code Plan * FULL CODE * DECISION-MAKING: The patient lacks capacity for decision-making, but she may regain that capacity, as she has become more alert and oriented in the past days. Her son, Castillo Barreto, is designated HCS. * Predictors of a poor outcome in this patient with morbid obesity and myxedema crisis include hypotension, the need for mechanical ventilation, hypothermia, advanced age, and cardiovascular disease. She has stabilized recently though does remain high risk for ongoing complication and setbacks. * GOALS: The patient's sons Castillo and Esau report that they want to continue aggressive care for now, patient in agreement with this. They understand that the overall outlook overall is not good, but they hope to get her back to her penitentiary. Goals remain aggressive * SYMPTOMS: == Patient denying pain, dyspnea or any other complaints//will continue to evaluate * Palliative care will continue to follow during hospital course as condition evolves, to assist patient/decision-maker with understanding of medical conditions, weighing benefits/burdens of treatment options, for clarification of goals of treatment. Additionally will assist with any symptoms of palliative concern . Time Spent Total Floor Time (mins): 25 (Chart review, PE, discussion with HCS, discussion with nursing) Attestation To help prompt me to consider important information that might be impacting today's encounter and assessment, information from prior notes written by myself or my colleagues may have been "brought forward" into today's note. My signature on this note, however, is an attestation that I personally performed the exam, history, and/or decision-making noted today, and, unless otherwise indicated, the interactions with patient, family, and staff as well as the review of records all occurred today. I also attest that the listed assessment and stated plan reflect my best clinical judgment today based on the combination of historical information, prior notes, and today's exam/ interactions. When time spent is documented, it refers only to time spent today by the signer, or if indicated, combined time spent today by collaborating physician/nurse practitioner. Yulisa Hancock Oct 19, 2017 12:15
[2017-10-19] MEDS: ATORVASTATIN 40 MG TAB PO SCH (20:33)
[2017-10-19] MEDS: traZODone HCL 50 MG TAB PO SCH (20:33)
[2017-10-19] MEDS: FAMOTIDINE 20 MG TAB PO SCH (20:33)
[2017-10-20] VITALS (11 sets, daily range): BP systolic 99–143; BP diastolic 52–67; PULSE 58–81; RESP 12–20; TEMP 95.9–97.5; O2SAT 94–100
[2017-10-20] MEDS: RESP: ALBUTEROL 2.5 MG/IPRATROPIUM 0.5 MG NEB (SCH) NEB ×4 (04:00→22:00)
[2017-10-20] MEDS: PIPERACILLIN/TAZ 3.375 GM VIAL 3.375 GM in SODIUM CHLORIDE 0.9% INJ 100 ML IV SCH ×3 (05:41→18:21)
[2017-10-20] MEDS: LEVOTHYROXINE SODIUM 100 MCG VIAL IV PUSH SCH (05:42)
[2017-10-20] MEDS ORDERED: FUROSEMIDE 20 MG/2 ML VIAL IV PUSH ONE (07:30)
--- NOTE | 2017-10-20 07:43 | HHI.CCPN ---
Subjective Remarks/Hospital Course 77-year-old female with PMH of A. fib, CAD on Plavix, vaginal bleeding, CVA, bradycardia presents from her rehabilitation facility after she was found altered. Unknown when the last time the patient was normal. On presentation the patient was combative, alert, oriented only to self. She is unable to provide any meaningful history. She was placed in soft restraints. Patient was administered MedSurg floor however the rapid response was called due to patient' s bradycardia and hypotension. She arrived to ICU with a blood pressure systolic at 60s heart rate between 45-60 range, arousable still oriented to person only, able to protect her airways. 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 On initial labs her potassium was also elevated to 5.5 and was treated with insulin dextro's bicarbonate and calcium. Also Kayexalate enema. 10/09 more alert today, rewarmed, on minimal dose of dopamine, with heart rate improvement, and blood pressure is well 10/10: still agitated delirium. bleeding noted from vaginal area. failed attempt at placing enteral access via NGT and bleeding from attempt. platelets still < 100k. unable to give PO synthroid x 2 days given no enteral access. swapped back to iv synthroid given her diagnosis. still on pressors on dopamine. 10/11: dopamine persists, but lower dose. hgb dropped from 10.6 to 8.7. vaginal bleeding slightly improved after platelets. still agitated. free t4 slightly improved, but still low. 10/12: Having significant epistaxis from right nose with evidence of aspiration and desaturation. Continues epistaxis with coughing up of blood. Lethargic. Not protecting airway. ABG shows combined metabolic and respiratory acidosis. Receiving 1 U PRBC for hemoglobin of 6.7. Platelet count is 54 I have ordered 2 units of platelets. Rhino rocket ordered from ED, but patient will need intubation for airway protection 10/13: Intubated for airway protection yesterday. Epistaxis has stopped, continues to have some vaginal bleeding. Pelvic ultrasound had shown thickened endometrium hyperplasia versus malignancy. Patient at this point is not a candidate for HEALTH AND FITNESS PROFESSOR evaluation or a pelvic exam. if she gets extubated, and has reasonable neuro recovery, will consult OBGYN at that point. Hemoglobin stable platelet count improved to 87 10/14: Patient remains intubated off sedation, wakes up follows commands, low tidal volumes on CPAP. Hemoglobin 8.9 today, platelet 77. Chest x-ray shows possible large right pleural [id number] thoracentesis ordered 10/15: Patient off sedation wakes up and follows commands. Failing CPAP trials due to low tidal volumes and no cuff leak. Hemoglobin 8.4 platelet count 86. Vaginal bleeding decreased after TXA given by L TACKER 10/16: Remains of sedation continues to follow commands with upper extremity. Tolerating CPAP but tidal volume remains low. Positive cuff leak. Platelet stable 10/17: Tube feeds held due to episode of vomiting. Chest x-ray shows improving right pleural effusion, mild pulmonary vascular congestion. Failed CPAP trial yesterday. Awake alert. Hb stable 10/18: Extubated yesterday tolerating well. Remains on 1 g per KG, minute of dopamine-will wean to DC. Platelet count has improved to 113 hemoglobin stable at 8.9. Urine output 1.2 L in 24 hours 10/19: Alert awake, following command. Dopamine off 24 hours, hypothermic in am , now improved to 97.2. No vaginal bleeding or epistaxis reported in the last 24 hours. Platelet count 114 10/20: resting in bed. Breathing comfortably, but on exam has bilateral wheezing. UO adequate, but positive balance and weight gain noted. IV Lasix 20 mg 1 and start scheduled Lasix with potassium replacement Objective Vital Signs Date Time Temp Pulse Resp B/P (MAP) Pulse Ox O2 Delivery O2 Flow Rate FiO2 10/20/17 06:00 81 10/20/17 04:00 97.4 12 107/63 (78) 98 10/19/17 19:00 Room Air 10/19/17 09:41 21 10/18/17 07:00 5.00 Intake and Output 10/20/17 10/20/17 10/21/17 08:00 16:00 00:00 Intake Total 1218 ml Output Total 600 ml Balance 618 ml Result Diagram: 10/19/17 0533 10/19/17 0533 Imaging Last [address] 10/08/17 8886 Signed Impressions: Service Date/Time: October 18:14 - CONCLUSION: 1. Stable left parietal encephalomalacia. 2. No acute infarct, acute hemorrhage, mass effect or extra axial fluid collections. Edinson Adan MD Chest X-Ray 10/08/17 9648 Signed Impressions: Service Date/Time: October 17:03 - CONCLUSION: 1. Limited examination with mild diffuse interstitial prominence, likely technical. Differential considerations include mild positive fluid balance. 2. Otherwise, negative portable chest. Carroll Kim MD Objective Remarks GENERAL: Super Morbidly obese elderly female, on RA. Right epistaxis has stopped. SKIN: No rashes, ecchymoses or lesions. HEAD: Atraumatic. Normocephalic. No temporal or scalp tenderness. EYES: No scleral icterus. No injection or drainage. ENT: No bleeding from the right nostril. NECK: Trachea midline. JVD unable to be assessed due to body habitus. CARDIOVASCULAR: Regular rhythm. No murmurs RESPIRATORY: Bilaterally decreased air entry. Bilateral expiratory wheezing GASTROINTESTINAL/: Abdomen morbidly obese, soft, non-tender, nondistended. No guarding. No Vaginal bleeding per RN MUSCULOSKELETAL: Bilaterally obese lower extremities. NEUROLOGICAL: Alert awake moves extremities. Follows commands with all four extremities A/P Assessment and Plan Assessment: 77yF with myxedema coma, metabolic encephalopathy, bleeding and thrombocytopenia. continue iv Synthroid, stress dose steroids. Multiple organs involved, critically ill but improing Neuro/Endo: Myxedema Coma-resolved Metabolic Encephalopathy - CT head negative - Continue Levothyroxine and hydrocortisone IV - Per Report the patient was noncompliant with administration of her meds, including thyroid medications - Continue hydrocortisone 50 mg IV every 12 hours- slow wean to DC - Frequent neuro checks - Intubated for airway protection 10/12/17, extubated 10/17 Resp/ENT: Acute hypercarbic hypoxemic respiratory failure-resolved Severe epistaxis with aspiration Bronchial asthma Laryngeal edema-resolved MRSA in sputum/probable pneumonia - Emergently intubated for airway protection 10/12, difficult intubation due to anterior airway, edema the vocal cords - Extubated 10/17, tolerating well. No stridor - DuoNeb every 6 hours scheduled and q2 hours when necessary. Add Symbicort. Pulmonary consulted - Rhino Rocket placement if epistaxis is not resolved after platelet transfusion - Continue IV hydrocortisone 50 mg IV q12, s/p Benadryl for VC edema. - On Vancomycin for MRSA in sputum CVS: Hypotension/bradycardia Pulmonary vascular congestion - IV Lasix 20 mg 1 repeat today, place on 20 mg po BID, KCL 25 daily - 1/2 NS to correct hypernatremia - Continue IV steroids 50 q12, slow wean to DC GI: Acute protein calorie malnutrition - moderate Super morbid obesity Dysphagia - Diet per speech recommendation : Acute kidney injury Vaginal bleeding - s/p Aggressive hydration, Strict I's and O's - Monitor creatinine and electrolyte levels - Gynecology consulted. s/p TXA with improvement in bleeding - Ultrasound showed endometrial thickening HEME: Anemia requiring transfusion (secondary to chronic disease and acute blood loss) Thrombocytopenia-improving Epistaxis Vaginal bleeding - presented with low platelets. low probability HIT. Platelet count improving - s/p 2 units of platelets 10/12. - Due to active bleeding keep platelet count above 75, received TXA per HEALTH AND FITNESS PROFESSOR DVT GI prophylaxis - Teds SCDs - Subcutaneous heparinheld due severe epistaxis vag bleeding and anemia - Pepcid Level 2 Improving clinically. Transfer to Med surg with tele. Hospitalist to assume care in Jose F Maxwell MD Oct 20, 2017 07:43
[2017-10-20] MEDS: CHLORHEXIDINE 0.12% (ORAL KIT) 15 ML CUP MT SCH ×2 (08:00→19:38)
[2017-10-20] MEDS: INSULIN NovoLIN REGULAR SUPPLEMENTAL SCALE SQ SCH ×4 (08:00→21:36)
[2017-10-20] MEDS: levETIRAcetam 500 MG/NS 100 ML IV SCH ×4 (08:30→20:38)
[2017-10-20] MEDS: FAMOTIDINE 20 MG TAB PO SCH ×2 (08:30→20:38)
[2017-10-20] MEDS: HYDROCORTISONE SOD SUCCINATE 100 MG VIAL IV PUSH SCH ×2 (08:30→20:38)
[2017-10-20] MEDS: risperiDONE 1 MG TAB PO SCH ×3 (08:30→18:21)
[2017-10-20] MEDS: BUDESONIDE-FORMOTEROL 160/4.5 MCG INHALER INH SCH ×2 (08:31→20:39)
[2017-10-20] MEDS: SODIUM CHLORIDE 0.9% FLUSH 10 ML FLUSH IV FLUSH SCH ×3 (08:31→20:39)
[2017-10-20] MEDS: POTASSIUM CHLORIDE 25 MEQ EFFERVESCENT TAB PO SCH (09:00)
[2017-10-20] MEDS: INSULIN DETEMIR 100 UNITS/ML VIAL SQ SCH ×2 (10:18→20:37)
[2017-10-20] MEDS: FUROSEMIDE 20 MG TAB PO SCH ×2 (10:18→18:21)
--- NOTE | 2017-10-20 11:23 | MB ---
cc: AMARJIT OCASIO M.D. DATE OF CONSULTATION 10/20/2017 REASON FOR CONSULTATION Hypoxic and hypercarbic respiratory failure in a morbidly obese patient. HISTORY OF PRESENT ILLNESS Mrs. Barreto is a 77-year-old -[place]i female with a past medical history of CVA, coronary artery disease and atrial fibrillation, admitted with altered mental status, hypoxic and hypercarbic respiratory failure, acute renal injury and myxedema coma. The patient was transfused as well for anemia. She has been thrombocytopenic as well which seems to be improving at the present time. The patient is now alert. She is in no respiratory distress and her mental status is improving. The patient could not relate a detailed history. Most of the history is obtained from the patient's record. MEDICATIONS Her current medications include: 1. Nebulized budesonide formoterol. 2. Lasix. 3. Potassium. 4. Pepcid. 5. Piperacillin/tazobactam. 6. Hydrocortisone 50 mg twice daily. 7. Insulin. 8. Levothyroxine. 9. Atorvastatin. 10.Trazodone. 11.Risperidone. PHYSICAL EXAMINATION GENERAL: The patient is alert, in no acute distress. VITAL SIGNS: Temperature 97.4, pulse 84, respirations 14, oxygen saturation 98% on room air, blood pressure 110/64. HEENT: Exam unremarkable. Eyes without icterus. NECK: Without adenopathy or thyroid enlargement. CHEST: Distant sounds. A few scattered rhonchi. CARDIAC: Irregularity noted. ABDOMEN: Obese. Bowel sounds audible. EXTREMITIES: 2+ edema. LABORATORY White count 6.8, hemoglobin 8.1, hematocrit 24, platelets 114,000. Sodium 151, potassium 3.6, BUN 31, creatinine 1.0. IMAGING Chest x-ray with increased interstitial markings, otherwise unremarkable. Last arterial blood gas October 17, 2017: pH 7.30, PCO2 50, PO2 143. Inspired oxygen fraction at 40%. IMPRESSION 1. Hypoxic hypercarbic respiratory failure. 2. Obesity. 3. Altered mental status improved. 4. Myxedema improved. 5. Anemia improving. 6. Thrombocytopenia improving. PLAN The patient should be maintained on oxygen therapy as needed. She will require BiPAP therapy while sleeping and probably long-term BiPAP therapy or noninvasive ventilation and that will depend on her progress over the next few days and how well her hypercarbia responds. Underlying sleep disordered breathing, obesity hypoventilation is highly suspect. Will follow her course along with you and depending on her progress proceed accordingly. I do thank you for asking me to partake in Mrs. Barreto's care. Amarjit Ocasio MD WWW/RUI /8:47 AM /11:18 AM
[2017-10-20 18:28] LABS: ALT (GPT) 26 U/L (10-53); ANION GAP 6 MEQ/L (5-15); AST (GOT) 23 U/L (15-37); BICARBONATE 25.7 MEQ/L (21.0-32.0); BLOOD UREA NITROGEN 26 MG/DL (7-18); CHLORIDE 117 MEQ/L (98-107); GLOMERULAR FILTRATION RATE 69 ML/MIN (>89); POTASSIUM 4.1 MEQ/L (3.5-5.1); SODIUM (NA) 149 MEQ/L (136-145)
[2017-10-20 18:30] LABS: ALKALINE PHOSPHATASE 148 U/L (45-117); TOTAL BILIRUBIN ADULT 0.4 MG/DL (0.2-1.0)
[2017-10-20] MEDS: traZODone HCL 50 MG TAB PO SCH (20:38)
[2017-10-20] MEDS: ATORVASTATIN 40 MG TAB PO SCH (20:38)
[2017-10-20] MEDS: SODIUM CHLOR 0.45% 1000 ML INJ 1,000 ML IV SCH (20:39)
[2017-10-21] VITALS (14 sets, daily range): BP systolic 83–130; BP diastolic 45–92; PULSE 67–83; RESP 18–26; TEMP 97.3–98.2; O2SAT 91–97
[2017-10-21] MEDS: PIPERACILLIN/TAZ 3.375 GM VIAL 3.375 GM in SODIUM CHLORIDE 0.9% INJ 100 ML IV SCH ×2 (02:27→06:56)
[2017-10-21] MEDS: RESP: ALBUTEROL 2.5 MG/IPRATROPIUM 0.5 MG NEB (SCH) NEB ×4 (04:00→21:23)
--- NOTE | 2017-10-21 06:02 | RADRPT ---
EXAM DATE/TIME: 10/21/2017 04:59 [facility] COMPARISON: CHEST SINGLE AP, October 19, 2017, 5:01. INDICATIONS : Shortness of breath. MEDICAL HISTORY : None. SURGICAL HISTORY : None. ENCOUNTER: Subsequent ACUITY: 2 weeks PAIN SCORE: Non-responsive. LOCATION: Bilateral chest FINDINGS: The heart size is within normal limits. There is a PICC line in place from the right arm with the tip overlying the SVC. There is hazy density seen throughout the lungs bilaterally. There is silhouettin g of the hemidiaphragms. CONCLUSION: Diffuse increased density seen to the lung likely representing edema which appears fairly similar to the prior exam. Hans Decker MD on October 21, 2017 at 6:00 Board Certified Radiologist. This report was verified electronically.
[2017-10-21] MEDS: LEVOTHYROXINE SODIUM 100 MCG VIAL IV PUSH SCH (06:57)
[2017-10-21 07:28] LABS: AUTOMATED NEUTROPHIL # 4.5 TH/MM3 (1.8-7.7); BASOPHIL % 0.2 % (0.0-2.0); EOSINOPHIL % 0.6 % (0.0-4.0); HEMATOCRIT 25.2 % (35.0-46.0); HEMO FLAGS DIFF FINAL; LYMPH % 17.8 % (9.0-44.0); LYMPHOCYTE # 1.1 TH/MM3 (1.0-4.8); MEAN CELL VOLUME 84.5 FL (80.0-100.0); MEAN CORPUSCULAR HEMOGLOBIN 26.8 PG (27.0-34.0); MEAN CORPUSCULAR HGB CONC 31.7 % (32.0-36.0); MONO % 11.1 % (0.0-8.0); NEUT % 70.3 % (16.0-70.0); PLATELET COUNT 125 TH/MM3 (150-450); RED BLOOD COUNT 2.98 MIL/MM3 (4.00-5.30); RED CELL DISTRIBUTION WIDTH 22.1 % (11.6-17.2); WHITE BLOOD COUNT 6.4 TH/MM3 (4.0-11.0)
[2017-10-21 07:50] LABS: ANION GAP 6 MEQ/L (5-15); AST (GOT) 19 U/L (15-37); BICARBONATE 27.2 MEQ/L (21.0-32.0); BLOOD UREA NITROGEN 29 MG/DL (7-18); CHLORIDE 115 MEQ/L (98-107); GLOMERULAR FILTRATION RATE 60 ML/MIN (>89); MAGNESIUM 1.9 MG/DL (1.5-2.5); POTASSIUM 3.9 MEQ/L (3.5-5.1); SODIUM (NA) 148 MEQ/L (136-145)
[2017-10-21 07:51] LABS: ALT (GPT) 24 U/L (10-53)
[2017-10-21 07:53] LABS: ALKALINE PHOSPHATASE 136 U/L (45-117); TOTAL BILIRUBIN ADULT 0.3 MG/DL (0.2-1.0)
[2017-10-21] MEDS: CHLORHEXIDINE 0.12% (ORAL KIT) 15 ML CUP MT SCH ×2 (08:00→19:55)
[2017-10-21] MEDS: INSULIN NovoLIN REGULAR SUPPLEMENTAL SCALE SQ SCH ×4 (08:38→21:16)
[2017-10-21] MEDS: SODIUM CHLORIDE 0.9% FLUSH 10 ML FLUSH IV FLUSH SCH ×4 (08:38→19:55)
[2017-10-21] MEDS: FUROSEMIDE 20 MG TAB PO SCH ×2 (08:39→17:43)
[2017-10-21] MEDS: risperiDONE 1 MG TAB PO SCH ×3 (08:39→17:43)
[2017-10-21] MEDS: FAMOTIDINE 20 MG TAB PO SCH ×2 (08:39→19:55)
[2017-10-21] MEDS: POTASSIUM CHLORIDE 25 MEQ EFFERVESCENT TAB PO SCH (08:39)
[2017-10-21] MEDS: HYDROCORTISONE SOD SUCCINATE 100 MG VIAL IV PUSH SCH ×2 (08:40→19:54)
[2017-10-21] MEDS: levETIRAcetam 500 MG/NS 100 ML IV SCH ×4 (09:24→19:54)
[2017-10-21] MEDS: INSULIN DETEMIR 100 UNITS/ML VIAL SQ SCH ×2 (09:46→21:16)
[2017-10-21] MEDS: BUDESONIDE-FORMOTEROL 160/4.5 MCG INHALER INH SCH ×2 (09:47→19:55)
--- NOTE | 2017-10-21 09:53 | HHI.PR ---
Subjective Remarks Patient is a super morbidly obese female who presented with myxedema coma. Patient will need to followup with Dr. Keen; her rehab facility will need to arrange for appointment and transport. Objective Vital Signs Date Time Temp Pulse Resp B/P (MAP) Pulse Ox O2 Delivery O2 Flow Rate FiO2 10/21/17 08:00 97.5 82 18 130/60 (83) 92 10/21/17 04:40 98.2 77 18 118/57 (77) 92 10/21/17 04:05 67 10/21/17 04:05 67 10/21/17 00:24 77 10/20/17 23:12 97.4 72 18 102/53 (69) 95 10/20/17 23:00 Room Air 10/20/17 22:15 97.3 75 18 109/56 (73) 94 10/20/17 20:00 76 10/20/17 20:00 97.5 76 20 105/52 (69) 97 10/20/17 19:00 97 Room Air 10/20/17 16:00 95.9 58 12 114/56 (75) 100 10/20/17 12:00 97.2 60 16 111/58 (75) 100 I/O 10/20/17 10/20/17 10/20/17 10/21/17 10/21/17 10/21/17 07:00 15:00 23:00 07:00 15:00 23:00 Intake Total 1218 ml 1978 ml 30 ml Output Total 600 ml 800 ml 500 ml Balance 618 ml 1178 ml -470 ml Intake Oral 480 ml 750 ml 30 ml IV Total 738 ml 1228 ml Output Urine Total 600 ml 800 ml 500 ml # Bowel Movements 2 0 1 Result Diagram: 10/21/17 0714 10/21/17 0714 Matidle Brown MD Oct 21, 2017 09:53
--- NOTE | 2017-10-21 10:32 | HHI.PR ---
Addendum to Inpatient Note Addendum Reason: Additional Documentation Additional Information Addendum to [facility]ANS[facility] consultation S: This is a 77-year-old who is interviewed and assessed for vaginal bleeding in the past. Vaginal bleeding at the time was 08/2017. She has refused transvaginal ultrasound. Pelvic ultrasound showed thickened endometrium. On interview, patient states that she is not having any vaginal bleeding presently or recently. States that she has had it a few times in the past and attributes it to menopause, Sanches catheter, and/or trauma (states people were "doing things to her vagina" while"the whole staff was watching"). Patient has no history of abnormal Pap smears, no gynecologic surgeries, no history of gynecologic cancers. Patient has had 2 deliveries, all vaginal. States that she has not seen a regular DIRECTOR TRANSITION doctor since she has had menopause. States menopause was over "a long time ago." O: Patient refuses vaginal exam. A/P: 77-year-old assessed for vaginal bleeding. -Patient was advised that she would need endometrial biopsy. -Recommend follow-up with Dr. Rey, which her rehabilitation/SNF will need to set up. Discussed with Nereida Olivera MD R1 Oct 21, 2017 10:32
--- NOTE | 2017-10-21 10:59 | HHI.PR ---
Subjective Remarks in no acute distress. awake and alert. denies pain. no fever. Objective Vitals Vital Signs Date Time Temp Pulse Resp B/P (MAP) Pulse Ox O2 Delivery O2 Flow Rate FiO2 10/21/17 09:51 Room Air 10/21/17 08:00 97.5 82 18 130/60 (83) 92 10/21/17 07:58 77 10/21/17 04:40 98.2 77 18 118/57 (77) 92 10/21/17 04:05 67 10/21/17 04:05 67 10/21/17 00:24 77 10/20/17 23:12 97.4 72 18 102/53 (69) 95 10/20/17 23:00 Room Air 10/20/17 22:15 97.3 75 18 109/56 (73) 94 10/20/17 20:00 76 10/20/17 20:00 97.5 76 20 105/52 (69) 97 10/20/17 19:00 97 Room Air 10/20/17 16:00 95.9 58 12 114/56 (75) 100 10/20/17 12:00 97.2 60 16 111/58 (75) 100 I/O 10/20/17 10/20/17 10/20/17 10/21/17 10/21/17 10/21/17 07:00 15:00 23:00 07:00 15:00 23:00 Intake Total 1218 ml 1978 ml 30 ml Output Total 600 ml 800 ml 500 ml Balance 618 ml 1178 ml -470 ml Intake Oral 480 ml 750 ml 30 ml IV Total 738 ml 1228 ml Output Urine Total 600 ml 800 ml 500 ml # Bowel Movements 2 0 1 Result Diagram: 10/21/17 0714 10/21/17 0714 Imaging Last Impressions Chest X-Ray 10/21/17 0600 Signed Impressions: Service Date/Time: Saturday, October 21, 2017 04:59 - CONCLUSION: Diffuse increased density seen to the lung likely representing edema which appears fairly similar to the prior exam. Hans Decker MD Abdomen X-Ray 10/17/17 0000 Signed Impressions: Service Date/Time: Tuesday, October 17, 2017 07:37 - CONCLUSION: 1. No evidence of bowel obstruction or ileus. 2. Degenerative changes and scoliosis of the thoracolumbar spine. Edinson Adan MD Pelvis Ultrasound 10/09/17 0000 Signed Impressions: Service Date/Time: Monday, October 09, 2017 16:54 - CONCLUSION: 1. Limited evaluation secondary to patient's size 2. Mild ascites 3. Thickened endometrial stripe which may reflect hyperplasia or malignancy. Elie Colin MD Head CT 10/08/17 1653 Signed Impressions: Service Date/Time: October 18:14 - CONCLUSION: 1. Stable left parietal encephalomalacia. 2. No acute infarct, acute hemorrhage, mass effect or extra axial fluid collections. Edinson Adan MD Objective Remarks GENERAL: in no apparent distress. CARDIOVASCULAR: Regular rate and regular rhythm without murmurs, gallops, or rubs. RESPIRATORY: Clear to auscultation. Breath sounds equal bilaterally. No wheezes , rales, or rhonchi. GASTROINTESTINAL: Abdomen soft, non-tender, nondistended. Normal, active bowel sounds MUSCULOSKELETAL: Extremities without clubbing, cyanosis, or edema. NEURO: awake and alert. oriented to person and place but not to time. Procedures intubation Medications and IVs Inpatient Medications Albumin Human 500 ml @ 250 mls/hr ONCE ONCE IV Last administered on 09:20; Start 10/10/17 at 08:45; Stop 10/10/17 at 10:44; Status DC Albuterol/ Ipratropium (Duoneb Neb) 1 ampule Q6HR NEB NEB Last administered on 10/21/17 08:37; Start 10/17/17 at 16:00 Atorvastatin Calcium (Lipitor) 40 mg HS PO Last administered on 10/20/17 20: 38; Start 10/09/17 at 21:00 Atropine Sulfate (Atropine Inj) 0.5 mg Q1H PRN IV PUSH HR <40 or < 60symptomatic Last administered on 10/08/17 23:26; Start 10/08/17 at 23:15 Budesonide/ Formoterol Fumarate (Symbicort 160-4.5 Mcg Inh) 1 puff Q12HR INH Last administered on 10/21/17 09:47; Start 10/20/17 at 09:00 Calcium Gluconate (Calcium Gluconate Inj) 1 gm ONCE ONCE IV PUSH ; Start at 23:30; Stop 10/08/17 at 23:31; Status DC Calcium Gluconate 2 gm/Dextrose 120 ml @ 120 mls/hr ONCE ONCE IV Last administered on 10/12/17 12:30; Start 10/12/17 at 09:30; Stop 10/12/17 at 10 :29; Status DC Calcium Gluconate 2 gm/Sodium Chloride 120 ml @ 120 mls/hr ONCE ONCE IV Last administered on 10/10/17 06:39; Start 10/10/17 at 06:00; Stop 10/10/17 at 06:59 ; Status DC Chlorhexidine Gluconate (Peridex 0.12% Liq) 15 ml BID@08,20 MT Last administered on 10/19/17 08:00; Start 10/12/17 at 20:00 Clopidogrel Bisulfate (Plavix) 75 mg DAILY PO Last administered on 10/11/17 09:25; Start 10/09/17 at 09:00; Status Future Hold Dextrose (D50w (Vial) Inj) 25 ml UNSCH PRN IV PUSH HYPOGLYCEMIA-SEE COMMENTS; Start 10/11/17 at 16:00 Diphenhydramine HCl (Benadryl Inj) 25 mg Q6H IV PUSH Last administered on 10/17 10:01; Start 10/15/17 at 16:00; Stop 10/17/17 at 15:59; Status DC Dopamine HCl/ Dextrose 500 ml @ 22.5 mls/hr TITRATE PRN IV Blood Pressure Management Last administered on 10/16/17 18:28; Start 10/09/17 at 03:00; Stop 10/18/17 at 09:55; Status DC Etomidate (Amidate Inj) 20 mg STAT ONCE IV PUSH ; Start 10/12/17 at 08:00; Stop 10/12/17 at 08:01; Status DC Famotidine (Pepcid Inj) 10 mg Q12HR IV PUSH Last administered on 10/19/17 09: 00; Start 10/10/17 at 21:00; Stop 10/19/17 at 11:57; Status DC Famotidine (Pepcid) 20 mg BID PO Last administered on 10/21/17 08:39; Start 10/19/17 at 21:00 Furosemide (Lasix Inj) 20 mg ONCE ONCE IV PUSH Last administered on 08:30; Start 10/20/17 at 07:30; Stop 10/20/17 at 07:33; Status DC Furosemide (Lasix) 20 mg BID@,18 PO Last administered on 10/21/17 08:39; Start 10/20/17 at 09:00 Glucagon (Glucagon Inj) 1 mg UNSCH PRN OTHER HYPOGLYCEMIA-SEE COMMENTS; Start 10/09/17 at 07:45 Heparin Sodium (Porcine) (Heparin Central Flush) See Protocol UNSCH PRN IV FLUSH SEE PROTOCOL TABLE; Start 10/09/17 at 13:00; Status Future Hold Hydrocortisone Sodium Succinate (SoluCORTEF INJ) 50 mg Q12HR IV PUSH Last administered on 10/21/17 08:40; Start 10/18/17 at 21:00 Insulin Detemir (Levemir Inj) 5 units Q12HR SQ Last administered on 10/21/17 09:46; Start 10/11/17 at 21:00 Insulin Human Regular (NovoLIN R SUPPLEMENTAL SCALE) 1 ACHS SQ Last administered on 10/21/17 08:38; Start 10/18/17 at 17:45 Levetriacetam 100 ml @ 400 mls/hr Q12H IV Last administered on 10/09/17 21:42 ; Start 10/09/17 at 21:00; Stop 10/09/17 at 21:46; Status DC Levetriacetam (Keppra Liq) 1,500 mg DAILY PO ; Start 10/09/17 at 09:00; Stop 10/09/17 at 14:06; Status DC Levetriacetam 500 mg/Sodium Chloride 105 ml @ 420 mls/hr Q12HR IV Last administered on 10/21/17 09:24; Start 10/10/17 at 09:00 Levothyroxine Sodium (Synthroid Inj) 75 mcg DAILY@06 IV PUSH Last administered on 10/21/17 06:57; Start 10/10/17 at 08:45 Levothyroxine Sodium (Synthroid) 125 mcg DAILY@0600 PO ; Start 10/09/17 at 06:00 ; Status Future Hold Liothyronine Sodium (Cytomel) 5 mcg Q8H PO Last administered on 10/10/17 17:18 ; Start 10/09/17 at 02:00; Stop 10/10/17 at 18:01; Status DC Lorazepam (Ativan Inj) 1 mg Q15M PRN IV PUSH seizures; Start 10/08/17 at 20:15 ; Stop 10/10/17 at 08:42; Status DC Midazolam HCl (Versed Inj) 10 mg STAT ONCE IV ; Start 10/12/17 at 08:00; Stop 10/12/17 at 08:01; Status DC Miscellaneous Information SPECIFIC LAB TO BE DRAWN:VANCOMYCIN TROUGH DATE TO... ONCE ONCE .XX ; Start 10/18/17 at 16:45; Stop 10/18/17 at 16:46; Status DC Naloxone HCl (Narcan Inj) 0.4 mg UNSCH PRN IV PUSH SEE LABEL COMMENTS; Start 10/08/17 at 20:15 Non-Formulary Medication LIOTHYRONINE 10 MCG/ML DOSE ... Q8H IV Last administered on 10/10/17 05:09; Start 10/09/17 at 12:00; Stop 10/10/17 at 04:01 ; Status DC Norepinephrine Bitartrate 250 ml @ 7.5 mls/hr TITRATE PRN IV Maintain MAP > 65 mmHg Last administered on 10/09/17 01:00; Start 10/09/17 at 00:45; Stop 10/10/17 at 08:42; Status DC Ondansetron HCl (Zofran Inj) 4 mg Q6H PRN IVP NAUSEA OR VOMITING; Start at 20:15 Pharmacy Profile Note 0 ml @ 0 mls/hr UNSCH OTHER ; Start 10/15/17 at 15:30 Piperacillin Sod/ Tazobactam Sod 3.375 gm/Sodium Chloride 100 ml @ 200 mls/hr Q6H IV Last administered on 10/21/17 06:56; Start 10/19/17 at 00:00 Potassium Bicarb/ Potassium Chloride (K-Lyte Cl Eff) 25 meq DAILY PO Last administered on 10/21/17 08:39; Start 10/20/17 at 09:00 Potassium Chloride 100 ml @ 50 mls/hr BOLUS ONCE IV Last administered on 11:30; Start 10/16/17 at 11:00; Stop 10/16/17 at 12:59; Status DC Propofol 100 ml @ 6.264 mls/ hr TITRATE PRN IV SEDATION Last administered on 10/15/17 16:26; Start 10/12/17 at 08:30; Stop 10/18/17 at 09:55; Status DC Risperidone (risperDAL) 1 mg TID PO Last administered on 10/21/17 08:39; Start 10/09/17 at 09:00 Rocuronium [place] (Zemuron Inj) 50 mg STAT ONCE IV ; Start 10/12/17 at 08:00 ; Stop 10/12/17 at 08:01; Status DC Sodium Polystyrene Sulfonate (Kayexalate Enema) 30 gm ONCE ONCE RECTAL ; Start 10/08/17 at 23:30; Stop 10/08/17 at 23:31; Status DC Sodium Polystyrene Sulfonate (Kayexalate Liq) 15 gm ONCE ONCE PO ; Start at 20:00; Stop 10/08/17 at 20:01; Status DC Sodium Chloride 1,000 ml @ 50 mls/hr Q20H IV Last administered on 10/20/17 20:39; Start 10/19/17 at 12:00; Stop 10/20/17 at 11:59; Status DC Sodium Chloride (NS Flush) SEE PROTOCOL UNSCH PRN IV FLUSH SEE PROTOCOL TABLE; Start 10/09/17 at 13:00 Terbutaline Sulfate (Brethine Inj) 1 mg UNSCH PRN SQ For Extravasation; Start 10/09/17 at 03:00 Tranexamic Acid 600 mg/Sodium Chloride 106 ml @ 212 mls/hr ONCE ONCE IV ; Start 10/14/17 at 17:00; Stop 10/14/17 at 17:19; Status DC Tranexamic Acid 1000 mg/Sodium Chloride 110 ml @ 200 mls/hr ONCE ONCE IV Last administered on 10/14/17 18:29; Start 10/14/17 at 18:45; Stop 10/14/17 at 19:17; Status DC Trazodone HCl (Desyrel) 150 mg HS PO Last administered on 10/20/17 20:38; Start 10/09/17 at 21:00 Vancomycin HCl 2000 mg/Sodium Chloride 520 ml @ 250 mls/hr Q24H IV Last administered on 10/18/17 17:42; Start 10/15/17 at 17:00; Status Future Hold A/P Assessment and Plan Myxedema Coma-resolved Metabolic Encephalopathy-improved. - CT head negative - Continue Levothyroxine and hydrocortisone IV - Per Report the patient was noncompliant with administration of her meds, including thyroid medications - Continue hydrocortisone 50 mg IV every 12 hours- slow wean to DC - Frequent neuro checks - Intubated for airway protection 10/12/17, extubated 10/17 Acute hypercarbic hypoxemic respiratory failure-resolved Severe epistaxis with aspiration Bronchial asthma Laryngeal edema-resolved MRSA in sputum/probable pneumonia - Emergently intubated for airway protection 10/12, difficult intubation due to anterior airway, edema the vocal cords - Extubated 10/17, tolerating well. No stridor - DuoNeb every 6 hours scheduled and q2 hours when necessary. Add Symbicort. Pulmonary consulted - Continue IV hydrocortisone 50 mg IV q12, s/p Benadryl for VC edema. - On Vancomycin for MRSA in sputum Hypotension/bradycardia Pulmonary vascular congestion -continue lasix 20 mg po BID. - 1/2 NS to correct hypernatremia - Continue IV steroids 50 q12, slow wean to DC Super morbid obesity Dysphagia - Diet per speech recommendation Acute kidney injury Vaginal bleeding - s/p Aggressive hydration, Strict I's and O's - Monitor creatinine and electrolyte levels - Gynecology consulted. s/p TXA with improvement in bleeding - Ultrasound showed endometrial thickening -f/u with [facility] as outpatient. Anemia requiring transfusion (secondary to chronic disease and acute blood loss) Thrombocytopenia-improving Epistaxis Vaginal bleeding - presented with low platelets. low probability HIT. Platelet count improving - s/p 2 units of platelets 10/12. - Due to active bleeding keep platelet count above 75, received TXA per SEDIMENTATIONIST DVT GI prophylaxis - Teds SCDs - Subcutaneous heparin held due severe epistaxis vag bleeding and anemia - Pepcid continue PT. Discharge Planning dc planning to SNF. Jazmyn Mario MD Oct 21, 2017 10:59
--- NOTE | 2017-10-21 14:26 | HHI.HCPN ---
Reason for visit a. To assist with evaluation and management of symptoms including: Dyspnea , anxiety, encephalopathy b. To assist medical decision maker(s) with: better understanding of current medical conditions; weighing benefits/burdens of medical treatment options; making medical treatment decisions. . Subjective/Interval History Patient remains stable post extubation on 10/17. tolerating room air. CXR today = "Diffuse increased density seen to the lung likely representing edema which appears fairly similar to the prior exam." Platelets improving 125, hgb slowly downtrending slightly 8.0/25.2. ST cont to follow, notes no dysphagia or signs / symptoms of aspiration. BUN /creatinine stable 29/1.07. Pt seen in room, nurse present. She is alert, pleasant, mostly oriented, voice still very soft/hoarse. She prefers to answer questions via gestures, though she can speak. She denies any complaints: no dyspnea, no pain, no GI complaints , reports good appetite. Tells me she likes the warming blanket they have been using on her. (temps have been 97s today, had 95.6 yesterday). she endorses feeling good, wants to get back to her NH. . Family/friend interactions VM left for son. . Advance Directives Living Will: Never completed Health Care Surrogate: Copy in medical record Durable Power of Market Development Trainer: Copy in medical record Advance Directive Specifics Health Care Surrogate(s): Son, Castillo Barreto . Objective Vital Signs Date Time Temp Pulse Resp B/P (MAP) Pulse Ox O2 Delivery O2 Flow Rate FiO2 10/21/17 11:51 97.3 83 20 120/80 (93) 92 10/21/17 11:00 77 10/21/17 09:51 Room Air 10/21/17 08:00 97.5 82 18 130/60 (83) 92 10/21/17 07:58 77 10/21/17 04:40 98.2 77 18 118/57 (77) 92 10/21/17 04:05 67 10/21/17 04:05 67 10/21/17 00:24 77 10/20/17 23:12 97.4 72 18 102/53 (69) 95 10/20/17 23:00 Room Air 10/20/17 22:15 97.3 75 18 109/56 (73) 94 10/20/17 20:00 76 10/20/17 20:00 97.5 76 20 105/52 (69) 97 10/20/17 19:00 97 Room Air 10/20/17 16:00 95.9 58 12 114/56 (75) 100 Intake & Output 10/21/17 10/21/17 07:00 19:00 Intake Total 1258 ml 100 ml Output Total 500 ml Balance 758 ml 100 ml Intake Oral 30 ml IV Total 1228 ml 100 ml Output Urine Total 500 ml # Bowel Movements 1 Physical Exam CONSTITUTIONAL/GENERAL: This is a massively obese patient, in no distress, alert, pleasant TUBES/LINES/DRAINS: PICC rt upper extremity, Sanches catheter, specialty bed CARDIOVASCULAR: Regular rate and rhythm no murmur. Generalized edema to lower extremities, Unable to palpate foot/ankle pulses. Radial pulses palpable. RESPIRATORY/CHEST: Symmetric, unlabored respirations. Clear to auscultation, breath sounds diminished, few expiratory wheezes right upper GASTROINTESTINAL: Abdomen soft, non-tender, massively obese. No palpable masses. No guarding. Bowel sounds normoactive. MUSCULOSKELETAL: Extremities without clubbing or cyanosis, but with diffuse leg and foot edema. No joint tenderness or effusion noted. No mottling or clubbing. NEUROLOGICAL: Awake, alert, mostly oriented, speech is very soft/hoarse. Cooperative, following commands moving extremities with significant weakness. PSYCHIATRIC: No obvious anxiety, hallucinations or psychotic thought . Diagnostic Tests Laboratory Laboratory Tests Test 10/18/17 17:22 10/19/17 05:33 10/20/17 17:50 10/21/17 07:14 Vancomycin Level Trough 28.0 MCG/ML (5.0-10.0) White Blood Count 6.8 TH/MM3 (4.0-11.0) 6.4 TH/MM3 (4.0-11.0) Red Blood Count 2.97 MIL/MM3 (4.00-5.30) 2.98 MIL/MM3 (4.00-5.30) Hemoglobin 8.1 GM/DL (11.6-15.3) 8.0 GM/DL (11.6-15.3) Hematocrit 24.7 % (35.0-46.0) 25.2 % (35.0-46.0) Mean Corpuscular Volume 83.0 FL (80.0-100.0) 84.5 FL (80.0-100.0) Mean Corpuscular Hemoglobin 27.3 PG (27.0-34.0) 26.8 PG (27.0-34.0) Mean Corpuscular Hemoglobin Concent 32.9 % (32.0-36.0) 31.7 % (32.0-36.0) Red Cell Distribution Width 21.4 % (11.6-17.2) 22.1 % (11.6-17.2) Platelet Count 114 TH/MM3 (150-450) 125 TH/MM3 (150-450) Mean Platelet Volume 8.1 FL (7.0-11.0) 7.7 FL (7.0-11.0) Neutrophils (%) (Auto) 81.5 % (16.0-70.0) 70.3 % (16.0-70.0) Lymphocytes (%) (Auto) 9.9 % (9.0-44.0) 17.8 % (9.0-44.0) Monocytes (%) (Auto) 8.0 % (0.0-8.0) 11.1 % (0.0-8.0) Eosinophils (%) (Auto) 0.5 % (0.0-4.0) 0.6 % (0.0-4.0) Basophils (%) (Auto) 0.1 % (0.0-2.0) 0.2 % (0.0-2.0) Neutrophils # (Auto) 5.5 TH/MM3 (1.8-7.7) 4.5 TH/MM3 (1.8-7.7) Lymphocytes # (Auto) 0.7 TH/MM3 (1.0-4.8) 1.1 TH/MM3 (1.0-4.8) Monocytes # (Auto) 0.5 TH/MM3 (0-0.9) 0.7 TH/MM3 (0-0.9) Eosinophils # (Auto) 0.0 TH/MM3 (0-0.4) 0.0 TH/MM3 (0-0.4) Basophils # (Auto) 0.0 TH/MM3 (0-0.2) 0.0 TH/MM3 (0-0.2) CBC Comment DIFF FINAL DIFF FINAL Differential Comment Blood Urea Nitrogen 31 MG/DL (7-18) 26 MG/DL (7-18) 29 MG/DL (7-18) Creatinine 1.02 MG/DL (0.50-1.00) 0.95 MG/DL (0.50-1.00) 1.07 MG/DL (0.50-1.00) Random Glucose 156 MG/DL (74-106) 183 MG/DL (74-106) 183 MG/DL (74-106) Total Protein 6.6 GM/DL (6.4-8.2) 6.9 GM/DL (6.4-8.2) 6.7 GM/DL (6.4-8.2) Albumin 2.3 GM/DL (3.4-5.0) 2.3 GM/DL (3.4-5.0) 2.2 GM/DL (3.4-5.0) Calcium Level 8.1 MG/DL (8.5-10.1) 8.1 MG/DL (8.5-10.1) 8.2 MG/DL (8.5-10.1) Magnesium Level 2.0 MG/DL (1.5-2.5) 1.9 MG/DL (1.5-2.5) Alkaline Phosphatase 152 U/L (45-117) 148 U/L (45-117) 136 U/L (45-117) Aspartate Amino Transf (AST/SGOT) 24 U/L (15-37) 23 U/L (15-37) 19 U/L (15-37) Alanine Aminotransferase (ALT/SGPT) 25 U/L (10-53) 26 U/L (10-53) 24 U/L (10-53) Total Bilirubin 0.4 MG/DL (0.2-1.0) 0.4 MG/DL (0.2-1.0) 0.3 MG/DL (0.2-1.0) Sodium Level 151 MEQ/L (136-145) 149 MEQ/L (136-145) 148 MEQ/L (136-145) Potassium Level 3.6 MEQ/L (3.5-5.1) 4.1 MEQ/L (3.5-5.1) 3.9 MEQ/L (3.5-5.1) Chloride Level 118 MEQ/L (98-107) 117 MEQ/L (98-107) 115 MEQ/L (98-107) Carbon Dioxide Level 25.4 MEQ/L (21.0-32.0) 25.7 MEQ/L (21.0-32.0) 27.2 MEQ/L (21.0-32.0) Anion Gap 8 MEQ/L (5-15) 6 MEQ/L (5-15) 6 MEQ/L (5-15) Estimat Glomerular Filtration Rate 63 ML/MIN (>89) 69 ML/MIN (>89) 60 ML/MIN (>89) Random Vancomycin Level 27.0 COMMENT 23.7 COMMENT Result Diagram: 10/21/17 0714 10/21/17 0714 Imaging Last Impressions Chest X-Ray 10/21/17 0600 Signed Impressions: Service Date/Time: Saturday, October 21, 2017 04:59 - CONCLUSION: Diffuse increased density seen to the lung likely representing edema which appears fairly similar to the prior exam. Hans Decker MD Abdomen X-Ray 10/17/17 0000 Signed Impressions: Service Date/Time: Tuesday, October 17, 2017 07:37 - CONCLUSION: 1. No evidence of bowel obstruction or ileus. 2. Degenerative changes and scoliosis of the thoracolumbar spine. Edinson Adan MD Pelvis Ultrasound 10/09/17 0000 Signed Impressions: Service Date/Time: Monday, October 09, 2017 16:54 - CONCLUSION: 1. Limited evaluation secondary to patient's size 2. Mild ascites 3. Thickened endometrial stripe which may reflect hyperplasia or malignancy. Elie Colin MD Head CT 10/08/17 1653 Signed Impressions: Service Date/Time: October 18:14 - CONCLUSION: 1. Stable left parietal encephalomalacia. 2. No acute infarct, acute hemorrhage, mass effect or extra axial fluid collections. Edinson Adan MD Procedures INTUBATION 10/12/17--> extubated 10/17 . Assessment and Plan Disease Oriented Problem List: (1) respiratory failure, aspiration (2) epistaxis, with aspiration of blood (3) myxedema crisis (4) acute kidney injury (5) suspected noncompliance with medications Comment: Son confirms that patient stopped taking her meds a month or 2 prior to admission (6) endometrial thickening on ultrasound (7) anemia, thrombocytopenia requiring transfusions (8) seizure disorder (9) long-term residential resident (10) morbid obesity (11) diabetes (12) history of PE (13) history of atrial fibrillation (14) history of hypertension (15) history of prior CVA, 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 Legal: The patient lacks capacity for decision-making and it is unlikely that she will regain that capacity; the patient's son Castillo is designated health care surrogate. Ethical issues impacting care: None . . Important Contacts Son: Castillo Barreto [phone] - goes straight to voicemail but he responds to a message . Prognosis The patient lives in a residential in a chronically debilitated state, and now has suffered failure of respiratory, cardiovascular, renal, neurologic, and hematologic systems. Her overall prognosis is poor, and I believe she would be appropriate for hospice services if the goals become comfort oriented. Predictors of a poor outcome in this patient with morbid obesity and myxedema crisis include hypotension, the need for mechanical ventilation, hypothermia, advanced age, and cardiovascular disease. . Code Status: Full Code Plan * FULL CODE * DECISION-MAKING: Mental status improving, she may regain that capacity for decision making, as she has become more alert and oriented in the past days. Her son, Castillo Barreto, is designated HCS. * Predictors of a poor outcome in this patient with morbid obesity and myxedema crisis include hypotension, the need for mechanical ventilation, hypothermia, advanced age, and cardiovascular disease. She has stabilized recently though does remain high risk for ongoing complication and setbacks. * GOALS: Per prior palliative discussions w palliative: The patient's sons Castillo and Esau report that they want to continue aggressive care for now, patient in agreement with this today. They understand that the overall outlook overall is not good, but they hope to get her back to her residential. VM left for son 10/21. In ongoing interactions would want to review code status/ intubation status again * SYMPTOMS: == Patient denying pain, dyspnea or any other complaints//will continue to evaluate * Palliative care will continue to follow during hospital course as condition evolves, to assist patient/decision-maker with understanding of medical conditions, weighing benefits/burdens of treatment options, for clarification of goals of treatment. Additionally will assist with any symptoms of palliative concern . Time Spent Total Floor Time (mins): 15 (chart review, PE, dw nursing ) Attestation To help prompt me to consider important information that might be impacting today's encounter and assessment, information from prior notes written by myself or my colleagues may have been "brought forward" into today's note. My signature on this note, however, is an attestation that I personally performed the exam, history, and/or decision-making noted today, and, unless otherwise indicated, the interactions with patient, family, and staff as well as the review of records all occurred today. I also attest that the listed assessment and stated plan reflect my best clinical judgment today based on the combination of historical information, prior notes, and today's exam/ interactions. When time spent is documented, it refers only to time spent today by the signer, or if indicated, combined time spent today by collaborating physician/nurse practitioner. Yulisa Hancock Oct 21, 2017 14:26
[2017-10-21] MEDS: PIPERACIL-TAZO 3.375 GM PREMIX 50 ML IV SCH (19:20)
--- NOTE | 2017-10-21 19:25 | HHI.PR ---
Subjective Remarks ALERT NO SOB Objective Vital Signs Date Time Temp Pulse Resp B/P (MAP) Pulse Ox O2 Delivery O2 Flow Rate FiO2 10/21/17 16:01 81 10/21/17 16:00 97.5 81 20 123/60 (81) 91 10/21/17 15:49 72 10/21/17 11:51 97.3 83 20 120/80 (93) 92 10/21/17 11:00 77 10/21/17 09:51 Room Air 10/21/17 08:00 97.5 82 18 130/60 (83) 92 10/21/17 07:58 77 10/21/17 04:40 98.2 77 18 118/57 (77) 92 10/21/17 04:05 67 10/21/17 04:05 67 10/21/17 00:24 77 10/20/17 23:12 97.4 72 18 102/53 (69) 95 10/20/17 23:00 Room Air 10/20/17 22:15 97.3 75 18 109/56 (73) 94 10/20/17 20:00 76 10/20/17 20:00 97.5 76 20 105/52 (69) 97 I/O 10/20/17 10/20/17 10/20/17 10/21/17 10/21/17 10/21/17 07:00 15:00 23:00 07:00 15:00 23:00 Intake Total 1218 ml 1978 ml 30 ml 100 ml 840 ml Output Total 600 ml 800 ml 500 ml 350 ml Balance 618 ml 1178 ml -470 ml 100 ml 490 ml Intake Oral 480 ml 750 ml 30 ml 840 ml IV Total 738 ml 1228 ml 100 ml Output Urine Total 600 ml 800 ml 500 ml 350 ml # Bowel Movements 2 0 1 0 Result Diagram: 10/21/1714 10/21/1714 Objective Remarks GENERAL: SKIN: Warm and dry. HEAD: Atraumatic. Normocephalic. EYES: Pupils equal and round. No scleral icterus. No injection or drainage. ENT: No nasal bleeding or discharge. Mucous membranes pink and moist. NECK: Trachea midline. No JVD. CARDIOVASCULAR: Regular rate and rhythm. RESPIRATORY: No accessory muscle use. Clear to auscultation. Breath sounds equal bilaterally. GASTROINTESTINAL: Abdomen soft, non-tender, nondistended. Hepatic and splenic margins not palpable. MUSCULOSKELETAL: Extremities without clubbing, cyanosis, or edema. No obvious deformities. NEUROLOGICAL: Awake and alert. No obvious cranial nerve deficits. Motor grossly within normal limits. Five out of 5 muscle strength in the arms and legs. Normal speech. PSYCHIATRIC: Appropriate mood and affect; insight and judgment normal. Assessment and Plan Assessment and Plan RESPIRSTORY FAILURE MORBID OBESITY CXRAY NO CHANGE PLAN O2 NEEDED BIPAP INCREASE ACTIVITY LOOSE WT Amarjit Ocasio MD Oct 21, 2017 19:25
[2017-10-21] MEDS: ATORVASTATIN 40 MG TAB PO SCH (19:54)
[2017-10-21] MEDS: traZODone HCL 50 MG TAB PO SCH (19:55)
[2017-10-22] VITALS (14 sets, daily range): BP systolic 102–123; BP diastolic 52–85; PULSE 60–83; RESP 16–22; TEMP 95.3–98.1; O2SAT 93–99
[2017-10-22] MEDS: PIPERACIL-TAZO 3.375 GM PREMIX 50 ML IV SCH ×4 (00:23→18:50)
[2017-10-22] MEDS: RESP: ALBUTEROL 2.5 MG/IPRATROPIUM 0.5 MG NEB (SCH) NEB ×4 (04:05→21:05)
[2017-10-22] MEDS: LEVOTHYROXINE SODIUM 100 MCG VIAL IV PUSH SCH (04:50)
[2017-10-22 05:36] LABS: AUTOMATED NEUTROPHIL # 3.8 TH/MM3 (1.8-7.7); BASOPHIL % 0.4 % (0.0-2.0); EOSINOPHIL # 0.1 TH/MM3 (0-0.4); HEMATOCRIT 24.7 % (35.0-46.0); HEMO FLAGS DIFF FINAL; LYMPHOCYTE # 1.7 TH/MM3 (1.0-4.8); MEAN CELL VOLUME 83.9 FL (80.0-100.0); MEAN CORPUSCULAR HEMOGLOBIN 26.8 PG (27.0-34.0); MEAN CORPUSCULAR HGB CONC 31.9 % (32.0-36.0); MONO % 10.8 % (0.0-8.0); NEUT % 60.8 % (16.0-70.0); PLATELET COUNT 146 TH/MM3 (150-450); RED BLOOD COUNT 2.94 MIL/MM3 (4.00-5.30); RED CELL DISTRIBUTION WIDTH 22.2 % (11.6-17.2); WHITE BLOOD COUNT 6.2 TH/MM3 (4.0-11.0)
[2017-10-22 05:54] LABS: BICARBONATE 24.2 MEQ/L (21.0-32.0); POTASSIUM 4.3 MEQ/L (3.5-5.1)
[2017-10-22] MEDS: SODIUM CHLORIDE 0.9% FLUSH 10 ML FLUSH IV FLUSH SCH ×3 (09:00→20:32)
[2017-10-22] MEDS: BUDESONIDE-FORMOTEROL 160/4.5 MCG INHALER INH SCH ×2 (09:00→20:32)
[2017-10-22] MEDS: levETIRAcetam 500 MG/NS 100 ML IV SCH ×2 (09:00)
[2017-10-22] MEDS: FUROSEMIDE 20 MG TAB PO SCH ×2 (09:56→18:04)
[2017-10-22] MEDS: risperiDONE 1 MG TAB PO SCH ×3 (09:56→18:03)
[2017-10-22] MEDS: HYDROCORTISONE SOD SUCCINATE 100 MG VIAL IV PUSH SCH (09:56)
[2017-10-22] MEDS: FAMOTIDINE 20 MG TAB PO SCH ×2 (09:56→20:31)
[2017-10-22] MEDS: INSULIN DETEMIR 100 UNITS/ML VIAL SQ SCH ×2 (09:57→20:31)
[2017-10-22] MEDS: POTASSIUM CHLORIDE 25 MEQ EFFERVESCENT TAB PO SCH (09:57)
[2017-10-22] MEDS: INSULIN NovoLIN REGULAR SUPPLEMENTAL SCALE SQ SCH ×4 (09:58→20:31)
--- NOTE | 2017-10-22 10:12 | HHI.PR ---
Subjective Remarks in no acute distress. denies pain. no fever. d/w the RN and no acute issues over night. Objective Vitals Vital Signs Date Time Temp Pulse Resp B/P (MAP) Pulse Ox O2 Delivery O2 Flow Rate FiO2 10/22/17 08:00 98.1 78 16 109/53 (71) 94 10/22/17 07:54 97 Nasal Cannula 2.00 10/22/17 04:45 98.0 76 22 113/56 (75) 97 10/22/17 04:08 77 10/22/17 04:00 Nasal Cannula 3.00 10/22/17 00:00 Nasal Cannula 3.00 10/22/17 00:00 68 10/21/17 23:28 98.2 83 24 113/56 (75) 97 10/21/17 21:23 96 Nasal Cannula 2.00 10/21/17 20:20 97.6 73 26 83/45 (58) 92 101/92 (95) 10/21/17 20:00 Nasal Cannula 3.00 10/21/17 20:00 74 10/21/17 16:01 81 10/21/17 16:00 97.5 81 20 123/60 (81) 91 10/21/17 15:49 72 10/21/17 11:51 97.3 83 20 120/80 (93) 92 10/21/17 11:00 77 I/O 10/21/17 10/21/17 10/21/17 10/22/17 10/22/17 10/22/17 07:00 15:00 23:00 07:00 15:00 23:00 Intake Total 30 ml 100 ml 995 ml 100 ml Output Total 500 ml 350 ml Balance -470 ml 100 ml 645 ml 100 ml Intake Oral 30 ml 840 ml 0 ml IV Total 100 ml 155 ml 100 ml Output Urine Total 500 ml 350 ml # Voids 2 # Bowel Movements 1 0 1 Result Diagram: 10/22/17 0520 10/22/17 0520 Imaging Last Impressions Chest X-Ray 10/21/17 0600 Signed Impressions: Service Date/Time: Saturday, October 21, 2017 04:59 - CONCLUSION: Diffuse increased density seen to the lung likely representing edema which appears fairly similar to the prior exam. Hans Decker MD Abdomen X-Ray 10/17/17 0000 Signed Impressions: Service Date/Time: Tuesday, October 17, 2017 07:37 - CONCLUSION: 1. No evidence of bowel obstruction or ileus. 2. Degenerative changes and scoliosis of the thoracolumbar spine. Edinson Adan MD Pelvis Ultrasound 10/09/17 0000 Signed Impressions: Service Date/Time: Monday, October 09, 2017 16:54 - CONCLUSION: 1. Limited evaluation secondary to patient's size 2. Mild ascites 3. Thickened endometrial stripe which may reflect hyperplasia or malignancy. Elie Colin MD Head CT 10/08/17 1653 Signed Impressions: Service Date/Time: October 18:14 - CONCLUSION: 1. Stable left parietal encephalomalacia. 2. No acute infarct, acute hemorrhage, mass effect or extra axial fluid collections. Edinson Adan MD Objective Remarks GENERAL: in no apparent distress. CARDIOVASCULAR: Regular rate and regular rhythm without murmurs, gallops, or rubs. RESPIRATORY: Clear to auscultation. Breath sounds equal bilaterally. No wheezes , rales, or rhonchi. GASTROINTESTINAL: Abdomen soft, non-tender, nondistended. Normal, active bowel sounds MUSCULOSKELETAL: Extremities without clubbing, cyanosis, or edema. NEURO: awake and alert. oriented to person and place but not to time. Procedures intubation Medications and IVs Inpatient Medications Albumin Human 500 ml @ 250 mls/hr ONCE ONCE IV Last administered on 09:20; Start 10/10/17 at 08:45; Stop 10/10/17 at 10:44; Status DC Albuterol/ Ipratropium (Duoneb Neb) 1 ampule Q6HR NEB NEB Last administered on 10/22/17 07:51; Start 10/21/17 at 16:00 Atorvastatin Calcium (Lipitor) 40 mg HS PO Last administered on 10/21/17 19: 54; Start 10/09/17 at 21:00 Atropine Sulfate (Atropine Inj) 0.5 mg Q1H PRN IV PUSH HR <40 or < 60symptomatic Last administered on 10/08/17 23:26; Start 10/08/17 at 23:15 Budesonide/ Formoterol Fumarate (Symbicort 160-4.5 Mcg Inh) 1 puff Q12HR INH Last administered on 10/21/17 19:55; Start 10/20/17 at 09:00 Calcium Gluconate (Calcium Gluconate Inj) 1 gm ONCE ONCE IV PUSH ; Start at 23:30; Stop 10/08/17 at 23:31; Status DC Calcium Gluconate 2 gm/Dextrose 120 ml @ 120 mls/hr ONCE ONCE IV Last administered on 10/12/17 12:30; Start 10/12/17 at 09:30; Stop 10/12/17 at 10 :29; Status DC Calcium Gluconate 2 gm/Sodium Chloride 120 ml @ 120 mls/hr ONCE ONCE IV Last administered on 10/10/17 06:39; Start 10/10/17 at 06:00; Stop 10/10/17 at 06:59 ; Status DC Chlorhexidine Gluconate (Peridex 0.12% Liq) 15 ml BID@08,20 MT Last administered on 10/19/17 08:00; Start 10/12/17 at 20:00 Clopidogrel Bisulfate (Plavix) 75 mg DAILY PO Last administered on 10/11/17 09:25; Start 10/09/17 at 09:00; Status Future Hold Dextrose (D50w (Vial) Inj) 25 ml UNSCH PRN IV PUSH HYPOGLYCEMIA-SEE COMMENTS; Start 10/11/17 at 16:00 Diphenhydramine HCl (Benadryl Inj) 25 mg Q6H IV PUSH Last administered on 10/17 10:01; Start 10/15/17 at 16:00; Stop 10/17/17 at 15:59; Status DC Dopamine HCl/ Dextrose 500 ml @ 22.5 mls/hr TITRATE PRN IV Blood Pressure Management Last administered on 10/16/17 18:28; Start 10/09/17 at 03:00; Stop 10/18/17 at 09:55; Status DC Etomidate (Amidate Inj) 20 mg STAT ONCE IV PUSH ; Start 10/12/17 at 08:00; Stop 10/12/17 at 08:01; Status DC Famotidine (Pepcid Inj) 10 mg Q12HR IV PUSH Last administered on 10/19/17 09: 00; Start 10/10/17 at 21:00; Stop 10/19/17 at 11:57; Status DC Famotidine (Pepcid) 20 mg BID PO Last administered on 10/22/17 09:56; Start 10/19/17 at 21:00 Furosemide (Lasix Inj) 20 mg ONCE ONCE IV PUSH Last administered on 08:30; Start 10/20/17 at 07:30; Stop 10/20/17 at 07:33; Status DC Furosemide (Lasix) 20 mg BID@09,18 PO Last administered on 10/22/17 09:56; Start 10/20/17 at 09:00 Glucagon (Glucagon Inj) 1 mg UNSCH PRN OTHER HYPOGLYCEMIA-SEE COMMENTS; Start 10/09/17 at 07:45 Heparin Sodium (Porcine) (Heparin Central Flush) See Protocol UNSCH PRN IV FLUSH SEE PROTOCOL TABLE; Start 10/09/17 at 13:00; Status Future Hold Hydrocortisone Sodium Succinate (SoluCORTEF INJ) 50 mg Q12HR IV PUSH Last administered on 10/22/17 09:56; Start 10/18/17 at 21:00 Insulin Detemir (Levemir Inj) 5 units Q12HR SQ Last administered on 10/22/17 09:57; Start 10/11/17 at 21:00 Insulin Human Regular (NovoLIN R SUPPLEMENTAL SCALE) 1 ACHS SQ Last administered on 10/22/17 09:58; Start 10/18/17 at 17:45 Levetriacetam 100 ml @ 400 mls/hr Q12H IV Last administered on 10/09/17 21:42 ; Start 10/09/17 at 21:00; Stop 10/09/17 at 21:46; Status DC Levetriacetam (Keppra Liq) 1,500 mg DAILY PO ; Start 10/09/17 at 09:00; Stop 10/09/17 at 14:06; Status DC Levetriacetam 500 mg/Sodium Chloride 105 ml @ 420 mls/hr Q12HR IV Last administered on 10/21/17 19:54; Start 10/10/17 at 09:00 Levothyroxine Sodium (Synthroid Inj) 75 mcg DAILY@06 IV PUSH Last administered on 10/22/17 04:50; Start 10/10/17 at 08:45 Levothyroxine Sodium (Synthroid) 125 mcg DAILY@0600 PO ; Start 10/09/17 at 06:00 ; Status Future Hold Liothyronine Sodium (Cytomel) 5 mcg Q8H PO Last administered on 10/10/17 17:18 ; Start 10/09/17 at 02:00; Stop 10/10/17 at 18:01; Status DC Lorazepam (Ativan Inj) 1 mg Q15M PRN IV PUSH seizures; Start 10/08/17 at 20:15 ; Stop 10/10/17 at 08:42; Status DC Midazolam HCl (Versed Inj) 10 mg STAT ONCE IV ; Start 10/12/17 at 08:00; Stop 10/12/17 at 08:01; Status DC Miscellaneous Information SPECIFIC LAB TO BE DRAWN:VANCOMYCIN TROUGH DATE TO... ONCE ONCE .XX ; Start 10/18/17 at 16:45; Stop 10/18/17 at 16:46; Status DC Naloxone HCl (Narcan Inj) 0.4 mg UNSCH PRN IV PUSH SEE LABEL COMMENTS; Start 10/08/17 at 20:15 Non-Formulary Medication LIOTHYRONINE 10 MCG/ML DOSE ... Q8H IV Last administered on 10/10/17 05:09; Start 10/09/17 at 12:00; Stop 10/10/17 at 04:01 ; Status DC Norepinephrine Bitartrate 250 ml @ 7.5 mls/hr TITRATE PRN IV Maintain MAP > 65 mmHg Last administered on 10/09/17 01:00; Start 10/09/17 at 00:45; Stop 10/10/17 at 08:42; Status DC Ondansetron HCl (Zofran Inj) 4 mg Q6H PRN IVP NAUSEA OR VOMITING; Start at 20:15 Pharmacy Profile Note 0 ml @ 0 mls/hr UNSCH OTHER ; Start 10/15/17 at 15:30 Piperacillin Sod/ Tazobactam Sod 50 ml @ 200 mls/hr Q6H IV Last administered on 10/22/17 04:50; Start 10/21/17 at 18:00 Piperacillin Sod/ Tazobactam Sod 3.375 gm/Sodium Chloride 100 ml @ 200 mls/hr Q6H IV Last administered on 10/21/17 06:56; Start 10/19/17 at 00:00; Stop 10/21/17 at 13:30; Status DC Potassium Bicarb/ Potassium Chloride (K-Lyte Cl Eff) 25 meq DAILY PO Last administered on 10/22/17 09:57; Start 10/20/17 at 09:00 Potassium Chloride 100 ml @ 50 mls/hr BOLUS ONCE IV Last administered on 11:30; Start 10/16/17 at 11:00; Stop 10/16/17 at 12:59; Status DC Propofol 100 ml @ 6.264 mls/ hr TITRATE PRN IV SEDATION Last administered on 10/15/17 16:26; Start 10/12/17 at 08:30; Stop 10/18/17 at 09:55; Status DC Risperidone (risperDAL) 1 mg TID PO Last administered on 10/22/17 09:56; Start 10/09/17 at 09:00 Rocuronium [place] (Zemuron Inj) 50 mg STAT ONCE IV ; Start 10/12/17 at 08:00 ; Stop 10/12/17 at 08:01; Status DC Sodium Polystyrene Sulfonate (Kayexalate Enema) 30 gm ONCE ONCE RECTAL ; Start 10/08/17 at 23:30; Stop 10/08/17 at 23:31; Status DC Sodium Polystyrene Sulfonate (Kayexalate Liq) 15 gm ONCE ONCE PO ; Start at 20:00; Stop 10/08/17 at 20:01; Status DC Sodium Chloride 1,000 ml @ 50 mls/hr Q20H IV Last administered on 10/20/17 20:39; Start 10/19/17 at 12:00; Stop 10/20/17 at 11:59; Status DC Sodium Chloride (NS Flush) SEE PROTOCOL UNSCH PRN IV FLUSH SEE PROTOCOL TABLE; Start 10/09/17 at 13:00 Terbutaline Sulfate (Brethine Inj) 1 mg UNSCH PRN SQ For Extravasation; Start 10/09/17 at 03:00 Tranexamic Acid 600 mg/Sodium Chloride 106 ml @ 212 mls/hr ONCE ONCE IV ; Start 10/14/17 at 17:00; Stop 10/14/17 at 17:19; Status DC Tranexamic Acid 1000 mg/Sodium Chloride 110 ml @ 200 mls/hr ONCE ONCE IV Last administered on 10/14/17 18:29; Start 10/14/17 at 18:45; Stop 10/14/17 at 19:17; Status DC Trazodone HCl (Desyrel) 150 mg HS PO Last administered on 10/21/17 19:55; Start 10/09/17 at 21:00 Vancomycin HCl 1500 mg/Sodium Chloride 515 ml @ 250 mls/hr ONCE ONCE IV ; Start 10/23/17 at 08:00; Stop 10/23/17 at 10:03 Vancomycin HCl 2000 mg/Sodium Chloride 520 ml @ 250 mls/hr Q24H IV Last administered on 10/18/17 17:42; Start 10/15/17 at 17:00; Stop 10/22/17 at 09 :27; Status DC A/P Assessment and Plan Myxedema Coma-resolved Metabolic Encephalopathy-improved. - CT head negative - Continue Levothyroxine - stop Hydrocortisone IV and start on po prednisone - Per Report the patient was noncompliant with administration of her meds, including thyroid medications - Intubated for airway protection 10/12/17, extubated 10/17 Acute hypercarbic hypoxemic respiratory failure-resolved Severe epistaxis with aspiration Bronchial asthma Laryngeal edema-resolved MRSA in sputum/probable pneumonia - Emergently intubated for airway protection 10/12, difficult intubation due to anterior airway, edema the vocal cords - Extubated 10/17, tolerating well. No stridor - DuoNeb every 6 hours scheduled and q2 hours when necessary. Add Symbicort. Pulmonary consulted - switch to po predniosne - On Vancomycin for MRSA in sputum Hypotension/bradycardia Pulmonary vascular congestion -continue lasix 20 mg po BID. - 1/2 NS to correct hypernatremia - Continue steroids. Super morbid obesity Dysphagia - Diet per speech recommendation Acute kidney injury Vaginal bleeding - s/p Aggressive hydration, Strict I's and O's - Monitor creatinine and electrolyte levels - Gynecology consulted. s/p TXA with improvement in bleeding - Ultrasound showed endometrial thickening -f/u with [facility] as outpatient. Anemia requiring transfusion (secondary to chronic disease and acute blood loss) Thrombocytopenia-improving Epistaxis Vaginal bleeding - presented with low platelets. low probability HIT. Platelet count improving - s/p 2 units of platelets 10/12. - Due to active bleeding keep platelet count above 75, received TXA per [facility] DVT GI prophylaxis - Teds SCDs - Subcutaneous heparin held due severe epistaxis vag bleeding and anemia - Pepcid continue PT. Discharge Planning dc planning to SNF within the next 48 hrs if stable. Jazmyn Mario MD Oct 22, 2017 10:12
[2017-10-22] MEDS: levETIRAcetam 500 MG TAB PO SCH (10:15)
--- NOTE | 2017-10-22 18:18 | HHI.PR ---
Subjective Remarks ALERT NO SOB Objective Vital Signs Date Time Temp Pulse Resp B/P (MAP) Pulse Ox O2 Delivery O2 Flow Rate FiO2 10/22/17 12:00 97.6 79 16 102/52 (69) 93 10/22/17 08:09 83 10/22/17 08:00 Nasal Cannula 3.00 10/22/17 08:00 98.1 78 16 109/53 (71) 94 10/22/17 07:54 97 Nasal Cannula 2.00 10/22/17 04:45 98.0 76 22 113/56 (75) 97 10/22/17 04:08 77 10/22/17 04:00 Nasal Cannula 3.00 10/22/17 00:00 Nasal Cannula 3.00 10/22/17 00:00 68 10/21/17 23:28 98.2 83 24 113/56 (75) 97 10/21/17 21:23 96 Nasal Cannula 2.00 10/21/17 20:20 97.6 73 26 83/45 (58) 92 101/92 (95) 10/21/17 20:00 Nasal Cannula 3.00 10/21/17 20:00 74 I/O 10/21/17 10/21/17 10/21/17 10/22/17 10/22/17 10/22/17 07:00 15:00 23:00 07:00 15:00 23:00 Intake Total 30 ml 100 ml 995 ml 100 ml Output Total 500 ml 350 ml Balance -470 ml 100 ml 645 ml 100 ml Intake Oral 30 ml 840 ml 0 ml IV Total 100 ml 155 ml 100 ml Output Urine Total 500 ml 350 ml # Voids 2 # Bowel Movements 1 0 1 Result Diagram: 10/22/1720 10/22/17 0520 Objective Remarks GENERAL: SKIN: Warm and dry. HEAD: Atraumatic. Normocephalic. EYES: Pupils equal and round. No scleral icterus. No injection or drainage. ENT: No nasal bleeding or discharge. Mucous membranes pink and moist. NECK: Trachea midline. No JVD. CARDIOVASCULAR: Regular rate and rhythm. RESPIRATORY: No accessory muscle use. Clear to auscultation. Breath sounds equal bilaterally. GASTROINTESTINAL: Abdomen soft, non-tender, nondistended. Hepatic and splenic margins not palpable. MUSCULOSKELETAL: Extremities without clubbing, cyanosis, or edema. No obvious deformities. NEUROLOGICAL: Awake and alert. No obvious cranial nerve deficits. Motor grossly within normal limits. Five out of 5 muscle strength in the arms and legs. Normal speech. PSYCHIATRIC: Appropriate mood and affect; insight and judgment normal. Assessment and Plan Assessment and Plan RESPIRSTORY FAILURE MORBID OBESITY CXRAY NO CHANGE PLAN O2 NEEDED BIPAP INCREASE ACTIVITY Amarjit Ocasio MD Oct 22, 2017 18:18
[2017-10-22] MEDS: CHLORHEXIDINE 0.12% (ORAL KIT) 15 ML CUP MT SCH (20:00)
[2017-10-22] MEDS: ATORVASTATIN 40 MG TAB PO SCH (20:31)
[2017-10-22] MEDS: traZODone HCL 50 MG TAB PO SCH (20:31)
[2017-10-23] VITALS (9 sets, daily range): BP systolic 90–117; BP diastolic 45–57; PULSE 67–86; RESP 16–19; TEMP 97.2–98.3; O2SAT 95–100
[2017-10-23] MEDS: PIPERACIL-TAZO 3.375 GM PREMIX 50 ML IV SCH ×2 (00:12→06:13)
[2017-10-23] MEDS: RESP: ALBUTEROL 2.5 MG/IPRATROPIUM 0.5 MG NEB (SCH) NEB ×4 (04:58→21:15)
[2017-10-23] MEDS: LEVOTHYROXINE SODIUM 125 MCG TAB PO SCH (06:16)
[2017-10-23] MEDS: CHLORHEXIDINE 0.12% (ORAL KIT) 15 ML CUP MT SCH (08:00)
[2017-10-23] MEDS: INSULIN NovoLIN REGULAR SUPPLEMENTAL SCALE SQ SCH ×3 (08:00→17:00)
[2017-10-23] MEDS: VANCOMYCIN INJ 1,500 MG in SODIUM CHLORID 0.9% 500 ML INJ 500 ML IV ONE ×2 (08:23→10:43)
[2017-10-23] MEDS: predniSONE 20 MG TAB PO SCH ×2 (08:23→10:49)
[2017-10-23] MEDS: risperiDONE 1 MG TAB PO SCH ×4 (08:24→18:25)
[2017-10-23] MEDS: levETIRAcetam 500 MG TAB PO SCH ×2 (08:24→10:49)
[2017-10-23] MEDS: FAMOTIDINE 20 MG TAB PO SCH ×2 (08:25→10:49)
[2017-10-23] MEDS: INSULIN DETEMIR 100 UNITS/ML VIAL SQ SCH ×2 (08:25→10:48)
[2017-10-23] MEDS: POTASSIUM CHLORIDE 25 MEQ EFFERVESCENT TAB PO SCH ×2 (08:25→10:49)
[2017-10-23] MEDS: FUROSEMIDE 20 MG TAB PO SCH ×3 (08:25→18:25)
[2017-10-23] MEDS: BUDESONIDE-FORMOTEROL 160/4.5 MCG INHALER INH SCH ×2 (08:26→10:50)
[2017-10-23] MEDS: SODIUM CHLORIDE 0.9% FLUSH 10 ML FLUSH IV FLUSH SCH ×3 (08:26→13:08)
--- NOTE | 2017-10-23 10:27 | HHI.PR ---
Subjective Remarks in no acute distress. denies pain. no fever. Objective Vitals Vital Signs Date Time Temp Pulse Resp B/P (MAP) Pulse Ox O2 Delivery O2 Flow Rate FiO2 10/23/17 10:19 100 Nasal Cannula 2.00 10/23/17 08:00 98.1 73 19 94/50 (65) 100 10/23/17 05:00 97 Nasal Cannula 2.00 10/23/17 04:30 97.6 86 18 103/54 (70) 99 10/23/17 03:38 78 10/22/17 23:47 95.3 80 18 110/52 (71) 99 10/22/17 23:45 60 10/22/17 21:06 98 Nasal Cannula 2.00 10/22/17 20:15 Nasal Cannula 2.00 10/22/17 19:58 97.9 82 18 123/59 (80) 99 10/22/17 19:46 73 10/22/17 16:03 80 10/22/17 16:00 97.9 79 18 107/85 (92) 93 10/22/17 12:00 97.6 79 16 102/52 (69) 93 I/O 10/22/17 10/22/17 10/22/17 10/23/17 10/23/17 10/23/17 07:00 15:00 23:00 07:00 15:00 23:00 Intake Total 100 ml 875 ml 580 ml Balance 100 ml 875 ml 580 ml Intake Oral 0 ml 720 ml 480 ml IV Total 100 ml 155 ml 100 ml # Voids 2 2 4 # Bowel Movements 1 1 1 Result Diagram: 10/22/1751910/22/17 0520 Objective Remarks GENERAL: in no apparent distress. CARDIOVASCULAR: Regular rate and regular rhythm without murmurs, gallops, or rubs. RESPIRATORY: Clear to auscultation. Breath sounds equal bilaterally. No wheezes , rales, or rhonchi. GASTROINTESTINAL: Abdomen soft, non-tender, nondistended. Normal, active bowel sounds MUSCULOSKELETAL: Extremities without clubbing, cyanosis, or edema. NEURO: awake and alert. oriented to person and place but not to time. Procedures intubation Medications and IVs Inpatient Medications Albumin Human 500 ml @ 250 mls/hr ONCE ONCE IV Last administered on t 09:20; Start 10/10/17 at 08:45; Stop 10/10/17 at 10:44; Status DC Albuterol/ Ipratropium (Duoneb Neb) 1 ampule Q6HR NEB NEB Last administered on 10/23/17 10:09; Start 10/21/17 at 16:00 Atorvastatin Calcium (Lipitor) 40 mg HS PO Last administered on 10/22/17 20: 31; Start 10/09/17 at 21:00 Atropine Sulfate (Atropine Inj) 0.5 mg Q1H PRN IV PUSH HR <40 or < 60symptomatic Last administered on 10/08/17 23:26; Start 10/08/17 at 23:15 Budesonide/ Formoterol Fumarate (Symbicort 160-4.5 Mcg Inh) 1 puff Q12HR INH Last administered on 10/22/17 20:32; Start 10/20/17 at 09:00 Calcium Gluconate (Calcium Gluconate Inj) 1 gm ONCE ONCE IV PUSH ; Start at 23:30; Stop 10/08/17 at 23:31; Status DC Calcium Gluconate 2 gm/Dextrose 120 ml @ 120 mls/hr ONCE ONCE IV Last administered on 10/12/17 12:30; Start 10/12/17 at 09:30; Stop 10/12/17 at 10 :29; Status DC Calcium Gluconate 2 gm/Sodium Chloride 120 ml @ 120 mls/hr ONCE ONCE IV Last administered on 10/10/17 06:39; Start 10/10/17 at 06:00; Stop 10/10/17 at 06:59 ; Status DC Chlorhexidine Gluconate (Peridex 0.12% Liq) 15 ml BID@08,20 MT Last administered on 10/19/17 08:00; Start 10/12/17 at 20:00 Clopidogrel Bisulfate (Plavix) 75 mg DAILY PO Last administered on 10/11/17 09:25; Start 10/09/17 at 09:00; Status Future Hold Dextrose (D50w (Vial) Inj) 25 ml UNSCH PRN IV PUSH HYPOGLYCEMIA-SEE COMMENTS; Start 10/11/17 at 16:00 Diphenhydramine HCl (Benadryl Inj) 25 mg Q6H IV PUSH Last administered on 10/17 10:01; Start 10/15/17 at 16:00; Stop 10/17/17 at 15:59; Status DC Dopamine HCl/ Dextrose 500 ml @ 22.5 mls/hr TITRATE PRN IV Blood Pressure Management Last administered on 10/16/17 18:28; Start 10/09/17 at 03:00; Stop 10/18/17 at 09:55; Status DC Etomidate (Amidate Inj) 20 mg STAT ONCE IV PUSH ; Start 10/12/17 at 08:00; Stop 10/12/17 at 08:01; Status DC Famotidine (Pepcid Inj) 10 mg Q12HR IV PUSH Last administered on 10/19/17 09: 00; Start 10/10/17 at 21:00; Stop 10/19/17 at 11:57; Status DC Famotidine (Pepcid) 20 mg BID PO Last administered on 10/22/17 20:31; Start 10/19/17 at 21:00 Furosemide (Lasix Inj) 20 mg ONCE ONCE IV PUSH Last administered on 08:30; Start 10/20/17 at 07:30; Stop 10/20/17 at 07:33; Status DC Furosemide (Lasix) 20 mg BID@09,18 PO Last administered on 10/22/17 18:04; Start 10/20/17 at 09:00 Glucagon (Glucagon Inj) 1 mg UNSCH PRN OTHER HYPOGLYCEMIA-SEE COMMENTS; Start 10/09/17 at 07:45 Heparin Sodium (Porcine) (Heparin Central Flush) See Protocol UNSCH PRN IV FLUSH SEE PROTOCOL TABLE; Start 10/09/17 at 13:00; Status Future Hold Hydrocortisone Sodium Succinate (SoluCORTEF INJ) 50 mg Q12HR IV PUSH Last administered on 10/22/17 09:56; Start 10/18/17 at 21:00; Stop 10/22/17 at 10 :08; Status DC Insulin Detemir (Levemir Inj) 5 units Q12HR SQ Last administered on 10/22/17 20:31; Start 10/11/17 at 21:00 Insulin Human Regular (NovoLIN R SUPPLEMENTAL SCALE) 1 ACHS SQ Last administered on 10/22/17 20:31; Start 10/18/17 at 17:45 Levetriacetam (Keppra Liq) 1,500 mg DAILY PO ; Start 10/09/17 at 09:00; Stop 10/09/17 at 14:06; Status DC Levetriacetam (Keppra) 1,500 mg DAILY PO ; Start 10/22/17 at 10:15 Levetriacetam 500 mg/Sodium Chloride 105 ml @ 420 mls/hr Q12HR IV Last administered on 10/22/17 09:00; Start 10/10/17 at 09:00; Stop 10/22/17 at 10: 08; Status DC Levothyroxine Sodium (Synthroid Inj) 75 mcg DAILY@06 IV PUSH Last administered on 10/22/17 04:50; Start 10/10/17 at 08:45; Stop 10/22/17 at 10:08; Status DC Levothyroxine Sodium (Synthroid) 125 mcg DAILY@0600 PO Last administered on 06:16; Start 10/09/17 at 06:00; Status Future hold Liothyronine Sodium (Cytomel) 5 mcg Q8H PO Last administered on 10/10/17 17:18 ; Start 10/09/17 at 02:00; Stop 10/10/17 at 18:01; Status DC Lorazepam (Ativan Inj) 1 mg Q15M PRN IV PUSH seizures; Start 10/08/17 at 20:15 ; Stop 10/10/17 at 08:42; Status DC Midazolam HCl (Versed Inj) 10 mg STAT ONCE IV ; Start 10/12/17 at 08:00; Stop 10/12/17 at 08:01; Status DC Miscellaneous Information SPECIFIC LAB TO BE DRAWN:VANCOMYCIN TROUGH DATE TO... ONCE ONCE .XX ; Start 10/18/17 at 16:45; Stop 10/18/17 at 16:46; Status DC Naloxone HCl (Narcan Inj) 0.4 mg UNSCH PRN IV PUSH SEE LABEL COMMENTS; Start 10/08/17 at 20:15 Non-Formulary Medication LIOTHYRONINE 10 MCG/ML DOSE ... Q8H IV Last administered on 10/10/17 05:09; Start 10/09/17 at 12:00; Stop 10/10/17 at 04:01 ; Status DC Norepinephrine Bitartrate 250 ml @ 7.5 mls/hr TITRATE PRN IV Maintain MAP > 65 mmHg Last administered on 10/09/17 01:00; Start 10/09/17 at 00:45; Stop 10/10/17 at 08:42; Status DC Ondansetron HCl (Zofran Inj) 4 mg Q6H PRN IVP NAUSEA OR VOMITING; Start at 20:15 Pharmacy Profile Note 0 ml @ 0 mls/hr UNSCH OTHER ; Start 10/15/17 at 15:30 Piperacillin Sod/ Tazobactam Sod 50 ml @ 200 mls/hr Q6H IV Last administered on 10/23/17 06:13; Start 10/21/17 at 18:00 Piperacillin Sod/ Tazobactam Sod 3.375 gm/Sodium Chloride 100 ml @ 200 mls/hr Q6H IV Last administered on 10/21/17 06:56; Start 10/19/17 at 00:00; Stop 10/21/17 at 13:30; Status DC Potassium Bicarb/ Potassium Chloride (K-Lyte Cl Eff) 25 meq DAILY PO Last administered on 10/22/17 09:57; Start 10/20/17 at 09:00 Potassium Chloride 100 ml @ 50 mls/hr BOLUS ONCE IV Last administered on 11:30; Start 10/16/17 at 11:00; Stop 10/16/17 at 12:59; Status DC Prednisone (Deltasone) 40 mg DAILY PO ; Start 10/23/17 at 09:00 Propofol 100 ml @ 6.264 mls/ hr TITRATE PRN IV SEDATION Last administered on 10/15/17 16:26; Start 10/12/17 at 08:30; Stop 10/18/17 at 09:55; Status DC Risperidone (risperDAL) 1 mg TID PO Last administered on 10/22/17 18:03; Start 10/09/17 at 09:00 Rocuronium [place] (Zemuron Inj) 50 mg STAT ONCE IV ; Start 10/12/17 at 08:00 ; Stop 10/12/17 at 08:01; Status DC Sodium Polystyrene Sulfonate (Kayexalate Enema) 30 gm ONCE ONCE RECTAL ; Start 10/08/17 at 23:30; Stop 10/08/17 at 23:31; Status DC Sodium Polystyrene Sulfonate (Kayexalate Liq) 15 gm ONCE ONCE PO ; Start at 20:00; Stop 10/08/17 at 20:01; Status DC Sodium Chloride 1,000 ml @ 50 mls/hr Q20H IV Last administered on 10/20/17 20:39; Start 10/19/17 at 12:00; Stop 10/20/17 at 11:59; Status DC Sodium Chloride (NS Flush) SEE PROTOCOL UNSCH PRN IV FLUSH SEE PROTOCOL TABLE; Start 10/09/17 at 13:00 Terbutaline Sulfate (Brethine Inj) 1 mg UNSCH PRN SQ For Extravasation; Start 10/09/17 at 03:00 Tranexamic Acid 600 mg/Sodium Chloride 106 ml @ 212 mls/hr ONCE ONCE IV ; Start 10/14/17 at 17:00; Stop 10/14/17 at 17:19; Status DC Tranexamic Acid 1000 mg/Sodium Chloride 110 ml @ 200 mls/hr ONCE ONCE IV Last administered on 10/14/17 18:29; Start 10/14/17 at 18:45; Stop 10/14/17 at 19:17; Status DC Trazodone HCl (Desyrel) 150 mg HS PO Last administered on 10/22/17 20:31; Start 10/09/17 at 21:00 Vancomycin HCl 1500 mg/Sodium Chloride 515 ml @ 250 mls/hr ONCE ONCE IV ; Start 10/23/17 at 08:00; Stop 10/23/17 at 10:03; Status DC Vancomycin HCl 2000 mg/Sodium Chloride 520 ml @ 250 mls/hr Q24H IV Last administered on 10/18/17 17:42; Start 10/15/17 at 17:00; Stop 10/22/17 at 09 :27; Status DC A/P Assessment and Plan Myxedema Coma-resolved Metabolic Encephalopathy-improved. - CT head negative - Continue Levothyroxine - stopped Hydrocortisone IV and started on po prednisone - Per Report the patient was noncompliant with administration of her meds, including thyroid medications - Intubated for airway protection 10/12/17, extubated 10/17 Acute hypercarbic hypoxemic respiratory failure-resolved Severe epistaxis with aspiration Bronchial asthma Laryngeal edema-resolved MRSA in sputum/probable pneumonia - Emergently intubated for airway protection 10/12, difficult intubation due to anterior airway, edema the vocal cords - Extubated 10/17, tolerating well. No stridor - DuoNeb every 6 hours scheduled and q2 hours when necessary. Add Symbicort. Pulmonary consulted - switch to po predniosne - On Vancomycin for MRSA in sputum Hypotension/bradycardia Pulmonary vascular congestion -continue lasix 20 mg po BID. - 1/2 NS to correct hypernatremia - Continue steroids. Super morbid obesity Dysphagia - Diet per speech recommendation Acute kidney injury Vaginal bleeding - s/p Aggressive hydration, Strict I's and O's - Monitor creatinine and electrolyte levels - Gynecology consulted. s/p TXA with improvement in bleeding - Ultrasound showed endometrial thickening -f/u with [employer] as outpatient. Anemia requiring transfusion (secondary to chronic disease and acute blood loss) Thrombocytopenia-improving Epistaxis Vaginal bleeding - presented with low platelets. low probability HIT. Platelet count improving - s/p 2 units of platelets 10/12. - Due to active bleeding keep platelet count above 75, received TXA per [facility] DVT GI prophylaxis - Teds SCDs - Subcutaneous heparin held due severe epistaxis vag bleeding and anemia - Pepcid continue PT. Discharge Planning dc to SNF tomorrow if stable. Jazmyn Mario MD Oct 23, 2017 10:27
[2017-10-23] MEDS ORDERED: Budeson-Formot 160-4.5 Mcg Inh INH (10:29)
[2017-10-23] MEDS ORDERED: PRED5TAB PO (10:32)
--- NOTE | 2017-10-23 16:10 | HHI.PR ---
Subjective Remarks ALERT NO SOB Objective Vital Signs Date Time Temp Pulse Resp B/P (MAP) Pulse Ox O2 Delivery O2 Flow Rate FiO2 10/23/17 15:31 95 Nasal Cannula 2.00 10/23/17 12:00 97.8 79 19 90/45 (60) 97 10/23/17 10:19 100 Nasal Cannula 2.00 10/23/17 08:00 98.1 73 19 94/50 (65) 100 10/23/17 05:00 97 Nasal Cannula 2.00 10/23/17 04:30 97.6 86 18 103/54 (70) 99 10/23/17 03:38 78 10/22/17 23:47 95.3 80 18 110/52 (71) 99 10/22/17 23:45 60 10/22/17 21:06 98 Nasal Cannula 2.00 10/22/17 20:15 Nasal Cannula 2.00 10/22/17 19:58 97.9 82 18 123/59 (80) 99 10/22/17 19:46 73 I/O 10/22/17 10/22/17 10/22/17 10/23/17 10/23/17 10/23/17 06:59 14:59 22:59 06:59 14:59 22:59 Intake Total 100 ml 875 ml 580 ml 515 ml Balance 100 ml 875 ml 580 ml 515 ml Intake Oral 0 ml 720 ml 480 ml IV Total 100 ml 155 ml 100 ml 515 ml # Voids 2 2 4 # Bowel Movements 1 1 1 Result Diagram: 10/22/1751910/22/17519 Objective Remarks GENERAL: SKIN: Warm and dry. HEAD: Atraumatic. Normocephalic. EYES: Pupils equal and round. No scleral icterus. No injection or drainage. ENT: No nasal bleeding or discharge. Mucous membranes pink and moist. NECK: Trachea midline. No JVD. CARDIOVASCULAR: Regular rate and rhythm. RESPIRATORY: No accessory muscle use. Clear to auscultation. Breath sounds equal bilaterally. GASTROINTESTINAL: Abdomen soft, non-tender, nondistended. Hepatic and splenic margins not palpable. MUSCULOSKELETAL: Extremities without clubbing, cyanosis, or edema. No obvious deformities. NEUROLOGICAL: Awake and alert. No obvious cranial nerve deficits. Motor grossly within normal limits. Five out of 5 muscle strength in the arms and legs. Normal speech. PSYCHIATRIC: Appropriate mood and affect; insight and judgment normal. Assessment and Plan Assessment and Plan RESPIRSTORY FAILURE MORBID OBESITY CXRAY NO CHANGE PLAN O2 NEEDED BIPAP INCREASE ACTIVITY Amarjit Ocasio MD Oct 23, 2017 16:10
[2017-10-24] VITALS (11 sets, daily range): BP systolic 95–131; BP diastolic 51–60; PULSE 71–82; RESP 16–22; TEMP 97.4–98.6; O2SAT 93–100
[2017-10-24] MEDS: ATORVASTATIN 40 MG TAB PO SCH ×2 (00:33→21:37)
[2017-10-24] MEDS: traZODone HCL 50 MG TAB PO SCH ×2 (00:33→21:38)
[2017-10-24] MEDS: SODIUM CHLORIDE 0.9% FLUSH 10 ML FLUSH IV FLUSH SCH ×4 (00:33→21:38)
[2017-10-24] MEDS: FAMOTIDINE 20 MG TAB PO SCH ×3 (00:34→21:38)
[2017-10-24] MEDS: CHLORHEXIDINE 0.12% (ORAL KIT) 15 ML CUP MT SCH ×3 (00:34→20:00)
[2017-10-24] MEDS: BUDESONIDE-FORMOTEROL 160/4.5 MCG INHALER INH SCH ×3 (00:34→21:39)
[2017-10-24] MEDS: INSULIN DETEMIR 100 UNITS/ML VIAL SQ SCH ×3 (00:34→21:38)
[2017-10-24] MEDS: INSULIN NovoLIN REGULAR SUPPLEMENTAL SCALE SQ SCH ×5 (00:35→21:48)
[2017-10-24] MEDS: RESP: ALBUTEROL 2.5 MG/IPRATROPIUM 0.5 MG NEB (SCH) NEB ×2 (02:47→08:05)
[2017-10-24] MEDS: LEVOTHYROXINE SODIUM 125 MCG TAB PO SCH (06:06)
--- NOTE | 2017-10-24 09:37 | HHI.PR ---
Subjective Remarks in no acute distress. denies sob or chest pain. no fever. d/w the RN and no acute issues over night. Objective Vitals Vital Signs Date Time Temp Pulse Resp B/P (MAP) Pulse Ox O2 Delivery O2 Flow Rate FiO2 10/24/17 08:07 94 Nasal Cannula 2.00 10/24/17 08:05 97.6 78 22 98/55 (69) 94 10/24/17 04:00 97.7 74 16 95/51 (66) 99 10/24/17 00:00 74 10/24/17 00:00 74 10/24/17 00:00 98.6 80 16 120/60 (80) 100 10/23/17 20:00 97.2 78 16 117/57 (77) 100 10/23/17 19:00 Nasal Cannula 2.00 10/23/17 16:00 98.3 80 17 91/50 (64) 98 10/23/17 16:00 81 10/23/17 15:31 95 Nasal Cannula 2.00 10/23/17 12:00 67 10/23/17 12:00 97.8 79 19 90/45 (60) 97 10/23/17 10:19 100 Nasal Cannula 2.00 I/O 10/23/17 10/23/17 10/23/17 10/24/17 10/24/17 10/24/17 07:00 15:00 23:00 07:00 15:00 23:00 Intake Total 580 ml 515 ml 255 ml Balance 580 ml 515 ml 255 ml Intake Oral 480 ml 255 ml IV Total 100 ml 515 ml # Voids 4 2 # Bowel Movements 1 0 Result Diagram: 10/22/17 0520 10/22/17 0520 Imaging Last Impressions Chest X-Ray 10/21/17 0600 Signed Impressions: Service Date/Time: Saturday, October 21, 2017 04:59 - CONCLUSION: Diffuse increased density seen to the lung likely representing edema which appears fairly similar to the prior exam. Hans Decker MD Abdomen X-Ray 10/17/17 0000 Signed Impressions: Service Date/Time: Tuesday, October 17, 2017 07:37 - CONCLUSION: 1. No evidence of bowel obstruction or ileus. 2. Degenerative changes and scoliosis of the thoracolumbar spine. Edinson Adan MD Pelvis Ultrasound 10/09/17 0000 Signed Impressions: Service Date/Time: Monday, October 09, 2017 16:54 - CONCLUSION: 1. Limited evaluation secondary to patient's size 2. Mild ascites 3. Thickened endometrial stripe which may reflect hyperplasia or malignancy. Elie Colin MD Head CT 10/08/17 1653 Signed Impressions: Service Date/Time: October 18:14 - CONCLUSION: 1. Stable left parietal encephalomalacia. 2. No acute infarct, acute hemorrhage, mass effect or extra axial fluid collections. Edinson Adan MD Objective Remarks GENERAL: in no apparent distress. CARDIOVASCULAR: Regular rate and regular rhythm without murmurs, gallops, or rubs. RESPIRATORY: Clear to auscultation. Breath sounds equal bilaterally. No wheezes , rales, or rhonchi. GASTROINTESTINAL: Abdomen soft, non-tender, nondistended. Normal, active bowel sounds MUSCULOSKELETAL: Extremities without clubbing, cyanosis, or edema. NEURO: awake and alert. oriented to person and place but not to time. Procedures intubation Medications and IVs Inpatient Medications Albumin Human 500 ml @ 250 mls/hr ONCE ONCE IV Last administered on 09:20; Start 10/10/17 at 08:45; Stop 10/10/17 at 10:44; Status DC Albuterol/ Ipratropium (Duoneb Neb) 1 ampule Q6HR NEB NEB Last administered on 10/24/17 08:05; Start 10/21/17 at 16:00 Atorvastatin Calcium (Lipitor) 40 mg HS PO Last administered on 10/24/17 00: 33; Start 10/09/17 at 21:00 Atropine Sulfate (Atropine Inj) 0.5 mg Q1H PRN IV PUSH HR <40 or < 60symptomatic Last administered on 10/08/17 23:26; Start 10/08/17 at 23:15 Budesonide/ Formoterol Fumarate (Symbicort 160-4.5 Mcg Inh) 1 puff Q12HR INH Last administered on 10/24/17 00:34; Start 10/20/17 at 09:00 Calcium Gluconate (Calcium Gluconate Inj) 1 gm ONCE ONCE IV PUSH ; Start at 23:30; Stop 10/08/17 at 23:31; Status DC Calcium Gluconate 2 gm/Dextrose 120 ml @ 120 mls/hr ONCE ONCE IV Last administered on 10/12/17 12:30; Start 10/12/17 at 09:30; Stop 10/12/17 at 10 :29; Status DC Calcium Gluconate 2 gm/Sodium Chloride 120 ml @ 120 mls/hr ONCE ONCE IV Last administered on 10/10/17 06:39; Start 10/10/17 at 06:00; Stop 10/10/17 at 06:59 ; Status DC Chlorhexidine Gluconate (Peridex 0.12% Liq) 15 ml BID@08,20 MT Last administered on 10/24/17 00:34; Start 10/12/17 at 20:00 Clopidogrel Bisulfate (Plavix) 75 mg DAILY PO Last administered on 10/11/17 09:25; Start 10/09/17 at 09:00; Status Future Hold Dextrose (D50w (Vial) Inj) 25 ml UNSCH PRN IV PUSH HYPOGLYCEMIA-SEE COMMENTS; Start 10/11/17 at 16:00 Diphenhydramine HCl (Benadryl Inj) 25 mg Q6H IV PUSH Last administered on 10/17 10:01; Start 10/15/17 at 16:00; Stop 10/17/17 at 15:59; Status DC Dopamine HCl/ Dextrose 500 ml @ 22.5 mls/hr TITRATE PRN IV Blood Pressure Management Last administered on 10/16/17 18:28; Start 10/09/17 at 03:00; Stop 10/18/17 at 09:55; Status DC Etomidate (Amidate Inj) 20 mg STAT ONCE IV PUSH ; Start 10/12/17 at 08:00; Stop 10/12/17 at 08:01; Status DC Famotidine (Pepcid Inj) 10 mg Q12HR IV PUSH Last administered on 10/19/17 09: 00; Start 10/10/17 at 21:00; Stop 10/19/17 at 11:57; Status DC Famotidine (Pepcid) 20 mg BID PO Last administered on 10/24/17 00:34; Start 10/19/17 at 21:00 Furosemide (Lasix Inj) 20 mg ONCE ONCE IV PUSH Last administered on 08:30; Start 10/20/17 at 07:30; Stop 10/20/17 at 07:33; Status DC Furosemide (Lasix) 20 mg BID@09,18 PO Last administered on 10/23/17 18:25; Start 10/20/17 at 09:00 Glucagon (Glucagon Inj) 1 mg UNSCH PRN OTHER HYPOGLYCEMIA-SEE COMMENTS; Start 10/09/17 at 07:45 Heparin Sodium (Porcine) (Heparin Central Flush) See Protocol UNSCH PRN IV FLUSH SEE PROTOCOL TABLE; Start 10/09/17 at 13:00; Status Future Hold Hydrocortisone Sodium Succinate (SoluCORTEF INJ) 50 mg Q12HR IV PUSH Last administered on 10/22/17 09:56; Start 10/18/17 at 21:00; Stop 10/22/17 at 10 :08; Status DC Insulin Detemir (Levemir Inj) 5 units Q12HR SQ Last administered on 10/24/17 00:34; Start 10/11/17 at 21:00 Insulin Human Regular (NovoLIN R SUPPLEMENTAL SCALE) 1 ACHS SQ Last administered on 10/24/17 00:35; Start 10/18/17 at 17:45 Levetriacetam (Keppra Liq) 1,500 mg DAILY PO ; Start 10/09/17 at 09:00; Stop 10/09/17 at 14:06; Status DC Levetriacetam (Keppra) 1,500 mg DAILY PO Last administered on 10/23/17 10:49 ; Start 10/22/17 at 10:15 Levetriacetam 500 mg/Sodium Chloride 105 ml @ 420 mls/hr Q12HR IV Last administered on 10/22/17 09:00; Start 10/10/17 at 09:00; Stop 10/22/17 at 10: 08; Status DC Levothyroxine Sodium (Synthroid Inj) 75 mcg DAILY@06 IV PUSH Last administered on 10/22/17 04:50; Start 10/10/17 at 08:45; Stop 10/22/17 at 10:08; Status DC Levothyroxine Sodium (Synthroid) 125 mcg DAILY@0600 PO Last administered on 06:06; Start 10/09/17 at 06:00; Status Future hold Liothyronine Sodium (Cytomel) 5 mcg Q8H PO Last administered on 10/10/17 17:18 ; Start 10/09/17 at 02:00; Stop 10/10/17 at 18:01; Status DC Lorazepam (Ativan Inj) 1 mg Q15M PRN IV PUSH seizures; Start 10/08/17 at 20:15 ; Stop 10/10/17 at 08:42; Status DC Midazolam HCl (Versed Inj) 10 mg STAT ONCE IV ; Start 10/12/17 at 08:00; Stop 10/12/17 at 08:01; Status DC Miscellaneous Information SPECIFIC LAB TO BE DRAWN:VANCOMYCIN TROUGH DATE TO... ONCE ONCE .XX ; Start 10/18/17 at 16:45; Stop 10/18/17 at 16:46; Status DC Naloxone HCl (Narcan Inj) 0.4 mg UNSCH PRN IV PUSH SEE LABEL COMMENTS; Start 10/08/17 at 20:15 Non-Formulary Medication LIOTHYRONINE 10 MCG/ML DOSE ... Q8H IV Last administered on 10/10/17 05:09; Start 10/09/17 at 12:00; Stop 10/10/17 at 04:01 ; Status DC Norepinephrine Bitartrate 250 ml @ 7.5 mls/hr TITRATE PRN IV Maintain MAP > 65 mmHg Last administered on 10/09/17 01:00; Start 10/09/17 at 00:45; Stop 10/10/17 at 08:42; Status DC Ondansetron HCl (Zofran Inj) 4 mg Q6H PRN IVP NAUSEA OR VOMITING; Start at 20:15 Pharmacy Profile Note 0 ml @ 0 mls/hr UNSCH OTHER ; Start 10/15/17 at 15:30 Piperacillin Sod/ Tazobactam Sod 50 ml @ 200 mls/hr Q6H IV Last administered on 10/23/17 06:13; Start 10/21/17 at 18:00; Stop 10/23/17 at 10:28; Status DC Piperacillin Sod/ Tazobactam Sod 3.375 gm/Sodium Chloride 100 ml @ 200 mls/hr Q6H IV Last administered on 10/21/17 06:56; Start 10/19/17 at 00:00; Stop 10/21/17 at 13:30; Status DC Potassium Bicarb/ Potassium Chloride (K-Lyte Cl Eff) 25 meq DAILY PO Last administered on 10/23/17 10:49; Start 10/20/17 at 09:00 Potassium Chloride 100 ml @ 50 mls/hr BOLUS ONCE IV Last administered on 11:30; Start 10/16/17 at 11:00; Stop 10/16/17 at 12:59; Status DC Prednisone (Deltasone) 40 mg DAILY PO Last administered on 10/23/17 10:49; Start 10/23/17 at 09:00 Propofol 100 ml @ 6.264 mls/ hr TITRATE PRN IV SEDATION Last administered on 10/15/17 16:26; Start 10/12/17 at 08:30; Stop 10/18/17 at 09:55; Status DC Risperidone (risperDAL) 1 mg TID PO Last administered on 10/23/17 18:25; Start 10/09/17 at 09:00 Rocuronium [place] (Zemuron Inj) 50 mg STAT ONCE IV ; Start 10/12/17 at 08:00 ; Stop 10/12/17 at 08:01; Status DC Sodium Polystyrene Sulfonate (Kayexalate Enema) 30 gm ONCE ONCE RECTAL ; Start 10/08/17 at 23:30; Stop 10/08/17 at 23:31; Status DC Sodium Polystyrene Sulfonate (Kayexalate Liq) 15 gm ONCE ONCE PO ; Start at 20:00; Stop 10/08/17 at 20:01; Status DC Sodium Chloride 1,000 ml @ 50 mls/hr Q20H IV Last administered on 10/20/17 20:39; Start 10/19/17 at 12:00; Stop 10/20/17 at 11:59; Status DC Sodium Chloride (NS Flush) SEE PROTOCOL UNSCH PRN IV FLUSH SEE PROTOCOL TABLE; Start 10/09/17 at 13:00 Terbutaline Sulfate (Brethine Inj) 1 mg UNSCH PRN SQ For Extravasation; Start 10/09/17 at 03:00 Tranexamic Acid 600 mg/Sodium Chloride 106 ml @ 212 mls/hr ONCE ONCE IV ; Start 10/14/17 at 17:00; Stop 10/14/17 at 17:19; Status DC Tranexamic Acid 1000 mg/Sodium Chloride 110 ml @ 200 mls/hr ONCE ONCE IV Last administered on 10/14/17 18:29; Start 10/14/17 at 18:45; Stop 10/14/17 at 19:17; Status DC Trazodone HCl (Desyrel) 150 mg HS PO Last administered on 10/24/17 00:33; Start 10/09/17 at 21:00 Vancomycin HCl 1500 mg/Sodium Chloride 515 ml @ 250 mls/hr ONCE ONCE IV Last administered on 10/23/17 10:43; Start 10/23/17 at 08:00; Stop 10/23/17 at 10 :03; Status DC Vancomycin HCl 2000 mg/Sodium Chloride 520 ml @ 250 mls/hr Q24H IV Last administered on 10/18/17 17:42; Start 10/15/17 at 17:00; Stop 10/22/17 at 09 :27; Status DC A/P Assessment and Plan Myxedema Coma-resolved Metabolic Encephalopathy-improved. - CT head negative - Continue Levothyroxine - stopped Hydrocortisone IV and started on po prednisone - Per Report the patient was noncompliant with administration of her meds, including thyroid medications - Intubated for airway protection 10/12/17, extubated 10/17 Acute hypercarbic hypoxemic respiratory failure-resolved Severe epistaxis with aspiration Bronchial asthma Laryngeal edema-resolved MRSA in sputum/probable pneumonia - Emergently intubated for airway protection 10/12, difficult intubation due to anterior airway, edema the vocal cords - Extubated 10/17, tolerating well. No stridor - DuoNeb every 6 hours scheduled and q2 hours when necessary. Add Symbicort. Pulmonary consulted - switched to po predniosne - treated with IV Vancomycin for MRSA in sputum Hypotension/bradycardia-resolved. Pulmonary vascular congestion-improved. -continue lasix 20 mg po BID. - Continue steroids. Super morbid obesity Dysphagia - Diet per speech recommendation Acute kidney injury Vaginal bleeding - s/p Aggressive hydration, Strict I's and O's - Monitor creatinine and electrolyte levels - Gynecology consulted. s/p TXA with improvement in bleeding - Ultrasound showed endometrial thickening -f/u with TRANSPORT AIDE as outpatient. Anemia requiring transfusion (secondary to chronic disease and acute blood loss) Thrombocytopenia-improving Epistaxis Vaginal bleeding - presented with low platelets. low probability HIT. Platelet count improving - s/p 2 units of platelets 10/12. - Due to active bleeding keep platelet count above 75, received TXA per [facility] DVT GI prophylaxis - Teds SCDs - Subcutaneous heparin held due severe epistaxis vag bleeding and anemia - Pepcid continue PT. Discharge Planning dc to SNF today-pending H/H. see med list. f/u; pcp, pulmonary and TRANSPORT AIDE. d/w the patient and RN. time spent 35 min. Jazmyn Mario MD Oct 24, 2017 09:37
--- NOTE | 2017-10-24 09:41 | HHI.DS ---
Discharge Summary Admission Date Oct 08, 2017 at 20:07 Discharge Date: Oct 24, 2017 Admitting Diagnosis hyperkalemia, CHIOMA, vaginal bleeding, anemia (1) chronic vaginal bleeding Diagnosis: Secondary (2) respiratory failure, aspiration Diagnosis: Principal (3) myxedema crisis Diagnosis: Principal Procedures intubation Brief History - From Admission hx from ER provider communication, review of med records, nursing staff. Patient herself is an elderly lady who is not able to give any meaningful history. She does know her name and her date. However when asked about her symptoms, she is mostly moaning. A few minutes later though, she answered her review of system although the answer is no to every single symptoms. As per ER triage notes, patient was sent from [facility] for altered mental status of 2 weeks duration. It was stated the patient was refusing treatment for 1 week. Today the power of banking attorney instructed staff at the halfway to send the patient to ER. Per ER report, patient was also not given any history there. Patient was also combative, alert, oriented only to self in ER. They had placed patient on soft wrist restraints in ER. Patient is morbidly obese. Further workup in ER revealed hyperkalemia of 5.5 although it is a hemolyzed sample. She also was found to be in acute renal failure will. Sanches catheter was placed in ER and did not reveal any acute retention. Patient was also admitted in August 2017 here. She has had vaginal bleeding at that time and transvaginal ultrasound was refused although pelvic ultrasound itself was normal. The vaginal bleeding at that time was thought to be secondary to Sanches catheter insertion which was traumatic. Today's ER provider examination revealed large blood clots noted at the vaginal introitus. Patient also does have history of seizure disorders. Patient is on Keppra at the nursing facility. Unsure whether she was refusing her medications there. While in emergency room, for her potassium of 5.5 which was slightly hemolyzed in face of acute renal failure, patient was given cocktail treatment for hyperkalemia. She did receive the treatment except for Kayexalate because when her nurse did nursing bedside swallow evaluation, he was afraid the patient is not able to swallow. Patient was then sent to the medical floors. Upon my arrival to medical floor, patient was noted to be bradycardic. Her heart rate was bouncing between 35-60. She seems to be asymptomatic as she is refusing any symptoms. Her blood pressure was maintaining well as well. While I was still on the floor, telemetry monitoring also reveals 2 seconds pause. Patient is a known atrial fibrillation patient. No pacemaker. CBC/BMP: 10/22/17 0520 10/22/17 0520 Significant Findings Laboratory Tests Test 10/22/17 05:20 Red Blood Count 2.94 MIL/MM3 (4.00-5.30) Hemoglobin 7.9 GM/DL (11.6-15.3) Hematocrit 24.7 % (35.0-46.0) Mean Corpuscular Hemoglobin 26.8 PG (27.0-34.0) Mean Corpuscular Hemoglobin Concent 31.9 % (32.0-36.0) Red Cell Distribution Width 22.2 % (11.6-17.2) Platelet Count 146 TH/MM3 (150-450) Monocytes (%) (Auto) 10.8 % (0.0-8.0) Blood Urea Nitrogen 31 MG/DL (7-18) Creatinine 1.07 MG/DL (0.50-1.00) Random Glucose 178 MG/DL (74-106) Calcium Level 8.1 MG/DL (8.5-10.1) Sodium Level 146 MEQ/L (136-145) Chloride Level 116 MEQ/L (98-107) Estimat Glomerular Filtration Rate 60 ML/MIN (>89) Imaging Last Impressions Chest X-Ray 10/21/17 0600 Signed Impressions: Service Date/Time: Saturday, October 21, 2017 04:59 - CONCLUSION: Diffuse increased density seen to the lung likely representing edema which appears fairly similar to the prior exam. Hans Decker MD Abdomen X-Ray 10/17/17 0000 Signed Impressions: Service Date/Time: Tuesday, October 17, 2017 07:37 - CONCLUSION: 1. No evidence of bowel obstruction or ileus. 2. Degenerative changes and scoliosis of the thoracolumbar spine. Edinson Adan MD Pelvis Ultrasound 10/09/17 0000 Signed Impressions: Service Date/Time: Monday, October 09, 2017 16:54 - CONCLUSION: 1. Limited evaluation secondary to patient's size 2. Mild ascites 3. Thickened endometrial stripe which may reflect hyperplasia or malignancy. Elie Colin MD Head CT 10/08/17 1653 Signed Impressions: Service Date/Time: October 18:14 - CONCLUSION: 1. Stable left parietal encephalomalacia. 2. No acute infarct, acute hemorrhage, mass effect or extra axial fluid collections. Edinson Adan MD PE at Discharge GENERAL: in no apparent distress. CARDIOVASCULAR: Regular rate and regular rhythm without murmurs, gallops, or rubs. RESPIRATORY: Clear to auscultation. Breath sounds equal bilaterally. No wheezes , rales, or rhonchi. GASTROINTESTINAL: Abdomen soft, non-tender, nondistended. Normal, active bowel sounds MUSCULOSKELETAL: Extremities without clubbing, cyanosis, or edema. NEURO: awake and alert. oriented to person and place but not to time. Hospital Course patient was admitted with respiratory failure and myxedema coma. she was intubated and started on IV steroid and Levothyroxine. her condition was stabilized and was extubated and transferred to medical floor. she was evaluated by TRAFFIC SURVEY TECHNICIAN who recommended outpatient follow-up.she was also evaluated by pulmonary. the rest of the course in the hospital on floor was uneventful. her plavix was stopped during this admission due to vaginal bleeding and thrombocytopenia. Pt Condition on Discharge: Fair Discharge Disposition: Discharge to SNF Discharge Time: > 30 minutes Discharge Instructions DIET: Follow Instructions for: Heart Healthy Diet Activities you can perform: Regular-No Restrictions Follow up Referrals: [facility] PCP Follow-up Pulmonology New Medications: Prednisone (Prednisone) 5 Mg Tab 5 MG PO DIRECTED for Shortness of Breath for 10 Days, TAB 0 Refills 40 mg po daily for two days then 30 mg po daily for two days then 20 mg po daily for two days then 10 mg po daily for two days then 5 mg po daily for two days then stop. Furosemide (Furosemide) 20 Mg Tab 20 MG PO BID@,18 for diuretic for 30 Days, TAB 0 Refills Potassium Bicarb-Chloride Effervescent (Effervescent Potassium Chloride 25 Meq) 25 Meq Tab 25 MEQ PO DAILY for electrolyte supplement for 30 Days, #30 TAB 0 Refills [Albuterol-Ipratropium Neb] () 1 AMPULE NEBU 1 AMPULE NEB Q4HR PRN for SOB, wheezing for 10 Days, 0 Refills [Budeson-Formot 160-4.5 Mcg Inh] () 60 PUFF AERO 1 PUFF INH Q12HR for Shortness of Breath, #1 0 Refills Continued Medications: Atorvastatin (Lipitor) 40 Mg Tab 40 MG PO HS for Cholesterol Management, #30 TAB 0 Refills Insulin Detemir Inj (Levemir Inj) 1,000 unit/ 10 ML Vial 8 UNITS SQ DAILY for Blood Sugar Management, VIAL 0 Refills Do not mix with any other Insulin. Insulin Lispro (Human) Inj (Humalog Inj) 1,000 Unit/10 Ml Vial 2-12 UNITS SQ ACHS for Blood Sugar Management, #1 VIAL 0 Refills Max dose at bedtime:( )units; sugars < 70,(0)units; sugars 150-199,(2)units; sugars 200-249,(4)units; sugars 250-299,(7)units; sugars 300-349,(10)units; sugars more than 349,(12)units. Levetiracetam Liq (Levetiracetam Liq) 500 Mg/5 Ml Soln 1500 MG PO DAILY for Control Seizures, #300 ML 0 Refills Levothyroxine (Levothyroxine) 125 Mcg Tab 125 MCG PO DAILY for Thyroid, #30 TAB 0 Refills Risperidone (Risperdal) 1 Mg Tab 1 MG PO TID, #30 TAB 0 Refills Trazodone (Trazodone) 150 Mg Tablet 150 MG PO HS for Control Depression, #30 TAB 0 Refills Discontinued Medications: Clopidogrel (Plavix) 75 Mg Tab 75 MG PO DAILY for Blood Clot Prevention, #30 TAB 0 Refills Glipizide (Glipizide) 5 Mg Tab 5 MG PO TID for Blood Sugar Management, #60 TAB 0 Refills Take 30 minutes before a meal Hydrochlorothiazide (Hydrochlorothiazide) 12.5 Mg Cap 12.5 MG PO DAILY, #30 CAP 0 Refills Insulin Lispro (Human) Inj (Humalog Inj) 1,000 Unit/10 Ml Vial 7 UNITS SQ DAILY for Blood Sugar Management, #1 VIAL 0 Refills Lisinopril (Lisinopril) 2.5 Mg Tab 2.5 MG PO DAILY, #30 TAB 0 Refills Jazmyn Mario MD Oct 24, 2017 09:41
[2017-10-24 09:42] LABS: HEMATOCRIT 26.9 % (35.0-46.0)
[2017-10-24] MEDS: predniSONE 20 MG TAB PO SCH (10:21)
[2017-10-24] MEDS: FUROSEMIDE 20 MG TAB PO SCH ×2 (10:21→18:00)
[2017-10-24] MEDS: risperiDONE 1 MG TAB PO SCH ×3 (10:21→13:39)
[2017-10-24] MEDS: levETIRAcetam 500 MG TAB PO SCH (10:21)
[2017-10-24] MEDS: POTASSIUM CHLORIDE 25 MEQ EFFERVESCENT TAB PO SCH (10:22)
[2017-10-24] MEDS ORDERED: KLYTECL PO (11:30)
[2017-10-24] MEDS ORDERED: FURO20TA PO (11:30)
[2017-10-24] MEDS ORDERED: Albuterol-Ipratropium Neb NEB (11:32)
--- NOTE | 2017-10-24 17:25 | HHI.PR ---
Subjective Remarks 77 YO Morbidly obese AA Female with SOB, obesity Mild sob Weaned to RA No fever Objective Vital Signs Vital Signs Date Time Temp Pulse Resp B/P (MAP) Pulse Ox O2 Delivery O2 Flow Rate FiO2 10/24/17 16:55 93 21 10/24/17 16:02 97.4 73 21 110/55 (73) 96 10/24/17 12:05 78 21 109/55 (73) 95 10/24/17 08:07 94 Nasal Cannula 2.00 10/24/17 08:05 97.6 78 22 98/55 (69) 94 10/24/17 04:00 97.7 74 16 95/51 (66) 99 10/24/17 00:00 74 10/24/17 00:00 74 10/24/17 00:00 98.6 80 16 120/60 (80) 100 10/23/17 20:00 97.2 78 16 117/57 (77) 100 10/23/17 19:00 Nasal Cannula 2.00 I/O 10/23/17 10/23/17 10/23/17 10/24/17 10/24/17 10/24/17 07:00 15:00 23:00 07:00 15:00 23:00 Intake Total 580 ml 515 ml 255 ml Balance 580 ml 515 ml 255 ml Intake Oral 480 ml 255 ml IV Total 100 ml 515 ml # Voids 4 2 # Bowel Movements 1 0 Result Diagram: 10/24/17 0933 10/22/17 0520 Objective Remarks GENERAL: Morbidly obese AA female SKIN: Warm and dry. HEAD: Normocephalic. EYES: No scleral icterus. No injection or drainage. NECK: Supple, trachea midline. No JVD or lymphadenopathy. CARDIOVASCULAR: Regular rate and rhythm without murmurs, gallops, or rubs. RESPIRATORY: Breath sounds equal bilaterally. No accessory muscle use. GASTROINTESTINAL: Abdomen soft, non-tender, nondistended. Large Panus MUSCULOSKELETAL: No cyanosis, chronic edema. BACK: Nontender without obvious deformity. No CVA tenderness. A/P Assessment and Plan Resp insuff Morbid obesity Bronchial asthma Pneumonia PLAN: Aerosol nebs Supplement 02 CPAP prn DC plans underway Kirk Gurrola MD Oct 24, 2017 17:25
== END 2017-10-24 22:09 | DRG 80 ==
LOC: NEPC 16:37 → NEDA 20:07 → N06A 22:15 → N03A 23:46 → N04B 10-20 22:08
PROVIDERS: ADMIT Internal Medicine; ATTEND Internal Medicine
PROC: 0T9B70Z Drainage of Bladder with Drainage Device, Via Natural or Artificial Opening (ICD-10-PCS; 2017-10-08)
PROC: 6A551Z2 Pheresis of Platelets, Multiple (ICD-10-PCS; 2017-10-10)
PROC: 5A1955Z Respiratory Ventilation, Greater than 96 Consecutive Hours (ICD-10-PCS; principal; 2017-10-12)
PROC: 0BH17EZ Insertion of Endotracheal Airway into Trachea, Via Natural or Artificial Opening (ICD-10-PCS; 2017-10-12)
PROC: 30253N1 (ICD-10-PCS; 2017-10-12)
PROC: 30253K1 (ICD-10-PCS; 2017-10-14)
DX: E03.5 Myxedema coma (principal); J18.9 Pneumonia, unspecified organism; N17.9 Acute kidney failure, unspecified; G93.41 Metabolic encephalopathy; E87.4 Mixed disorder of acid-base balance; E44.0 Moderate protein-calorie malnutrition; J96.01 Acute respiratory failure with hypoxia; J96.02 Acute respiratory failure with hypercapnia; I48.91 Unspecified atrial fibrillation; D69.6 Thrombocytopenia, unspecified; D62 Acute posthemorrhagic anemia; E66.2 Morbid (severe) obesity with alveolar hypoventilation; I95.9 Hypotension, unspecified; E87.5 Hyperkalemia; G93.89 Other specified disorders of brain; T17.990A Other foreign object in respiratory tract, part unspecified in causing asphyxiation, initial encounter; I10 Essential (primary) hypertension; D63.8 Anemia in other chronic diseases classified elsewhere; E11.9 Type 2 diabetes mellitus without complications; G40.909 Epilepsy, unspecified, not intractable, without status epilepticus; Z78.1 Physical restraint status; I25.10 Atherosclerotic heart disease of native coronary artery without angina pectoris; Z86.73 Personal history of transient ischemic attack (TIA), and cerebral infarction without residual deficits; R00.1 Bradycardia, unspecified; N93.9 Abnormal uterine and vaginal bleeding, unspecified; K21.9 Gastro-esophageal reflux disease without esophagitis; Z86.711 Personal history of pulmonary embolism; Z87.440 Personal history of urinary (tract) infections; F32.9 Major depressive disorder, single episode, unspecified; E78.5 Hyperlipidemia, unspecified; G47.00 Insomnia, unspecified; Z79.4 Long term (current) use of insulin; M19.90 Unspecified osteoarthritis, unspecified site; E03.9 Hypothyroidism, unspecified; Z99.3 Dependence on wheelchair; Z74.01 Bed confinement status; Z91.19 Patient's noncompliance with other medical treatment and regimen; Z91.14 Patient's other noncompliance with medication regimen; R04.0 Epistaxis; F41.9 Anxiety disorder, unspecified; R93.8 Abnormal findings on diagnostic imaging of other specified body structures; N83.201 Unspecified ovarian cyst, right side; J45.909 Unspecified asthma, uncomplicated
CPT/HCPCS: 31500; 36430; 36556; 36569; 36600; 70450; 71010; 74000; 76856; 76937; 80048; 80053; 80202; 80307; 81001; 82140; 82550; 82805; 82948; 83605; 83735; 84100; 84155; 84436; 84439; 84443; 84481; 84484; 85007; 85014; 85018; 85025; 85027; 85610; 85730; 86403; 86850; 86900; 86901; 86920; 86927; 87015; 87040; 87070; 87086; 87147; 87186; 87205; 87641; 93005; 93306; 94002; 94003; 94150; 94640; 94664; 94667; 94668; 95819; 96374; 96375; J0461; J0610; J1200; J1265; J1720; J1940; J1953; J2060; J2250; J2543; J3370; J3480; J7030; J7040; J7050; J7512; P9016; P9017; P9031; P9035; P9045; P9612

== ENCOUNTER 2017-10-26 13:36 | Emergency (ER) | payer MEDICARE, OTHER ==
[~2017-10-26] VITALS: Ht 165.1 cm; Wt 222.0 kg
[~2017-10-26 13:36] MED LIST changes: -ACET325 PO; -ATOR40TA PO; +Albuterol-Ipratropium Neb NEB; +Budeson-Formot 160-4.5 Mcg Inh INH; -CEFU1TAB18 PO; -CLAR10TA7 PO; -DEEP0.65 EACH NARE; -DILA100C PO; -DOCU1CAP39 PO; +FURO20TA PO; -GLIP5 PO; -GLUC1KIT IM; -HUMA100I SQ; +HUMALOG SQ; -HUMSS SQ; -HYDR12.56 PO; -KEPP1000 PO; -KETO2%T TOP; +KLYTECL PO; +LEVE100S PO; -LEVO100T4 PO; +LEVO125T4 PO; +LIPI40TA PO; -LISI2.5T55 PO; -MILKSUS5 PO; -PLAV75TA PO; +PRED5TAB PO; +RISP1 PO; -ROBISYP PO; +TRAZ1TAB14 PO; -[UNRECOGNIZED DRUG - CODE] TOPICAL
[2017-10-26 13:53] VITALS: BP 107/57; PULSE 73; RESP 20; TEMP 97.3; O2SAT 98
[2017-10-26] MEDS ORDERED: ASPI-516 CHEW (14:11)
--- NOTE | 2017-10-26 14:35 | PD ---
Data Data Last Documented VS Vital Signs Date Time Temp Pulse Resp B/P (MAP) Pulse Ox O2 Delivery O2 Flow Rate FiO2 10/26/17 20:21 10/26/17 13:53 97.3 73 20 98 Room Air Orders Orders Ed Discharge Order (10/26/17 14:47) MDM Supervised Visit with BASIL: Yes Narrative Course I, Dr. Goodwin, have reviewed the advance practice practitioner's documentation and am in agreement, met with the patient face to face, made the diagnosis, and the medical decision making was done by me. *My assessment and Findings: Patient seen and examined by me in addition to Jessica YBARRA. This 77- year-old female alert and awake and oriented, although she missed today's date by one day, she states she is tired of being bounced around from hospital to hospital and just wanted to call drink of water to see her family and to go home. She has no complaints Currently. I spoke with the long term nurse who stated the patient had been sleeping soundly when I went to check her vital signs her oxygen saturation was low, she is apparently supposed to be on oxygen all times. They had some difficulty arousing her and when they did she was back to normal mental status: The time EMS arrived, they called her son who wished that she be transported to the hospital anyways for evaluation. 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 However without any altered mental status I highly doubt this diagnosis today. Had a lengthy discussion with the patient's son Castillo by telephone, I informed him that I was uncomfortable performing laboratory tests or imaging on a patient who adamantly declined at this time and she is alert and awake and oriented. He has been from my opinion in my opinion is that the patient may have had an apneic episode or possibly even a sleep apneic episode and is now back to normal baseline status, without physical complaint and she declining my evaluation I think the patient should be discharged back to the nursing facility with instructions that she could return at any time should the symptoms persist and at that time we can consider more aggressive workup. The patient's son is agreeable to this course of action. The patient was observed for at least an hour prior to being formally discharged and then while waiting for transport was served for additional few hours all with no desaturation. She has tolerated by mouth liquids well in the emergency department. She is stable for discharge. Edinson Goodwin MD Oct 26, 2017 14:35
--- NOTE | 2017-10-26 14:43 | PD ---
HPI Chief Complaint: Altered Mental Status Time Seen by Provider: 14:34 Travel History International Travel<30 days: No Contact w/Intl Traveler<30days: No Traveled to known affect area: No History of Present Illness HPI 77 year old female patient arrives via EMS from [facility] for evaluation after she was sleeping this afternoon and took longer than usual to wake up. Nursing staff reports he took her oxygenation at that time and she was found to be hypoxic according to the nursing staff. They did not specify the level of hypoxia. Upon arrival the patient was 98% O2 saturation on room air. Her vital signs are within normal limits at this time. Patient has a history of sleep apnea and is severely morbidly obese. Upon arrival to the emergency department the patient is alert and oriented 4, moving all extremities and is agitated about being in the hospital. She is speaking coherently. She denies any physiological complaints at this time. PFSH Past Medical History Anemia: Yes Arthritis: Yes Asthma: No Atrial Fibrillation: Yes Blood Disorders: Yes (HX OF PE) Anxiety: Yes Heart Rhythm Problems: Yes (A FIB) Cancer: No Cardiovascular Problems: Yes High Cholesterol: Yes Chest Pain: No Congestive Heart Failure: No COPD: No Cerebrovascular Accident: Yes Dementia: Yes Diabetes: Yes Patient Takes Glucophage: No Endocrine: Yes Gastrointestinal Disorders: Yes (CHRONIC CONSTIPATION, DIARRHEA) GERD: Yes Genitourinary: Yes (UTI) Hypertension: Yes Immune Disorder: No Implanted Vascular Access Dvce: No Insomnia: Yes Medical other: Yes (morbid obesity) Musculoskeletal: Yes Neurologic: Yes (NUMBNESS TINGLING) Psychiatric: No Reproductive: Yes (IN REPORT "CHILDREN STATED CHRONIC VAGINAL BLEEDING") Respiratory: No Immunizations Current: Yes Seizures: Yes Sleep Apnea: No Thyroid Disease: Yes Triglycerides - High: Yes ?: Not Menopausal: Yes Past Surgical History Surgical History: Unable to Obtain Abdominal Surgery: No Cardiac Surgery: No Ear Surgery: No Endocrine Surgery: No Eye Surgery: No Genitourinary Surgery: No Gynecologic Surgery: No Neurologic Surgery: No Oral Surgery: No Pacemaker: No Thoracic Surgery: No Other Surgery: Yes Social History Alcohol Use: No Tobacco Use: No Substance Use: No Allergies-Medications (Allergen,Severity, Reaction): Coded Allergies: No Known Allergies (Verified Adverse Reaction, Unknown, 10/26/17) Reported Meds & Prescriptions Reported Meds & Active Scripts Active [Albuterol-Ipratropium Neb] 1 AMPULE Nebu 1 Ampule NEB Q4HR PRN 10 Days Furosemide 20 Mg Tab 20 Mg PO BID@,18 30 Days Effervescent Potassium Chloride 25 Meq (Potassium Bicarb/Potassium Chloride) 25 Meq Tab 25 Meq PO DAILY 30 Days Prednisone 5 Mg Tab 5 Mg PO DIRECTED 10 Days 40 mg po daily for two days then 30 mg po daily for two days then 20 mg po daily for two days then 10 mg po daily for two days then 5 mg po daily for two days then stop. [Budeson-Formot 160-4.5 Mcg Inh] 60 PUFF Aero 1 Puff INH Q12HR Reported Aspirin 81 Mg Chew 81 Mg CHEW DAILY Risperdal (Risperidone) 1 Mg Tab 1 Mg PO TID Lipitor (Atorvastatin Calcium) 40 Mg Tab 40 Mg PO HS Levetiracetam Liq (Levetiracetam) 500 Mg/5 Ml Soln 1,500 Mg PO DAILY Levothyroxine (Levothyroxine Sodium) 125 Mcg Tab 125 Mcg PO DAILY Trazodone (Trazodone HCl) 150 Mg Tablet 150 Mg PO HS Levemir Inj (Insulin Detemir) 1,000 unit/ 10 ML Vial 8 Units SQ HS Do not mix with any other Insulin. Humalog Inj (Insulin Human Lispro) 1,000 Unit/10 Ml Vial 2-12 Units SQ ACHS Max dose at bedtime:( )units; sugars < 70,(0)units; sugars 150-199,(2)units; sugars 200-249,(4)units; sugars 250-299,(7)units; sugars 300-349,(10)units; sugars more than 349,(12)units. Review of Systems Except as stated in HPI: all other systems reviewed are Neg Physical Exam Exam Limitations: Uncooperative Narrative GENERAL: Well-nourished, well-developed severely morbidly obese 77-year-old female patient. SKIN: Focused skin assessment cool/dry. HEAD: Normocephalic. Atraumatic. EYES: No scleral icterus. No injection or drainage. NECK: Supple, trachea midline. No JVD or lymphadenopathy. CARDIOVASCULAR: Regular rate and rhythm without murmurs, gallops, or rubs. RESPIRATORY: Breath sounds equal bilaterally, diminished in bilateral bases. No accessory muscle use. GASTROINTESTINAL: Abdomen large, round, soft, non-tender, nondistended. MUSCULOSKELETAL: 1+ pitting edema to bilateral lower extremities. No obvious deformity, no ecchymosis, no erythema. Data Data Last Documented VS Vital Signs Date Time Temp Pulse Resp B/P (MAP) Pulse Ox O2 Delivery O2 Flow Rate FiO2 10/26/17 13:53 97.3 73 20 107/57 (74) 98 Room Air Orders Orders Ed Discharge Order (10/26/17 14:47) MDM Medical Decision Making Medical Screen Exam Complete: Yes Emergency Medical Condition: Yes Medical Record Reviewed: Yes Differential Diagnosis Differential diagnoses include but not limited to sleep apnea episode, hypoxia, lethargy Narrative Course Upon arrival patient is assessed and vital signs are within normal limits, patient is a physiological complaints and she is alert and oriented 4. Dr. Goodwin called patient's son and relayed the information and formulated a plan of care. Patient will be discharged back to the half-way facility, [facility] at this time. Patient has history of sleep apnea and is severely morbidly obese these 2 etiologies most likely contributed to the hypoxic episode when the patient was waking up. Patient is stable for discharge at this time. Transport being arranged by case management. Diagnosis Primary Impression: Hypoxic episode Referrals: Primary Care Physician Patient Instructions: General Instructions, Sleep Apnea (DC) Additional Instructions: Please return to emergency department if your symptoms return or worsen. Follow up with your primary care provider. Disposition: 01 DISCHARGE HOME Condition: Stable Jessica Pascual Oct 26, 2017 14:43
== END 2017-10-26 20:32 | disposition home or self-care (01) ==
LOC: NEPC 13:36
DX: R09.02 Hypoxemia (principal); G47.30 Sleep apnea, unspecified; E66.01 Morbid (severe) obesity due to excess calories; I48.91 Unspecified atrial fibrillation; I10 Essential (primary) hypertension; E11.9 Type 2 diabetes mellitus without complications; E78.00 Pure hypercholesterolemia, unspecified; E07.9 Disorder of thyroid, unspecified; F03.90 Unspecified dementia, unspecified severity, without behavioral disturbance, psychotic disturbance, mood disturbance, and anxiety
CPT/HCPCS: 99282